=== PATIENT | female | born 1945 | race African-American/Black ===

== ENCOUNTER → 2016-10-10 | Outpatient (CLI) | payer MEDICARE ==
[2016-10-10 15:13] LABS: HEMATOCRIT 30.4 % (36.0-47.0); HEMOGLOBIN 9.4 g/dL (12.0-15.5); HGB HCT DIFFERENCE -2.2; MEAN CORPUSCULAR HEMOGLOBIN 25.3 pg (27.0-33.4); MEAN CORPUSCULAR HGB CONC 30.9 g/dL (32.0-36.0); MEAN CORPUSCULAR VOLUME 82 fl (80-97); RED BLOOD COUNT 3.72 10^6/uL (3.72-5.28); RED CELL DISTRIBUTION WIDTH 15.7 % (11.5-14.0); WHITE BLOOD COUNT 7.2 10^3/uL (4.0-10.5)
[2016-10-10 15:31] LABS: ANION GAP 15 (5-19); BLOOD UREA NITROGEN 35 mg/dL (7-20); CALCIUM 8.5 mg/dL (8.4-10.2); CARBON DIOXIDE 21 mmol/L (22-30); CHLORIDE 112 mmol/L (98-107); CREATININE RESULT 1.79 mg/dL (0.52-1.25); GLUCOSE 152 mg/dL (75-110); POTASSIUM 4.4 mmol/L (3.6-5.0); SODIUM 147.6 mmol/L (137-145)
[2016-10-12 15:18] LABS: APPEARANCE,URINE CLEAR; BILIRUBIN,URINE NEGATIVE (NEGATIVE); GLUCOSE, URINE NEGATIVE (NEGATIVE); KETONES,URINE NEGATIVE (NEGATIVE); LEUKOCYTE ESTERASE,URINE NEGATIVE (NEGATIVE); NITRITE,URINE NEGATIVE (NEGATIVE); PROTEIN,URINE 100 mg/dL (NEGATIVE); URINE SPECIFIC GRAVITY 1.012; UROBILINOGEN,URINE NEGATIVE mg/dL (<2.0)
== END ==
LOC: OD 14:26
PROVIDERS: ATTEND Internal Medicine Nephrology
DX: E11.22 Type 2 diabetes mellitus with diabetic chronic kidney disease (principal); I12.9 Hypertensive chronic kidney disease with stage 1 through stage 4 chronic kidney disease, or unspecified chronic kidney disease; N18.4 Chronic kidney disease, stage 4 (severe); D64.9 Anemia, unspecified
CPT/HCPCS: 36415; 80048; 81001; 85027

== ENCOUNTER → 2016-11-15 | Outpatient (CLI) | payer MEDICARE ==
[2016-11-15 17:14] LABS: HEMATOCRIT 33.4 % (36.0-47.0); HEMOGLOBIN 10.7 g/dL (12.0-15.5); HGB HCT DIFFERENCE -1.3; MEAN CORPUSCULAR HEMOGLOBIN 25.5 pg (27.0-33.4); MEAN CORPUSCULAR HGB CONC 32.2 g/dL (32.0-36.0); MEAN CORPUSCULAR VOLUME 79 fl (80-97); RED BLOOD COUNT 4.21 10^6/uL (3.72-5.28); RED CELL DISTRIBUTION WIDTH 14.5 % (11.5-14.0); WHITE BLOOD COUNT 6.8 10^3/uL (4.0-10.5)
[2016-11-15 17:36] LABS: ANION GAP 13 (5-19); BLOOD UREA NITROGEN 34 mg/dL (7-20); CALCIUM 9.5 mg/dL (8.4-10.2); CARBON DIOXIDE 24 mmol/L (22-30); CHLORIDE 109 mmol/L (98-107); CREATININE RESULT 1.62 mg/dL (0.52-1.25); GLUCOSE 101 mg/dL (75-110); POTASSIUM 3.9 mmol/L (3.6-5.0); SODIUM 145.7 mmol/L (137-145)
== END ==
LOC: OD 16:07
PROVIDERS: ATTEND Internal Medicine Nephrology
DX: I12.9 Hypertensive chronic kidney disease with stage 1 through stage 4 chronic kidney disease, or unspecified chronic kidney disease (principal); N18.4 Chronic kidney disease, stage 4 (severe); D64.9 Anemia, unspecified; E11.9 Type 2 diabetes mellitus without complications; R80.9 Proteinuria, unspecified
CPT/HCPCS: 36415; 80048; 82728; 83540; 83550; 85027

== ENCOUNTER → 2016-11-27 | Outpatient (CLI) | payer MEDICARE ==
[2016-11-27 15:49] LABS: HEMATOCRIT 32.8 % (36.0-47.0); HEMOGLOBIN 10.6 g/dL (12.0-15.5); MEAN CORPUSCULAR HEMOGLOBIN 25.4 pg (27.0-33.4); MEAN CORPUSCULAR HGB CONC 32.5 g/dL (32.0-36.0); MEAN CORPUSCULAR VOLUME 78 fl (80-97); RED BLOOD COUNT 4.19 10^6/uL (3.72-5.28); RED CELL DISTRIBUTION WIDTH 14.6 % (11.5-14.0); WHITE BLOOD COUNT 6.5 10^3/uL (4.0-10.5)
== END ==
LOC: OD 15:02
PROVIDERS: ATTEND Internal Medicine Nephrology
DX: N18.4 Chronic kidney disease, stage 4 (severe) (principal); D63.1 Anemia in chronic kidney disease
CPT/HCPCS: 36415; 82728; 83540; 83550; 85027

== ENCOUNTER 2017-02-01 07:25 | Emergency (ER) | payer MEDICARE ==
[2017-02-01] MEDS ORDERED: LORAZEPAM INJ 2 MG/1 ML VIAL ONE (07:43)
[2017-02-01] MEDS ORDERED: INSULIN REG, HUMAN 100 UNIT/ML 3 ML VIAL (PYX) ONE (07:48)
--- NOTE | 2017-02-01 07:48 | ER Document Report ---
ED General - General Chief Complaint: High Blood Sugar Stated Complaint: BLOOD SUGAR CONCERNS Time Seen by Provider: 02/01/17 07:34 Mode of Arrival: Medic Information source: Emergency Med Personnel, [facility] Records Notes: This is a 71-year-old female with a history of chronic kidney disease, diabetes , pulmonary hypertension. The patient is brought in by EMS after being found on the floor. EMS states that the patient was combative and that the blood sugar was "high". Her blood pressure in the field was 182/110. She was tachycardic with a heart rate of 1:30 and tachypnea with a respiratory rate of 28-32. In the emergency room, while I was at the bedside, patient was noted to have a generalized tonic-clonic seizure. Accu-Chek at the bedside and the ER reads "high". History as per the patient's daughter who was at home today: The patient has felt well up until last night. This morning she called her daughter into the room and her daughter found her on the floor. Her daughter was trying to get her off the floor when the patient had a generalized tonic- clonic seizure. TRAVEL OUTSIDE OF THE [place] IN LAST 30 DAYS: No - HPI Onset: Other - Last night Onset/Duration: Sudden Quality of pain: No pain Severity: None Pain Level: Denies Associated symptoms: denies: Chills, Nonproductive cough, Productive cough, Fever, Shortness of breath Exacerbated by: Denies Relieved by: Denies Similar symptoms previously: Yes Recently seen / treated by doctor: No - Related Data Allergies/Adverse Reactions: No Known Allergies Allergy (Unverified 01/03/11 00:32) Past Medical History - General Information source: Relative - Patient's daughter, Emergency Med Personnel - Social History Smoking Status: Never Smoker Cigarette use (# per day): No Chew tobacco use (# tins/day): No Frequency of alcohol use: None Drug Abuse: None Lives with: Family Family History: Reviewed & Not Pertinent Patient has suicidal ideation: No Patient has homicidal ideation: No - Past Medical History Cardiac Medical History: Reports: Hx Heart Attack, Hx Hypercholesterolemia, Hx Hypertension Pulmonary Medical History: Reports: None Denies: Hx Tuberculosis Neurological Medical History: Reports: Hx Cerebrovascular Accident. Denies: Hx Seizures Endocrine Medical History: Reports: Hx Diabetes Mellitus Type 2 - uncontrolled Renal/ Medical History: Reports: Other - Chronic kidney disease Malignancy Medical History: Reports: None GI Medical History: Reports: None Musculoskeltal Medical History: Reports None Skin Medical History: Denies Hx MRSA Psychiatric Medical History: Denies: Hx Depression Traumatic Medical History: Reports: None Infectious Medical History: Reports: None Past Surgical History: Reports: Hx Section, Hx Hysterectomy. Denies: Hx Pacemaker - Immunizations Hx Pneumococcal Vaccination: 10/25/10 Review of Systems - Review of Systems Constitutional: denies: Chills, Fever EENT: No symptoms reported Cardiovascular: No symptoms reported Respiratory: See HPI Gastrointestinal: No symptoms reported Genitourinary: No symptoms reported Female Genitourinary: No symptoms reported Musculoskeletal: No symptoms reported Skin: No symptoms reported Hematologic/Lymphatic: No symptoms reported Neurological/Psychological: See HPI Physical Exam - Vital signs Vitals: Pulse Ox 100 02/01/17 07:27 Notes: Physical exam: GENERAL: 71-year-old female, obtunded. Patient did have a generalized tonic- clonic seizure with tongue biting while I was present. She is hypertensive. HEAD: Atraumatic, normocephalic. EYES: Pupils equal round and reactive to light, extraocular movements intact, sclera anicteric, conjunctiva are normal. ENT: TMs normal, nares patent, oropharynx clear without exudates. Moist mucous membranes. NECK: Normal range of motion, supple without lymphadenopathy or JVD. LUNGS: Breath sounds clear to auscultation bilaterally and equal. No wheezes rales or rhonchi. HEART: Regular rate and rhythm without murmurs, rubs or gallops. ABDOMEN: Soft, normoactive bowel sounds. No tenderness to palpation. No guarding, no rebound. No masses appreciated. EXTREMITIES: Normal range of motion, no pitting or edema. No clubbing or cyanosis. NEUROLOGICAL: Moving all extremities. Obtunded. Generalized tonic-clonic activity noted. SKIN: Warm, Dry, normal turgor, no rashes or lesions noted. Course - Re-evaluation Re-evalutation: 02/01/17 11:07 Note: The patient has had 2 generalized tonic-clonic seizures without a lucid interval in the setting of hyperglycemia hyperosmolar syndrome. She was noted to have marked elevation in her blood pressure and was in CT when I was called into CT because of respiratory difficulty. Patient was intubated for respiratory failure/airway protection. Right femoral central line was performed under sterile technique with the use of ultrasound. Two ports (the red and the white) are able to be flushed. I was unable to flush the blue port: I would hold off from using the blue port. 02/01/17 11:09 Currently, patient is intubated. O2 sats are 100%. Oxygen concentration saturation 40%. Tidal volume 500, IMV 12, PEEP 5. Chest x-ray shows tube in the right mainstem bronchus. Respiratory called to move back tube. 02/01/17 11:09 02/01/17 12:14 Problem list: Seizures: Patient had 2 seizures without a lucid interval and then required intubation for respiratory failure. It is possible that she is in status. She was given IV Ativan. She is currently on a ventilator. In speaking with the family, they report that she has had seizure in the past in relation to an elevated blood sugar. The hospital records show that she has hyperglycemia hyperosmolar syndrome in the past. The head CT shows no acute bleed no obvious stroke. Consider EEG in the unit. Hyperglycemia hyperosmolar state: Patient is currently on 0.14 units per kg of insulin. A bolus of insulin was given after 1 hour after the repeat glucose was still quite high. Patient is getting IV fluids. Patient is getting IV potassium. Lactic acidosis: [place] most likely due to recurrent seizures. Patient is getting IV fluids. There is no obvious source of infection at this point. Patient was given IV Zosyn and has had blood and urine cultures. Hypertensive emergency: Patient's blood pressure has been quite labile. It has initially come down with propofol and we will wean the propofol down (because of the blood pressure), began elevate. We'll closely monitor. Ventilator: Tidal volume 500, people 5, SIMV 12 at 40% Access: 2 peripheral lines, left femoral central line (2 ports working at this time). Discussed case with Dr. Cunningham at [facility] who has accepted patient 02/01/17 16:38 - Vital Signs Vital signs: Temp Pulse Resp BP Pulse Ox 99.3 F 19 129/67 H 100 02/01/17 12:46 02/01/17 12:46 02/01/17 12:46 02/01/17 12:46 - Laboratory Result Diagrams: 02/01/17 07:30 02/01/17 11:00 Laboratory results interpreted by me: 02/01/17 02/01/17 02/01/17 07:30 07:30 07:30 MCH 24.8 L MCHC 30.3 L RDW 14.9 H Plt Count 132 L VBG pH VBG HCO3 Sodium 136.6 L Potassium 3.4 L Chloride 95 L Carbon Dioxide 19 L Anion Gap 23 H BUN 34 H Creatinine 2.38 H Est GFR ( Amer) 24 L Est GFR (Non-Af Amer) 20 L Glucose 967 H* POC Glucose Serum Osmolality Lactic Acid Alkaline Phosphatase 185 H Creatine Kinase 278 H CK-MB (CK-2) 5.18 H Urine Protein Urine Glucose (UA) Urine Blood 02/01/17 02/01/17 02/01/17 07:30 08:54 09:55 MCH MCHC RDW Plt Count VBG pH 7.21 L VBG HCO3 18.1 L Sodium Potassium Chloride Carbon Dioxide Anion Gap BUN Creatinine Est GFR ( Amer) Est GFR (Non-Af Amer) Glucose POC Glucose Serum Osmolality 342 H Lactic Acid Alkaline Phosphatase Creatine Kinase CK-MB (CK-2) Urine Protein 100 H Urine Glucose (UA) >=500 H Urine Blood MODERATE H 02/01/17 02/01/17 02/01/17 09:55 11:00 12:56 MCH MCHC RDW Plt Count VBG pH VBG HCO3 Sodium Potassium 3.5 L Chloride Carbon Dioxide 20 L Anion Gap 20 H BUN 34 H Creatinine 2.23 H Est GFR ( Amer) 26 L Est GFR (Non-Af Amer) 22 L Glucose 857 H* POC Glucose > 550 H* Serum Osmolality Lactic Acid 7.0 H Alkaline Phosphatase Creatine Kinase CK-MB (CK-2) Urine Protein Urine Glucose (UA) Urine Blood - Diagnostic Test Radiology reviewed: Image reviewed, Reports reviewed - Chest x-ray shows no obvious infiltrates. ET tube in the right mainstem bronchus (will be removed). - EKG Interpretation by Me Rate: Tachycardia - EKG shows sinus tachycardia with a ventricular rate of 122, left axis deviation, LVH with strain. No significant change compared to EKG Procedures - Central Line Left Femoral Time completed: 10:00 Consent obtained: Yes - verbal consent obtained from family Central line pre-insertion: Sterile PPE donned, Chloraprep applied, Sterile drapes applied Central line size (Fr.): 16 Central line lumen type: Triple Anesthetic type: 1% Lidocaine mL's of anesthesia: 4 Ultrasound guided: Yes CM at insertion site: 20 Line secured with sutures: Yes Central line post-insertion: Biopatch applied, Sutured, Sterile dressing applied , Other - Blood was returned from the red and white lumens. I was unable to get return of blood from the blue port. Number of attempts: 2 Complications: No Notes: 02/01/17 16:41 2 ports patent (the red and white port are good). - Intubation Orotracheal Time of Intubation: 10:00 Airway evaluation: Abnormal 3-3-2 rule, Large tongue, Obese Mallampati Classification: Class 1 Medications: Etomidate, Succinylcholine, Other - Carlos Andrez and Intubation method: Orotracheal Blade size: 3 Equipment used: Glidescope ETT size: 7.5 ETT secured at: Lips ETT secured at (cm): 23 Breath Sounds after Intubation: Equal End tidal CO2 confirmed: Yes Ventilator settings: SIMV Post Intubation Xray: Yes - tube in the right mainstem bronchus: Will be pulled back Intubation Complications: No complications Critical Care Note - Critical Care Note Total time excluding time spent on procedures (mins): 120 Discharge - Discharge Clinical Impression: hyperglycemia hyperosmolar state, seizures, hypertensive emergency Condition: Critical Disposition: [facility] Referrals: Americo FLORES MD [Primary Care Provider] - Follow up as needed
[2017-02-01] MEDS ORDERED: LORAZEPAM INJ 2 MG/1 ML VIAL IV ONE ×3 (07:50→08:44)
[2017-02-01] MEDS ORDERED: ETOMIDATE INJ/PF 20 MG/10 ML SDV IV ONE ×2 (07:56→08:30)
[2017-02-01] MEDS ORDERED: PROPOFOL 100 ML IV ONE (07:56)
[2017-02-01 07:59] LABS: VENOUS BLOOD BASE EXCESS -9.6 mmol/L; VENOUS BLOOD HCO3 18.1 mmol/L (20-32); VENOUS BLOOD PCO2 46.3 mmHg (35-63); VENOUS BLOOD PH 7.21 (7.30-7.42)
[2017-02-01 08:02] LABS: ABSOLUTE BASOPHILS # (AUTO) 0.1 10^3/uL (0.0-0.2); ABSOLUTE LYMPHOCYTES (AUTO) 1.6 10^3/uL (0.5-4.7); ABSOLUTE MONOCYTES (AUTO) 0.6 10^3/uL (0.1-1.4); ABSOLUTE NEUT (AUTO) 6.9 10^3/uL (1.7-8.2); BASOPHILS % (AUTO) 1.3 % (0-2); EOSINOPHILS % (AUTO) 0.5 % (0-6); HEMATOCRIT 39.8 % (36.0-47.0); HGB HCT DIFFERENCE -3.8; LYMPHOCYTES % (AUTO) 17.4 % (13-45); MEAN CORPUSCULAR HEMOGLOBIN 24.8 pg (27.0-33.4); MEAN CORPUSCULAR HGB CONC 30.3 g/dL (32.0-36.0); MEAN CORPUSCULAR VOLUME 82 fl (80-97); MONOCYTES % (AUTO) 6.9 % (3-13); RED BLOOD COUNT 4.86 10^6/uL (3.72-5.28); RED CELL DISTRIBUTION WIDTH 14.9 % (11.5-14.0); SEGMENTED NEUTROPHILS % (AUTO) 73.9 % (42-78); WHITE BLOOD COUNT 9.3 10^3/uL (4.0-10.5)
[2017-02-01 08:17] LABS: ALANINE AMINOTRANSFERASE 29 U/L (9-52); ALBUMIN 3.6 g/dL (3.5-5.0); ALKALINE PHOSPHATASE 185 U/L (38-126); ASPARTATE AMINO TRANSFERASE 34 U/L (14-36); BILIRUBIN,DIRECT 0.3 mg/dL (0.0-0.4); BILIRUBIN,TOTAL 0.4 mg/dL (0.2-1.3); BLOOD UREA NITROGEN 34 mg/dL (7-20); CALCIUM 9.1 mg/dL (8.4-10.2); CARBON DIOXIDE 19 mmol/L (22-30); CHLORIDE 95 mmol/L (98-107); CREATINE KINASE 278 U/L (30-135); CREATININE RESULT 2.38 mg/dL (0.52-1.25); POTASSIUM 3.4 mmol/L (3.6-5.0); SODIUM 136.6 mmol/L (137-145); TOTAL PROTEIN 6.8 g/dL (6.3-8.2)
[2017-02-01 08:28] LABS: CREATINE KINASE MB 5.18 ng/mL (<4.55)
[2017-02-01] MEDS ORDERED: INSULIN REG, HUMAN 100 UNIT/ML 3 ML VIAL (PYX) IV ONE ×2 (08:28→11:42)
[2017-02-01] MEDS ORDERED: PROPOFOL 100 ML IV PRN (08:30)
[2017-02-01] MEDS ORDERED: SUCCINYLCHOLINE CHLORIDE INJ 200 MG/10 ML VIAL IV ONE (08:30)
[2017-02-01 08:31] LABS: ANION GAP 23 (5-19); GLUCOSE 967 mg/dL (75-110); TROPONIN I 0.087 ng/mL
[2017-02-01] MEDS ORDERED: NORMAL SALINE 500 ML IV PRN (08:31)
[2017-02-01] MEDS ORDERED: ROCURONIUM BROMIDE INJ 50 MG/5 ML VIAL IV ONE ×2 (09:00→14:36)
[2017-02-01 09:16] LABS: APPEARANCE,URINE SLIGHTLY-CLOUDY; BILIRUBIN,URINE NEGATIVE (NEGATIVE); GLUCOSE, URINE >=500 mg/dL (NEGATIVE); KETONES,URINE NEGATIVE (NEGATIVE); LEUKOCYTE ESTERASE,URINE NEGATIVE (NEGATIVE); NITRITE,URINE NEGATIVE (NEGATIVE); PROTEIN,URINE 100 mg/dL (NEGATIVE); URINE SPECIFIC GRAVITY 1.018; UROBILINOGEN,URINE NEGATIVE mg/dL (<2.0)
[2017-02-01] MEDS ORDERED: NORMAL SALINE 1000 ML 1,000 ML IV PRN (10:35)
[2017-02-01 11:22] LABS: BLOOD UREA NITROGEN 34 mg/dL (7-20); CARBON DIOXIDE 20 mmol/L (22-30); CHLORIDE 98 mmol/L (98-107); CREATININE RESULT 2.23 mg/dL (0.52-1.25); POTASSIUM 3.5 mmol/L (3.6-5.0)
[2017-02-01 11:40] LABS: ANION GAP 20 (5-19); SODIUM 137.5 mmol/L (137-145)
[2017-02-01 11:41] LABS: GLUCOSE 857 mg/dL (75-110)
[2017-02-01] MEDS ORDERED: PIPERACILLIN/TAZOBACTAM 3.375 GM VIAL IV ONE (11:44)
[2017-02-01] MEDS ORDERED: POTASSI CL 20 MEQ/50 ML RIDER 50 ML IV SCH (11:45)
[2017-02-01 12:59] VITALS: BP 129/67
--- NOTE | 2017-02-01 13:51 | EKG REPORT ---
SEVERITY:- ABNORMAL ECG - SINUS TACHYCARDIA NITHYA, CONSIDER BIATRIAL ABNORMALITIES LVH WITH SECONDARY REPOLARIZATION ABNORMALITY : Confirmed by: Eric Steve 01-Feb-2017 13:50:52
[2017-02-01] MEDS ORDERED: SUCCINYLCHOLINE CHLORIDE INJ 200 MG/10 ML VIAL ONE (14:36)
== END 2017-02-01 13:10 | disposition short-term general hospital (02) ==
LOC: ER 07:25
PROC: 06HN33Z Insertion of Infusion Device into Left Femoral Vein, Percutaneous Approach (ICD-10-PCS; principal; 2017-02-01)
PROC: 0BH17EZ Insertion of Endotracheal Airway into Trachea, Via Natural or Artificial Opening (ICD-10-PCS; 2017-02-01)
DX: E11.65 Type 2 diabetes mellitus with hyperglycemia (principal); E11.00 Type 2 diabetes mellitus with hyperosmolarity without nonketotic hyperglycemic-hyperosmolar coma (NKHHC); R56.9 Unspecified convulsions; I16.0 Hypertensive urgency; E78.00 Pure hypercholesterolemia, unspecified; E11.22 Type 2 diabetes mellitus with diabetic chronic kidney disease; I12.9 Hypertensive chronic kidney disease with stage 1 through stage 4 chronic kidney disease, or unspecified chronic kidney disease; N18.9 Chronic kidney disease, unspecified; Z86.73 Personal history of transient ischemic attack (TIA), and cerebral infarction without residual deficits; Z90.710 Acquired absence of both cervix and uterus; I25.2 Old myocardial infarction; Z79.4 Long term (current) use of insulin
CPT/HCPCS: 93005; 96376; 99291; 99292; 96361; 51702; 96375; 96365; 36415; 87040; 87086; 82553; 82962; 82550; 83930; 85025; 85610; 87077; 80048; 80053; 81001; 84484; 82803; 83605; 71010; 70450; 72125; 93010; 36556; 31500; C1751; J3490 ×2; J2704; J2060; A9270; J0330; J7030; J2543; J1815

== ENCOUNTER → 2017-02-26 | Outpatient (CLI) | payer MEDICARE ==
--- NOTE | 2017-02-26 15:41 | WOMENS IMAGING REPORT ---
EXAM DESCRIPTION: BILAT SCREENING MAMMO W/CAD COMPLETED DATE/TIME: 02/26/2017 3:10 pm REASON FOR STUDY: ROUTINE SCREENING; Z12.31 Z12.31 ENCNTR SCREEN MAMMOGRAM FOR MALIGNANT NEOPLASM O F CATRINA COMPARISON: Multiple since 2009 TECHNIQUE: Standard craniocaudal and mediolateral oblique views of each breast recorded using [employer] acquisition. LIMITATIONS: None. FINDINGS: Findings present which are benign by mammographic criteria. No suspicious masses, calcifi cations or architectural distortion. Pertinent benign findings: Stable benign-appearing breast parenchymal and vascular calcifications eric aterally Read with the assistance of CAD. .[facility] - R2 Cenova Version 1.3 .[facility] Imaging - R2 Cenova Version 1.3 .[facility] Imaging - R2 Cenova Version 2.4 .[facility] - R2 Cenova Version 2.4 .[facility] - R2 [employer] Version 9.2 Benign mammographic findings may include one or more of the following: Smooth masses, popcorn/rim/co arse calcifications, asymmetries, post-procedure changes, and lesions with long-standing stability. IMPRESSION: BENIGN MAMMOGRAPHIC FINDINGS. BIRADS 2 BREAST DENSITY: c. The breasts are heterogeneously dense, which may obscure small masses. BIRAD: 2 BENIGN FINDING(S) RECOMMENDATION: ROUTINE SCREENING COMMENT: The patient has been notified of the results by letter per MQSA requirements. Additional no tification policies are in place for contacting patient with suspicious or incomplete findings. Quality ID #225: The [employer] recommends an annual screening mammogram for women aged 40 years or over. This facility utilizes a reminder system to ensure that all patients receive reminder letters, and/or direct phone calls for appointments. This includes reminders for routine scr eening mammograms, diagnostic mammograms, or other Breast Imaging Interventions when appropriate. Th is patient will be placed in the appropriate reminder system. The [employer] (ACR) has developed recommendations for screening MRI of the breast s in certain patient populations, to be used in conjunction with mammography. Breast MRI surveillanc e may be appropriate for women with more than 20% lifetime risk of developing breast cancer as deter mined by genetic testing, significant family history of the disease, or history of mantle radiation f or Hodgkins Disease. ACR Practice Guidelines 2008. TECHNICAL DOCUMENTATION: FINDING NUMBER: (1) ASSESSMENT: (1) JOB ID: [id number] [employer]- All Rights Reserved
== END ==
LOC: WI 14:36
PROVIDERS: ATTEND Internal Medicine
DX: Z12.31 Encounter for screening mammogram for malignant neoplasm of breast (principal)
CPT/HCPCS: 77067; G0202

== ENCOUNTER → 2017-03-12 | Outpatient (CLI) | payer MEDICARE ==
[2017-03-12 11:22] LABS: HEMATOCRIT 34.2 % (36.0-47.0); HEMOGLOBIN 10.9 g/dL (12.0-15.5); HGB HCT DIFFERENCE -1.5; MEAN CORPUSCULAR HEMOGLOBIN 24.6 pg (27.0-33.4); MEAN CORPUSCULAR HGB CONC 31.8 g/dL (32.0-36.0); MEAN CORPUSCULAR VOLUME 77 fl (80-97); RED BLOOD COUNT 4.43 10^6/uL (3.72-5.28); RED CELL DISTRIBUTION WIDTH 15.5 % (11.5-14.0); WHITE BLOOD COUNT 6.2 10^3/uL (4.0-10.5)
[2017-03-12 11:57] LABS: ANION GAP 14 (5-19); BLOOD UREA NITROGEN 53 mg/dL (7-20); CALCIUM 8.7 mg/dL (8.4-10.2); CARBON DIOXIDE 26 mmol/L (22-30); CHLORIDE 106 mmol/L (98-107); GLUCOSE 136 mg/dL (75-110); POTASSIUM 4.4 mmol/L (3.6-5.0)
== END ==
LOC: OD 10:05
PROVIDERS: ATTEND Internal Medicine Nephrology
DX: I12.9 Hypertensive chronic kidney disease with stage 1 through stage 4 chronic kidney disease, or unspecified chronic kidney disease (principal); N18.4 Chronic kidney disease, stage 4 (severe); R80.9 Proteinuria, unspecified; D64.9 Anemia, unspecified
CPT/HCPCS: 36415; 80048; 82728; 83540; 83550; 85027

== ENCOUNTER 2017-04-12 10:21 | Day surgery (SDC) | payer MEDICARE ==
[~2017-04-12 10:21] MED LIST: BUPIVACAINE HCL 0.75% INJ/PF (7.5 MG/1 ML) 10 ML SDV OS PRN; CHONDR SU A NA/HYALUR INTRAOC KIT (SURGICARE) ONE; EPINEPHRINE INJ/PF 1 MG/1 ML AMPULE ONE; KETOROLAC TROMETHAMINE 0.45% 4 DROP/0.4 ML DROPERETTE OS PRN; LIDOCAINE 1% INJ-PF (10 MG/ML) 30 ML SDV ONE; MIDAZOLAM 2 MG/2 ML INJ ONE; PHENYLEPHRINE/KETOROLAC 1%-0.3% 4 ML VIAL ONE; TRYPAN BLUE 0.06 % OPH SOLN 0.5 ML DISP.SYRIN ONE
[2017-04-12] MEDS: CYCLOPENTOLATE 0.2%/PHENYLEPHRINE 1% OPH SOLN 2 ML OS PRN ×3 (10:47→10:58)
[2017-04-12] MEDS: TETRACAINE HCL 0.5% OPH SOLN 2 ML OS PRN ×3 (10:47→11:09)
[2017-04-12] MEDS: TROPICAMIDE 1% OPH SOLN 3 ML OS PRN ×3 (10:47→10:58)
[2017-04-12] MEDS: BESIFLOXACIN HCL 0.6% OPH SUSP 5 ML BOTTLE OS PRN ×3 (10:47→11:29)
--- NOTE | 2017-04-12 21:39 | [facility] OPERATIVE REPORT E ---
[facility] Operative Report NAME: NELSON WISE AGE: 71Y DATE OF SURGERY: 04/12/2017 ROOM: PREOPERATIVE DIAGNOSIS: Cataract, left eye. POSTOPERATIVE DIAGNOSIS: Cataract, left eye. OPERATION: Cataract extraction with intraocular lens implant of the left eye. SURGEON: YAKELIN TORRES M.D. ANESTHESIA: Topical. PROCEDURE: After obtaining appropriate consent, the patient's left eye was prepped and draped in sterile fashion as well as the surgeon in a sterile manner and cataract surgery was started. First a paracentesis blade was used to make a small side-port incision. Viscoelastic was used to inflate the anterior chamber. Next a 2.4 mm incision was made with the paracentesis blade. A continuous capsulorrhexis incision was made using a cystotome and Utrata forceps. Following this hydrodissection was carried out to make the lens fully loose and mobile and it was rotated 90 degrees. Following this, a ivdnec-tng-cutyelo technique was used to phacoemulsify the lens with a CDE of 44.9. The remaining cortex was removed with irrigation/aspiration. Provisc was instilled into the capsular bag to inflate the bag. A SN60WF, 22.0 diopter lens was placed. The remaining viscoelastic material was removed with irrigation/aspiration. Following this, a 10-0 nylon suture was used to close the incision and it was found to be watertight. Vigamox was instilled in the eye and a protective shield was placed over the eye. The patient returned to the postoperative recovery in stable condition. DICTATING PHYSICIAN: YAKELIN TORRES M.D. [id number] PHY#: [id number] ID: [id number] JOB#: [id number] ACCT: [id number] cc:YAKELIN TORRES M.D. >
--- NOTE | 2017-04-12 21:50 | [facility] DISCHARGE SUMMARY E ---
[facility] Discharge Summary NAME: NELSON WISE AGE: 71Y ADMITTED: 04/12/2017 DISCHARGED: 04/12/2017 HISTORY OF PRESENT ILLNESS AND HOSPITAL COURSE: This is a 71-year-old female who underwent cataract extraction of the left eye. DIAGNOSIS: Cataract, left eye. HOSPITAL COURSE: She underwent surgery because she was having trouble reading small print. DISCHARGE INSTRUCTIONS: 1. She should be on a regular diet. 2. No bending at her waist and no heavy lifting. 3. She should use her Besivance, Ilevro, and Durezol at 3 p.m. and 8 p.m. and sleep with a rigid shield. 4. I will see her for a one-day postoperative tomorrow. DICTATING PHYSICIAN: YAKELIN TORRSE M.D. [id number] PHY#: [id number] ID: [id number] JOB#: [id number] ACCT: [id number] cc:YAKELIN TORRES M.D. >
--- NOTE | 2017-04-12 21:50 | [facility] DISCHARGE SUMMARY E ---
[facility] Discharge Summary NAME: NELSON WISE AGE: 71Y ADMITTED: 04/12/2017 DISCHARGED: 04/12/2017 PREOPERATIVE DIAGNOSIS: Cataract, left eye. POSTOPERATIVE DIAGNOSIS: Cataract, left eye. OPERATION: Cataract extraction with intraocular lens implant of the left eye. SURGEON: YAKELIN TORRES M.D. ANESTHESIA: Topical. PROCEDURE: After obtaining appropriate consent, the patient's left eye was prepped and draped in sterile fashion as well as the surgeon in a sterile manner and cataract surgery was started. First a paracentesis blade was used to make a small side-port incision. Viscoelastic was used to inflate the anterior chamber. Next a 2.4 mm incision was made with the paracentesis blade. A continuous capsulorrhexis incision was made using a cystotome and Utrata forceps. Following this hydrodissection was carried out to make the lens fully loose and mobile and it was rotated 90 degrees. Following this, a reywrb-zum-trrsepi technique was used to phacoemulsify the lens with a CDE of 44.9. The remaining cortex was removed with irrigation/aspiration. Provisc was instilled into the capsular bag to inflate the bag. A SN60WF, 22.0 diopter lens was placed. The remaining viscoelastic material was removed with irrigation/aspiration. Following this, a 10-0 nylon suture was used to close the incision and it was found to be watertight. Vigamox was instilled in the eye and a protective shield was placed over the eye. The patient returned to the postoperative recovery in stable condition. DICTATING PHYSICIAN: YAKELIN TORRES M.D. [id number] PHY#: [id number] ID: [id number] JOB#: [id number] ACCT: [id number] cc:YAKELIN TORRES M.D. >
== END 2017-04-12 12:14 | disposition home or self-care (01) ==
LOC: SC 10:21
PROVIDERS: ATTEND Internal Medicine
PROC: 08RK3JZ Replacement of Left Lens with Synthetic Substitute, Percutaneous Approach (ICD-10-PCS; principal; 2017-04-12 11:30)
DX: H25.89 Other age-related cataract (principal); Z86.73 Personal history of transient ischemic attack (TIA), and cerebral infarction without residual deficits; E11.9 Type 2 diabetes mellitus without complications; D64.9 Anemia, unspecified; I10 Essential (primary) hypertension; E66.9 Obesity, unspecified; Z79.4 Long term (current) use of insulin; Z79.02 Long term (current) use of antithrombotics/antiplatelets; Z79.82 Long term (current) use of aspirin; I25.2 Old myocardial infarction; Z68.38 Body mass index [BMI] 38.0-38.9, adult
CPT/HCPCS: 66984; 82962; V2632; J2250; J3490 ×2; A9270; J0171; 142; C9447

== ENCOUNTER 2017-05-03 08:22 | Day surgery (SDC) | payer MEDICARE ==
[~2017-05-03 08:22] MED LIST changes: -BUPIVACAINE HCL 0.75% INJ/PF (7.5 MG/1 ML) 10 ML SDV OS PRN; +KETOROLAC TROMETHAMINE 0.45% 4 DROP/0.4 ML DROPERETTE OD PRN; -KETOROLAC TROMETHAMINE 0.45% 4 DROP/0.4 ML DROPERETTE OS PRN; -MIDAZOLAM 2 MG/2 ML INJ ONE; -PHENYLEPHRINE/KETOROLAC 1%-0.3% 4 ML VIAL ONE; -TRYPAN BLUE 0.06 % OPH SOLN 0.5 ML DISP.SYRIN ONE
[2017-05-03] MEDS: BESIFLOXACIN HCL 0.6% OPH SUSP 5 ML BOTTLE OD PRN ×3 (08:51→09:39)
[2017-05-03] MEDS: TROPICAMIDE 1% OPH SOLN 3 ML OD PRN ×3 (08:51→09:11)
[2017-05-03] MEDS: CYCLOPENTOLATE 0.2%/PHENYLEPHRINE 1% OPH SOLN 2 ML OD PRN ×3 (08:51→09:11)
[2017-05-03] MEDS: TETRACAINE HCL 0.5% OPH SOLN 2 ML OD PRN ×3 (08:52→09:17)
[2017-05-03] MEDS ORDERED: FENTANYL CITRATE INJ/PF 100 MCG/2 ML AMPUL ONE (09:09)
[2017-05-03] MEDS ORDERED: MIDAZOLAM 2 MG/2 ML INJ ONE (09:09)
--- NOTE | 2017-05-04 07:32 | [facility] OPERATIVE REPORT E ---
[facility] Operative Report NAME: NELSON WISE AGE: 72Y DATE OF SURGERY: 05/03/2017 ROOM: PREOPERATIVE DIAGNOSIS: CATARACT, RIGHT EYE. POSTOPERATIVE DIAGNOSIS: CATARACT, RIGHT EYE. OPERATION: Cataract extraction with intraocular lens implant of the right eye. SURGEON: YAKELIN TORRES M.D. ANESTHESIA: Topical. PROCEDURE: After obtaining appropriate consent, the patient's right eye was prepped and draped in sterile fashion as well as the surgeon in a sterile manner and cataract surgery was started. First a paracentesis blade was used to make a small side-port incision. Viscoelastic was used to inflate the anterior chamber. Next a 2.4 mm incision was made with the paracentesis blade. A continuous capsulorrhexis incision was made using a cystotome and Utrata forceps. Following this hydrodissection was carried out to make the lens fully loose and mobile and it was rotated 90 degrees. Following this, a faqtef-fsh-wumzntm technique was used to phacoemulsify the lens with a CDE of 6.10. The remaining cortex was removed with irrigation/aspiration. Provisc was instilled into the capsular bag to inflate the bag. A SN60WF, 21.0 diopter lens was placed. The remaining viscoelastic material was removed with irrigation/aspiration. Following this, a 10-0 nylon suture was used to close the incision and it was found to be watertight. Vigamox was instilled in the eye and a protective shield was placed over the eye. The patient returned to the postoperative recovery in stable condition. DICTATING PHYSICIAN: YAKELIN TORRES M.D. [id number] PHY#: [id number] ID: [id number] JOB#: [id number] ACCT: [id number] cc:YAKELIN TORRES M.D. >
--- NOTE | 2017-05-04 07:37 | [facility] DISCHARGE SUMMARY E ---
[facility] Discharge Summary NAME: NELSON WISE AGE: 72Y ADMITTED: 05/03/2017 DISCHARGED: 05/03/2017 HOSPITAL COURSE: A 72-year-old female who underwent cataract extraction of the right eye, diagnosed as cataract right eye. He underwent surgery because he was having difficulty reading small print like the newspaper. He should be on a regular diet. No bending at the waist. He should use his Besivance, Ilevro, and Durezol at 3 p.m. and 8 p.m. and sleep with a rigid shield, and I will see him for one day postoperative tomorrow. DICTATING PHYSICIAN: YAKELIN TORRES M.D. [id number] PHY#: [id number] ID: [id number] JOB#: [id number] ACCT: [id number] cc:YAKELIN TORRES M.D. >
== END 2017-05-03 10:02 | disposition home or self-care (01) ==
LOC: SC 08:22
PROVIDERS: ATTEND Internal Medicine
PROC: 08RJ3JZ Replacement of Right Lens with Synthetic Substitute, Percutaneous Approach (ICD-10-PCS; principal; 2017-05-03 09:30)
DX: H25.89 Other age-related cataract (principal); Z96.1 Presence of intraocular lens; I10 Essential (primary) hypertension; E78.00 Pure hypercholesterolemia, unspecified; M10.9 Gout, unspecified; G40.909 Epilepsy, unspecified, not intractable, without status epilepticus; Z98.42 Cataract extraction status, left eye; Z86.73 Personal history of transient ischemic attack (TIA), and cerebral infarction without residual deficits; Z79.82 Long term (current) use of aspirin; Z79.899 Other long term (current) drug therapy; Z79.4 Long term (current) use of insulin; Z79.02 Long term (current) use of antithrombotics/antiplatelets
CPT/HCPCS: 66984; 82962; V2632; J2250; J3490 ×2; A9270; J0171; J3010; 142

== ENCOUNTER → 2017-05-10 | Outpatient (CLI) | payer MEDICARE ==
[2017-05-10 14:54] LABS: HEMATOCRIT 32.1 % (36.0-47.0); HEMOGLOBIN 10.5 g/dL (12.0-15.5); HGB HCT DIFFERENCE -0.6; MEAN CORPUSCULAR HEMOGLOBIN 25.6 pg (27.0-33.4); MEAN CORPUSCULAR HGB CONC 32.6 g/dL (32.0-36.0); MEAN CORPUSCULAR VOLUME 79 fl (80-97); RED BLOOD COUNT 4.09 10^6/uL (3.72-5.28); RED CELL DISTRIBUTION WIDTH 14.3 % (11.5-14.0); WHITE BLOOD COUNT 6.6 10^3/uL (4.0-10.5)
[2017-05-10 15:02] LABS: APPEARANCE,URINE CLOUDY; BILIRUBIN,URINE NEGATIVE (NEGATIVE); GLUCOSE, URINE 50 mg/dL (NEGATIVE); KETONES,URINE NEGATIVE (NEGATIVE); LEUKOCYTE ESTERASE,URINE NEGATIVE (NEGATIVE); NITRITE,URINE NEGATIVE (NEGATIVE); PROTEIN,URINE 100 mg/dL (NEGATIVE); UROBILINOGEN,URINE NEGATIVE mg/dL (<2.0)
[2017-05-10 15:07] LABS: ANION GAP 15 (5-19); BLOOD UREA NITROGEN 52 mg/dL (7-20); CALCIUM 9.4 mg/dL (8.4-10.2); CARBON DIOXIDE 24 mmol/L (22-30); CHLORIDE 106 mmol/L (98-107); CREATININE RESULT 2.34 mg/dL (0.52-1.25); GLUCOSE 267 mg/dL (75-110); POTASSIUM 4.1 mmol/L (3.6-5.0); SODIUM 144.6 mmol/L (137-145)
== END ==
LOC: OD 13:30
PROVIDERS: ATTEND Physician Assistant Medical
DX: E11.22 Type 2 diabetes mellitus with diabetic chronic kidney disease (principal); I12.9 Hypertensive chronic kidney disease with stage 1 through stage 4 chronic kidney disease, or unspecified chronic kidney disease; N18.4 Chronic kidney disease, stage 4 (severe); D63.1 Anemia in chronic kidney disease; R80.9 Proteinuria, unspecified
CPT/HCPCS: 36415; 80048; 81001; 85027

== ENCOUNTER → 2017-06-11 | Outpatient (CLI) | payer MEDICARE ==
[2017-06-11 17:25] LABS: APPEARANCE,URINE SLIGHTLY-CLOUDY; BILIRUBIN,URINE NEGATIVE (NEGATIVE); GLUCOSE, URINE NEGATIVE (NEGATIVE); KETONES,URINE NEGATIVE (NEGATIVE); LEUKOCYTE ESTERASE,URINE NEGATIVE (NEGATIVE); NITRITE,URINE NEGATIVE (NEGATIVE); PROTEIN,URINE 30 mg/dL (NEGATIVE); URINE SPECIFIC GRAVITY 1.011; UROBILINOGEN,URINE NEGATIVE mg/dL (<2.0)
[2017-06-11 17:36] LABS: HEMATOCRIT 34.7 % (36.0-47.0); HEMOGLOBIN 11.3 g/dL (12.0-15.5); HGB HCT DIFFERENCE -0.8; MEAN CORPUSCULAR HEMOGLOBIN 25.2 pg (27.0-33.4); MEAN CORPUSCULAR HGB CONC 32.5 g/dL (32.0-36.0); MEAN CORPUSCULAR VOLUME 77 fl (80-97); RED BLOOD COUNT 4.48 10^6/uL (3.72-5.28); WHITE BLOOD COUNT 7.3 10^3/uL (4.0-10.5)
[2017-06-11 17:40] LABS: ANION GAP 16 (5-19); BLOOD UREA NITROGEN 58 mg/dL (7-20); CALCIUM 9.9 mg/dL (8.4-10.2); CARBON DIOXIDE 24 mmol/L (22-30); CHLORIDE 109 mmol/L (98-107); CREATININE RESULT 2.49 mg/dL (0.52-1.25); GLUCOSE 85 mg/dL (75-110); PHOSPHORUS 4.4 mg/dL (2.5-4.5); POTASSIUM 4.8 mmol/L (3.6-5.0); SODIUM 149.1 mmol/L (137-145)
[2017-06-11 18:12] LABS: URINE CREATININE 117.8 mg/dL (15-278); URINE PROTEIN 54.7 mg/dL (<12)
== END ==
LOC: OD 15:53
PROVIDERS: ATTEND Physician Assistant Medical
DX: N18.4 Chronic kidney disease, stage 4 (severe) (principal); I12.9 Hypertensive chronic kidney disease with stage 1 through stage 4 chronic kidney disease, or unspecified chronic kidney disease; E11.9 Type 2 diabetes mellitus without complications; R80.9 Proteinuria, unspecified; D64.9 Anemia, unspecified
CPT/HCPCS: 36415; 80048; 81001; 82570; 83970; 84100; 84156; 85027

== ENCOUNTER 2017-08-14 13:39 | Inpatient (IN) | payer MEDICARE ==
--- NOTE | 2017-08-14 14:50 | ER Document Report ---
ED General - General Mode of Arrival: Ambulatory Information source: Patient TRAVEL OUTSIDE OF THE [place] IN LAST 30 DAYS: No <RAGHU HERRERA - Last Filed: 08/14/17 14:52> <LUZ SUN - Last Filed: 08/14/17 17:42> - General Chief Complaint: High Blood Pressure Stated Complaint: HIGH BLOOD PRESSURE Time Seen by Provider: 08/14/17 13:51 Notes: Patient is a 72 year old female presenting to the emergency department via EMS complaining of high blood sugar and high blood pressure. Patient states that she did not take her medications last night because she was not feeling well. Patient says she got up this morning and her grand daughter checked her blood sugar this morning and noticed it was high. Patient called EMS and they noted that her blood pressure was also high. Patient states she did take her medications this morning and is currently feeling better although not 100%. Patient has a history of TIA and HTN. (RAGHU HERRERA) Continues to complain of general malaise. (LUZ SUN) - Related Data Allergies/Adverse Reactions: No Known Allergies Allergy (Verified 05/03/17 08:46) Past Medical History - General Information source: Patient - Social History Smoking Status: Never Smoker Frequency of alcohol use: None Drug Abuse: None Family History: Reviewed & Not Pertinent Patient has suicidal ideation: No Patient has homicidal ideation: No - Past Medical History Cardiac Medical History: Reports: Hx Heart Attack - 5/6YRS AGO, Hx Hypercholesterolemia, Hx Hypertension - MEDICATED Pulmonary Medical History: Reports: Hx COPD Neurological Medical History: Reports: Hx Seizures - JANUARY 2017 3 SEIZURES IN ONE DAY RELATED TO ELEVATED BS Endocrine Medical History: Reports: Hx Diabetes Mellitus Type 2 - uncontrolled Past Surgical History: Reports: Hx Section, Hx Hysterectomy - Immunizations Hx Diphtheria, Pertussis, Tetanus Vaccination: No Hx Pneumococcal Vaccination: 10/25/10 <RAGHU HERRERA - Last Filed: 08/14/17 14:52> Review of Systems - Review of Systems Constitutional: See HPI, Other - High blood sugar and pressure EENT: No symptoms reported Cardiovascular: No symptoms reported Respiratory: No symptoms reported Gastrointestinal: No symptoms reported Genitourinary: No symptoms reported Female Genitourinary: No symptoms reported Musculoskeletal: No symptoms reported Skin: No symptoms reported Hematologic/Lymphatic: No symptoms reported Neurological/Psychological: No symptoms reported -: Yes All other systems reviewed and negative <RAGHU HERRERA - Last Filed: 08/14/17 14:52> Physical Exam <RAGHU HERRERA - Last Filed: 08/14/17 14:52> <XIMENATIMISOFYALUZ - Last Filed: 08/14/17 17:42> - Vital signs Vitals: Temp Pulse Pulse Ox 99.0 F 93 97 08/14/17 13:51 08/14/17 13:51 08/14/17 13:51 - Notes Notes: GENERAL: Alert, interacts well. No acute distress. HEAD: Normocephalic, atraumatic. EYES: Pupils equal, round, and reactive to light. Extraocular movements intact. ENT: Oral mucosa moist, tongue midline. NECK: Full range of motion. Supple. Trachea midline. LUNGS: Clear to auscultation bilaterally, no wheezes, rales, or rhonchi. No respiratory distress. HEART: Regular rate and rhythm. No murmurs, gallops, or rubs. ABDOMEN: Soft, non-tender. Non-distended. Bowel sounds present in all 4 quadrants. EXTREMITIES: Moves all 4 extremities spontaneously. No edema, radial and dorsalis pedis pulses 2/4 bilaterally. No cyanosis. NEUROLOGICAL: Alert and oriented x3. Normal speech. PSYCH: Normal affect, normal mood. SKIN: Warm, dry, normal turgor. No rashes or lesions noted. (RAGHU HERRERA) Obese (LUZ SUN) Course <RAGHU HERRERA - Last Filed: 08/14/17 14:52> - Laboratory Result Diagrams: 08/14/17 15:48 08/14/17 15:48 <MACILUZ - Last Filed: 08/14/17 17:42> - Re-evaluation Re-evalutation: 08/14/17 17:20 CBC shows anemia with hemoglobin 10.1, CMP shows chronic renal failure actually slightly improved from baseline, cardiac enzymes have an indeterminate troponin at 0.074, urinalysis shows glucose but no ketones or signs of infection, chest x -ray unremarkable, EKG is nonischemic but has nonspecific T-wave abnormalities. Patient has a history of VA 5-6 years ago. In the 72-year-old obese female with multiple cardiac risk factors I am concerned for the possibility of fatigue representing an anginal equivalent in this patient. Patient will be discussed with Dr. Madison for possible admission to his service in observation status for ACS rule out. 08/14/17 17:42 Internal medicine will continue to follow her hypertension in the hospital. ( LUZ SUN) - Vital Signs Vital signs: Temp Pulse Resp BP Pulse Ox 99.0 F 93 22 H 139/55 H 98 08/14/17 13:51 08/14/17 13:51 08/14/17 17:01 08/14/17 17:01 08/14/17 17:01 - Laboratory Laboratory results interpreted by me: 08/14/17 08/14/17 08/14/17 13:47 15:48 15:48 Hgb 10.1 L Hct 30.8 L MCV 77 L MCH 25.4 L RDW 14.3 H Sodium 146.3 H Chloride 111 H BUN 26 H Creatinine 1.84 H Est GFR ( Amer) 32 L Est GFR (Non-Af Amer) 27 L Glucose 199 H POC Glucose 259 H Total Protein 6.1 L Albumin 3.2 L Urine Protein Urine Glucose (UA) 08/14/17 16:41 Hgb Hct MCV MCH RDW Sodium Chloride BUN Creatinine Est GFR ( Amer) Est GFR (Non-Af Amer) Glucose POC Glucose Total Protein Albumin Urine Protein >=500 H Urine Glucose (UA) 50 H - EKG Interpretation by Me Additional EKG results interpreted by me: 08/14/17 17:20 EKG shows sinus rhythm at a rate of 62, left axis deviation, normal intervals, no ST segment elevations or depressions, nonspecific T-wave inversions noted in 2, 3, aVF, V4 through V6, T-wave inversions are new in 2, 3, aVF, unchanged in V4 through V6 as compared to 02/01/2017 per my interpretation. (LUZ SUN) Discharge <RAGHU HERRERA - Last Filed: 08/14/17 14:52> - Discharge Admitting Provider: Lela Unit Admitted: [facility] <LUZ SUN - Last Filed: 08/14/17 17:42> - Discharge Clinical Impression: Anginal equivalent Hypertension Qualifiers: Hypertension type: essential hypertension Qualified Code(s): I10 - Essential ( primary) hypertension Obese Qualifiers: Obesity type: unspecified obesity type Obesity classification: adult class 3 ( BMI >= 40) Serious obesity comorbidity presence: with serious comorbidity Body mass index: unspecified BMI Qualified Code(s): E66.9 - Obesity, unspecified Condition: Fair Disposition: ADMITTED OBSERVATION Referrals: ANNA MADISON MD [Primary Care Provider] - Follow up as needed Scribe Attestation: 08/14/17 17:42 I personally performed the services described in the documentation, reviewed and edited the documentation which was dictated to the scribe in my presence, and it accurately records my words and actions. (LUZ SUN) Scribe Documentation - Scribe Written by Santhosh:: Santhosh Roy, 08/14/2017 14:52 acting as scribe for :: Maci <RAGHU HERRERA - Last Filed: 08/14/17 14:52>
[2017-08-14] MEDS ORDERED: ASPIRIN 81 MG TABLET, CHEWABLE PO ONE (14:53)
--- NOTE | 2017-08-14 15:28 | RADIOLOGY REPORT (SQ) ---
EXAM DESCRIPTION: CHEST SINGLE VIEW COMPLETED DATE/TIME: 08/14/2017 3:19 pm REASON FOR STUDY: malaise, weakness COMPARISON: 02/01/2017 EXAM PARAMETERS: NUMBER OF VIEWS: One view. TECHNIQUE: Single frontal radiographic view of the chest acquired. RADIATION DOSE: NA LIMITATIONS: None. FINDINGS: LUNGS AND PLEURA: No opacities, masses or pneumothorax. No pleural effusion. MEDIASTINUM AND HILAR STRUCTURES: No masses. Contour normal. HEART AND VASCULAR STRUCTURES: Cardiomegaly. No failure. BONES: No acute findings. HARDWARE: None in the chest. OTHER: No other significant finding. IMPRESSION: Cardiomegaly. No failure. TECHNICAL DOCUMENTATION: JOB ID: [id number] [employer]- All Rights Reserved
[2017-08-14 16:00] LABS: ABSOLUTE BASOPHILS # (AUTO) 0.1 10^3/uL (0.0-0.2); ABSOLUTE LYMPHOCYTES (AUTO) 1.6 10^3/uL (0.5-4.7); ABSOLUTE MONOCYTES (AUTO) 0.9 10^3/uL (0.1-1.4); ABSOLUTE NEUT (AUTO) 7.8 10^3/uL (1.7-8.2); BASOPHILS % (AUTO) 0.7 % (0-2); EOSINOPHILS % (AUTO) 0.2 % (0-6); HEMATOCRIT 30.8 % (36.0-47.0); HEMOGLOBIN 10.1 g/dL (12.0-15.5); HGB HCT DIFFERENCE -0.5; LYMPHOCYTES % (AUTO) 15.2 % (13-45); MEAN CORPUSCULAR HEMOGLOBIN 25.4 pg (27.0-33.4); MEAN CORPUSCULAR VOLUME 77 fl (80-97); MONOCYTES % (AUTO) 9.1 % (3-13); RED BLOOD COUNT 3.99 10^6/uL (3.72-5.28); RED CELL DISTRIBUTION WIDTH 14.3 % (11.5-14.0); SEGMENTED NEUTROPHILS % (AUTO) 74.8 % (42-78); WHITE BLOOD COUNT 10.4 10^3/uL (4.0-10.5)
[2017-08-14 16:23] LABS: ALANINE AMINOTRANSFERASE 27 U/L (9-52); ALBUMIN 3.2 g/dL (3.5-5.0); ALKALINE PHOSPHATASE 83 U/L (38-126); ANION GAP 13 (5-19); ASPARTATE AMINO TRANSFERASE 17 U/L (14-36); BILIRUBIN,DIRECT 0.3 mg/dL (0.0-0.4); BILIRUBIN,TOTAL 0.4 mg/dL (0.2-1.3); BLOOD UREA NITROGEN 26 mg/dL (7-20); CALCIUM 8.6 mg/dL (8.4-10.2); CARBON DIOXIDE 22 mmol/L (22-30); CHLORIDE 111 mmol/L (98-107); CREATINE KINASE 88 U/L (30-135); CREATININE RESULT 1.84 mg/dL (0.52-1.25); GLUCOSE 199 mg/dL (75-110); POTASSIUM 4.5 mmol/L (3.6-5.0); SODIUM 146.3 mmol/L (137-145); TOTAL PROTEIN 6.1 g/dL (6.3-8.2)
[2017-08-14 16:35] LABS: CREATINE KINASE MB 0.9 ng/mL (<4.55)
[2017-08-14 16:38] LABS: TROPONIN I 0.074 ng/mL
[2017-08-14 16:56] LABS: APPEARANCE,URINE SLIGHTLY-CLOUDY; BILIRUBIN,URINE NEGATIVE (NEGATIVE); GLUCOSE, URINE 50 mg/dL (NEGATIVE); KETONES,URINE NEGATIVE (NEGATIVE); LEUKOCYTE ESTERASE,URINE NEGATIVE (NEGATIVE); NITRITE,URINE NEGATIVE (NEGATIVE); PROTEIN,URINE >=500 mg/dL (NEGATIVE); URINE SPECIFIC GRAVITY 1.015; UROBILINOGEN,URINE NEGATIVE mg/dL (<2.0)
--- NOTE | 2017-08-14 21:09 | EKG REPORT ---
SEVERITY:- ABNORMAL ECG - SINUS RHYTHM NONSPECIFIC T ABNORMALITIES, DIFFUSE LEADS : Confirmed by: Anne-Marie Chang MD 14-Aug-2017 21:09:23
[2017-08-14] MEDS ORDERED: NITROGLYCERIN/D5W 50 MG/250 ML RTUINJ IV PRN (21:24)
[2017-08-14] MEDS ORDERED: (PENDING PHARMACY ID) (Linagliptin [Tradjenta] 5 MG) PO SCH (21:30)
[2017-08-14] MEDS ORDERED: (PENDING PHARMACY ID) (Rosuvastatin Calcium [Crestor 20 Mg Tablet] 20 MG) PO SCH (22:00)
[2017-08-14] MEDS ORDERED: TRAMADOL HCL 100 MG PO SCH (22:00)
[2017-08-14 22:04] LABS: PROTHROMBIN TIME 12.4 SEC (11.4-15.4)
[2017-08-14 22:28] LABS: CREATINE KINASE MB 1.01 ng/mL (<4.55); TROPONIN I 0.062 ng/mL
[2017-08-14] MEDS ORDERED: METOPROLOL TARTRATE 50 MG TABLET PO ONE (22:30)
[2017-08-14] MEDS: CLONIDINE HCL 0.2 MG TABLET PO SCH (22:43)
[2017-08-14] MEDS: ATORVASTATIN CALCIUM 40 MG TABLET PO SCH (22:43)
[2017-08-14] MEDS: SITAGLIPTIN PHOSPHATE 50 MG TABLET PO SCH (22:43)
[2017-08-14] MEDS: CLOPIDOGREL BISULFATE 75 MG TABLET PO SCH (22:44)
[2017-08-14] MEDS: HEPARIN SOD (PORCINE) 5,000 UNIT/ML 1 ML SYRINGE SUBCUT SCH (22:44)
[2017-08-15] MEDS ORDERED: NITROGLYCERIN 50 MG/D5W 250 ML IV PRN (01:15)
[2017-08-15 03:50] LABS: HEMATOCRIT 29.7 % (36.0-47.0); HEMOGLOBIN 9.7 g/dL (12.0-15.5); HGB HCT DIFFERENCE -0.6; MEAN CORPUSCULAR HGB CONC 32.5 g/dL (32.0-36.0); MEAN CORPUSCULAR VOLUME 77 fl (80-97); RED BLOOD COUNT 3.86 10^6/uL (3.72-5.28); RED CELL DISTRIBUTION WIDTH 14.4 % (11.5-14.0); WHITE BLOOD COUNT 7.2 10^3/uL (4.0-10.5)
[2017-08-15 04:09] LABS: ANION GAP 12 (5-19); BLOOD UREA NITROGEN 30 mg/dL (7-20); CALCIUM 8.6 mg/dL (8.4-10.2); CARBON DIOXIDE 24 mmol/L (22-30); CHLORIDE 113 mmol/L (98-107); CHOLESTEROL 106.56 mg/dL (0-200); CREATININE RESULT 2.21 mg/dL (0.52-1.25); Direct HDL 38 mg/dL (>40); GLUCOSE 170 mg/dL (75-110); MAGNESIUM 1.7 mg/dL (1.6-2.3); PHOSPHORUS 2.9 mg/dL (2.5-4.5); POTASSIUM 4.6 mmol/L (3.6-5.0); SODIUM 148.8 mmol/L (137-145); TRIGLYCERIDES 98 mg/dL (<150)
[2017-08-15 04:20] LABS: CREATINE KINASE MB 0.95 ng/mL (<4.55); DIRECT LDL 44 mg/dL (<100); TROPONIN I 0.052 ng/mL
[2017-08-15] MEDS: HEPARIN SOD (PORCINE) 5,000 UNIT/ML 1 ML SYRINGE SUBCUT SCH ×3 (05:55→21:23)
[2017-08-15] MEDS ORDERED: (PENDING PHARMACY ID) (Insulin Detemir [Levemir] 35 UNIT) SQ SCH (08:00)
[2017-08-15] MEDS: INSULIN DETEMIR 100 UNIT/ML 3 ML PEN SUBCUT SCH (08:29)
[2017-08-15] MEDS: METOPROLOL TARTRATE 50 MG TABLET PO SCH ×2 (09:39→21:24)
[2017-08-15] MEDS: ASPIRIN 81 MG TABLET, CHEWABLE PO SCH (09:40)
[2017-08-15] MEDS: CLONIDINE HCL 0.2 MG TABLET PO SCH ×2 (09:40→21:24)
[2017-08-15] MEDS ORDERED: FUROSEMIDE 20 MG TABLET PO SCH (10:00)
[2017-08-15 10:23] LABS: CREATINE KINASE MB 1.11 ng/mL (<4.55)
[2017-08-15 10:27] LABS: TROPONIN I 0.031 ng/mL
--- NOTE | 2017-08-15 14:36 | PDOC H&P ---
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 She could emergency room for evaluation of elevated blood pressure and chest pain she said when she woke up she felt unwell, her granddaughter check the blood pressure it was elevated then she went to the emergency room for evaluation of the blood pressure. The chemistry revealed elevated serum creatinine, 1.84, sodium 146.3 the serum albumin was 3.2, total protein 6.1, urine protein more than 500 she was started on intravenous nitroglycerin infusion in addition to her regular medication for the control blood pressure. The blood chemistry today revealed serum creatinine 2.21 suggesting worsening renal function this could be due to ATN from blood pressure fluctuations Past Medical History Cardiac Medical History: Reports: Myocardial Infarction - 5/6YRS AGO, Hyperlipidema, Hypertension - MEDICATED Pulmonary Medical History: Reports: Chronic Obstructive Pulmonary Disease (COPD) Neurological Medical History: Reports: Seizures - JANUARY 2017 3 SEIZURES IN ONE DAY RELATED TO ELEVATED BS Endocrine Medical History: Reports: Diabetes Mellitus Type 2 - uncontrolled Renal/ Medical History: Reports: Chronic Kidney Disease, Other - Diabetes nephropathy Hematology: Reports: Anemia - MEDICATED Denies: Sickle Cell Disease Past Surgical History Past Surgical History: Reports: Section, Hysterectomy Social History Smoking Status: Never Smoker Frequency of Alcohol Use: None Hx Recreational Drug Use: No Drugs: None Hx Prescription Drug Abuse: No Family History Family History: Reviewed & Not Pertinent Parental Family History Reviewed: Yes Children Family History Reviewed: Yes Sibling(s) Family History Reviewed.: Yes Medication/Allergy Home Medications: Aspirin [Aspirin 81 mg Chewable Tablet] 81 mg PO DAILY 08/14/17 Clonidine HCl [Catapres] 0.2 mg PO Q12 08/14/17 Clopidogrel Bisulfate [Clopidogrel] 75 mg PO DAILY 08/14/17 Furosemide [Lasix] 20 mg PO MOWEFR@1000 08/14/17 Insulin Detemir [Levemir] 35 unit SQ QAM 08/14/17 Linagliptin [Tradjenta] 5 mg PO DAILY 08/14/17 Metoprolol Tartrate [Lopressor] 50 mg PO BIDBS 08/14/17 Rosuvastatin Calcium [Crestor 20 mg Tablet] 20 mg PO QHS 08/14/17 Tramadol HCl [Tramadol HCl ER] 100 mg PO Q12 08/14/17 Allergies/Adverse Reactions: No Known Allergies Allergy (Verified 05/03/17 08:46) Review of Systems Constitutional: ABSENT: chills, fever(s), headache(s), weight gain, weight loss Eyes: ABSENT: visual disturbances Ears: ABSENT: hearing changes Cardiovascular: PRESENT: chest pain Respiratory: ABSENT: cough, hemoptysis Gastrointestinal: ABSENT: abdominal pain, constipation, diarrhea, hematemesis, hematochezia, nausea, vomiting Genitourinary: ABSENT: dysuria, hematuria Musculoskeletal: ABSENT: joint swelling Integumentary: ABSENT: rash, wounds Neurological: ABSENT: abnormal gait, abnormal speech, confusion, dizziness, focal weakness, syncope Psychiatric: ABSENT: anxiety, depression, homidical ideation, suicidal ideation Endocrine: ABSENT: cold intolerance, heat intolerance, menstrual abnormalities, polydipsia, polyuria Hematologic/Lymphatic: ABSENT: easy bleeding, easy bruising, lymphadenopathy Physical Exam Vital Signs: Temp Pulse Resp BP Pulse Ox 97.6 F 60 16 167/70 H 98 08/15/17 11:36 08/15/17 13:14 08/15/17 11:36 08/15/17 13:14 08/15/17 11:36 Intake & Output 08/14/17 08/15/17 08/16/17 06:59 06:59 06:59 Intake Total 17 474 Output Total 0 Balance 17 474 Weight 101 kg General appearance: PRESENT: no acute distress, well-developed, well-nourished Head exam: PRESENT: atraumatic, normocephalic Eye exam: PRESENT: conjunctiva pink, EOMI, PERRLA. ABSENT: scleral icterus Ear exam: PRESENT: normal external ear exam Mouth exam: PRESENT: moist, tongue midline Neck exam: PRESENT: full ROM Respiratory exam: PRESENT: clear to auscultation eric Cardiovascular exam: PRESENT: RRR, +S1, +S2 Pulses: PRESENT: normal dorsalis pedis pul, +2 pedal pulses bilateral Vascular exam: PRESENT: normal capillary refill GI/Abdominal exam: PRESENT: normal bowel sounds, soft Rectal exam: PRESENT: deferred Neurological exam: PRESENT: alert, awake, oriented to person, oriented to place , oriented to time, oriented to situation, CN II-XII grossly intact. ABSENT: motor sensory deficit Psychiatric exam: PRESENT: appropriate affect, normal mood Skin exam: PRESENT: dry, intact, warm Results Laboratory Results: 08/15/17 03:30 08/15/17 03:30 08/15/17 08/15/17 08/15/17 03:30 03:30 03:30 WBC 7.2 RBC 3.86 Hgb 9.7 L Hct 29.7 L MCV 77 L MCH 25.0 L MCHC 32.5 RDW 14.4 H Plt Count 159 Sodium 148.8 H Potassium 4.6 Chloride 113 H Carbon Dioxide 24 Anion Gap 12 BUN 30 H Creatinine 2.21 H Est GFR ( Amer) 26 L Est GFR (Non-Af Amer) 22 L Glucose 170 H Calcium 8.6 Phosphorus 2.9 Magnesium 1.7 Triglycerides 98 Cholesterol 106.56 LDL Cholesterol Direct 44 VLDL Cholesterol 20.0 HDL Cholesterol 38 L TSH 2.34 08/14/17 08/14/17 08/14/17 19:30 21:38 21:38 Creatine Kinase 106 CK-MB (CK-2) 1.01 Troponin I 0.079 0.062 08/15/17 08/15/17 08/15/17 03:30 03:30 09:37 Creatine Kinase 128 131 CK-MB (CK-2) 0.95 Troponin I 0.052 08/15/17 09:37 Creatine Kinase CK-MB (CK-2) 1.11 Troponin I 0.031 Impressions: Chest X-Ray 08/14/17 14:53 IMPRESSION: Cardiomegaly. No failure. Assessment & Plan - Diagnosis (1) Hypertensive emergency Is this a current diagnosis for this admission?: Yes Plan: She has hypertensive emergency, she is on intravenous nitroglycerin infusion and oral medication for the control blood pressure (2) Chronic kidney disease, stage 3 Is this a current diagnosis for this admission?: Yes (3) Diabetes mellitus with diabetic nephropathy Qualifiers: Diabetes mellitus type: type 2 Diabetes mellitus joint terminal attack controller insulin use: with snf use Qualified Code(s): E11.21 - Type 2 diabetes mellitus with diabetic nephropathy; Z79.4 - terminologist (current) use of insulin; Z79.4 - terminologist (current) use of insulin; Z79.4 - MCC (current) use of insulin; Z79.4 - MCC (current) use of insulin (4) Coronary artery disease Qualifiers: Coronary Disease-Associated Artery/Lesion type: unspecified vessel or lesion type [place] vs. transplanted heart: [place] heart Associated angina: without angina Qualified Code(s): I25.10 - Atherosclerotic heart disease of [place] coronary artery without angina pectoris Is this a current diagnosis for this admission?: Yes (5) Acute kidney injury superimposed on chronic kidney disease Plan: There is acute kidney injury superimposed on chronic kidney disease
[2017-08-15 17:43] LABS: APPEARANCE,URINE SLIGHTLY-CLOUDY; BILIRUBIN,URINE NEGATIVE (NEGATIVE); GLUCOSE, URINE 50 mg/dL (NEGATIVE); KETONES,URINE NEGATIVE (NEGATIVE); LEUKOCYTE ESTERASE,URINE NEGATIVE (NEGATIVE); NITRITE,URINE NEGATIVE (NEGATIVE); PROTEIN,URINE 100 mg/dL (NEGATIVE); URINE SPECIFIC GRAVITY 1.014; UROBILINOGEN,URINE NEGATIVE mg/dL (<2.0)
[2017-08-15 18:04] LABS: URINE CREATININE 220.4 mg/dL (15-278); URINE PROTEIN 183.6 mg/dL (<12)
--- NOTE | 2017-08-15 19:34 | EKG REPORT ---
SEVERITY:- ABNORMAL ECG - SINUS RHYTHM MULTIPLE ATRIAL PREMATURE COMPLEXES NONSPECIFIC T ABNORMALITIES, ANT-LAT LEADS : Confirmed by: Anne-Marie Chang MD 15-Aug-2017 19:33:59
--- NOTE | 2017-08-15 19:34 | EKG REPORT ---
SEVERITY:- ABNORMAL ECG - SINUS RHYTHM ABNORMAL T, CONSIDER ISCHEMIA, DIFFUSE LEADS : Confirmed by: Anne-Marie Chang MD 15-Aug-2017 19:33:28
--- NOTE | 2017-08-15 19:34 | EKG REPORT ---
SEVERITY:- ABNORMAL ECG - SINUS RHYTHM ATRIAL PREMATURE COMPLEX NONSPECIFIC T ABNORMALITIES, DIFFUSE LEADS : Confirmed by: Anne-Marie Chang MD 15-Aug-2017 19:33:35
[2017-08-15] MEDS: ATORVASTATIN CALCIUM 40 MG TABLET PO SCH (21:24)
[2017-08-15] MEDS: SITAGLIPTIN PHOSPHATE 50 MG TABLET PO SCH (21:24)
[2017-08-15] MEDS: CLOPIDOGREL BISULFATE 75 MG TABLET PO SCH (21:24)
[2017-08-16] MEDS: HEPARIN SOD (PORCINE) 5,000 UNIT/ML 1 ML SYRINGE SUBCUT SCH ×3 (06:04→23:07)
[2017-08-16 07:52] LABS: ANION GAP 12 (5-19); BLOOD UREA NITROGEN 43 mg/dL (7-20); CALCIUM 8.4 mg/dL (8.4-10.2); CARBON DIOXIDE 25 mmol/L (22-30); CHLORIDE 111 mmol/L (98-107); CREATININE RESULT 2.41 mg/dL (0.52-1.25); GLUCOSE 137 mg/dL (75-110); POTASSIUM 4.8 mmol/L (3.6-5.0); SODIUM 147.6 mmol/L (137-145)
--- NOTE | 2017-08-16 09:34 | PDOC PROGRESS REPORT ---
Subjective Progress Note for:: 08/16/17 Subjective:: Patient is currently doing fair denied any chest pain denied any shortness of the breath Patient admitted because of the chest pain and elevated blood pressures Patients also have a chronic kidney disease and currently see a Dr. Santamaria Physical Exam Vital Signs: Temp Pulse Resp BP Pulse Ox 97.9 F 58 L 15 160/105 H 97 08/16/17 04:00 08/16/17 04:00 08/16/17 04:00 08/16/17 09:01 08/16/17 04:00 Intake & Output 08/15/17 08/16/17 08/17/17 06:59 06:59 06:59 Intake Total 17 1144 Output Total 1000 Balance 17 144 Weight 101 kg General appearance: PRESENT: no acute distress, well-developed, well-nourished Head exam: PRESENT: atraumatic, normocephalic Eye exam: PRESENT: conjunctiva pink, EOMI, PERRLA. ABSENT: scleral icterus Ear exam: PRESENT: normal external ear exam Mouth exam: PRESENT: moist, tongue midline Neck exam: PRESENT: full ROM. ABSENT: carotid bruit, JVD, lymphadenopathy, thyromegaly Respiratory exam: PRESENT: clear to auscultation eric Cardiovascular exam: PRESENT: RRR. ABSENT: diastolic murmur, rubs, systolic murmur Pulses: PRESENT: normal dorsalis pedis pul, +2 pedal pulses bilateral Vascular exam: PRESENT: normal capillary refill GI/Abdominal exam: PRESENT: normal bowel sounds, soft. ABSENT: distended, guarding, mass, organolmegaly, rebound, tenderness Rectal exam: PRESENT: deferred Extremities exam: ABSENT: pedal edema Musculoskeletal exam: PRESENT: ambulatory Neurological exam: PRESENT: alert, awake, oriented to person, oriented to place , oriented to time, oriented to situation, CN II-XII grossly intact. ABSENT: motor sensory deficit Psychiatric exam: PRESENT: appropriate affect, normal mood. ABSENT: homicidal ideation, suicidal ideation Skin exam: PRESENT: dry, intact, warm. ABSENT: cyanosis, rash Results Laboratory Results: 08/15/17 03:30 08/16/17 07:20 08/15/17 08/16/17 17:15 07:20 Sodium 147.6 H Potassium 4.8 Chloride 111 H Carbon Dioxide 25 Anion Gap 12 BUN 43 H Creatinine 2.41 H Est GFR ( Amer) 24 L Est GFR (Non-Af Amer) 20 L Glucose 137 H Calcium 8.4 Urine Color YELLOW Urine Appearance SLIGHTLY-CLOUDY Urine pH 5.0 Ur Specific [place] 1.014 Urine Protein 100 H Urine Glucose (UA) 50 H Urine Ketones NEGATIVE Urine Blood NEGATIVE Urine Nitrite NEGATIVE Ur Leukocyte Esterase NEGATIVE Urine WBC (Auto) 3 Urine RBC (Auto) 1 08/14/17 08/14/17 08/14/17 19:30 21:38 21:38 Creatine Kinase 106 CK-MB (CK-2) 1.01 Troponin I 0.079 0.062 08/15/17 08/15/17 08/15/17 03:30 03:30 09:37 Creatine Kinase 128 131 CK-MB (CK-2) 0.95 Troponin I 0.052 08/15/17 09:37 Creatine Kinase CK-MB (CK-2) 1.11 Troponin I 0.031 Impressions: Chest X-Ray 08/14/17 14:53 IMPRESSION: Cardiomegaly. No failure. Assessment & Plan - Diagnosis (1) Acute kidney injury superimposed on chronic kidney disease Is this a current diagnosis for this admission?: Yes Plan: Continues to current medications consult to Dr. Santamaria (2) Coronary artery disease Qualifiers: Coronary Disease-Associated Artery/Lesion type: unspecified vessel or lesion type [place] vs. transplanted heart: [place] heart Associated angina: without angina Qualified Code(s): I25.10 - Atherosclerotic heart disease of [place] coronary artery without angina pectoris Is this a current diagnosis for this admission?: Yes Plan: Since rule out for acute coronary syndromes per patient is very high risks with the coronary disease will be considered to the echocardiograms and consult the cardiology (3) Diabetes mellitus with diabetic nephropathy Qualifiers: Diabetes mellitus type: type 2 Diabetes mellitus parts counterman insulin use: with parts counterman use Qualified Code(s): E11.21 - Type 2 diabetes mellitus with diabetic nephropathy; Z79.4 - long-term (current) use of insulin; Z79.4 - long-term (current) use of insulin; Z79.4 - superintendent terminal (current) use of insulin; Z79.4 - superintendent terminal (current) use of insulin Is this a current diagnosis for this admission?: Yes Plan: Continues the current medications (4) Hypertensive emergency Is this a current diagnosis for this admission?: Yes Plan[facility] and try to reduce the nitroglycerin drips and consider to use the Imdur 30 mg p.o. daily - Time Time Spent with patient: 15-24 minutes Medications reviewed and adjusted accordingly: Yes Anticipated discharge: Home Within: Other - Inpatient Certification Medical Necessity: Significant Comorbidiites Make Outpatient Treatment Too Risky Post Hospital Care: [facility] Documentation - Plan Summary Plan Summary: Adjust the blood pressure medications try to reduce the nitroglycerin drips
[2017-08-16] MEDS: INSULIN DETEMIR 100 UNIT/ML 3 ML PEN SUBCUT SCH (10:51)
[2017-08-16] MEDS: ASPIRIN 81 MG TABLET, CHEWABLE PO SCH (10:53)
[2017-08-16] MEDS: METOPROLOL TARTRATE 50 MG TABLET PO SCH ×2 (10:53→23:57)
[2017-08-16] MEDS ORDERED: AMLODIPINE BESYLATE 5 MG TABLET PO ONE ×2 (11:00→23:45)
[2017-08-16] MEDS ORDERED: CLONIDINE HCL 0.2 MG TABLET PO ONE (11:00)
--- NOTE | 2017-08-16 11:29 | PDOC CONSULTATION ---
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 She could emergency room for evaluation of elevated blood pressure and chest pain she said when she woke up she felt unwell, her granddaughter check the blood pressure it was elevated then she went to the emergency room for evaluation of the blood pressure. The chemistry revealed elevated serum creatinine, 1.84, sodium 146.3 the serum albumin was 3.2, total protein 6.1, urine protein more than 500 she was started on intravenous nitroglycerin infusion in addition to her regular medication for the control blood pressure. The blood chemistry today revealed serum creatinine 2.21 suggesting worsening renal function this could be due to ATN from blood pressure fluctuations. This history was reviewed and confirmed with the patient. On repeated questioning patient denied any chest pain. She is currently comfortable without any shortness of breath. Patient denied any sustained palpitations, syncope, near syncope. I have been asked to evaluate patient with help in control of blood pressure and also underlying coronary artery disease. Past Medical History Cardiac Medical History: Reports: Myocardial Infarction - 5/6YRS AGO, Hyperlipidema, Hypertension - MEDICATED Pulmonary Medical History: Reports: Chronic Obstructive Pulmonary Disease (COPD) Denies: Asthma, Tuberculosis Neurological Medical History: Reports: Seizures - JANUARY 2017 3 SEIZURES IN ONE DAY RELATED TO ELEVATED BS Endocrine Medical History: Reports: Diabetes Mellitus Type 2 - uncontrolled Renal/ Medical History: Reports: Chronic Kidney Disease, Other - Diabetes nephropathy GI Medical History: Denies: Hepatitis, Hiatal Hernia Psychiatric Medical History: Denies: Depression Hematology: Reports: Anemia - MEDICATED Denies: Sickle Cell Disease Past Surgical History Past Surgical History: Reports: Cardiac Catheterization, Section, Hysterectomy Denies: Amputation, Mastectomy, Pacemaker Social History Information Source: Patient Smoking Status: Never Smoker Frequency of Alcohol Use: None Hx Recreational Drug Use: No Drugs: None Hx Prescription Drug Abuse: No - Advance Directive Resuscitation Status: Full Code Surrogate healthcare decision maker:: Patient's is a surrogate decision-maker Family History Family History: Hypertension Parental Family History Reviewed: Yes Children Family History Reviewed: Yes Sibling(s) Family History Reviewed.: Yes Medication/Allergy Home Medications: Aspirin [Aspirin 81 mg Chewable Tablet] 81 mg PO DAILY 08/14/17 Clonidine HCl [Catapres] 0.2 mg PO Q12 08/14/17 Clopidogrel Bisulfate [Clopidogrel] 75 mg PO DAILY 08/14/17 Furosemide [Lasix] 20 mg PO MOWEFR@1000 08/14/17 Insulin Detemir [Levemir] 35 unit SQ QAM 08/14/17 Linagliptin [Tradjenta] 5 mg PO DAILY 08/14/17 Metoprolol Tartrate [Lopressor] 50 mg PO BIDBS 08/14/17 Rosuvastatin Calcium [Crestor 20 mg Tablet] 20 mg PO QHS 08/14/17 Tramadol HCl [Tramadol HCl ER] 100 mg PO Q12 08/14/17 Allergies/Adverse Reactions: No Known Allergies Allergy (Verified 05/03/17 08:46) Review of Systems Review of Systems: Please see history of present illness and past medical history as wall. Constitutional: No fever or chills reported. Head : No recent chronic headaches, recent head injury. Eyes: No recent eye pain, diplopia, redness, discharge, acute visual changes. Ears: No recent chronic ear pain, acute hearing loss, ear discharge. Oral cavity: No recent ulcerations, bleeding, oral cavity discomfort. Neck: No recent acute neck pain reported. Hematologic: No recent easy bruising or bleeding or hematologic malignancy reported. Lymphatic: No recent lymphatic malignancy, chronic lymphadenopathy reported yet Cardiovascular system review: See history of present illness. Respiratory system review: No recent chronic cough, hemoptysis, blood clots in the lungs reported. Mild Shortness of breath on exertion Gastrointestinal system review: Negative for any recent acute or chronic abdominal pain, hematemesis, melena, recent change in bowel habits. Genitourinary system review: No recent acute or chronic hematuria, flank pain, UTI etc. reported. Skin system review: Negative for any recent abnormal bruising, no rash, no pruritus reported. Neurologic: No prior history of strokes, mini strokes, seizure disorder. Psychologic: No history of major psychosis or major depression reported. Musculoskeletal: Minor aches and pains reported. No acute joint swelling reported. Endocrine: No recent polyuria, polydipsia, recent heat or cold intolerance. Physical Exam Vital Signs: Temp Pulse Resp BP Pulse Ox 97.9 F 58 L 15 160/105 H 97 08/16/17 04:00 08/16/17 04:00 08/16/17 04:00 08/16/17 09:01 08/16/17 04:00 Intake & Output 08/15/17 08/16/17 08/17/17 06:59 06:59 06:59 Intake Total 17 1144 Output Total 1000 Balance 17 144 Weight 101 kg Exam: GENERAL: well-nourished and in no acute distress. Alert and oriented x3 HEAD: Atraumatic, normocephalic. EYES: Pupils equal round and reactive to light, extraocular movements intact, sclera anicteric, conjunctiva are normal. ENT: TMs normal, nares patent, oropharynx clear without exudates. Moist mucous membranes. No oral ulcerations or bleeding gums noted NECK: supple without lymphadenopathy. Trachea is central. No cervical or axillary lymphadenopathy noted. Carotids are 2+, JVD WNL LUNGS: Respiration seems nonlabored, no significant accessory muscle action noted. Breath sounds clear to auscultation bilaterally and equal noted. No wheezes rales or rhonchi noted. No significant dullness noted on percussion. CHEST: Palpation of the chest wall shows no significant chest wall tenderness. No other significant abnormalities noted. 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 ABDOMEN: Soft, no significant tenderness appreciated, normoactive bowel sounds. No guarding, no rebound. No rigidity noted . No masses appreciated. EXTREMITIES: Pedal pulses are 1-2+, no calf tenderness noted. No clubbing or cyanosis.trace to 1+ pedal edema noted NEUROLOGICAL: Focused neurological exam showed no significant neurologic deficit. Normal speech, no focal weakness appreciated. PSYCH: Normal mood, normal affect. Judgment and insight within normal limits. SKIN: No significant ecchymosis, rash, ulcerations or signs of pruritus noted. MUSCULOSKELETAL EXAM: No significant joint swelling noted. Results Laboratory Results: 08/15/17 03:30 08/16/17 07:20 08/15/17 08/16/17 17:15 07:20 Sodium 147.6 H Potassium 4.8 Chloride 111 H Carbon Dioxide 25 Anion Gap 12 BUN 43 H Creatinine 2.41 H Est GFR ( Amer) 24 L Est GFR (Non-Af Amer) 20 L Glucose 137 H Calcium 8.4 Urine Color YELLOW Urine Appearance SLIGHTLY-CLOUDY Urine pH 5.0 Ur Specific [place] 1.014 Urine Protein 100 H Urine Glucose (UA) 50 H Urine Ketones NEGATIVE Urine Blood NEGATIVE Urine Nitrite NEGATIVE Ur Leukocyte Esterase NEGATIVE Urine WBC (Auto) 3 Urine RBC (Auto) 1 08/14/17 08/14/17 08/14/17 19:30 21:38 21:38 Creatine Kinase 106 CK-MB (CK-2) 1.01 Troponin I 0.079 0.062 08/15/17 08/15/17 08/15/17 03:30 03:30 09:37 Creatine Kinase 128 131 CK-MB (CK-2) 0.95 Troponin I 0.052 08/15/17 09:37 Creatine Kinase CK-MB (CK-2) 1.11 Troponin I 0.031 EKG Comments: Sinus rhythm with minor nonspecific ST-T wave changes noted inferior and lateral chest late possibly LVH related. Impressions: Chest X-Ray 08/14/17 14:53 IMPRESSION: Cardiomegaly. No failure. Assessment & Plan - Diagnosis (1) Elevated troponin I level Is this a current diagnosis for this admission?: Yes (2) Chronic kidney disease, stage 3 Is this a current diagnosis for this admission?: Yes (3) Coronary artery disease Qualifiers: Coronary Disease-Associated Artery/Lesion type: [place] artery [place] vs. transplanted heart: [place] heart Associated angina: angina presence unspecified Qualified Code(s): I25.10 - Atherosclerotic heart disease of [place] coronary artery without angina pectoris Is this a current diagnosis for this admission?: Yes (4) Diabetes mellitus with diabetic nephropathy Qualifiers: Diabetes mellitus type: type 2 Diabetes mellitus long-term insulin use: with joint terminal attack controller use Qualified Code(s): E11.21 - Type 2 diabetes mellitus with diabetic nephropathy; Z79.4 - intermediate manager (current) use of insulin; Z79.4 - intermediate manager (current) use of insulin; Z79.4 - intermediate manager (current) use of insulin; Z79.4 - FDC (current) use of insulin Is this a current diagnosis for this admission?: Yes (5) Hypertensive emergency Is this a current diagnosis for this admission?: Yes (6) Sleep disorder Is this a current diagnosis for this admission?: Yes - Notes Notes: Elevated troponin I: Troponin I levels reviewed. These are felt not to be significantly elevated in the presence of severe hypertension and chronic kidney disease. Patient currently chest pain-free. Patient will benefit from a stress test but this can be scheduled as an outpatient. Chronic kidney disease: Currently stable. Recommend good control of blood pressure and blood sugar to prevent progression. Coronary artery disease: Symptomatically stable. As noted above, patient will benefit from a stress test to be scheduled as an outpatient. I am told that inpatient stress test at our not being performed because of hol. Diabetes mellitus: This is being expertly managed by guest house manager. Hypertensive emergency: Currently blood pressure coming under good control. Sleep disorder: Patient describes prior history of sleep study. She does describe history of habitual snoring, daytime fatigue and sleepiness. Feel that patient will benefit from a repeat sleep study. This can be performed as an outpatient. - Time Time Spent: 30 to 50 Minutes - CODE STATUS was discussed, patient remains full code. Surrogate decision-maker patient's . Multiple medical problems were addressed. More than 50% of the time spent coordinating care, discussing management plans with involved caregivers. Management plans discussed with involved personnels. Medical decision making was of moderate to high complexity , patient's has multiple comorbidities. Medications reviewed and adjusted accordingly: Yes
[2017-08-16] MEDS ORDERED: CLONIDINE HCL 0.2 MG TABLET PO SCH (14:00)
--- NOTE | 2017-08-16 18:00 | PDOC CONSULTATION ---
Consultation Consult Date: 08/16/17 Consult reason:: ILA History of Present Illness Admission Date/PCP: 08/14/17 17:47 ANNA MADISON MD History of Present Illness: NELSON WISE is a 72 year old lady with complicated diabetes mellitus type 2 with nephropathy, retinopathy, chronic kidney disease stage III with base creatinie of around 1.8 , coronary artery disease status post insertion of a drug-eluting stent came to the Er with c/o generalised aching, feeling unwell. Her grand daughter checked her BP at home and realized it was very high as well. Eval in the ER revealed hypertensive urgency. She was started on intravenous nitroglycerin infusion in addition to her regular medication for the control blood pressure. She is currently feeling better.She also admits to intermittent non compliance with her anti hypertensives, Insulin. She also does have symptoms suggestive of Sleep apnea. Been on non renal diet in spite of advice to the contrary from me when seen as out patient. Her chemistry today reveals progressive worsening of serum creatinine now at 2.21.She is currently off the NTG drip. The patient denied any chest pain, any shortness of breath. Patient denied any sustained palpitations, syncope, near syncope. Past Medical History Cardiac Medical History: Reports: Hyperlipidemia, Hypertension-primary, Myocardial Infarction - 5/6YRS AGO Pulmonary Medical History: Reports: Chronic Obstructive Pulmonary Disease (COPD) Denies: Asthma, Tuberculosis Neurological Medical History: Reports: Seizures - JANUARY 2017 3 SEIZURES IN ONE DAY RELATED TO ELEVATED BS Endocrine Medical History: Reports: Diabetes Mellitus Type 2 - uncontrolled Renal/ Medical History: Reports: Chronic Kidney Disease Stage III, Other - Diabetes nephropathy GI Medical History: Denies: Hepatitis, Hiatal Hernia Psychiatric Medical History: Denies: Depression Past Surgical History Past Surgical History: Reports: Cardiac Catheterization, Section, Hysterectomy Denies: Mastectomy, Pacemaker Social History Smoking Status: Never Smoker Frequency of Alcohol Use: None Hx Recreational Drug Use: No Drugs: None Hx Prescription Drug Abuse: No - Advance Directive Resuscitation Status: Full Code Family History Parental Family History Reviewed: Yes - negative for esrd Children Family History Reviewed: No Sibling(s) Family History Reviewed.: No Medication/Allergy Home Medications: Aspirin [Aspirin 81 mg Chewable Tablet] 81 mg PO DAILY 08/14/17 Clonidine HCl [Catapres] 0.2 mg PO Q12 08/14/17 Clopidogrel Bisulfate [Clopidogrel] 75 mg PO DAILY 08/14/17 Furosemide [Lasix] 20 mg PO MOWEFR@1000 08/14/17 Insulin Detemir [Levemir] 35 unit SQ QAM 08/14/17 Linagliptin [Tradjenta] 5 mg PO DAILY 08/14/17 Metoprolol Tartrate [Lopressor] 50 mg PO BIDBS 08/14/17 Rosuvastatin Calcium [Crestor 20 mg Tablet] 20 mg PO QHS 08/14/17 Tramadol HCl [Tramadol HCl ER] 100 mg PO Q12 08/14/17 Allergies/Adverse Reactions: No Known Allergies Allergy (Verified 05/03/17 08:46) Review of Systems Constitutional: ABSENT: fever(s), headache(s), night sweats, weakness Eyes: ABSENT: visual disturbances Cardiovascular: ABSENT: chest pain, dyspnea on exertion, edema, orthropnea, palpitations Respiratory: ABSENT: dyspnea, hemoptysis Gastrointestinal: ABSENT: abdominal pain, bloating, dysphagia, heartburn, hematemesis, melena, nausea, vomiting Genitourinary: ABSENT: dysuria, hematuria Neurological: ABSENT: confusion, convulsions, dizziness, focal weakness Endocrine: ABSENT: heat intolerance, polydipsia Hematologic/Lymphatic: ABSENT: easy bruising, lymphadenopathy Physical Exam Vital Signs: Temp Pulse Resp BP Pulse Ox 97.3 F 70 16 169/66 H 96 08/16/17 12:46 08/16/17 14:00 08/16/17 12:46 08/16/17 12:46 08/16/17 12:46 Intake & Output 08/15/17 08/16/17 08/17/17 06:59 06:59 06:59 Intake Total 17 1144 Output Total 1000 Balance 17 144 Weight 101 kg General appearance: PRESENT: no acute distress Eye exam: PRESENT: conjunctiva pink, EOMI, PERRLA Ear exam: PRESENT: normal external ear exam Mouth exam: PRESENT: moist, neck supple Neck exam: ABSENT: lymphadenopathy, meningismus, tenderness, thyromegaly, tracheal deviation Respiratory exam: PRESENT: clear to auscultation eric, symmetrical. ABSENT: crackles Cardiovascular exam: PRESENT: +S1, +S2, systolic murmur GI/Abdominal exam: PRESENT: normal bowel sounds, soft. ABSENT: organomegaly, tenderness Extremities exam: ABSENT: pedal edema Neurological exam: PRESENT: alert, awake, oriented to person, oriented to place Skin exam: PRESENT: dry, warm. ABSENT: mottled Results Laboratory Results: 08/15/17 03:30 08/16/17 07:20 08/15/17 08/16/17 17:15 07:20 Sodium 147.6 H Potassium 4.8 Chloride 111 H Carbon Dioxide 25 Anion Gap 12 BUN 43 H Creatinine 2.41 H Est GFR ( Amer) 24 L Est GFR (Non-Af Amer) 20 L Glucose 137 H Calcium 8.4 Urine Color YELLOW Urine Appearance SLIGHTLY-CLOUDY Urine pH 5.0 Ur Specific [place] 1.014 Urine Protein 100 H Urine Glucose (UA) 50 H Urine Ketones NEGATIVE Urine Blood NEGATIVE Urine Nitrite NEGATIVE Ur Leukocyte Esterase NEGATIVE Urine WBC (Auto) 3 Urine RBC (Auto) 1 08/14/17 08/14/17 08/14/17 19:30 21:38 21:38 Creatine Kinase 106 CK-MB (CK-2) 1.01 Troponin I 0.079 0.062 08/15/17 08/15/17 08/15/17 03:30 03:30 09:37 Creatine Kinase 128 131 CK-MB (CK-2) 0.95 Troponin I 0.052 08/15/17 09:37 Creatine Kinase CK-MB (CK-2) 1.11 Troponin I 0.031 Impressions: Chest X-Ray 08/14/17 14:53 IMPRESSION: Cardiomegaly. No failure. Assessment & Plan - Diagnosis (1) Proteinuria Plan: diabetic nephropathy.Monitor as OP. (2) Acute kidney injury superimposed on chronic kidney disease Is this a current diagnosis for this admission?: Yes Plan: secondary to hypertensive urgency. Controlled BP reduction. (3) Chronic kidney disease, stage 3 Is this a current diagnosis for this admission?: Yes Plan: from diabetic renal disease. Monitor . (4) Diabetes mellitus with diabetic nephropathy Qualifiers: Diabetes mellitus type: type 2 Diabetes mellitus terminal gauger insulin use: with long-term use Qualified Code(s): E11.21 - Type 2 diabetes mellitus with diabetic nephropathy; Z79.4 - USP (current) use of insulin; Z79.4 - USP (current) use of insulin; Z79.4 - USP (current) use of insulin; Z79.4 - USP (current) use of insulin Is this a current diagnosis for this admission?: Yes (5) Hypertensive emergency Is this a current diagnosis for this admission?: Yes Plan: presently under better control.Get renal mra.Recommend OP sleep study.Adv strict compliance with meds in the future.
--- NOTE | 2017-08-16 21:48 | RADIOLOGY REPORT (SQ) ---
EXAM DESCRIPTION: MRA ABDOMEN WITHOUT COMPLETED DATE/TIME: 08/16/2017 9:09 pm REASON FOR STUDY: mra without of renal artery for uncontrolled htn COMPARISON: None. TECHNIQUE: 3D [id number] MRA of the abdominal aorta with particular attention to the renal arter ies. Axial T2 localizer images were also obtained. Maximum intensity projected images were reviewed , saved to pac's. LIMITATIONS: None. FINDINGS: No MRA evidence of proximal right or left renal artery stenosis. Celiac artery, superior mesenteric artery patent. IMPRESSION: No MRA evidence of right or left renal artery stenosis TECHNICAL DOCUMENTATION: JOB ID: [id number] [employer]- All Rights Reserved
[2017-08-16] MEDS: ATORVASTATIN CALCIUM 40 MG TABLET PO SCH (23:07)
[2017-08-16] MEDS: CLOPIDOGREL BISULFATE 75 MG TABLET PO SCH (23:07)
[2017-08-16] MEDS: SITAGLIPTIN PHOSPHATE 50 MG TABLET PO SCH (23:07)
[2017-08-16] MEDS: CLONIDINE HCL 0.2 MG TABLET PO SCH (23:57)
[2017-08-17 05:32] LABS: ANION GAP 12 (5-19); BLOOD UREA NITROGEN 51 mg/dL (7-20); CALCIUM 8.4 mg/dL (8.4-10.2); CARBON DIOXIDE 24 mmol/L (22-30); CHLORIDE 110 mmol/L (98-107); CREATININE RESULT 2.01 mg/dL (0.52-1.25); GLUCOSE 142 mg/dL (75-110); POTASSIUM 4.3 mmol/L (3.6-5.0); SODIUM 146.2 mmol/L (137-145)
[2017-08-17] MEDS: INSULIN DETEMIR 100 UNIT/ML 3 ML PEN SUBCUT SCH (08:15)
[2017-08-17] MEDS: HEPARIN SOD (PORCINE) 5,000 UNIT/ML 1 ML SYRINGE SUBCUT SCH ×3 (08:15→23:10)
[2017-08-17] MEDS: ASPIRIN 81 MG TABLET, CHEWABLE PO SCH (09:51)
[2017-08-17] MEDS: CLONIDINE HCL 0.2 MG TABLET PO SCH ×2 (09:51→23:10)
[2017-08-17] MEDS: METOPROLOL TARTRATE 50 MG TABLET PO SCH (09:52)
[2017-08-17] MEDS: AMLODIPINE BESYLATE 5 MG TABLET PO SCH ×2 (09:58→23:11)
[2017-08-17] MEDS ORDERED: AMLODIPINE BESYLATE 5 MG TABLET PO SCH ×2 (10:00)
--- NOTE | 2017-08-17 10:21 | PDOC PROGRESS REPORT ---
Subjective Progress Note for:: 08/17/17 Subjective:: Patient is currently doing fair Patient's denied any headache denied any chest pain Patient have MRI of the abdomen was done which is negative for any renal artery stenosis Seen by the nephrology and cardiology Since blood pressure is still elevated Physical Exam Vital Signs: Temp Pulse Resp BP Pulse Ox 98.5 F 62 18 180/66 H 99 08/17/17 07:54 08/17/17 07:54 08/17/17 07:54 08/17/17 07:54 08/17/17 07:54 Intake & Output 08/16/17 08/17/17 08/18/17 06:59 06:59 06:59 Intake Total 1162 908 Output Total 1000 400 Balance 162 508 Weight 101.2 kg General appearance: PRESENT: no acute distress, well-developed, well-nourished Head exam: PRESENT: atraumatic, normocephalic Eye exam: PRESENT: conjunctiva pink, EOMI, PERRLA. ABSENT: scleral icterus Ear exam: PRESENT: normal external ear exam Mouth exam: PRESENT: moist, tongue midline Neck exam: PRESENT: full ROM. ABSENT: carotid bruit, JVD, lymphadenopathy, thyromegaly Respiratory exam: PRESENT: clear to auscultation eric Cardiovascular exam: PRESENT: RRR. ABSENT: diastolic murmur, rubs, systolic murmur Pulses: PRESENT: normal dorsalis pedis pul, +2 pedal pulses bilateral Vascular exam: PRESENT: normal capillary refill GI/Abdominal exam: PRESENT: normal bowel sounds, soft. ABSENT: distended, guarding, mass, organolmegaly, rebound, tenderness Rectal exam: PRESENT: deferred Neurological exam: PRESENT: alert, awake, oriented to person, oriented to place , oriented to time, oriented to situation, CN II-XII grossly intact. ABSENT: motor sensory deficit Psychiatric exam: PRESENT: appropriate affect, normal mood. ABSENT: homicidal ideation, suicidal ideation Skin exam: PRESENT: dry, intact, warm. ABSENT: cyanosis, rash Results Laboratory Results: 08/15/17 03:30 08/17/17 04:17 08/17/17 04:17 Sodium 146.2 H Potassium 4.3 Chloride 110 H Carbon Dioxide 24 Anion Gap 12 BUN 51 H Creatinine 2.01 H Est GFR ( Amer) 29 L Est GFR (Non-Af Amer) 24 L Glucose 142 H Calcium 8.4 08/14/17 08/14/17 08/14/17 19:30 21:38 21:38 Creatine Kinase 106 CK-MB (CK-2) 1.01 Troponin I 0.079 0.062 08/15/17 08/15/17 08/15/17 03:30 03:30 09:37 Creatine Kinase 128 131 CK-MB (CK-2) 0.95 Troponin I 0.052 08/15/17 09:37 Creatine Kinase CK-MB (CK-2) 1.11 Troponin I 0.031 Impressions: Chest X-Ray 08/14/17 14:53 IMPRESSION: Cardiomegaly. No failure. Abdomen MRI with MRA 08/16/17 00:00 IMPRESSION: No MRA evidence of right or left renal artery stenosis Assessment & Plan - Diagnosis (1) Acute kidney injury superimposed on chronic kidney disease Is this a current diagnosis for this admission?: Yes Plan: Continues to current medications consult to Dr. Santamaria (2) Coronary artery disease Qualifiers: Coronary Disease-Associated Artery/Lesion type: [place] artery [place] vs. transplanted heart: [place] heart Associated angina: angina presence unspecified Qualified Code(s): I25.10 - Atherosclerotic heart disease of [place] coronary artery without angina pectoris Is this a current diagnosis for this admission?: Yes Plan: Since rule out for acute coronary syndromes per patient is very high risks with the coronary disease will be considered to the echocardiograms and consult the cardiology (3) Diabetes mellitus with diabetic nephropathy Qualifiers: Diabetes mellitus type: type 2 Diabetes mellitus skilled nursing insulin use: with skilled nursing use Qualified Code(s): E11.21 - Type 2 diabetes mellitus with diabetic nephropathy; Z79.4 - harness cutter (current) use of insulin; Z79.4 - detention (current) use of insulin; Z79.4 - detention (current) use of insulin; Z79.4 - harness cutter (current) use of insulin Is this a current diagnosis for this admission?: Yes Plan: Continues the current medications (4) Hypertensive emergency Is this a current diagnosis for this admission?: Yes Plan: Will increase the Norvasc 5 mg p.o. twice a day and add the hydralazine as needed - Time Time Spent with patient: 15-24 minutes Medications reviewed and adjusted accordingly: Yes Anticipated discharge: Home Within: Other - Inpatient Certification Medical Necessity: Need Close Monitoring Due to Risk of Patient Decompensation Post Hospital Care: D/C Chief Controller Tower Documentation - Plan Summary Plan Summary: See other MD orders
[2017-08-17] MEDS: HYDRALAZINE HCL 25 MG TABLET PO SCH ×2 (13:51→23:10)
--- NOTE | 2017-08-17 14:18 | PDOC PROGRESS REPORT ---
Subjective Progress Note for:: 08/17/17 Subjective:: Patient seems to be doing better with gradual improvement. Pt is denying any chest arm or neck discomfort. Patient denying any PND, orthopnea. Patient denied any sustained palpitations, dizziness, syncope, near syncope. Patient denying any fever chills. Patient denying any other significant discomfort. Patient is maintaining sinus rhythm. Blood pressure however remains elevated. Medication changes were reviewed with Dr. Moore. Review of systems: Rest review of systems negative. Medications: Medications have been reviewed. Physical Exam Vital Signs: Temp Pulse Resp BP Pulse Ox 97.9 F 60 18 162/98 H 99 08/17/17 12:09 08/17/17 13:47 08/17/17 12:09 08/17/17 12:09 08/17/17 12:09 Intake & Output 08/16/17 08/17/17 08/18/17 06:59 06:59 06:59 Intake Total 1162 908 473 Output Total 1000 400 Balance 162 508 473 Weight 101.2 kg Exam: GENERAL: well-nourished and in no acute distress. Alert and oriented x3 HEAD: Atraumatic, normocephalic. EYES: Pupils equal round and reactive to light, extraocular movements intact, sclera anicteric, conjunctiva are normal. ENT: TMs normal, nares patent, oropharynx clear without exudates. Moist mucous membranes. No oral ulcerations or bleeding gums noted NECK: supple without lymphadenopathy. Trachea is central. No cervical or axillary lymphadenopathy noted. Carotids are 2+, JVD WNL LUNGS: Respiration seems nonlabored, no significant accessory muscle action noted. Breath sounds clear to auscultation bilaterally and equal noted. No wheezes rales or rhonchi noted. No significant dullness noted on percussion. CHEST: Palpation of the chest wall shows no significant chest wall tenderness. No other significant abnormalities noted. 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 ABDOMEN: Soft, no significant tenderness appreciated, normoactive bowel sounds. No guarding, no rebound. No rigidity noted . No masses appreciated. EXTREMITIES: Pedal pulses are 1-2+, no calf tenderness noted. No clubbing or cyanosis.trace to 1+ pedal edema noted NEUROLOGICAL: Focused neurological exam showed no significant neurologic deficit. Normal speech, no focal weakness appreciated. PSYCH: Normal mood, normal affect. Judgment and insight within normal limits. SKIN: No significant ecchymosis, rash, ulcerations or signs of pruritus noted. MUSCULOSKELETAL EXAM: No significant joint swelling noted. Results Laboratory Results: 08/15/17 03:30 08/17/17 04:17 08/17/17 04:17 Sodium 146.2 H Potassium 4.3 Chloride 110 H Carbon Dioxide 24 Anion Gap 12 BUN 51 H Creatinine 2.01 H Est GFR ( Amer) 29 L Est GFR (Non-Af Amer) 24 L Glucose 142 H Calcium 8.4 08/14/17 08/14/17 08/14/17 19:30 21:38 21:38 Creatine Kinase 106 CK-MB (CK-2) 1.01 Troponin I 0.079 0.062 08/15/17 08/15/17 08/15/17 03:30 03:30 09:37 Creatine Kinase 128 131 CK-MB (CK-2) 0.95 Troponin I 0.052 08/15/17 09:37 Creatine Kinase CK-MB (CK-2) 1.11 Troponin I 0.031 EKG Comments: Telemetry strips shows sinus rhythm without any sustained tachycardia or bradycardia arrhythmias. Impressions: Chest X-Ray 08/14/17 14:53 IMPRESSION: Cardiomegaly. No failure. Abdomen MRI with MRA 08/16/17 00:00 IMPRESSION: No MRA evidence of right or left renal artery stenosis Assessment & Plan - Diagnosis (1) Elevated troponin I level Is this a current diagnosis for this admission?: Yes (2) Chronic kidney disease, stage 3 Is this a current diagnosis for this admission?: Yes (3) Coronary artery disease Qualifiers: Coronary Disease-Associated Artery/Lesion type: [place] artery [place] vs. transplanted heart: [place] heart Associated angina: angina presence unspecified Qualified Code(s): I25.10 - Atherosclerotic heart disease of [place] coronary artery without angina pectoris Is this a current diagnosis for this admission?: Yes (4) Diabetes mellitus with diabetic nephropathy Qualifiers: Diabetes mellitus type: type 2 Diabetes mellitus joint terminal attack controller insulin use: with senior living use Qualified Code(s): E11.21 - Type 2 diabetes mellitus with diabetic nephropathy; Z79.4 - assisted (current) use of insulin; Z79.4 - assisted (current) use of insulin; Z79.4 - assisted (current) use of insulin; Z79.4 - assisted (current) use of insulin Is this a current diagnosis for this admission?: Yes (5) Hypertensive emergency Is this a current diagnosis for this admission?: Yes (6) Sleep disorder Is this a current diagnosis for this admission?: Yes - Notes Notes: Increased dose of Norvasc noted. Have increased Catapres 0.2 mg 2 p.o. every 8 since Catapres is a shorter acting medication. May consider switch to Catapres patch to prevent rebound. Also may consider switch from metoprolol heart rate to carvedilol at 25 p.o. every 12 for better blood pressure control. Elevated troponin I: Troponin I levels reviewed. These are felt not to be significantly elevated in the presence of severe hypertension and chronic kidney disease. Patient currently chest pain-free. Patient will benefit from a stress test but this can be scheduled as an outpatient. Patient will also benefit from a 2D echocardiogram. This again can be arranged as an outpatient. Chronic kidney disease: Currently stable. Recommend good control of blood pressure and blood sugar to prevent progression. Coronary artery disease: Symptomatically stable. As noted above, patient will benefit from a stress test to be scheduled as an outpatient. I am told that inpatient stress test at our not being performed because of hol. Diabetes mellitus: This is being expertly managed by shelter advocate. Hypertensive emergency: Currently blood pressure coming under good control. Blood pressure noted to be still intermittently elevated. Medication changes are being performed. Sleep disorder: Patient describes prior history of sleep study. She does describe history of habitual snoring, daytime fatigue and sleepiness. Feel that patient will benefit from a repeat sleep study. This can be performed as an outpatient. - Time Time with patient: Greater than 35 minutes - CODE STATUS was discussed, patient remains full code. Surrogate decision-maker unchanged. Multiple medical problems were addressed. More than 50% of the time spent coordinating care, discussing management plans with involved caregivers. Management plans discussed with involved personnels. Medical decision making was of moderate to high complexity, patient's has multiple comorbidities. Medications reviewed and adjusted accordingly: Yes
--- NOTE | 2017-08-17 15:34 | PDOC PROGRESS REPORT ---
Subjective Progress Note for:: 08/17/17 Subjective:: Seen today.Denies any chest pains, dyspnea.BP still a bit high and so doses have been adjusted earlier by Dr Moore. Physical Exam Vital Signs: Temp Pulse Resp BP Pulse Ox 97.9 F 60 18 162/98 H 99 08/17/17 12:09 08/17/17 13:47 08/17/17 12:09 08/17/17 12:09 08/17/17 12:09 Intake & Output 08/16/17 08/17/17 08/18/17 06:59 06:59 06:59 Intake Total 1162 908 473 Output Total 1000 400 Balance 162 508 473 Weight 101.2 kg General appearance: PRESENT: no acute distress Respiratory exam: PRESENT: clear to auscultation eric, unlabored. ABSENT: crackles, rhonchi Cardiovascular exam: PRESENT: +S1, +S2, systolic murmur GI/Abdominal exam: PRESENT: normal bowel sounds, soft. ABSENT: organomegaly, tenderness Extremities exam: ABSENT: pedal edema Neurological exam: PRESENT: alert, awake, oriented to person, oriented to place Results Laboratory Results: 08/15/17 03:30 08/17/17 04:17 08/17/17 04:17 Sodium 146.2 H Potassium 4.3 Chloride 110 H Carbon Dioxide 24 Anion Gap 12 BUN 51 H Creatinine 2.01 H Est GFR ( Amer) 29 L Est GFR (Non-Af Amer) 24 L Glucose 142 H Calcium 8.4 08/14/17 08/14/17 08/14/17 19:30 21:38 21:38 Creatine Kinase 106 CK-MB (CK-2) 1.01 Troponin I 0.079 0.062 08/15/17 08/15/17 08/15/17 03:30 03:30 09:37 Creatine Kinase 128 131 CK-MB (CK-2) 0.95 Troponin I 0.052 08/15/17 09:37 Creatine Kinase CK-MB (CK-2) 1.11 Troponin I 0.031 Impressions: Chest X-Ray 08/14/17 14:53 IMPRESSION: Cardiomegaly. No failure. Abdomen MRI with MRA 08/16/17 00:00 IMPRESSION: No MRA evidence of right or left renal artery stenosis Assessment & Plan - Diagnosis (1) Proteinuria Plan: diabetic nephropathy.Monitor as OP. (2) Acute kidney injury superimposed on chronic kidney disease Is this a current diagnosis for this admission?: Yes Plan: Improving renal nos.MRA was neg for rosio. (3) Chronic kidney disease, stage 3 Is this a current diagnosis for this admission?: Yes Plan: from diabetic renal disease.Acute decompensation is improving Monitor . (4) Diabetes mellitus with diabetic nephropathy Qualifiers: Diabetes mellitus type: type 2 Diabetes mellitus jail insulin use: with jail use Qualified Code(s): E11.21 - Type 2 diabetes mellitus with diabetic nephropathy; Z79.4 - [facility] (current) use of insulin; Z79.4 - buttermaker (current) use of insulin; Z79.4 - buttermaker (current) use of insulin; Z79.4 - [facility] (current) use of insulin Is this a current diagnosis for this admission?: Yes (5) Hypertensive emergency Is this a current diagnosis for this admission?: Yes Plan: presently under better control.Adv strict compliance with meds in the future.
[2017-08-17] MEDS: CLOPIDOGREL BISULFATE 75 MG TABLET PO SCH (23:10)
[2017-08-17] MEDS: ATORVASTATIN CALCIUM 40 MG TABLET PO SCH (23:11)
[2017-08-17] MEDS: SITAGLIPTIN PHOSPHATE 50 MG TABLET PO SCH (23:17)
[2017-08-18] MEDS: METOPROLOL TARTRATE 50 MG TABLET PO SCH ×2 (02:06→09:34)
[2017-08-18 05:35] LABS: ABSOLUTE BASOPHILS # (AUTO) 0.1 10^3/uL (0.0-0.2); ABSOLUTE EOSINOPHILS # (AUTO) 0.2 10^3/uL (0.0-0.6); ABSOLUTE LYMPHOCYTES (AUTO) 1.7 10^3/uL (0.5-4.7); ABSOLUTE MONOCYTES (AUTO) 0.7 10^3/uL (0.1-1.4); ABSOLUTE NEUT (AUTO) 3.2 10^3/uL (1.7-8.2); EOSINOPHILS % (AUTO) 3.4 % (0-6); HEMATOCRIT 28.1 % (36.0-47.0); HGB HCT DIFFERENCE -1.1; LYMPHOCYTES % (AUTO) 28.7 % (13-45); MEAN CORPUSCULAR HEMOGLOBIN 24.9 pg (27.0-33.4); MEAN CORPUSCULAR HGB CONC 32.1 g/dL (32.0-36.0); MEAN CORPUSCULAR VOLUME 78 fl (80-97); MONOCYTES % (AUTO) 11.5 % (3-13); RED BLOOD COUNT 3.62 10^6/uL (3.72-5.28); RED CELL DISTRIBUTION WIDTH 14.4 % (11.5-14.0); SEGMENTED NEUTROPHILS % (AUTO) 55.4 % (42-78); WHITE BLOOD COUNT 5.8 10^3/uL (4.0-10.5)
[2017-08-18 05:45] LABS: ANION GAP 11 (5-19); BLOOD UREA NITROGEN 48 mg/dL (7-20); CALCIUM 8.4 mg/dL (8.4-10.2); CARBON DIOXIDE 24 mmol/L (22-30); CHLORIDE 112 mmol/L (98-107); CREATININE RESULT 1.96 mg/dL (0.52-1.25); GLUCOSE 145 mg/dL (75-110); POTASSIUM 4.4 mmol/L (3.6-5.0); SODIUM 146.5 mmol/L (137-145)
[2017-08-18] MEDS: HEPARIN SOD (PORCINE) 5,000 UNIT/ML 1 ML SYRINGE SUBCUT SCH ×3 (06:56→22:48)
[2017-08-18] MEDS: HYDRALAZINE HCL 25 MG TABLET PO SCH (06:57)
[2017-08-18] MEDS: CLONIDINE HCL 0.2 MG TABLET PO SCH ×3 (07:01→22:48)
[2017-08-18] MEDS: INSULIN DETEMIR 100 UNIT/ML 3 ML PEN SUBCUT SCH (08:12)
[2017-08-18] MEDS: AMLODIPINE BESYLATE 5 MG TABLET PO SCH ×2 (09:34→22:48)
[2017-08-18] MEDS: ASPIRIN 81 MG TABLET, CHEWABLE PO SCH (09:34)
[2017-08-18] MEDS ORDERED: HYDRALAZINE HCL 25 MG TABLET PO SCH (09:57)
[2017-08-18] MEDS ORDERED: METOPROLOL TARTRATE 50 MG TABLET PO SCH (09:57)
--- NOTE | 2017-08-18 09:59 | PDOC PROGRESS REPORT ---
Subjective Progress Note for:: 08/18/17 Subjective:: Patient is currently doing well Since blood pressure is also coming down Denied any headache denied any chest pain denied any shortness of the breath Physical Exam Vital Signs: Temp Pulse Resp BP Pulse Ox 97.9 F 59 L 15 135/73 H 97 08/18/17 07:27 08/18/17 07:27 08/18/17 07:27 08/18/17 07:27 08/18/17 07:27 Intake & Output 08/17/17 08/18/17 08/19/17 06:59 06:59 06:59 Intake Total 908 977 Output Total 400 400 Balance 508 577 Weight 101.2 kg 102.8 kg General appearance: PRESENT: no acute distress, well-developed, well-nourished Head exam: PRESENT: atraumatic, normocephalic Eye exam: PRESENT: conjunctiva pink, EOMI, PERRLA. ABSENT: scleral icterus Ear exam: PRESENT: normal external ear exam Mouth exam: PRESENT: moist, tongue midline Neck exam: PRESENT: full ROM. ABSENT: carotid bruit, JVD, lymphadenopathy, thyromegaly Respiratory exam: PRESENT: clear to auscultation eric Cardiovascular exam: PRESENT: RRR. ABSENT: diastolic murmur, rubs, systolic murmur Pulses: PRESENT: normal dorsalis pedis pul, +2 pedal pulses bilateral Vascular exam: PRESENT: normal capillary refill GI/Abdominal exam: PRESENT: normal bowel sounds, soft. ABSENT: distended, guarding, mass, organolmegaly, rebound, tenderness Rectal exam: PRESENT: deferred Extremities exam: ABSENT: pedal edema Neurological exam: PRESENT: alert, awake, oriented to person, oriented to place , oriented to time, oriented to situation, CN II-XII grossly intact. ABSENT: motor sensory deficit Psychiatric exam: PRESENT: appropriate affect, normal mood. ABSENT: homicidal ideation, suicidal ideation Skin exam: PRESENT: dry, intact, warm. ABSENT: cyanosis, rash Results Laboratory Results: 08/18/17 04:18 08/18/17 04:18 08/18/17 08/18/17 04:18 04:18 WBC 5.8 RBC 3.62 L Hgb 9.0 L Hct 28.1 L MCV 78 L MCH 24.9 L MCHC 32.1 RDW 14.4 H Plt Count 132 L Seg Neutrophils % 55.4 Lymphocytes % 28.7 Monocytes % 11.5 Eosinophils % 3.4 Basophils % 1.0 Absolute Neutrophils 3.2 Absolute Lymphocytes 1.7 Absolute Monocytes 0.7 Absolute Eosinophils 0.2 Absolute Basophils 0.1 Sodium 146.5 H Potassium 4.4 Chloride 112 H Carbon Dioxide 24 Anion Gap 11 BUN 48 H Creatinine 1.96 H Est GFR ( Amer) 30 L Est GFR (Non-Af Amer) 25 L Glucose 145 H Calcium 8.4 08/14/17 08/14/17 08/14/17 19:30 21:38 21:38 Creatine Kinase 106 CK-MB (CK-2) 1.01 Troponin I 0.079 0.062 08/15/17 08/15/17 08/15/17 03:30 03:30 09:37 Creatine Kinase 128 131 CK-MB (CK-2) 0.95 Troponin I 0.052 08/15/17 09:37 Creatine Kinase CK-MB (CK-2) 1.11 Troponin I 0.031 Impressions: Chest X-Ray 08/14/17 14:53 IMPRESSION: Cardiomegaly. No failure. Abdomen MRI with MRA 08/16/17 00:00 IMPRESSION: No MRA evidence of right or left renal artery stenosis Assessment & Plan - Diagnosis (1) Acute kidney injury superimposed on chronic kidney disease Is this a current diagnosis for this admission?: Yes Plan: Continues to current medications consult to Dr. Santamaria (2) Coronary artery disease Qualifiers: Coronary Disease-Associated Artery/Lesion type: [place] artery [place] vs. transplanted heart: [place] heart Associated angina: angina presence unspecified Qualified Code(s): I25.10 - Atherosclerotic heart disease of [place] coronary artery without angina pectoris Is this a current diagnosis for this admission?: Yes Plan: Since rule out for acute coronary syndromes per patient is very high risks with the coronary disease will be considered to the echocardiograms and consult the cardiology (3) Diabetes mellitus with diabetic nephropathy Qualifiers: Diabetes mellitus type: type 2 Diabetes mellitus emt intermediate insulin use: with emt intermediate use Qualified Code(s): E11.21 - Type 2 diabetes mellitus with diabetic nephropathy; Z79.4 - retirement (current) use of insulin; Z79.4 - retirement (current) use of insulin; Z79.4 - rat exterminator (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 twice a day and add the hydralazine as needed - Time Time Spent with patient: 15-24 minutes Medications reviewed and adjusted accordingly: Yes Anticipated discharge: Home Within: within 24 hours - Inpatient Certification Medical Necessity: Need Close Monitoring Due to Risk of Patient Decompensation Post Hospital Care: D/C Systems Admin Documentation - Plan Summary Plan Summary: We will decrease the metoprolol 25 mg due to the running low heart rate and increase the hydralazine 50 mg p.o. every 8
[2017-08-18] MEDS: HYDRALAZINE HCL 50 MG TABLET PO SCH ×2 (13:35→22:48)
--- NOTE | 2017-08-18 15:08 | PDOC PROGRESS REPORT ---
Subjective Progress Note for:: 08/18/17 Subjective:: Patient seems to be doing better with gradual improvement. Pt is denying any chest arm or neck discomfort. Patient denying any PND, orthopnea. Patient denied any sustained palpitations, dizziness, syncope, near syncope. Patient denying any fever chills. Patient denying any other significant discomfort. Patient is maintaining sinus rhythm. Blood pressure coming under better control , however remains intermittently elevated. Medication changes were reviewed with Dr. Moore. Review of systems: Rest review of systems negative. Medications: Medications have been reviewed. Physical Exam Vital Signs: Temp Pulse Resp BP Pulse Ox 97.8 F 67 16 146/56 H 99 08/18/17 12:00 08/18/17 14:00 08/18/17 12:00 08/18/17 12:00 08/18/17 12:00 Intake & Output 08/17/17 08/18/17 08/19/17 06:59 06:59 06:59 Intake Total 908 977 300 Output Total 400 400 400 Balance 508 577 -100 Weight 101.2 kg 102.8 kg Exam: GENERAL: well-nourished and in no acute distress. Alert and oriented x3 HEAD: Atraumatic, normocephalic. EYES: Pupils equal round and reactive to light, extraocular movements intact, sclera anicteric, conjunctiva are normal. ENT: TMs normal, nares patent, oropharynx clear without exudates. Moist mucous membranes. No oral ulcerations or bleeding gums noted NECK: supple without lymphadenopathy. Trachea is central. No cervical or axillary lymphadenopathy noted. Carotids are 2+, JVD WNL LUNGS: Respiration seems nonlabored, no significant accessory muscle action noted. Breath sounds clear to auscultation bilaterally and equal noted. No wheezes rales or rhonchi noted. No significant dullness noted on percussion. CHEST: Palpation of the chest wall shows no significant chest wall tenderness. No other significant abnormalities noted. 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 ABDOMEN: Soft, no significant tenderness appreciated, normoactive bowel sounds. No guarding, no rebound. No rigidity noted . No masses appreciated. EXTREMITIES: Pedal pulses are 1-2+, no calf tenderness noted. No clubbing or cyanosis.trace to 1+ pedal edema noted NEUROLOGICAL: Focused neurological exam showed no significant neurologic deficit. Normal speech, no focal weakness appreciated. PSYCH: Normal mood, normal affect. Judgment and insight within normal limits. SKIN: No significant ecchymosis, rash, ulcerations or signs of pruritus noted. MUSCULOSKELETAL EXAM: No significant joint swelling noted. Results Laboratory Results: 08/18/17 04:18 08/18/17 04:18 08/18/17 08/18/17 04:18 04:18 WBC 5.8 RBC 3.62 L Hgb 9.0 L Hct 28.1 L MCV 78 L MCH 24.9 L MCHC 32.1 RDW 14.4 H Plt Count 132 L Seg Neutrophils % 55.4 Lymphocytes % 28.7 Monocytes % 11.5 Eosinophils % 3.4 Basophils % 1.0 Absolute Neutrophils 3.2 Absolute Lymphocytes 1.7 Absolute Monocytes 0.7 Absolute Eosinophils 0.2 Absolute Basophils 0.1 Sodium 146.5 H Potassium 4.4 Chloride 112 H Carbon Dioxide 24 Anion Gap 11 BUN 48 H Creatinine 1.96 H Est GFR ( Amer) 30 L Est GFR (Non-Af Amer) 25 L Glucose 145 H Calcium 8.4 08/14/17 08/14/17 08/14/17 19:30 21:38 21:38 Creatine Kinase 106 CK-MB (CK-2) 1.01 Troponin I 0.079 0.062 08/15/17 08/15/17 08/15/17 03:30 03:30 09:37 Creatine Kinase 128 131 CK-MB (CK-2) 0.95 Troponin I 0.052 08/15/17 09:37 Creatine Kinase CK-MB (CK-2) 1.11 Troponin I 0.031 EKG Comments: Shows sinus rhythm with mild sinus bradycardia intermittently Impressions: Chest X-Ray 08/14/17 14:53 IMPRESSION: Cardiomegaly. No failure. Abdomen MRI with MRA 08/16/17 00:00 IMPRESSION: No MRA evidence of right or left renal artery stenosis Assessment & Plan - Diagnosis (1) Elevated troponin I level Is this a current diagnosis for this admission?: Yes (2) Chronic kidney disease, stage 3 Is this a current diagnosis for this admission?: Yes (3) Coronary artery disease Qualifiers: Coronary Disease-Associated Artery/Lesion type: [place] artery [place] vs. transplanted heart: [place] heart Associated angina: angina presence unspecified Qualified Code(s): I25.10 - Atherosclerotic heart disease of [place] coronary artery without angina pectoris Is this a current diagnosis for this admission?: Yes (4) Diabetes mellitus with diabetic nephropathy Qualifiers: Diabetes mellitus type: type 2 Diabetes mellitus [facility] insulin use: with recording clerk use Qualified Code(s): E11.21 - Type 2 diabetes mellitus with diabetic nephropathy; Z79.4 - retirement (current) use of insulin; Z79.4 - information systems operator (current) use of insulin; Z79.4 - information systems operator (current) use of insulin; Z79.4 - retirement (current) use of insulin Is this a current diagnosis for this admission?: Yes (5) Hypertensive emergency Is this a current diagnosis for this admission?: Yes (6) Sleep disorder Is this a current diagnosis for this admission?: Yes - Notes Notes: Blood pressure remains intermittently elevated. Have stopped metoprolol and placed patient on carvedilol 25 mg p.o. every 12. If diabetes is a concern, consider switch to bystolic. Patient otherwise remaining stable. Patient will benefit from weight loss. This was explained to the patient. Patient will also benefit from starting CPAP therapy after qualifying for CPAP therapy with the sleep study. This was explained to the patient. Patient is agreeable to see me regarding this. - Time Time with patient: Greater than 35 minutes
[2017-08-18] MEDS ORDERED: DEXTROSE 50%-WATER SYRINGE 12.5 GM/25 ML DOSE IV PRN (17:02)
[2017-08-18] MEDS ORDERED: DEXTROSE 50%-WATER SYRINGE 25 GM/50 ML DOSE IV PRN (17:02)
[2017-08-18] MEDS ORDERED: GLUCAGON,HUMAN RECOMB 1 MG INJ IM PRN (17:02)
[2017-08-18] MEDS ORDERED: DEXTROSE 40% GEL 15 GM TUBE X 2 PO PRN (17:02)
[2017-08-18] MEDS ORDERED: DEXTROSE 40% GEL 15 GM TUBE PO PRN (17:02)
[2017-08-18] MEDS: INSULIN LISPRO 100 UNIT/ML 3 ML VIAL SUBCUT PRN ×2 (18:07→22:47)
[2017-08-18] MEDS ORDERED: METOPROLOL TARTRATE 25 MG TABLET PO SCH (22:00)
[2017-08-18] MEDS: CLOPIDOGREL BISULFATE 75 MG TABLET PO SCH (22:48)
[2017-08-18] MEDS: SITAGLIPTIN PHOSPHATE 50 MG TABLET PO SCH (22:48)
[2017-08-18] MEDS: ATORVASTATIN CALCIUM 40 MG TABLET PO SCH (22:48)
[2017-08-18] MEDS: CARVEDILOL 12.5 MG TABLET PO SCH (22:49)
[2017-08-19 05:46] LABS: ANION GAP 14 (5-19); BLOOD UREA NITROGEN 48 mg/dL (7-20); CALCIUM 8.3 mg/dL (8.4-10.2); CARBON DIOXIDE 21 mmol/L (22-30); CHLORIDE 112 mmol/L (98-107); GLUCOSE 150 mg/dL (75-110); POTASSIUM 4.8 mmol/L (3.6-5.0); SODIUM 147.4 mmol/L (137-145)
[2017-08-19] MEDS: HEPARIN SOD (PORCINE) 5,000 UNIT/ML 1 ML SYRINGE SUBCUT SCH (06:41)
[2017-08-19] MEDS: CLONIDINE HCL 0.2 MG TABLET PO SCH (06:41)
[2017-08-19] MEDS: HYDRALAZINE HCL 50 MG TABLET PO SCH (06:41)
[2017-08-19] MEDS: INSULIN DETEMIR 100 UNIT/ML 3 ML PEN SUBCUT SCH (07:36)
[2017-08-19] MEDS: INSULIN LISPRO 100 UNIT/ML 3 ML VIAL SUBCUT PRN (07:37)
--- NOTE | 2017-08-19 10:00 | PDOC DISCHARGE SUMMARY ---
General - Admit/Disc Date/PCP Admission Date/Primary Care Provider: 08/14/17 17:47 ANNA MADISON MD Discharge Date: 08/19/17 - Discharge Diagnosis (1) Acute kidney injury superimposed on chronic kidney disease Is this a current diagnosis for this admission?: Yes Summary: Currently all stable follow with the Dr. Santamaria as outpatient (2) Coronary artery disease Is this a current diagnosis for this admission?: Yes Summary: Currently evaluated by cardiology currently all stable (3) Diabetes mellitus with diabetic nephropathy Is this a current diagnosis for this admission?: Yes Summary: Continues to current medications (4) Hypertensive emergency Is this a current diagnosis for this admission?: Yes Summary: Currently all resolved - Additional Information Resuscitation Status: Full Code Discharge Diet: Diabetic Discharge Activity: Activity As Tolerated Home Medications: Aspirin [Aspirin 81 mg Chewable Tablet] 81 mg PO DAILY 08/14/17 Clopidogrel Bisulfate [Clopidogrel] 75 mg PO DAILY 08/14/17 Furosemide [Lasix] 20 mg PO MOWEFR@1000 08/14/17 Insulin Detemir [Levemir] 35 unit SQ QAM 08/14/17 Linagliptin [Tradjenta] 5 mg PO DAILY 08/14/17 Rosuvastatin Calcium [Crestor 20 mg Tablet] 20 mg PO QHS 08/14/17 Tramadol HCl [Tramadol HCl ER] 100 mg PO Q12 08/14/17 Carvedilol [Coreg 12.5 mg Tablet] 25 mg PO Q12 #60 tablet 08/19/17 Clonidine HCl [Catapres 0.2 mg Tablet] 0.2 mg PO Q8 #90 tablet 08/19/17 History of Present Illness History of Present Illness: NELSON WISE is a 72 year old female This is a 72-year-old female admitted by Dr. Madison because of the hypertension's urgency no chest discomfort and patient was started on nitroglycerin drip Hospital Course Hospital Course: There is a 72-year-old female with a significant history of the chronic kidney disease and diabetes mellitus and coronary artery disease came to the emergency department because of the hypertension urgency and chest discomfort and patient was admitted in IMCU and start the nitroglycerin Patient's initial workup is all stable In by the nephrology Dr. Santamaria an MRI of the abdomen was done which is negative for any renal artery stenosis Seen by the gray mixing operator and adjust the medications Is discharged home with the stable conditions and follow with the outpatients cardiology and nephrology Since Coreg dose was reduced to 12.5 mg twice a day due to the heart rate is running 50-60 range as per discussed with the gray mixing operator is okay and follow outpatient Patient's otherwise p.o. intake is good patients ambulating in the hallway without any problems His blood pressure is also stable Patients wants to go home Physical Exam Vital Signs: Temp Pulse Resp BP Pulse Ox 97.3 F 48 L 16 132/56 H 97 08/19/17 07:42 08/19/17 07:42 08/19/17 07:42 08/19/17 07:42 08/19/17 07:42 Intake & Output 08/18/17 08/19/17 08/20/17 06:59 06:59 06:59 Intake Total 977 968 Output Total 400 600 Balance 577 368 Weight 102.8 kg 102.9 kg General appearance: PRESENT: no acute distress, well-developed, well-nourished Head exam: PRESENT: atraumatic, normocephalic Eye exam: PRESENT: conjunctiva pink, EOMI, PERRLA. ABSENT: scleral icterus Ear exam: PRESENT: normal external ear exam Mouth exam: PRESENT: moist, tongue midline Neck exam: PRESENT: full ROM. ABSENT: carotid bruit, JVD, lymphadenopathy, thyromegaly Respiratory exam: PRESENT: clear to auscultation eric Cardiovascular exam: PRESENT: RRR. ABSENT: diastolic murmur, rubs, systolic murmur Pulses: PRESENT: normal dorsalis pedis pul, +2 pedal pulses bilateral Vascular exam: PRESENT: normal capillary refill GI/Abdominal exam: PRESENT: normal bowel sounds, soft. ABSENT: distended, guarding, mass, organolmegaly, rebound, tenderness Rectal exam: PRESENT: deferred Extremities exam: ABSENT: full ROM, left AKA, right AKA, left BKA, right BKA, calf tenderness, joint swelling, pedal edema, tenderness, other Musculoskeletal exam: PRESENT: ambulatory Neurological exam: PRESENT: alert, awake, oriented to person, oriented to place , oriented to time, oriented to situation, CN II-XII grossly intact. ABSENT: motor sensory deficit Psychiatric exam: PRESENT: appropriate affect, normal mood. ABSENT: homicidal ideation, suicidal ideation Skin exam: PRESENT: dry, intact, warm. ABSENT: cyanosis, rash Results Laboratory Results: 08/18/17 04:18 08/19/17 04:32 08/19/17 04:32 Sodium 147.4 H Potassium 4.8 Chloride 112 H Carbon Dioxide 21 L Anion Gap 14 BUN 48 H Creatinine 1.70 H Est GFR ( Amer) 36 L Est GFR (Non-Af Amer) 29 L Glucose 150 H Calcium 8.3 L 08/14/17 08/14/17 08/14/17 19:30 21:38 21:38 Creatine Kinase 106 CK-MB (CK-2) 1.01 Troponin I 0.079 0.062 08/15/17 08/15/17 08/15/17 03:30 03:30 09:37 Creatine Kinase 128 131 CK-MB (CK-2) 0.95 Troponin I 0.052 08/15/17 09:37 Creatine Kinase CK-MB (CK-2) 1.11 Troponin I 0.031 Impressions: Chest X-Ray 08/14/17 14:53 IMPRESSION: Cardiomegaly. No failure. Abdomen MRI with MRA 08/16/17 00:00 IMPRESSION: No MRA evidence of right or left renal artery stenosis Plan Time Spent: Greater than 30 Minutes - Discharge home with the stable conditions follow outpatient with a cardiology and nephrology Dr. Madison in 1 week
[2017-08-19] MEDS: AMLODIPINE BESYLATE 5 MG TABLET PO SCH (10:34)
[2017-08-19] MEDS: CARVEDILOL 12.5 MG TABLET PO SCH (10:34)
[2017-08-19] MEDS: ASPIRIN 81 MG TABLET, CHEWABLE PO SCH (10:35)
[2017-08-19 11:11] VITALS: BP 170/72
--- NOTE | 2017-08-19 11:29 | PDOC PROGRESS REPORT ---
Subjective Progress Note for:: 08/19/17 Subjective:: Patient seems to be doing better with gradual improvement. Pt is denying any chest arm or neck discomfort. Patient denying any PND, orthopnea. Patient denied any sustained palpitations, dizziness, syncope, near syncope. Patient denying any fever chills. Patient denying any other significant discomfort. BP medication changes are being tolerated well. Patient was noted to ambulate without any difficulty with the nurses today. Patient is maintaining sinus rhythm. Blood pressure however remains elevated. Medication changes were reviewed with Dr. Moore. Review of systems: Rest review of systems negative. Medications: Medications have been reviewed. Physical Exam Vital Signs: Temp Pulse Resp BP Pulse Ox 97.3 F 48 L 16 170/72 H 97 08/19/17 11:09 08/19/17 11:09 08/19/17 11:09 08/19/17 11:09 08/19/17 11:09 Intake & Output 08/18/17 08/19/17 08/20/17 06:59 06:59 06:59 Intake Total 977 968 Output Total 400 600 Balance 577 368 Weight 102.8 kg 102.9 kg Exam: GENERAL: well-nourished and in no acute distress. Alert and oriented x3 HEAD: Atraumatic, normocephalic. EYES: Pupils equal round and reactive to light, extraocular movements intact, sclera anicteric, conjunctiva are normal. ENT: TMs normal, nares patent, oropharynx clear without exudates. Moist mucous membranes. No oral ulcerations or bleeding gums noted NECK: supple without lymphadenopathy. Trachea is central. No cervical or axillary lymphadenopathy noted. Carotids are 2+, JVD WNL LUNGS: Respiration seems nonlabored, no significant accessory muscle action noted. Breath sounds clear to auscultation bilaterally and equal noted. No wheezes rales or rhonchi noted. No significant dullness noted on percussion. CHEST: Palpation of the chest wall shows no significant chest wall tenderness. No other significant abnormalities noted. HEART: [place] GREASE RENDERER, No PSH, 1/6 MITCHELL aortic area, 1/6 burris systolic murmur mitral area, no rubs, no gallops. ABDOMEN: Soft, no significant tenderness appreciated, normoactive bowel sounds. No guarding, no rebound. No rigidity noted . No masses appreciated. EXTREMITIES: Pedal pulses are 1-2+, no calf tenderness noted. No clubbing or cyanosis.trace to 1+ pedal edema noted NEUROLOGICAL: Focused neurological exam showed no significant neurologic deficit. Normal speech, no focal weakness appreciated. PSYCH: Normal mood, normal affect. Judgment and insight within normal limits. SKIN: No significant ecchymosis, rash, ulcerations or signs of pruritus noted. MUSCULOSKELETAL EXAM: No significant joint swelling noted. Results Laboratory Results: 08/18/17 04:18 08/19/17 04:32 08/19/17 04:32 Sodium 147.4 H Potassium 4.8 Chloride 112 H Carbon Dioxide 21 L Anion Gap 14 BUN 48 H Creatinine 1.70 H Est GFR ( Amer) 36 L Est GFR (Non-Af Amer) 29 L Glucose 150 H Calcium 8.3 L 08/14/17 08/14/17 08/14/17 19:30 21:38 21:38 Creatine Kinase 106 CK-MB (CK-2) 1.01 Troponin I 0.079 0.062 08/15/17 08/15/17 08/15/17 03:30 03:30 09:37 Creatine Kinase 128 131 CK-MB (CK-2) 0.95 Troponin I 0.052 08/15/17 09:37 Creatine Kinase CK-MB (CK-2) 1.11 Troponin I 0.031 EKG Comments: Sinus rhythm with mild intermittent sinus bradycardia Impressions: Chest X-Ray 08/14/17 14:53 IMPRESSION: Cardiomegaly. No failure. Abdomen MRI with MRA 08/16/17 00:00 IMPRESSION: No MRA evidence of right or left renal artery stenosis Assessment & Plan - Diagnosis (1) Elevated troponin I level Is this a current diagnosis for this admission?: Yes (2) Chronic kidney disease, stage 3 Is this a current diagnosis for this admission?: Yes (3) Coronary artery disease Qualifiers: Coronary Disease-Associated Artery/Lesion type: [place] artery [place] vs. transplanted heart: [place] heart Associated angina: angina presence unspecified Qualified Code(s): I25.10 - Atherosclerotic heart disease of [place] coronary artery without angina pectoris Is this a current diagnosis for this admission?: Yes (4) Diabetes mellitus with diabetic nephropathy Qualifiers: Diabetes mellitus type: type 2 Diabetes mellitus buttermaker helper insulin use: with prison use Qualified Code(s): E11.21 - Type 2 diabetes mellitus with diabetic nephropathy; Z79.4 - remote computer terminal operator (current) use of insulin; Z79.4 - long-term (current) use of insulin; Z79.4 - remote computer terminal operator (current) use of insulin; Z79.4 - long-term (current) use of insulin Is this a current diagnosis for this admission?: Yes (5) Hypertensive emergency Is this a current diagnosis for this admission?: Yes (6) Sleep disorder Is this a current diagnosis for this admission?: Yes - Notes Notes: Elevated troponin I: Troponin I levels reviewed. These are felt not to be significantly elevated in the presence of severe hypertension and chronic kidney disease. Patient currently chest pain-free. Patient will benefit from a stress test but this can be scheduled as an outpatient. Chronic kidney disease: Currently stable. Recommend good control of blood pressure and blood sugar to prevent progression. Coronary artery disease: Symptomatically stable. As noted above, patient will benefit from a stress test to be scheduled as an outpatient. I am told that inpatient stress test at our not being performed because of holidays. Diabetes mellitus: This is being expertly managed by deaf/hard of hearing specialist. Hypertensive emergency: Currently blood pressure coming under good control. Multiple blood pressure medications were changed. At current medication, her blood pressure is well controlled. Sleep disorder: Patient describes prior history of sleep study. She does describe history of habitual snoring, daytime fatigue and sleepiness. Feel that patient will benefit from a repeat sleep study. This can be performed as an outpatient. - Time Time with patient: 15-25 minutes - CODE STATUS was discussed, patient remains full code. Surrogate decision-maker patient's . Multiple medical problems were addressed. More than 50% of the time spent coordinating care, discussing management plans with involved caregivers. Management plans discussed with involved personnels. Medical decision making was of moderate to high complexity, patient's has multiple comorbidities. Medications reviewed and adjusted accordingly: Yes
== END 2017-08-19 12:00 | disposition home or self-care (01) | DRG 305 ==
LOC: ER 13:39 → EH 17:47 → OBSVTOIN 17:47 → 3N 21:50
PROVIDERS: ADMIT Internal Medicine; ATTEND Internal Medicine
DX: I16.0 Hypertensive urgency (principal); I16.1 Hypertensive emergency; N17.9 Acute kidney failure, unspecified; I12.9 Hypertensive chronic kidney disease with stage 1 through stage 4 chronic kidney disease, or unspecified chronic kidney disease; I25.10 Atherosclerotic heart disease of native coronary artery without angina pectoris; E11.22 Type 2 diabetes mellitus with diabetic chronic kidney disease; E11.319 Type 2 diabetes mellitus with unspecified diabetic retinopathy without macular edema; N18.3 Chronic kidney disease, stage 3 (moderate); J44.9 Chronic obstructive pulmonary disease, unspecified; E11.65 Type 2 diabetes mellitus with hyperglycemia; E78.5 Hyperlipidemia, unspecified; D63.1 Anemia in chronic kidney disease; R74.8 Abnormal levels of other serum enzymes; G47.9 Sleep disorder, unspecified; I25.2 Old myocardial infarction; E66.9 Obesity, unspecified; Z68.38 Body mass index [BMI] 38.0-38.9, adult; Z79.899 Other long term (current) drug therapy; Z79.4 Long term (current) use of insulin; Z79.82 Long term (current) use of aspirin; Z95.5 Presence of coronary angioplasty implant and graft; Z91.14 Patient's other noncompliance with medication regimen; Z90.710 Acquired absence of both cervix and uterus; Z82.49 Family history of ischemic heart disease and other diseases of the circulatory system
CPT/HCPCS: 36415; 71010; 80048; 80053; 80061; 81001; 82550; 82553; 82570; 82962; 83036; 83735; 84100; 84156; 84443; 84484; 85025; 85027; 85610; 85730; 93005; 93010; 99285; C8901; G0378; J1644; J1815; J3490

== ENCOUNTER → 2017-09-04 | Outpatient (CLI) | payer MEDICARE ==
[2017-09-04 13:30] LABS: HEMOGLOBIN 9.7 g/dL (12.0-15.5); HGB HCT DIFFERENCE -0.9; MEAN CORPUSCULAR HGB CONC 32.2 g/dL (32.0-36.0); MEAN CORPUSCULAR VOLUME 78 fl (80-97); RED BLOOD COUNT 3.86 10^6/uL (3.72-5.28); RED CELL DISTRIBUTION WIDTH 14.6 % (11.5-14.0); WHITE BLOOD COUNT 8.1 10^3/uL (4.0-10.5)
[2017-09-04 13:32] LABS: APPEARANCE,URINE CLEAR; BILIRUBIN,URINE NEGATIVE (NEGATIVE); GLUCOSE, URINE NEGATIVE (NEGATIVE); KETONES,URINE NEGATIVE (NEGATIVE); LEUKOCYTE ESTERASE,URINE NEGATIVE (NEGATIVE); NITRITE,URINE NEGATIVE (NEGATIVE); PROTEIN,URINE 30 mg/dL (NEGATIVE); URINE SPECIFIC GRAVITY 1.008; UROBILINOGEN,URINE NEGATIVE mg/dL (<2.0)
[2017-09-04 13:56] LABS: URINE CREATININE 38.8 mg/dL (15-278); URINE PROTEIN 35.1 mg/dL (<12)
[2017-09-04 13:56] LABS: ANION GAP 17 (5-19); BLOOD UREA NITROGEN 54 mg/dL (7-20); CARBON DIOXIDE 18 mmol/L (22-30); CHLORIDE 115 mmol/L (98-107); CREATININE RESULT 2.53 mg/dL (0.52-1.25); GLUCOSE 81 mg/dL (75-110); POTASSIUM 4.7 mmol/L (3.6-5.0); SODIUM 149.5 mmol/L (137-145)
== END ==
LOC: OD 12:15
PROVIDERS: ATTEND Physician Assistant Medical
DX: I12.9 Hypertensive chronic kidney disease with stage 1 through stage 4 chronic kidney disease, or unspecified chronic kidney disease (principal); N18.4 Chronic kidney disease, stage 4 (severe); R80.9 Proteinuria, unspecified; E11.9 Type 2 diabetes mellitus without complications
CPT/HCPCS: 36415; 80048; 81001; 82570; 84156; 85027

== ENCOUNTER → 2017-12-10 | Outpatient (CLI) | payer MEDICARE ==
[2017-12-10 17:11] LABS: HEMATOCRIT 30.7 % (36.0-47.0); HEMOGLOBIN 9.8 g/dL (12.0-15.5); MEAN CORPUSCULAR HEMOGLOBIN 24.4 pg (27.0-33.4); MEAN CORPUSCULAR VOLUME 76 fl (80-97); PLATELET COUNT 194 10^3/uL (150-450); RED BLOOD COUNT 4.03 10^6/uL (3.72-5.28); RED CELL DISTRIBUTION WIDTH 14.9 % (11.5-14.0); WHITE BLOOD COUNT 7.3 10^3/uL (4.0-10.5)
[2017-12-10 17:36] LABS: ANION GAP 14 (5-19); BLOOD UREA NITROGEN 37 mg/dL (7-20); CALCIUM 9.4 mg/dL (8.4-10.2); CARBON DIOXIDE 23 mmol/L (22-30); CHLORIDE 108 mmol/L (98-107); GLUCOSE 259 mg/dL (75-110); IRON(TIBC) 27.9 ug/dL (37-170); PHOSPHORUS 3.6 mg/dL (2.5-4.5); POTASSIUM 4.6 mmol/L (3.6-5.0); SODIUM 144.9 mmol/L (137-145)
== END ==
LOC: OD 15:48
PROVIDERS: ATTEND Internal Medicine Nephrology
DX: I12.9 Hypertensive chronic kidney disease with stage 1 through stage 4 chronic kidney disease, or unspecified chronic kidney disease (principal); N18.9 Chronic kidney disease, unspecified; R80.9 Proteinuria, unspecified; D64.9 Anemia, unspecified
CPT/HCPCS: 36415; 80048; 82728; 83540; 83550; 83970; 84100; 85027

== ENCOUNTER → 2018-02-27 | Outpatient (CLI) | payer MEDICARE ==
--- NOTE | 2018-02-27 14:12 | WOMENS IMAGING REPORT ---
EXAM DESCRIPTION: 3D SCREENING MAMMO BILAT COMPLETED DATE/TIME: 02/27/2018 1:43 pm REASON FOR STUDY: SCREENING MAMMO Z12.31 ENCNTR SCREEN MAMMOGRAM FOR MALIGNANT NEOPLASM OF [place] COMPARISON: 02/26/2017 and 12/24/2014. TECHNIQUE: Standard craniocaudal and mediolateral oblique views of each breast recorded using digita l acquisition and breast tomosynthesis. LIMITATIONS: None. FINDINGS: No masses, calcifications or architectural distortion. No areas of suspicion. Read with the assistance of CAD. .[facility] - R2 Cenova Version 1.3 .[facility] - R2 Cenova Version 1.3 .[facility] - R2 Cenova Version 2.4 .[facility] - R2 Cenova Version 2.4 .[facility] - R2 Bias Machine Operator Version 9.2 IMPRESSION: NORMAL MAMMOGRAM. BIRADS 1. BREAST DENSITY: c. The breasts are heterogeneously dense, which may obscure small masses. BIRAD: 1 NEGATIVE RECOMMENDATION: ROUTINE SCREENING COMMENT: The patient has been notified of the results by letter per MQSA requirements. Additional no tification policies are in place for contacting patient with suspicious or incomplete findings. Quality ID #[id number]: The [employer] recommends an annual screening mammogram for women aged 40 years or over. This facility utilizes a reminder system to ensure that all patients receive reminder letters, and/or direct phone calls for appointments. This includes reminders for routine scr eening mammograms, diagnostic mammograms, or other Breast Imaging Interventions when appropriate. Th is patient will be placed in the appropriate reminder system. The [employer] (ACR) has developed recommendations for screening MRI of the breast s in certain patient populations, to be used in conjunction with mammography. Breast MRI surveillanc e may be appropriate for women with more than 20% lifetime risk of developing breast cancer as deter mined by genetic testing, significant family history of the disease, or history of mantle radiation f or Hodgkins Disease. ACR Practice Guidelines 2008. DBT Technology DBT is a type of tomographic mammography. With conventional mammography, overlapping breast tissue ma y make lesions difficult to detect, even with good compression. DBT uses an x-ray tube that rotates a round the breast, taking images at different angles. These images are then combined to create thin sl ices of the breast that the radiologist can view as a 3D reconstruction. The Zeolife unit can perform full-field digital mammograms (2D imaging); or DBT (3D imaging); or both, in a combination mode that quickly performs both the mammogram and the tomosynthesis scan while the breast is still compressed. PQRS 6045F: Fluoroscopic imaging is not utilized for breast tomosynthesis. TECHNICAL DOCUMENTATION: FINDING NUMBER: (1) ASSESSMENT: (1) JOB ID: [id number] [employer]- All Rights Reserved Reading location - IP/workstation name: [email or web address]
== END ==
LOC: WI 10:44
PROVIDERS: ATTEND Internal Medicine
DX: Z12.31 Encounter for screening mammogram for malignant neoplasm of breast (principal)
CPT/HCPCS: 77063; 77067

== ENCOUNTER 2018-03-29 13:08 | Inpatient (IN) | payer MEDICARE ==
[2018-03-29] MEDS ORDERED: NITROGLYCERIN 50 MG/D5W 250 ML IV PRN (14:25)
[2018-03-29] MEDS ORDERED: INSULIN, REGULAR 100 UNIT/100 ML NORMAL SALINE IV PRN ×2 (14:26)
[2018-03-29] MEDS ORDERED: DEXTROSE 40% GEL 15 GM TUBE PO PRN (14:26)
[2018-03-29] MEDS ORDERED: DEXTROSE 50%-WATER SYRINGE 25 GM/50 ML DOSE IV PRN (14:26)
[2018-03-29] MEDS ORDERED: DEXTROSE 50%-WATER SYRINGE 12.5 GM/25 ML DOSE IV PRN (14:26)
[2018-03-29] MEDS ORDERED: DEXTROSE 40% GEL 15 GM TUBE X 2 PO PRN (14:26)
[2018-03-29] MEDS ORDERED: GLUCAGON,HUMAN RECOMB 1 MG INJ IM PRN (14:26)
--- NOTE | 2018-03-29 15:16 | RADIOLOGY REPORT (SQ) ---
EXAM DESCRIPTION: CHEST SINGLE VIEW COMPLETED DATE/TIME: 03/29/2018 2:56 pm REASON FOR STUDY: New admission COMPARISON: AP chest 08/14/2017, Two-view chest 03/28/2016 CT chest 03/28/2016 EXAM PARAMETERS: NUMBER OF VIEWS: One view. TECHNIQUE: Single frontal radiographic view of the chest acquired. RADIATION DOSE: NA LIMITATIONS: Obese patient, portable technique FINDINGS: LUNGS AND PLEURA: No opacities, masses or pneumothorax. No pleural effusion. MEDIASTINUM AND HILAR STRUCTURES: No masses. Contour normal. HEART AND VASCULAR STRUCTURES: Moderate cardiomegaly, stable. BONES: No acute findings. HARDWARE: None in the chest. OTHER: No other significant finding. IMPRESSION: Moderate stable cardiomegaly. No acute infiltrates TECHNICAL DOCUMENTATION: JOB ID: [id number]- All Rights Reserved Reading location - IP/workstation name: [email or web address]
[2018-03-29 16:10] LABS: ABSOLUTE BASOPHILS # (AUTO) 0.1 10^3/uL (0.0-0.2); ABSOLUTE LYMPHOCYTES (AUTO) 1.8 10^3/uL (0.5-4.7); ABSOLUTE MONOCYTES (AUTO) 0.9 10^3/uL (0.1-1.4); ABSOLUTE NEUT (AUTO) 6.2 10^3/uL (1.7-8.2); BASOPHILS % (AUTO) 0.6 % (0-2); EOSINOPHILS % (AUTO) 0.2 % (0-6); HEMATOCRIT 35.4 % (36.0-47.0); HEMOGLOBIN 11.4 g/dL (12.0-15.5); LYMPHOCYTES % (AUTO) 20.1 % (13-45); MEAN CORPUSCULAR HEMOGLOBIN 23.9 pg (27.0-33.4); MEAN CORPUSCULAR HGB CONC 32.1 g/dL (32.0-36.0); MEAN CORPUSCULAR VOLUME 75 fl (80-97); MONOCYTES % (AUTO) 9.8 % (3-13); PLATELET COUNT 204 10^3/uL (150-450); RED BLOOD COUNT 4.75 10^6/uL (3.72-5.28); SEGMENTED NEUTROPHILS % (AUTO) 69.3 % (42-78); TOTAL CELLS COUNTED % (AUTO) 100 %
[2018-03-29 16:36] LABS: ALANINE AMINOTRANSFERASE 21 U/L (9-52); ALBUMIN 3.6 g/dL (3.5-5.0); ALKALINE PHOSPHATASE 120 U/L (38-126); ANION GAP 14 (5-19); ASPARTATE AMINO TRANSFERASE 24 U/L (14-36); BILIRUBIN,DIRECT 0.4 mg/dL (0.0-0.4); BILIRUBIN,TOTAL 0.5 mg/dL (0.2-1.3); BLOOD UREA NITROGEN 23 mg/dL (7-20); CALCIUM 8.6 mg/dL (8.4-10.2); CARBON DIOXIDE 23 mmol/L (22-30); CHLORIDE 107 mmol/L (98-107); GLUCOSE 329 mg/dL (75-110); POTASSIUM 3.8 mmol/L (3.6-5.0); TOTAL PROTEIN 7.3 g/dL (6.3-8.2)
[2018-03-29] MEDS: INSULIN LISPRO 100 UNIT/ML 3 ML VIAL SUBCUT PRN ×2 (17:16→22:58)
[2018-03-29] MEDS ORDERED: CALCITRIOL 0.25 MCG CAPSULE PO SCH (20:00)
[2018-03-29] MEDS ORDERED: FEBUXOSTAT 80 MG TABLET PO SCH (20:00)
[2018-03-29] MEDS ORDERED: FUROSEMIDE 20 MG TABLET PO SCH (20:00)
[2018-03-29] MEDS ORDERED: FERROUS SULFATE 325 MG TABLET PO SCH (20:00)
[2018-03-29] MEDS ORDERED: METOPROLOL TARTRATE 50 MG TABLET PO ONE (20:00)
[2018-03-29] MEDS ORDERED: INSULIN DETEMIR 100 UNIT/ML 3 ML PEN SUBCUT SCH (20:00)
[2018-03-29] MEDS ORDERED: (PENDING PHARMACY ID) (Valsartan [Diovan] 320 MG) PO SCH (20:00)
[2018-03-29] MEDS ORDERED: ASPIRIN 81 MG TABLET, CHEWABLE PO SCH (20:00)
[2018-03-29] MEDS ORDERED: CLOPIDOGREL BISULFATE 75 MG TABLET PO SCH (20:00)
[2018-03-29] MEDS ORDERED: (PENDING PHARMACY ID) (Linagliptin [Tradjenta] 5 MG) PO SCH (20:00)
[2018-03-29] MEDS ORDERED: (PENDING PHARMACY ID) (Rosuvastatin Calcium [Crestor 20 Mg Tablet] 20 MG) PO SCH (20:00)
[2018-03-29] MEDS ORDERED: CHOLECALCIFEROL (D3) 1,000 UNIT TABLET PO SCH (20:00)
[2018-03-29] MEDS ORDERED: METOPROLOL TARTRATE 50 MG TABLET PO SCH (20:00)
--- NOTE | 2018-03-29 20:13 | PDOC H&P ---
History of Present Illness Admission Date/PCP: 03/29/18 13:08 ANNA MADISON MD History of Present Illness: NELSON WISE is a 72 year old female,She has a history of diabetes mellitus type 2 complicated with chronic kidney disease stage IV, coronary artery disease status post coronary artery stent placement, she came to the office for follow-up evaluation, she complained of malaise she also stated that her blood sugar has been high for the last few days, the blood pressure recorded in the office was over 200 systolic she was admitted directly from the office to the hospital for further evaluation of hypertensive emergency and uncontrolled diabetes mellitus Past Medical History Cardiac Medical History: Reports: Myocardial Infarction - 5/6YRS AGO, Hyperlipidema, Hypertension - MEDICATED Pulmonary Medical History: Reports: Chronic Obstructive Pulmonary Disease (COPD) Neurological Medical History: Reports: Seizures - JANUARY 2017 3 SEIZURES IN ONE DAY RELATED TO ELEVATED BS Endocrine Medical History: Reports: Diabetes Mellitus Type 2 - uncontrolled Hematology: Reports: Anemia - MEDICATED Past Surgical History Past Surgical History: Reports: Cardiac Catheterization, Section, Hysterectomy Social History Smoking Status: Never Smoker Frequency of Alcohol Use: None Hx Recreational Drug Use: No Drugs: None Hx Prescription Drug Abuse: No Family History Family History: Hypertension Parental Family History Reviewed: Yes Children Family History Reviewed: Yes Sibling(s) Family History Reviewed.: Yes Medication/Allergy Home Medications: Amlodipine Besylate [Norvasc 10 mg Tablet] 10 mg PO DAILY 03/29/18 Aspirin [Aspirin 81 mg Chewable Tablet] 81 mg PO DAILY 03/29/18 Cholecalciferol (Vitamin D3) [Vitamin D3 1000 Unit Tablet] 1,000 unit PO DAILY 03/29/18 Clonidine HCl [Catapres 0.2 mg Tablet] 0.2 mg PO Q8 03/29/18 Clopidogrel Bisulfate [Plavix 75 mg Tablet] 75 mg PO DAILY 03/29/18 Febuxostat [Uloric 80 mg Tablet] 80 mg PO DAILY 03/29/18 Furosemide [Lasix 20 mg Tablet] 20 mg PO DAILY 03/29/18 Insulin Detemir [Levemir Flextouch] 35 units SQ DAILY 03/29/18 Linagliptin [Tradjenta] 5 mg PO DAILY 03/29/18 Metoprolol Tartrate [Lopressor 50 mg Tablet] 50 mg PO BID 03/29/18 RX: Calcitriol [Rocaltrol 0.25 mcg Capsule] 0.25 mcg PO DAILY 03/29/18 RX: Ferrous Sulfate [Feosol 325 mg Tablet] 325 mg PO DAILY 03/29/18 RX: Hydralazine HCl [Apresoline 50 mg Tablet] 50 mg PO Q8 03/29/18 Rosuvastatin Calcium [Crestor 20 mg Tablet] 20 mg PO DAILY 03/29/18 Valsartan [Diovan] 320 mg PO DAILY 03/29/18 Allergies/Adverse Reactions: No Known Allergies Allergy (Verified 05/03/17 08:46) Review of Systems Constitutional: PRESENT: fatigue Eyes: ABSENT: visual disturbances Ears: ABSENT: hearing changes Cardiovascular: ABSENT: chest pain, dyspnea on exertion, edema, orthropnea, palpitations Respiratory: ABSENT: cough, hemoptysis Gastrointestinal: ABSENT: abdominal pain, constipation, diarrhea, hematemesis, hematochezia, nausea, vomiting Genitourinary: ABSENT: dysuria, hematuria Musculoskeletal: ABSENT: joint swelling Integumentary: ABSENT: rash, wounds Neurological: ABSENT: abnormal gait, abnormal speech, confusion, dizziness, focal weakness, syncope Psychiatric: ABSENT: anxiety, depression, homidical ideation, suicidal ideation Endocrine: ABSENT: cold intolerance, heat intolerance, menstrual abnormalities, polydipsia, polyuria Hematologic/Lymphatic: ABSENT: easy bleeding, easy bruising, lymphadenopathy Physical Exam Vital Signs: Temp Pulse Resp BP Pulse Ox 99.4 F 115 H 20 191/92 H 98 03/29/18 19:46 03/29/18 19:46 03/29/18 19:46 03/29/18 19:46 03/29/18 19:46 Intake & Output 03/28/18 03/29/18 03/30/18 06:59 06:59 06:59 Intake Total 8 Balance 8 Weight 102.7 kg General appearance: PRESENT: no acute distress, well-developed, well-nourished Head exam: PRESENT: atraumatic, normocephalic Eye exam: PRESENT: PERRLA Ear exam: PRESENT: normal external ear exam Mouth exam: PRESENT: moist, tongue midline Neck exam: PRESENT: full ROM Respiratory exam: PRESENT: clear to auscultation eric Cardiovascular exam: PRESENT: RRR, +S1, +S2 Pulses: PRESENT: normal dorsalis pedis pul, +2 pedal pulses bilateral Vascular exam: PRESENT: normal capillary refill GI/Abdominal exam: PRESENT: normal bowel sounds, soft Rectal exam: PRESENT: deferred Neurological exam: PRESENT: alert, awake, oriented to person, oriented to place , oriented to time, oriented to situation, CN II-XII grossly intact Psychiatric exam: PRESENT: appropriate affect, normal mood Skin exam: PRESENT: dry, intact, warm Results Laboratory Results: 03/29/18 15:39 03/29/18 15:39 03/29/18 03/29/18 15:39 15:39 WBC 9.0 RBC 4.75 Hgb 11.4 L Hct 35.4 L MCV 75 L MCH 23.9 L MCHC 32.1 RDW 15.0 H Plt Count 204 Seg Neutrophils % 69.3 Lymphocytes % 20.1 Monocytes % 9.8 Eosinophils % 0.2 Basophils % 0.6 Absolute Neutrophils 6.2 Absolute Lymphocytes 1.8 Absolute Monocytes 0.9 Absolute Eosinophils 0.0 Absolute Basophils 0.1 Sodium 144.0 Potassium 3.8 Chloride 107 Carbon Dioxide 23 Anion Gap 14 BUN 23 H Creatinine 2.50 H Est GFR ( Amer) 23 L Est GFR (Non-Af Amer) 19 L Glucose 329 H Calcium 8.6 Total Bilirubin 0.5 AST 24 ALT 21 Alkaline Phosphatase 120 Total Protein 7.3 Albumin 3.6 Impressions: Chest X-Ray 03/29/18 00:00 IMPRESSION: Moderate stable cardiomegaly. No acute infiltrates Assessment & Plan - Diagnosis (1) Hypertensive emergency Is this a current diagnosis for this admission?: Yes Plan: She has hypertensive emergency associated with acute on chronic kidney disease, start patient on IV nitroglycerin infusion (2) Acute kidney injury superimposed on chronic kidney disease Is this a current diagnosis for this admission?: Yes (3) Uncontrolled diabetes mellitus Qualifiers: Diabetes mellitus type: type 2 Diabetes mellitus mcfp insulin use: with terminal system operator use Diabetes mellitus complication status: with kidney complications Diabetes mellitus complication detail: with nephropathy Qualified Code(s): E11.21 - Type 2 diabetes mellitus with diabetic nephropathy; E11.65 - Type 2 diabetes mellitus with hyperglycemia; E11.65 - Type 2 diabetes mellitus with hyperglycemia; E11.65 - Type 2 diabetes mellitus with hyperglycemia; E11.65 - Type 2 diabetes mellitus with hyperglycemia; Z79.4 - [facility] (current) use of insulin; Z79.4 - [facility] (current) use of insulin; Z79.4 - terminal gauger supervisor (current) use of insulin; Z79.4 - [facility] (current) use of insulin Is this a current diagnosis for this admission?: Yes (4) Chronic kidney disease, stage 4 (severe) Is this a current diagnosis for this admission?: Yes
[2018-03-29] MEDS ORDERED: VALSARTAN 160 MG TABLET PO ONE (20:30)
[2018-03-29] MEDS ORDERED: CALCITRIOL 0.25 MCG CAPSULE PO ONE (20:30)
[2018-03-29] MEDS ORDERED: CHOLECALCIFEROL (D3) 1,000 UNIT TABLET PO ONE (20:30)
[2018-03-29] MEDS ORDERED: CLOPIDOGREL BISULFATE 75 MG TABLET PO ONE (20:30)
[2018-03-29] MEDS ORDERED: AMLODIPINE BESYLATE 10 MG TABLET PO ONE (20:30)
[2018-03-29] MEDS ORDERED: FEBUXOSTAT 80 MG TABLET PO ONE ×2 (21:00)
[2018-03-29] MEDS ORDERED: ASPIRIN 81 MG TABLET, CHEWABLE PO ONE (21:00)
[2018-03-29] MEDS ORDERED: INSULIN DETEMIR 100 UNIT/ML 3 ML PEN SUBCUT ONE (21:00)
[2018-03-29] MEDS ORDERED: SITAGLIPTIN PHOSPHATE 25 MG TABLET PO ONE (21:00)
[2018-03-29] MEDS ORDERED: FERROUS SULFATE 325 MG TABLET PO ONE (21:00)
[2018-03-29] MEDS ORDERED: FUROSEMIDE 20 MG TABLET PO ONE (21:00)
[2018-03-29] MEDS: METOPROLOL TARTRATE 50 MG TABLET PO SCH (22:58)
[2018-03-29] MEDS: CLONIDINE HCL 0.2 MG TABLET PO SCH (22:59)
[2018-03-29] MEDS: ATORVASTATIN CALCIUM 40 MG TABLET PO SCH (22:59)
[2018-03-29] MEDS: HYDRALAZINE HCL 50 MG TABLET PO SCH (22:59)
[2018-03-29 23:53] LABS: APPEARANCE,URINE CLOUDY; BILIRUBIN,URINE NEGATIVE (NEGATIVE); COLOR,URINE YELLOW; GLUCOSE, URINE >=500 mg/dL (NEGATIVE); KETONES,URINE NEGATIVE (NEGATIVE); LEUKOCYTE ESTERASE,URINE NEGATIVE (NEGATIVE); NITRITE,URINE NEGATIVE (NEGATIVE); PROTEIN,URINE >=500 mg/dL (NEGATIVE); URINE SPECIFIC GRAVITY 1.022; UROBILINOGEN,URINE NEGATIVE mg/dL (<2.0)
[2018-03-29 23:58] LABS: URINE CREATININE 264.9 mg/dL (15-278)
[2018-03-30 00:52] LABS: UR PRO/CREAT RATIO RESULT 8.6 mg/mg (0.0-0.2); URINE PROTEIN 2283.7 mg/dL (<12)
[2018-03-30] MEDS: CLONIDINE HCL 0.2 MG TABLET PO SCH ×3 (05:43→22:14)
[2018-03-30] MEDS: HYDRALAZINE HCL 50 MG TABLET PO SCH ×3 (05:43→22:14)
[2018-03-30] MEDS: INSULIN LISPRO 100 UNIT/ML 3 ML VIAL SUBCUT PRN ×3 (07:32→16:49)
[2018-03-30] MEDS: INSULIN DETEMIR 100 UNIT/ML 3 ML PEN SUBCUT SCH (09:45)
[2018-03-30] MEDS: FERROUS SULFATE 325 MG TABLET PO SCH (09:46)
[2018-03-30] MEDS: AMLODIPINE BESYLATE 10 MG TABLET PO SCH (09:46)
[2018-03-30] MEDS: SITAGLIPTIN PHOSPHATE 25 MG TABLET PO SCH (09:46)
[2018-03-30] MEDS: CLOPIDOGREL BISULFATE 75 MG TABLET PO SCH (09:47)
[2018-03-30] MEDS: METOPROLOL TARTRATE 50 MG TABLET PO SCH ×2 (09:47→22:14)
[2018-03-30] MEDS: CALCITRIOL 0.25 MCG CAPSULE PO SCH (09:47)
[2018-03-30] MEDS: ASPIRIN 81 MG TABLET, CHEWABLE PO SCH (09:47)
[2018-03-30] MEDS: CHOLECALCIFEROL (D3) 1,000 UNIT TABLET PO SCH (09:47)
[2018-03-30] MEDS: FEBUXOSTAT 80 MG TABLET PO SCH (09:47)
[2018-03-30] MEDS ORDERED: FUROSEMIDE 20 MG TABLET PO SCH (10:00)
[2018-03-30] MEDS ORDERED: INSULIN DETEMIR 100 UNIT/ML 3 ML PEN SUBCUT SCH (10:00)
[2018-03-30] MEDS ORDERED: VALSARTAN 160 MG TABLET PO SCH (10:00)
[2018-03-30] MEDS ORDERED: HYDRALAZINE HCL INJ/PF 20 MG/1 ML SDV IV PRN (11:28)
--- NOTE | 2018-03-30 11:31 | PDOC PROGRESS REPORT ---
Subjective Progress Note for:: 03/30/18 Subjective:: Patient is currently doing well Patient's was admitted because of uncontrolled hypertension uncontrolled diabetes Patient's denied any chest pain denied any shortness of the breath She is on a nitro drip currently on a 5 Reason For Visit: HYPERTENSIVE EMERGENCY,UNCONTROLLABLE DIABETES,CKD Physical Exam Vital Signs: Temp Pulse Resp BP Pulse Ox 97.9 F 75 16 142/77 H 99 03/30/18 08:46 03/30/18 10:00 03/30/18 08:46 03/30/18 10:00 03/30/18 08:46 Intake & Output 03/29/18 03/30/18 03/31/18 06:59 06:59 06:59 Intake Total 527 Output Total 200 Balance 327 Weight 103.6 kg General appearance: PRESENT: no acute distress, well-developed, well-nourished Head exam: PRESENT: atraumatic, normocephalic Eye exam: PRESENT: conjunctiva pink, EOMI, PERRLA. ABSENT: scleral icterus Ear exam: PRESENT: normal external ear exam Mouth exam: PRESENT: moist, tongue midline Neck exam: PRESENT: full ROM. ABSENT: carotid bruit, JVD, lymphadenopathy, thyromegaly Respiratory exam: PRESENT: clear to auscultation eric Cardiovascular exam: PRESENT: RRR. ABSENT: diastolic murmur, rubs, systolic murmur Pulses: PRESENT: normal dorsalis pedis pul, +2 pedal pulses bilateral Vascular exam: PRESENT: normal capillary refill GI/Abdominal exam: PRESENT: normal bowel sounds, soft. ABSENT: distended, guarding, mass, organolmegaly, rebound, tenderness Rectal exam: PRESENT: deferred Extremities exam: ABSENT: pedal edema Neurological exam: PRESENT: alert, awake, oriented to person, oriented to place , oriented to time, oriented to situation, CN II-XII grossly intact. ABSENT: motor sensory deficit Psychiatric exam: PRESENT: appropriate affect, normal mood. ABSENT: homicidal ideation, suicidal ideation Skin exam: PRESENT: dry, intact, warm. ABSENT: cyanosis, rash Results Laboratory Results: 03/29/18 15:39 03/29/18 15:39 03/29/18 03/29/18 03/29/18 15:39 15:39 23:30 WBC 9.0 RBC 4.75 Hgb 11.4 L Hct 35.4 L MCV 75 L MCH 23.9 L MCHC 32.1 RDW 15.0 H Plt Count 204 Seg Neutrophils % 69.3 Lymphocytes % 20.1 Monocytes % 9.8 Eosinophils % 0.2 Basophils % 0.6 Absolute Neutrophils 6.2 Absolute Lymphocytes 1.8 Absolute Monocytes 0.9 Absolute Eosinophils 0.0 Absolute Basophils 0.1 Sodium 144.0 Potassium 3.8 Chloride 107 Carbon Dioxide 23 Anion Gap 14 BUN 23 H Creatinine 2.50 H Est GFR ( Amer) 23 L Est GFR (Non-Af Amer) 19 L Glucose 329 H Calcium 8.6 Total Bilirubin 0.5 AST 24 ALT 21 Alkaline Phosphatase 120 Total Protein 7.3 Albumin 3.6 Urine Color YELLOW Urine Appearance CLOUDY Urine pH 5.0 Ur Specific Freeman 1.022 Urine Protein >=500 H Urine Glucose (UA) >=500 H Urine Ketones NEGATIVE Urine Blood SMALL H Urine Nitrite NEGATIVE Ur Leukocyte Esterase NEGATIVE Urine WBC (Auto) 4 Urine RBC (Auto) 4 Impressions: Chest X-Ray 03/29/18 00:00 IMPRESSION: Moderate stable cardiomegaly. No acute infiltrates Assessment & Plan - Diagnosis (1) Hypertensive emergency Is this a current diagnosis for this admission?: Yes Plan: We will order the renal artery Doppler for rule out any renal artery stenosis Try to wean her from the nitro drip (2) Uncontrolled diabetes mellitus Qualifiers: Diabetes mellitus type: type 2 Diabetes mellitus fpc insulin use: with fpc use Diabetes mellitus complication status: with kidney complications Diabetes mellitus complication detail: with nephropathy Qualified Code(s): E11.21 - Type 2 diabetes mellitus with diabetic nephropathy; E11.65 - Type 2 diabetes mellitus with hyperglycemia; E11.65 - Type 2 diabetes mellitus with hyperglycemia; E11.65 - Type 2 diabetes mellitus with hyperglycemia; E11.65 - Type 2 diabetes mellitus with hyperglycemia; 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 transplanted heart: [place] heart Associated angina: angina presence unspecified Qualified Code(s): I25.10 - Atherosclerotic heart disease of [place] coronary artery without angina pectoris Is this a current diagnosis for this admission?: Yes (5) Sleep disorder Is this a current diagnosis for this admission?: Yes - Time Time Spent with patient: 15-24 minutes Medications reviewed and adjusted accordingly: Yes Anticipated discharge: Home Within: Other - Inpatient Certification Medical Necessity: Need Close Monitoring Due to Risk of Patient Decompensation Post Hospital Care: D/C Manager Banquet Documentation - Plan Summary Plan Summary: See other MD orders
[2018-03-30] MEDS: ATORVASTATIN CALCIUM 40 MG TABLET PO SCH (22:14)
[2018-03-31 05:34] LABS: ANION GAP 13 (5-19); BLOOD UREA NITROGEN 51 mg/dL (7-20); CALCIUM 7.9 mg/dL (8.4-10.2); CARBON DIOXIDE 23 mmol/L (22-30); CHLORIDE 105 mmol/L (98-107); GLUCOSE 192 mg/dL (75-110); POTASSIUM 4.2 mmol/L (3.6-5.0); SODIUM 140.6 mmol/L (137-145)
[2018-03-31] MEDS: HYDRALAZINE HCL 50 MG TABLET PO SCH ×2 (07:04→13:44)
[2018-03-31] MEDS: CLONIDINE HCL 0.2 MG TABLET PO SCH ×2 (07:05→13:44)
[2018-03-31 07:54] LABS: ABSOLUTE BASOPHILS # (AUTO) 0.1 10^3/uL (0.0-0.2); ABSOLUTE EOSINOPHILS # (AUTO) 0.3 10^3/uL (0.0-0.6); ABSOLUTE LYMPHOCYTES (AUTO) 1.9 10^3/uL (0.5-4.7); ABSOLUTE MONOCYTES (AUTO) 0.8 10^3/uL (0.1-1.4); ABSOLUTE NEUT (AUTO) 3.9 10^3/uL (1.7-8.2); BASOPHILS % (AUTO) 0.9 % (0-2); EOSINOPHILS % (AUTO) 4.4 % (0-6); HEMATOCRIT 30.6 % (36.0-47.0); HEMOGLOBIN 9.9 g/dL (12.0-15.5); LYMPHOCYTES % (AUTO) 27.7 % (13-45); MEAN CORPUSCULAR HEMOGLOBIN 24.2 pg (27.0-33.4); MEAN CORPUSCULAR HGB CONC 32.3 g/dL (32.0-36.0); MEAN CORPUSCULAR VOLUME 75 fl (80-97); MONOCYTES % (AUTO) 10.9 % (3-13); PLATELET COUNT 159 10^3/uL (150-450); RED BLOOD COUNT 4.09 10^6/uL (3.72-5.28); RED CELL DISTRIBUTION WIDTH 14.5 % (11.5-14.0); SEGMENTED NEUTROPHILS % (AUTO) 56.1 % (42-78); TOTAL CELLS COUNTED % (AUTO) 100 %
[2018-03-31] MEDS: INSULIN LISPRO 100 UNIT/ML 3 ML VIAL SUBCUT PRN ×4 (08:29→22:22)
[2018-03-31] MEDS: CEFTRIAXONE SODIUM 1,000 MG in DEXTROSE 5%-WATER 50 ML IV SCH (09:50)
[2018-03-31] MEDS: SITAGLIPTIN PHOSPHATE 25 MG TABLET PO SCH (09:53)
[2018-03-31] MEDS: 1/2 NORMAL SALINE 1,000 ML IV PRN (09:53)
[2018-03-31] MEDS: CHOLECALCIFEROL (D3) 1,000 UNIT TABLET PO SCH (09:54)
[2018-03-31] MEDS: CLOPIDOGREL BISULFATE 75 MG TABLET PO SCH (09:54)
[2018-03-31] MEDS: INSULIN DETEMIR 100 UNIT/ML 3 ML PEN SUBCUT SCH (09:54)
[2018-03-31] MEDS: CALCITRIOL 0.25 MCG CAPSULE PO SCH (09:54)
[2018-03-31] MEDS: FEBUXOSTAT 80 MG TABLET PO SCH (09:54)
[2018-03-31] MEDS: METOPROLOL TARTRATE 50 MG TABLET PO SCH ×2 (09:54→22:22)
[2018-03-31] MEDS: ASPIRIN 81 MG TABLET, CHEWABLE PO SCH (09:54)
[2018-03-31] MEDS: FERROUS SULFATE 325 MG TABLET PO SCH (09:55)
[2018-03-31] MEDS: AMLODIPINE BESYLATE 10 MG TABLET PO SCH (09:55)
[2018-03-31] MEDS ORDERED: CEFTRIAXONE 1 GM/D5W RTU 1 GM/50 ML RTUPB IV SCH (10:00)
--- NOTE | 2018-03-31 10:08 | PDOC PROGRESS REPORT ---
Subjective Progress Note for:: 03/31/18 Subjective:: Patient is currently doing well Patient's was admitted because of uncontrolled hypertension uncontrolled diabetes Patient's denied any chest pain denied any shortness of the breath She is on a nitro drip currently on a 5 Reason For Visit: HYPERTENSIVE EMERGENCY,UNCONTROLLABLE DIABETES,CKD Physical Exam Vital Signs: Temp Pulse Resp BP Pulse Ox 98.4 F 61 16 111/56 L 100 03/31/18 07:29 03/31/18 07:29 03/31/18 07:29 03/31/18 07:29 03/31/18 07:29 Intake & Output 03/30/18 03/31/18 04/01/18 06:59 06:59 06:59 Intake Total 527 739 Output Total 200 300 Balance 327 439 Weight 103.6 kg 103.6 kg General appearance: PRESENT: no acute distress, well-developed, well-nourished Head exam: PRESENT: atraumatic, normocephalic Eye exam: PRESENT: conjunctiva pink, EOMI, PERRLA. ABSENT: scleral icterus Ear exam: PRESENT: normal external ear exam Mouth exam: PRESENT: moist, tongue midline Neck exam: PRESENT: full ROM. ABSENT: carotid bruit, JVD, lymphadenopathy, thyromegaly Respiratory exam: PRESENT: clear to auscultation eric Cardiovascular exam: PRESENT: RRR. ABSENT: diastolic murmur, rubs, systolic murmur Pulses: PRESENT: normal dorsalis pedis pul, +2 pedal pulses bilateral Vascular exam: PRESENT: normal capillary refill GI/Abdominal exam: PRESENT: normal bowel sounds, soft. ABSENT: distended, guarding, mass, organolmegaly, rebound, tenderness Rectal exam: PRESENT: deferred Neurological exam: PRESENT: alert, awake, oriented to person, oriented to place , oriented to time, oriented to situation, CN II-XII grossly intact. ABSENT: motor sensory deficit Psychiatric exam: PRESENT: appropriate affect, normal mood. ABSENT: homicidal ideation, suicidal ideation Skin exam: PRESENT: dry, intact, warm. ABSENT: cyanosis, rash Results Laboratory Results: 03/31/18 04:10 03/31/18 04:10 03/31/18 03/31/18 04:10 04:10 WBC 7.0 RBC 4.09 Hgb 9.9 L Hct 30.6 L MCV 75 L MCH 24.2 L MCHC 32.3 RDW 14.5 H Plt Count 159 Seg Neutrophils % 56.1 Lymphocytes % 27.7 Monocytes % 10.9 Eosinophils % 4.4 Basophils % 0.9 Absolute Neutrophils 3.9 Absolute Lymphocytes 1.9 Absolute Monocytes 0.8 Absolute Eosinophils 0.3 Absolute Basophils 0.1 Sodium 140.6 Potassium 4.2 Chloride 105 Carbon Dioxide 23 Anion Gap 13 BUN 51 H Creatinine 4.51 H Est GFR ( Amer) 12 L Est GFR (Non-Af Amer) 10 L Glucose 192 H Calcium 7.9 L 03/29/18 23:30 Clean Catch Midstream Urine Culture - Final Proteus Mirabilis Impressions: Chest X-Ray 03/29/18 00:00 IMPRESSION: Moderate stable cardiomegaly. No acute infiltrates Assessment & Plan - Diagnosis (1) Hypertensive emergency Is this a current diagnosis for this admission?: Yes Plan: Clear all improving (2) Uncontrolled diabetes mellitus Qualifiers: Diabetes mellitus type: type 2 Diabetes mellitus prison insulin use: with termite inspector use Diabetes mellitus complication status: with kidney complications Diabetes mellitus complication detail: with nephropathy Qualified Code(s): E11.21 - Type 2 diabetes mellitus with diabetic nephropathy; E11.65 - Type 2 diabetes mellitus with hyperglycemia; E11.65 - Type 2 diabetes mellitus with hyperglycemia; E11.65 - Type 2 diabetes mellitus with hyperglycemia; E11.65 - Type 2 diabetes mellitus with hyperglycemia; Z79.4 - laborer marine terminal (current) use of insulin; Z79.4 - laborer marine terminal (current) use of insulin; Z79.4 - senior care (current) use of insulin; Z79.4 - senior care (current) use of insulin Is this a current diagnosis for this admission?: Yes Plan: Continues to current medication (3) Chronic kidney disease, stage 3 Is this a current diagnosis for this admission?: Yes Plan: Worsening the kidney functions will DC the [place] start on IV fluid and consult Dr. Santamaria (4) Coronary artery disease Qualifiers: Coronary Disease-Associated Artery/Lesion type: [place] artery [place] vs. transplanted heart: [place] heart Associated angina: angina presence unspecified Qualified Code(s): I25.10 - Atherosclerotic heart disease of [place] coronary artery without angina pectoris Is this a current diagnosis for this admission?: Yes (5) Sleep disorder Is this a current diagnosis for this admission?: Yes (6) Urinary tract infection Qualifiers: Urinary tract infection type: site unspecified Is this a current diagnosis for this admission?: Yes Plan: start on IV Rocephin - Time Time Spent with patient: 15-24 minutes Medications reviewed and adjusted accordingly: Yes Anticipated discharge: Home Within: Other - Inpatient Certification Medical Necessity: Need Close Monitoring Due to Risk of Patient Decompensation Post Hospital Care: D/C Chief Recordist Documentation - Plan Summary Plan Summary: See other MD order
--- NOTE | 2018-03-31 11:19 | RADIOLOGY REPORT (SQ) ---
EXAM DESCRIPTION: DUPLEX ART/NESTOR FLOW COMPLETE COMPLETED DATE/TIME: 03/31/2018 8:27 am REASON FOR STUDY: evaluate kidneys/renal artery doppler for HTN COMPARISON: None. TECHNIQUE: Realtime and static grayscale images acquired. Selected color Doppler, velocities and spe ctral images recorded. LIMITATIONS: Renal artery origins off the aorta midline were difficult to visualize. FINDINGS: RIGHT KIDNEY: RENAL ARTERY VELOCITIES: At the hilum, 48 cm/sec. Segmental artery velocity 41 cm/sec. RENAL VEIN: Color doppler flow present, patent. VELOCITY RATIO: 0.6. Normal waveforms. KIDNEY: 10.8 cm in length with diffuse increased echogenic. Normal cortical thickness. No hydron ephrosis. LEFT KIDNEY: RENAL ARTERY VELOCITIES: At the hilum, 81 cm/sec. Segmental artery velocity 54 cm/sec. RENAL VEIN: Color doppler flow present, patent. VELOCITY RATIO: 1.0. Normal waveforms. KIDNEY: 10.8 cm in length with diffuse increased echogenicity. Normal cortical thickness. No hyd ronephrosis. 1 cm and 1.6 cm left renal cortical cysts. BLADDER: Decompressed, not visualized OTHER: No other significant finding. IMPRESSION: Echogenic kidneys from medical renal disease. No hydronephrosis. No Doppler evidence for renal artery stenosis COMMENT: NORMAL RENAL ARTERY/AORTA VELOCITY RATIO IS LESS THAN OR EQUAL TO 3.5. TECHNICAL DOCUMENTATION: JOB ID: [id number] [employer]- All Rights Reserved Reading location - IP/workstation name: [email or web address]
[2018-03-31] MEDS: ATORVASTATIN CALCIUM 40 MG TABLET PO SCH (22:22)
[2018-04-01] MEDS: HYDRALAZINE HCL 50 MG TABLET PO SCH ×3 (00:27→14:31)
[2018-04-01] MEDS: CLONIDINE HCL 0.2 MG TABLET PO SCH ×4 (00:27→22:05)
[2018-04-01] MEDS: 1/2 NORMAL SALINE 1,000 ML IV PRN (02:36)
[2018-04-01 05:02] LABS: ABSOLUTE BASOPHILS # (AUTO) 0.1 10^3/uL (0.0-0.2); ABSOLUTE EOSINOPHILS # (AUTO) 0.4 10^3/uL (0.0-0.6); ABSOLUTE LYMPHOCYTES (AUTO) 1.5 10^3/uL (0.5-4.7); ABSOLUTE MONOCYTES (AUTO) 0.8 10^3/uL (0.1-1.4); BASOPHILS % (AUTO) 0.8 % (0-2); EOSINOPHILS % (AUTO) 5.2 % (0-6); HEMATOCRIT 27.8 % (36.0-47.0); HEMOGLOBIN 9.4 g/dL (12.0-15.5); LYMPHOCYTES % (AUTO) 22.5 % (13-45); MEAN CORPUSCULAR HEMOGLOBIN 25.1 pg (27.0-33.4); MEAN CORPUSCULAR HGB CONC 33.6 g/dL (32.0-36.0); MEAN CORPUSCULAR VOLUME 75 fl (80-97); PLATELET COUNT 147 10^3/uL (150-450); RED BLOOD COUNT 3.73 10^6/uL (3.72-5.28); RED CELL DISTRIBUTION WIDTH 14.2 % (11.5-14.0); SEGMENTED NEUTROPHILS % (AUTO) 59.5 % (42-78); TOTAL CELLS COUNTED % (AUTO) 100 %; WHITE BLOOD COUNT 6.8 10^3/uL (4.0-10.5)
[2018-04-01 05:44] LABS: ANION GAP 13 (5-19); BLOOD UREA NITROGEN 71 mg/dL (7-20); CARBON DIOXIDE 20 mmol/L (22-30); CHLORIDE 104 mmol/L (98-107); GLUCOSE 168 mg/dL (75-110)
[2018-04-01 06:40] LABS: CALCIUM 7.1 mg/dL (8.4-10.2)
[2018-04-01] MEDS: INSULIN LISPRO 100 UNIT/ML 3 ML VIAL SUBCUT PRN ×4 (07:44→22:06)
[2018-04-01] MEDS: METOPROLOL TARTRATE 50 MG TABLET PO SCH ×2 (10:00→22:05)
[2018-04-01] MEDS: CHOLECALCIFEROL (D3) 1,000 UNIT TABLET PO SCH (10:01)
[2018-04-01] MEDS: FEBUXOSTAT 80 MG TABLET PO SCH (10:02)
[2018-04-01] MEDS: SITAGLIPTIN PHOSPHATE 25 MG TABLET PO SCH (10:03)
[2018-04-01] MEDS: CALCITRIOL 0.25 MCG CAPSULE PO SCH (10:03)
[2018-04-01] MEDS: CLOPIDOGREL BISULFATE 75 MG TABLET PO SCH (10:04)
[2018-04-01] MEDS: AMLODIPINE BESYLATE 10 MG TABLET PO SCH (10:04)
[2018-04-01] MEDS: ASPIRIN 81 MG TABLET, CHEWABLE PO SCH (10:05)
[2018-04-01] MEDS: FERROUS SULFATE 325 MG TABLET PO SCH (10:05)
[2018-04-01] MEDS: INSULIN DETEMIR 100 UNIT/ML 3 ML PEN SUBCUT SCH (10:08)
[2018-04-01] MEDS: CEFTRIAXONE SODIUM 1,000 MG in DEXTROSE 5%-WATER 50 ML IV SCH (10:17)
--- NOTE | 2018-04-01 16:45 | PDOC CONSULTATION ---
Consultation Consult Date: 04/01/18 Consult reason:: Acute renal failure History of Present Illness Admission Date/PCP: 03/29/18 13:08 ANNA MADISON MD History of Present Illness: NELSON WISE is a 72 year old female with prior history of diabetes mellitus type 2, hypertension, chronic kidney disease stage IV, coronary artery disease status post coronary artery stent placement. She went to her primary's office for follow-up evaluation, she complained of malaise she also stated that her blood sugar has been high for the last few days. The malaise had been happening for about two weeks. According to her, the blood pressure recorded in the office was over 200 systolic. She denied any chest pain, SOB, n/v or headaches. She was admitted directly from the office to the hospital for further evaluation of hypertensive emergency and uncontrolled diabetes mellitus. In the hospital she was placed on a nitro drip and had a renal artery doppler done. The doppler was negative and the kidneys had no acute changes. A1c was is in the 12s. All day on the she was feeling weak and not wanting to move much. On the 03/31/18 it was found that her creatinine had elevated up from baseline. Today it was in the 4s and nephrology was consulted. At todays exam she said that she was feeling better. She denied any malaise. Denied chest pain, SOB, n/v/d/c. She also denied fevers or chills. Past Medical History Cardiac Medical History: Reports: Hyperlipidemia, Hypertension-primary, Myocardial Infarction - 5/6YRS AGO Pulmonary Medical History: Reports: Chronic Obstructive Pulmonary Disease (COPD) Neurological Medical History: Reports: Seizures - JANUARY 2017 3 SEIZURES IN ONE DAY RELATED TO ELEVATED BS Endocrine Medical History: Reports: Diabetes Mellitus Type 2 - uncontrolled Renal/ Medical History: Reports: Chronic Kidney Disease Stage III Psychiatric Medical History: Denies: Depression Past Surgical History Past Surgical History: Reports: Cardiac Catheterization, Section, Hysterectomy Social History Smoking Status: Never Smoker Frequency of Alcohol Use: None Hx Recreational Drug Use: No Drugs: None Hx Prescription Drug Abuse: No Family History Parental Family History Reviewed: No Children Family History Reviewed: NA Sibling(s) Family History Reviewed.: NA Medication/Allergy Home Medications: Amlodipine Besylate [Norvasc 10 mg Tablet] 10 mg PO DAILY 03/29/18 Aspirin [Aspirin 81 mg Chewable Tablet] 81 mg PO DAILY 03/29/18 Cholecalciferol (Vitamin D3) [Vitamin D3 1000 Unit Tablet] 1,000 unit PO DAILY 03/29/18 Clonidine HCl [Catapres 0.2 mg Tablet] 0.2 mg PO Q8 03/29/18 Clopidogrel Bisulfate [Plavix 75 mg Tablet] 75 mg PO DAILY 03/29/18 Febuxostat [Uloric 80 mg Tablet] 80 mg PO DAILY 03/29/18 Furosemide [Lasix 20 mg Tablet] 20 mg PO DAILY 03/29/18 Insulin Detemir [Levemir Flextouch] 35 units SQ DAILY 03/29/18 Linagliptin [Tradjenta] 5 mg PO DAILY 03/29/18 Metoprolol Tartrate [Lopressor 50 mg Tablet] 50 mg PO BID 03/29/18 RX: Calcitriol [Rocaltrol 0.25 mcg Capsule] 0.25 mcg PO DAILY 03/29/18 RX: Ferrous Sulfate [Feosol 325 mg Tablet] 325 mg PO DAILY 03/29/18 RX: Hydralazine HCl [Apresoline 50 mg Tablet] 50 mg PO Q8 03/29/18 Rosuvastatin Calcium [Crestor 20 mg Tablet] 20 mg PO DAILY 03/29/18 Valsartan [Diovan] 320 mg PO DAILY 03/29/18 Allergies/Adverse Reactions: No Known Allergies Allergy (Verified 05/03/17 08:46) Review of Systems Constitutional: PRESENT: fatigue, weakness. ABSENT: chills, fever(s), headache( s) Eyes: ABSENT: visual disturbances Nose, Mouth, and Throat: ABSENT: headache(s) Cardiovascular: ABSENT: chest pain, dyspnea on exertion, edema, orthropnea, palpitations Respiratory: ABSENT: cough, dyspnea, sputum Gastrointestinal: ABSENT: abdominal pain, constipation, diarrhea, nausea, vomiting Genitourinary: ABSENT: difficulty urinating, dysuria Neurological: PRESENT: weakness. ABSENT: dizziness, focal weakness, numbness Physical Exam Vital Signs: Temp Pulse Resp BP Pulse Ox 98.4 F 71 18 130/57 H 97 04/01/18 11:30 04/01/18 11:30 04/01/18 11:30 04/01/18 11:30 04/01/18 11:30 Intake & Output 03/31/18 04/01/18 04/02/18 06:59 06:59 06:59 Intake Total 739 2251 237 Output Total 300 400 400 Balance 439 1851 -163 Weight 103.6 kg 107 kg General appearance: PRESENT: no acute distress, well-developed, well-nourished Mouth exam: PRESENT: moist, neck supple Neck exam: PRESENT: full ROM. ABSENT: JVD, tracheal deviation Respiratory exam: PRESENT: clear to auscultation eric. ABSENT: crackles, rales, rhonchi, wheezes Cardiovascular exam: PRESENT: RRR, +S1, +S2 GI/Abdominal exam: PRESENT: soft. ABSENT: ascites, distended, tenderness Extremities exam: PRESENT: pedal edema - -minor. ABSENT: tenderness, +1 edema, +2 edema Musculoskeletal exam: PRESENT: normal inspection. ABSENT: tenderness Neurological exam: PRESENT: alert, awake, oriented to person, oriented to place , oriented to time, oriented to situation Skin exam: PRESENT: dry, intact, warm Results Laboratory Results: 04/01/18 04:40 04/01/18 04:40 04/01/18 04/01/18 04:40 04:40 WBC 6.8 RBC 3.73 Hgb 9.4 L Hct 27.8 L MCV 75 L MCH 25.1 L MCHC 33.6 RDW 14.2 H Plt Count 147 L Seg Neutrophils % 59.5 Lymphocytes % 22.5 Monocytes % 12.0 Eosinophils % 5.2 Basophils % 0.8 Absolute Neutrophils 4.0 Absolute Lymphocytes 1.5 Absolute Monocytes 0.8 Absolute Eosinophils 0.4 Absolute Basophils 0.1 Sodium 137.0 Potassium 4.0 Chloride 104 Carbon Dioxide 20 L Anion Gap 13 BUN 71 H Creatinine 4.74 H Est GFR ( Amer) 11 L Est GFR (Non-Af Amer) 9 L Glucose 168 H Calcium 7.1 L Impressions: Chest X-Ray 03/29/18 00:00 IMPRESSION: Moderate stable cardiomegaly. No acute infiltrates Renal Artery Duplex 03/31/18 00:00 IMPRESSION: Echogenic kidneys from medical renal disease. No hydronephrosis. No Doppler evidence for renal artery stenosis Assessment & Plan - Diagnosis (1) Acute kidney injury superimposed on chronic kidney disease Is this a current diagnosis for this admission?: Yes Plan: became oliguric over the weekend. Is now becoming nonoliguric. From a combination of dehydration and blood pressure being too tightly controlled too fast. Will look to continue 1/2 normal saline until the liter is finished after that will hold off until further evaluation tomorrow morning. Will also have hydralazine dose held for tonight, changing it to 25mg and changing amlodipine to 5mg qd. Looking for a blood pressure in the 150s to 160s systolic for a few days. After that bp should be adjusted to maintain around the 130s systolic. No current indications for TAG AND LABEL CUTTER. All medications should dosed for a GFR of less than 25. (2) Hypertensive emergency Is this a current diagnosis for this admission?: Yes Plan: change hydralazine to 25mg TID and amlodipine to 5mg qd (3) Uncontrolled diabetes mellitus Qualifiers: Diabetes mellitus type: type 2 Diabetes mellitus custodial insulin use: with termite control servicer use Diabetes mellitus complication status: with kidney complications Diabetes mellitus complication detail: with nephropathy Qualified Code(s): E11.21 - Type 2 diabetes mellitus with diabetic nephropathy; E11.65 - Type 2 diabetes mellitus with hyperglycemia; E11.65 - Type 2 diabetes mellitus with hyperglycemia; E11.65 - Type 2 diabetes mellitus with hyperglycemia; E11.65 - Type 2 diabetes mellitus with hyperglycemia; Z79.4 - care home (current) use of insulin; Z79.4 - care home (current) use of insulin; Z79.4 - care home (current) use of insulin; Z79.4 - care home (current) use of insulin Is this a current diagnosis for this admission?: Yes Plan: currently insulin is being adjusted, discussed proper diet (4) Chronic kidney disease, stage 4 (severe) Is this a current diagnosis for this admission?: Yes Plan: baseline is low 2s (5) Hypocalcemia Plan: Will start on PO calcium replacement (6) Proteinuria Plan: needs tighter control of diabetes (7) Urinary tract infection Qualifiers: Urinary tract infection type: site unspecified Is this a current diagnosis for this admission?: Yes Plan: on ceftriaxone which is at a safe dose. (8) Anemia Plan: currently in an iron study for IV iron. (9) Obese Qualifiers: Obesity type: unspecified obesity type Obesity classification: adult class 3 (BMI >= 40) Serious obesity comorbidity presence: with serious comorbidity Body mass index: unspecified BMI Qualified Code(s): E66.9 - Obesity, unspecified - Notes Notes: Patients case was discussed with Dr. Santamaria
[2018-04-01] MEDS: CALCIUM CARBONATE 500 MG TABLET PO SCH (18:10)
--- NOTE | 2018-04-01 20:45 | PDOC PROGRESS REPORT ---
Subjective Progress Note for:: 04/01/18 Subjective:: Patient was seen by the bedside, she was admitted on Sunday for the management of hypertensive emergency in the setting of chronic kidney disease with nephrotic range proteinuria and poorly controlled diabetes mellitus, consultation was obtained from nephrology by Dr. Moore over the weekend Reason For Visit: HYPERTENSIVE EMERGENCY,UNCONTROLLABLE DIABETES,CKD Physical Exam Vital Signs: Temp Pulse Resp BP Pulse Ox 98.8 F 76 18 99/55 L 96 04/01/18 17:13 04/01/18 19:00 04/01/18 17:13 04/01/18 17:13 04/01/18 17:13 Intake & Output 03/31/18 04/01/18 04/02/18 06:59 06:59 06:59 Intake Total 739 2251 1311 Output Total 300 400 650 Balance 439 1851 661 Weight 103.6 kg 107 kg General appearance: PRESENT: no acute distress Eye exam: PRESENT: PERRLA Respiratory exam: PRESENT: clear to auscultation eric Cardiovascular exam: PRESENT: +S1, +S2 GI/Abdominal exam: PRESENT: soft Neurological exam: PRESENT: alert Results Laboratory Results: 04/01/18 04:40 04/01/18 04:40 04/01/18 04/01/18 04:40 04:40 WBC 6.8 RBC 3.73 Hgb 9.4 L Hct 27.8 L MCV 75 L MCH 25.1 L MCHC 33.6 RDW 14.2 H Plt Count 147 L Seg Neutrophils % 59.5 Lymphocytes % 22.5 Monocytes % 12.0 Eosinophils % 5.2 Basophils % 0.8 Absolute Neutrophils 4.0 Absolute Lymphocytes 1.5 Absolute Monocytes 0.8 Absolute Eosinophils 0.4 Absolute Basophils 0.1 Sodium 137.0 Potassium 4.0 Chloride 104 Carbon Dioxide 20 L Anion Gap 13 BUN 71 H Creatinine 4.74 H Est GFR ( Amer) 11 L Est GFR (Non-Af Amer) 9 L Glucose 168 H Calcium 7.1 L Impressions: Chest X-Ray 03/29/18 00:00 IMPRESSION: Moderate stable cardiomegaly. No acute infiltrates Renal Artery Duplex 03/31/18 00:00 IMPRESSION: Echogenic kidneys from medical renal disease. No hydronephrosis. No Doppler evidence for renal artery stenosis Assessment & Plan - Diagnosis (1) Hypertensive emergency Is this a current diagnosis for this admission?: Yes (2) Acute kidney injury superimposed on chronic kidney disease Is this a current diagnosis for this admission?: Yes (3) Uncontrolled diabetes mellitus Qualifiers: Diabetes mellitus type: type 2 Diabetes mellitus ferry terminal agent insulin use: with fci use Diabetes mellitus complication status: with kidney complications Diabetes mellitus complication detail: with nephropathy Qualified Code(s): E11.21 - Type 2 diabetes mellitus with diabetic nephropathy; E11.65 - Type 2 diabetes mellitus with hyperglycemia; E11.65 - Type 2 diabetes mellitus with hyperglycemia; E11.65 - Type 2 diabetes mellitus with hyperglycemia; E11.65 - Type 2 diabetes mellitus with hyperglycemia; Z79.4 - moth exterminator (current) use of insulin; Z79.4 - moth exterminator (current) use of insulin; Z79.4 - USP (current) use of insulin; Z79.4 - moth exterminator (current) use of insulin Is this a current diagnosis for this admission?: Yes (4) Chronic kidney disease, stage 4 (severe) Is this a current diagnosis for this admission?: Yes (5) Nephrotic range proteinuria Is this a current diagnosis for this admission?: Yes
[2018-04-01] MEDS: ATORVASTATIN CALCIUM 40 MG TABLET PO SCH (22:05)
[2018-04-02 05:36] LABS: HEMATOCRIT 28.2 % (36.0-47.0); HEMOGLOBIN 9.4 g/dL (12.0-15.5); MEAN CORPUSCULAR HEMOGLOBIN 24.8 pg (27.0-33.4); MEAN CORPUSCULAR HGB CONC 33.4 g/dL (32.0-36.0); MEAN CORPUSCULAR VOLUME 74 fl (80-97); PLATELET COUNT 163 10^3/uL (150-450); RED CELL DISTRIBUTION WIDTH 14.5 % (11.5-14.0); WHITE BLOOD COUNT 5.6 10^3/uL (4.0-10.5)
[2018-04-02] MEDS: CLONIDINE HCL 0.2 MG TABLET PO SCH ×3 (05:53→21:54)
[2018-04-02] MEDS: HYDRALAZINE HCL 25 MG TABLET PO SCH ×3 (05:53→21:54)
[2018-04-02 06:01] LABS: ANION GAP 14 (5-19); BLOOD UREA NITROGEN 80 mg/dL (7-20); CALCIUM 7.4 mg/dL (8.4-10.2); CARBON DIOXIDE 19 mmol/L (22-30); CHLORIDE 107 mmol/L (98-107); GLUCOSE 217 mg/dL (75-110); POTASSIUM 4.6 mmol/L (3.6-5.0); SODIUM 140.4 mmol/L (137-145)
[2018-04-02] MEDS: INSULIN LISPRO 100 UNIT/ML 3 ML VIAL SUBCUT PRN ×4 (07:42→21:53)
[2018-04-02] MEDS: INSULIN DETEMIR 100 UNIT/ML 3 ML PEN SUBCUT SCH (09:37)
[2018-04-02] MEDS: CALCIUM CARBONATE 500 MG TABLET PO SCH ×2 (09:39→17:43)
[2018-04-02] MEDS: FERROUS SULFATE 325 MG TABLET PO SCH (09:40)
[2018-04-02] MEDS: CALCITRIOL 0.25 MCG CAPSULE PO SCH (09:40)
[2018-04-02] MEDS: CHOLECALCIFEROL (D3) 1,000 UNIT TABLET PO SCH (09:41)
[2018-04-02] MEDS: CLOPIDOGREL BISULFATE 75 MG TABLET PO SCH (09:41)
[2018-04-02] MEDS: ASPIRIN 81 MG TABLET, CHEWABLE PO SCH (09:41)
[2018-04-02] MEDS: SITAGLIPTIN PHOSPHATE 25 MG TABLET PO SCH (09:42)
[2018-04-02] MEDS: FEBUXOSTAT 80 MG TABLET PO SCH (09:42)
[2018-04-02] MEDS: CEFTRIAXONE SODIUM 1,000 MG in DEXTROSE 5%-WATER 50 ML IV SCH (09:48)
[2018-04-02] MEDS: AMLODIPINE BESYLATE 5 MG TABLET PO SCH (14:15)
[2018-04-02] MEDS: METOPROLOL TARTRATE 50 MG TABLET PO SCH ×2 (14:15→21:52)
--- NOTE | 2018-04-02 21:10 | PDOC PROGRESS REPORT ---
Subjective Progress Note for:: 04/02/18 Subjective:: She was seen by the bedside, the blood pressure was on the low side today, the blood pressure medications were held she sustained acute kidney injury due to low blood pressure ,the blood sugar controls remains a challenge, she was educated on diet and not to achieve glycemic control. Reason For Visit: HYPERTENSIVE EMERGENCY,UNCONTROLLABLE DIABETES,CKD Physical Exam Vital Signs: Temp Pulse Resp BP Pulse Ox 98.8 F 68 16 150/75 H 99 04/02/18 19:56 04/02/18 19:56 04/02/18 19:56 04/02/18 19:56 04/02/18 19:56 Intake & Output 04/01/18 04/02/18 04/03/18 06:59 06:59 06:59 Intake Total 2251 1715 895 Output Total 400 1050 400 Balance 1851 665 495 Weight 107 kg 108.7 kg 108.7 kg General appearance: PRESENT: no acute distress Head exam: PRESENT: atraumatic, normocephalic Eye exam: PRESENT: PERRLA Neck exam: PRESENT: full ROM Respiratory exam: PRESENT: clear to auscultation eric Cardiovascular exam: PRESENT: RRR Pulses: PRESENT: normal dorsalis pedis pul, +2 pedal pulses bilateral Vascular exam: PRESENT: normal capillary refill GI/Abdominal exam: PRESENT: normal bowel sounds, soft Rectal exam: PRESENT: deferred Neurological exam: PRESENT: alert, awake, oriented to person, oriented to place , oriented to time, oriented to situation, CN II-XII grossly intact Psychiatric exam: PRESENT: appropriate affect, normal mood Skin exam: PRESENT: dry, intact, warm. ABSENT: cyanosis, rash Results Laboratory Results: 04/02/18 05:12 04/02/18 05:12 04/02/18 04/02/18 05:12 05:12 WBC 5.6 RBC 3.80 Hgb 9.4 L Hct 28.2 L MCV 74 L MCH 24.8 L MCHC 33.4 RDW 14.5 H Plt Count 163 Sodium 140.4 Potassium 4.6 Chloride 107 Carbon Dioxide 19 L Anion Gap 14 BUN 80 H Creatinine 3.98 H Est GFR ( Amer) 13 L Est GFR (Non-Af Amer) 11 L Glucose 217 H Calcium 7.4 L Impressions: Chest X-Ray 03/29/18 00:00 IMPRESSION: Moderate stable cardiomegaly. No acute infiltrates Renal Artery Duplex 03/31/18 00:00 IMPRESSION: Echogenic kidneys from medical renal disease. No hydronephrosis. 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 Diabetes mellitus complication status: with kidney complications Diabetes mellitus complication detail: with nephropathy Qualified Code(s): E11.21 - Type 2 diabetes mellitus with diabetic nephropathy; E11.65 - Type 2 diabetes mellitus with hyperglycemia; E11.65 - Type 2 diabetes mellitus with hyperglycemia; E11.65 - Type 2 diabetes mellitus with hyperglycemia; E11.65 - Type 2 diabetes mellitus with hyperglycemia; Z79.4 - retirement (current) use of insulin; Z79.4 - salvage determiner (current) use of insulin; Z79.4 - salvage determiner (current) use of insulin; Z79.4 - retirement (current) use of insulin Is this a current diagnosis for this admission?: Yes (4) Chronic kidney disease, stage 4 (severe) Is this a current diagnosis for this admission?: Yes (5) Nephrotic range proteinuria Is this a current diagnosis for this admission?: Yes Plan: Continue present treatment
[2018-04-02] MEDS: ATORVASTATIN CALCIUM 40 MG TABLET PO SCH (21:52)
[2018-04-03] MEDS: CLONIDINE HCL 0.2 MG TABLET PO SCH ×2 (05:15→15:28)
[2018-04-03] MEDS: HYDRALAZINE HCL 25 MG TABLET PO SCH ×2 (05:15→15:29)
[2018-04-03 05:51] LABS: ABSOLUTE RETICS # 0.085 10^6/uL (0.028-0.122); RETICULOCYTE COUNT (AUTO) 2.12 % (0.66-2.85)
[2018-04-03 06:21] LABS: ANION GAP 14 (5-19); BLOOD UREA NITROGEN 77 mg/dL (7-20); CALCIUM 8.1 mg/dL (8.4-10.2); CARBON DIOXIDE 21 mmol/L (22-30); CHLORIDE 111 mmol/L (98-107); GLUCOSE 122 mg/dL (75-110); IRON(TIBC) 40.3 ug/dL (37-170); POTASSIUM 4.5 mmol/L (3.6-5.0); SODIUM 146.2 mmol/L (137-145)
[2018-04-03] MEDS: INSULIN LISPRO 100 UNIT/ML 3 ML VIAL SUBCUT SCH ×3 (08:56→16:31)
[2018-04-03] MEDS: AMLODIPINE BESYLATE 5 MG TABLET PO SCH (09:23)
[2018-04-03] MEDS: CALCIUM CARBONATE 500 MG TABLET PO SCH ×2 (09:25→18:22)
[2018-04-03] MEDS: CALCITRIOL 0.25 MCG CAPSULE PO SCH (09:25)
[2018-04-03] MEDS: ASPIRIN 81 MG TABLET, CHEWABLE PO SCH (09:26)
[2018-04-03] MEDS: CLOPIDOGREL BISULFATE 75 MG TABLET PO SCH (09:27)
[2018-04-03] MEDS: CHOLECALCIFEROL (D3) 1,000 UNIT TABLET PO SCH (09:27)
[2018-04-03] MEDS: FEBUXOSTAT 80 MG TABLET PO SCH (09:28)
[2018-04-03] MEDS: FERROUS SULFATE 325 MG TABLET PO SCH (09:29)
[2018-04-03] MEDS: METOPROLOL TARTRATE 50 MG TABLET PO SCH (09:29)
[2018-04-03] MEDS: SITAGLIPTIN PHOSPHATE 25 MG TABLET PO SCH (09:30)
[2018-04-03] MEDS: CEFTRIAXONE SODIUM 1,000 MG in DEXTROSE 5%-WATER 50 ML IV SCH (09:36)
[2018-04-03] MEDS: INSULIN DETEMIR 100 UNIT/ML 3 ML PEN SUBCUT SCH (09:39)
[2018-04-03] MEDS: 1/2 NORMAL SALINE 1,000 ML IV PRN (11:50)
[2018-04-03] MEDS: INSULIN LISPRO 100 UNIT/ML 3 ML VIAL SUBCUT PRN ×2 (12:45→16:31)
--- NOTE | 2018-04-03 13:15 | PDOC PROGRESS REPORT ---
Subjective Progress Note for:: 04/02/18 Subjective:: Patient was seen sitting up in her chair. According to her nurse in charge of her care, she was given clondine and metoprolol last night. After receiving it her bp dropped into the 80s systolic. She has not received any bp medication since. She currently denies chest pain, SOB, N/V/D/C. Reason For Visit: HYPERTENSIVE EMERGENCY,UNCONTROLLABLE DIABETES,CKD Physical Exam Vital Signs: Temp Pulse Resp BP Pulse Ox 98.1 F 70 18 138/60 H 98 04/02/18 11:34 04/02/18 11:34 04/02/18 11:34 04/02/18 11:34 04/02/18 11:34 Intake & Output 04/01/18 04/02/18 04/03/18 06:59 06:59 06:59 Intake Total 2251 1715 473 Output Total 400 1050 Balance 1851 665 473 Weight 107 kg 108.7 kg 108.7 kg General appearance: PRESENT: no acute distress, well-developed, well-nourished Mouth exam: PRESENT: moist, neck supple Neck exam: PRESENT: full ROM. ABSENT: JVD Respiratory exam: PRESENT: clear to auscultation eric. ABSENT: accessory muscle use, crackles, rales, rhonchi, wheezes Cardiovascular exam: PRESENT: RRR, +S1, +S2 GI/Abdominal exam: PRESENT: soft. ABSENT: ascites, distended, tenderness Extremities exam: PRESENT: pedal edema - -trace+. ABSENT: tenderness, +1 edema , +2 edema Musculoskeletal exam: PRESENT: normal inspection. ABSENT: tenderness Neurological exam: PRESENT: alert, awake, oriented to person, oriented to place , oriented to time, oriented to situation Psychiatric exam: PRESENT: appropriate affect, normal mood Skin exam: PRESENT: dry, intact, warm. ABSENT: cyanosis Results Laboratory Results: 04/02/18 05:12 04/02/18 05:12 04/02/18 04/02/18 05:12 05:12 WBC 5.6 RBC 3.80 Hgb 9.4 L Hct 28.2 L MCV 74 L MCH 24.8 L MCHC 33.4 RDW 14.5 H Plt Count 163 Sodium 140.4 Potassium 4.6 Chloride 107 Carbon Dioxide 19 L Anion Gap 14 BUN 80 H Creatinine 3.98 H Est GFR ( Amer) 13 L Est GFR (Non-Af Amer) 11 L Glucose 217 H Calcium 7.4 L Impressions: Chest X-Ray 03/29/18 00:00 IMPRESSION: Moderate stable cardiomegaly. No acute infiltrates Renal Artery Duplex 03/31/18 00:00 IMPRESSION: Echogenic kidneys from medical renal disease. No hydronephrosis. No Doppler evidence for renal artery stenosis Assessment & Plan - Diagnosis (1) Acute kidney injury superimposed on chronic kidney disease Is this a current diagnosis for this admission?: Yes Plan: improving, continue holding bp medication and only give when it is above 160 systolic. Target range bp is 140 to 160s systolic for the next few days. Stop IV fluids. No indication for CAREER MANAGER. (2) Hypertensive emergency Is this a current diagnosis for this admission?: Yes Plan: continue holding bp medication and only give when it is above 160 systolic. 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: with half-way use Diabetes mellitus complication status: with kidney complications Diabetes mellitus complication detail: with nephropathy Qualified Code(s): E11.21 - Type 2 diabetes mellitus with diabetic nephropathy; E11.65 - Type 2 diabetes mellitus with hyperglycemia; E11.65 - Type 2 diabetes mellitus with hyperglycemia; E11.65 - Type 2 diabetes mellitus with hyperglycemia; E11.65 - Type 2 diabetes mellitus with hyperglycemia; Z79.4 - buttonhole facer (current) use of insulin; Z79.4 - USP (current) use of insulin; Z79.4 - USP (current) use of insulin; Z79.4 - buttonhole facer (current) use of insulin Is this a current diagnosis for this admission?: Yes (4) Chronic kidney disease, stage 4 (severe) Is this a current diagnosis for this admission?: Yes Plan: baseline mid to low 2s (5) Hypocalcemia Plan: improving (6) Proteinuria Plan: needs to get better control of diabetes (7) Urinary tract infection Qualifiers: Urinary tract infection type: site unspecified Is this a current diagnosis for this admission?: Yes (8) Anemia Plan: will check iron panel (9) Obese Qualifiers: Obesity type: unspecified obesity type Obesity classification: adult class 3 (BMI >= 40) Serious obesity comorbidity presence: with serious comorbidity Body mass index: unspecified BMI Qualified Code(s): E66.9 - Obesity, unspecified
--- NOTE | 2018-04-03 13:53 | PDOC PROGRESS REPORT ---
Subjective Progress Note for:: 04/03/18 Subjective:: Patient was sitting up in her chair this morning. Her only complaint was about the food not having much flavor. She denied sob at the time of examination. She also denied chest burris, d/c/n/v. Reason For Visit: HYPERTENSIVE EMERGENCY,UNCONTROLLABLE DIABETES,CKD Physical Exam Vital Signs: Temp Pulse Resp BP Pulse Ox 97.7 F 65 16 186/83 H 100 04/03/18 08:19 04/03/18 08:19 04/03/18 08:19 04/03/18 08:19 04/03/18 08:19 Intake & Output 04/02/18 04/03/18 04/04/18 06:59 06:59 06:59 Intake Total 1715 900 Output Total 1050 1700 Balance 665 -800 Weight 108.7 kg 106 kg General appearance: PRESENT: no acute distress, well-developed, well-nourished Mouth exam: PRESENT: moist, neck supple Neck exam: PRESENT: full ROM. ABSENT: JVD Respiratory exam: PRESENT: clear to auscultation eric. ABSENT: accessory muscle use, crackles, rales, rhonchi, wheezes Cardiovascular exam: PRESENT: RRR, +S1, +S2 GI/Abdominal exam: PRESENT: soft. ABSENT: ascites, distended, tenderness Extremities exam: ABSENT: pedal edema, tenderness, +1 edema, +2 edema Musculoskeletal exam: PRESENT: normal inspection. ABSENT: tenderness Neurological exam: PRESENT: alert, awake, oriented to person, oriented to place , oriented to time, oriented to situation Psychiatric exam: PRESENT: appropriate affect, normal mood Skin exam: PRESENT: dry, intact, warm. ABSENT: cyanosis Results Laboratory Results: 04/02/18 05:12 04/03/18 05:02 04/03/18 04/03/18 05:02 05:02 Retic Count (auto) 2.12 Absolute Retic 0.085 Sodium 146.2 H Potassium 4.5 Chloride 111 H Carbon Dioxide 21 L Anion Gap 14 BUN 77 H Creatinine 3.13 H Est GFR ( Amer) 18 L Est GFR (Non-Af Amer) 15 L Glucose 122 H Calcium 8.1 L Iron 40.3 TIBC 283 % Saturation 14 Ferritin 107.00 Vitamin B12 662.0 Folate 10.00 Impressions: Chest X-Ray 03/29/18 00:00 IMPRESSION: Moderate stable cardiomegaly. No acute infiltrates Renal Artery Duplex 03/31/18 00:00 IMPRESSION: Echogenic kidneys from medical renal disease. No hydronephrosis. No Doppler evidence for renal artery stenosis Assessment & Plan - Diagnosis (1) Acute kidney injury superimposed on chronic kidney disease Is this a current diagnosis for this admission?: Yes Plan: patient is showing great improvement. She is almost at baseline. At this time she is safe for discharge from nephrology's standpoint. Discussed with treating nurse and patient about following up with me in two weeks. (2) Hypertensive emergency Is this a current diagnosis for this admission?: Yes Plan: Patient looks to either be noncompliant with a proper low sodium diet or does not take bp medication as prescribed when she is at home. In the hospital she just recently this morning she had to be restarted on metoprolol and Norvasc. 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: with fci use Diabetes mellitus complication status: with kidney complications Diabetes mellitus complication detail: with nephropathy Qualified Code(s): E11.21 - Type 2 diabetes mellitus with diabetic nephropathy; E11.65 - Type 2 diabetes mellitus with hyperglycemia; E11.65 - Type 2 diabetes mellitus with hyperglycemia; E11.65 - Type 2 diabetes mellitus with hyperglycemia; E11.65 - Type 2 diabetes mellitus with hyperglycemia; Z79.4 - termite inspector (current) use of insulin; Z79.4 - termite inspector (current) use of insulin; Z79.4 - termite inspector (current) use of insulin; Z79.4 - [facility] (current) use of insulin Is this a current diagnosis for this admission?: Yes Plan: insulin currently being adjusted (4) Chronic kidney disease, stage 4 (severe) Is this a current diagnosis for this admission?: Yes Plan: baseline is low to mid 2s (5) Hypocalcemia Plan: improving on PO replacement (6) Proteinuria Plan: needs to get better control of diabetes (7) Urinary tract infection Qualifiers: Urinary tract infection type: site unspecified Is this a current diagnosis for this admission?: Yes Plan: on ceftriaxone (8) Anemia Plan: patient is no longer in the iron study. her iron levels are low and has decided that she wants to be starting taking ferrous sulfate. (9) Obese Qualifiers: Obesity type: unspecified obesity type Obesity classification: adult class 3 (BMI >= 40) Serious obesity comorbidity presence: with serious comorbidity Body mass index: unspecified BMI Qualified Code(s): E66.9 - Obesity, unspecified
[2018-04-03 15:28] VITALS: BP 149/74
--- NOTE | 2018-04-03 16:06 | PDOC DISCHARGE SUMMARY ---
General - Admit/Disc Date/PCP Admission Date/Primary Care Provider: 03/29/18 13:08 ANNA MADISON MD Discharge Date: 04/03/18 - Discharge Diagnosis (1) Hypertensive emergency Is this a current diagnosis for this admission?: Yes (2) Acute kidney injury superimposed on chronic kidney disease Is this a current diagnosis for this admission?: Yes (3) Uncontrolled diabetes mellitus Is this a current diagnosis for this admission?: Yes (4) Chronic kidney disease, stage 4 (severe) Is this a current diagnosis for this admission?: Yes (5) Nephrotic range proteinuria Is this a current diagnosis for this admission?: Yes - Additional Information Prescriptions: Amlodipine Besylate [Norvasc 10 mg Tablet] 10 mg PO DAILY #90 tablet Aspirin [Aspirin 81 mg Chewable Tablet] 81 mg PO DAILY #90 tab.chew Aspirin [Aspirin 81 mg Chewable Tablet] 81 mg PO DAILY #90 tab.chew Calcitriol [Rocaltrol 0.25 mcg Capsule] 0.25 mcg PO DAILY #90 capsule Clonidine HCl [Catapres 0.2 mg Tablet] 0.2 mg PO Q8 #90 tablet Febuxostat [Uloric 80 mg Tablet] 80 mg PO DAILY #90 tablet Ferrous Sulfate [Feosol 325 mg Tablet] 325 mg PO DAILY #90 tablet Furosemide [Lasix 20 mg Tablet] 20 mg PO DAILY #90 tablet Hydralazine HCl [Apresoline 50 mg Tablet] 50 mg PO Q8 #270 tablet Insulin Lispro [Humalog Insulin (Lispro) 100 unit/mL] 12 unit SUBCUT ACHSP PRN # 2 unit PRN Reason: Linagliptin [Tradjenta] 5 mg PO DAILY #90 tablet Metoprolol Tartrate [Lopressor 50 mg Tablet] 50 mg PO BID #180 tablet Rosuvastatin Calcium [Crestor 20 mg Tablet] 20 mg PO DAILY #90 tablet Valsartan [Diovan] 320 mg PO DAILY #90 tablet Home Medications: Cholecalciferol (Vitamin D3) [Vitamin D3 1000 Unit Tablet] 1,000 unit PO DAILY 03/29/18 Insulin Detemir [Levemir Flextouch] 35 units SQ DAILY 03/29/18 Amlodipine Besylate [Norvasc 10 mg Tablet] 10 mg PO DAILY #90 tablet 04/03/18 Aspirin [Aspirin 81 mg Chewable Tablet] 81 mg PO DAILY #90 tab.chew 04/03/18 Aspirin [Aspirin 81 mg Chewable Tablet] 81 mg PO DAILY #90 tab.chew 04/03/18 Calcitriol [Rocaltrol 0.25 mcg Capsule] 0.25 mcg PO DAILY #90 capsule 04/03/18 Clonidine HCl [Catapres 0.2 mg Tablet] 0.2 mg PO Q8 #90 tablet 04/03/18 Febuxostat [Uloric 80 mg Tablet] 80 mg PO DAILY tablet 04/03/18 Febuxostat [Uloric 80 mg Tablet] 80 mg PO DAILY #90 tablet 04/03/18 Ferrous Sulfate [Feosol 325 mg Tablet] 325 mg PO DAILY #90 tablet 04/03/18 Furosemide [Lasix 20 mg Tablet] 20 mg PO DAILY #90 tablet 04/03/18 Hydralazine HCl [Apresoline 50 mg Tablet] 50 mg PO Q8 #270 tablet 04/03/18 Insulin Lispro [Humalog Insulin (Lispro) 100 unit/mL] 12 unit SUBCUT ACHSP PRN # 2 unit 04/03/18 Linagliptin [Tradjenta] 5 mg PO DAILY #90 tablet 04/03/18 Metoprolol Tartrate [Lopressor 50 mg Tablet] 50 mg PO BID #180 tablet 04/03/18 Rosuvastatin Calcium [Crestor 20 mg Tablet] 20 mg PO DAILY #90 tablet 04/03/18 Valsartan [Diovan] 320 mg PO DAILY #90 tablet 04/03/18 History of Present Illness History of Present Illness: NELSON WISE is a 72 year old female,She has a history of diabetes mellitus type 2 complicated with chronic kidney disease stage IV, coronary artery disease status post coronary artery stent placement, she came to the office for follow-up evaluation, she complained of malaise she also stated that her blood sugar has been high for the last few days, the blood pressure recorded in the office was over 200 systolic she was admitted directly from the office to the hospital for further evaluation of hypertensive emergency and uncontrolled diabetes mellitus Hospital Course Hospital Course: Patient was admitted for the management of hypertensive emergency, uncontrolled diabetes mellitus, with a background of chronic kidney disease stage IV, she was treated with IV nitroglycerin for control blood pressure, she sustained acute kidney injury due to relatively low blood pressure. She has nephrotic range proteinuria. Patient is poorly compliant with diet and exercise and also medication. She was seen in consultation by nephrology on this admission. There was no indication for kidney replacement therapy Physical Exam Vital Signs: Temp Pulse Resp BP Pulse Ox 98.5 F 68 18 149/74 H 100 04/03/18 14:41 04/03/18 14:41 04/03/18 14:41 04/03/18 14:41 04/03/18 14:41 Intake & Output 04/02/18 04/03/18 04/04/18 06:59 06:59 06:59 Intake Total 1715 900 Output Total 1050 1700 Balance 665 -800 Weight 108.7 kg 106 kg General appearance: PRESENT: no acute distress, well-developed, well-nourished Head exam: PRESENT: atraumatic, normocephalic Eye exam: PRESENT: conjunctiva pink, EOMI, PERRLA Ear exam: PRESENT: normal external ear exam Mouth exam: PRESENT: moist, tongue midline Neck exam: PRESENT: full ROM Respiratory exam: PRESENT: clear to auscultation eric Cardiovascular exam: PRESENT: RRR, +S1, +S2 Pulses: PRESENT: normal dorsalis pedis pul, +2 pedal pulses bilateral Vascular exam: PRESENT: normal capillary refill GI/Abdominal exam: PRESENT: normal bowel sounds, soft Rectal exam: PRESENT: deferred Neurological exam: PRESENT: alert, awake, oriented to person, oriented to place , oriented to time, oriented to situation, CN II-XII grossly intact Psychiatric exam: PRESENT: appropriate affect, normal mood Skin exam: PRESENT: dry, intact, warm Results Laboratory Results: 04/02/18 05:12 04/03/18 05:02 04/03/18 04/03/18 05:02 05:02 Retic Count (auto) 2.12 Absolute Retic 0.085 Sodium 146.2 H Potassium 4.5 Chloride 111 H Carbon Dioxide 21 L Anion Gap 14 BUN 77 H Creatinine 3.13 H Est GFR ( Amer) 18 L Est GFR (Non-Af Amer) 15 L Glucose 122 H Calcium 8.1 L Iron 40.3 TIBC 283 % Saturation 14 Ferritin 107.00 Vitamin B12 662.0 Folate 10.00 Impressions: Chest X-Ray 03/29/18 00:00 IMPRESSION: Moderate stable cardiomegaly. No acute infiltrates Renal Artery Duplex 03/31/18 00:00 IMPRESSION: Echogenic kidneys from medical renal disease. No hydronephrosis. No Doppler evidence for renal artery stenosis Qualifiers - * PATIENT BEING DISCHARGED WITH ANY OF THE FOLLOWING DIAGNOSIS: No
== END 2018-04-03 18:37 | disposition home or self-care (01) | DRG 305 ==
LOC: 3N 13:08
PROVIDERS: ADMIT Internal Medicine; ATTEND Internal Medicine
DX: I16.1 Hypertensive emergency (principal); N17.9 Acute kidney failure, unspecified; N18.4 Chronic kidney disease, stage 4 (severe); N39.0 Urinary tract infection, site not specified; Z68.41 Body mass index [BMI] 40.0-44.9, adult; I12.9 Hypertensive chronic kidney disease with stage 1 through stage 4 chronic kidney disease, or unspecified chronic kidney disease; E11.22 Type 2 diabetes mellitus with diabetic chronic kidney disease; E11.65 Type 2 diabetes mellitus with hyperglycemia; I25.10 Atherosclerotic heart disease of native coronary artery without angina pectoris; G47.9 Sleep disorder, unspecified; E83.51 Hypocalcemia; R80.9 Proteinuria, unspecified; D63.1 Anemia in chronic kidney disease; E66.9 Obesity, unspecified; E78.5 Hyperlipidemia, unspecified; J44.9 Chronic obstructive pulmonary disease, unspecified; Z95.5 Presence of coronary angioplasty implant and graft; I25.2 Old myocardial infarction; Z90.710 Acquired absence of both cervix and uterus; Z82.49 Family history of ischemic heart disease and other diseases of the circulatory system; Z79.82 Long term (current) use of aspirin; Z79.4 Long term (current) use of insulin
CPT/HCPCS: 36415; 71045; 80048; 80076; 81001; 82570; 82607; 82728; 82746; 82962; 83036; 83540; 83550; 84156; 85025; 85027; 85045; 87040; 87086; 87088; 87186; 93975; J0696; J1815; J3490

== ENCOUNTER → 2018-04-17 | Outpatient (CLI) | payer MEDICARE ==
[2018-04-17 10:21] LABS: HEMATOCRIT 32.4 % (36.0-47.0); HEMOGLOBIN 10.5 g/dL (12.0-15.5); MEAN CORPUSCULAR HEMOGLOBIN 24.4 pg (27.0-33.4); MEAN CORPUSCULAR HGB CONC 32.3 g/dL (32.0-36.0); MEAN CORPUSCULAR VOLUME 76 fl (80-97); PLATELET COUNT 183 10^3/uL (150-450); RED BLOOD COUNT 4.28 10^6/uL (3.72-5.28); RED CELL DISTRIBUTION WIDTH 15.4 % (11.5-14.0)
[2018-04-17 10:27] LABS: APPEARANCE,URINE CLEAR; BILIRUBIN,URINE NEGATIVE (NEGATIVE); GLUCOSE, URINE 50 mg/dL (NEGATIVE); KETONES,URINE NEGATIVE (NEGATIVE); LEUKOCYTE ESTERASE,URINE NEGATIVE (NEGATIVE); NITRITE,URINE NEGATIVE (NEGATIVE); PROTEIN,URINE 100 mg/dL (NEGATIVE); URINE SPECIFIC GRAVITY 1.011; UROBILINOGEN,URINE NEGATIVE mg/dL (<2.0)
[2018-04-17 10:28] LABS: COLOR,URINE STRAW
[2018-04-17 10:45] LABS: ANION GAP 15 (5-19); BLOOD UREA NITROGEN 54 mg/dL (7-20); CALCIUM 8.6 mg/dL (8.4-10.2); CARBON DIOXIDE 17 mmol/L (22-30); CHLORIDE 115 mmol/L (98-107); GLUCOSE 270 mg/dL (75-110); PHOSPHORUS 4.1 mg/dL (2.5-4.5); POTASSIUM 4.8 mmol/L (3.6-5.0); SODIUM 146.7 mmol/L (137-145)
== END ==
LOC: OD 09:14
PROVIDERS: ATTEND Physician Assistant Medical
DX: I12.9 Hypertensive chronic kidney disease with stage 1 through stage 4 chronic kidney disease, or unspecified chronic kidney disease (principal); N18.3 Chronic kidney disease, stage 3 (moderate); E11.9 Type 2 diabetes mellitus without complications; D64.9 Anemia, unspecified
CPT/HCPCS: 36415; 80048; 81001; 83970; 84100; 85027

== ENCOUNTER 2018-05-14 16:33 | Inpatient (IN) | payer MEDICARE ==
[2018-05-14] MEDS ORDERED: ONDANSETRON HCL INJ/PF 4 MG/2 ML SDV IV ONE (18:49)
[2018-05-14] MEDS ORDERED: HYDROMORPHONE HCL INJ/PF 2 MG/ML AMPULE IV ONE (18:49)
[2018-05-14] MEDS ORDERED: NORMAL SALINE 1000 ML 1,000 ML IV ONE (18:50)
[2018-05-14 18:52] LABS: ABSOLUTE LYMPHOCYTES (AUTO) 0.9 10^3/uL (0.5-4.7); ABSOLUTE MONOCYTES (AUTO) 0.6 10^3/uL (0.1-1.4); ABSOLUTE NEUT (AUTO) 10.6 10^3/uL (1.7-8.2); BASOPHILS % (AUTO) 0.3 % (0-2); EOSINOPHILS % (AUTO) 0.1 % (0-6); HEMATOCRIT 32.1 % (36.0-47.0); HEMOGLOBIN 10.2 g/dL (12.0-15.5); LYMPHOCYTES % (AUTO) 7.4 % (13-45); MEAN CORPUSCULAR HGB CONC 31.8 g/dL (32.0-36.0); MEAN CORPUSCULAR VOLUME 75 fl (80-97); MONOCYTES % (AUTO) 4.7 % (3-13); PLATELET COUNT 212 10^3/uL (150-450); RED BLOOD COUNT 4.26 10^6/uL (3.72-5.28); RED CELL DISTRIBUTION WIDTH 15.3 % (11.5-14.0); SEGMENTED NEUTROPHILS % (AUTO) 87.5 % (42-78); TOTAL CELLS COUNTED % (AUTO) 100 %; WHITE BLOOD COUNT 12.2 10^3/uL (4.0-10.5)
--- NOTE | 2018-05-14 18:56 | ER Document Report ---
ED GI/ - General Chief Complaint: Abdominal Pain Stated Complaint: ABDOMINAL PAIN Time Seen by Provider: 05/14/18 18:23 Mode of Arrival: Stretcher Information source: Patient TRAVEL OUTSIDE OF THE [place] IN LAST 30 DAYS: No - HPI Patient complains to provider of: Abdominal pain Onset: This afternoon Timing/Duration: Sudden Quality of pain: Cramping, Sharp Severity at maximum: Severe Severity in ED: Severe Pain Level: 5 Location: Suprapubic. No: Chest pain Vaginal bleeding (Compared to normal period): None OB ultrasound done: No vitamins taken: No Sexual history: Inactive Associated symptoms: Vomiting. denies: Chest pain, Shortness of breath Exacerbated by: Denies Relieved by: Denies Similar symptoms previously: No Recently seen / treated by doctor: No - Related Data Allergies/Adverse Reactions: No Known Allergies Allergy (Verified 05/03/17 08:46) Past Medical History - Social History Smoking Status: Never Smoker Frequency of alcohol use: None Drug Abuse: None Family History: Hypertension Patient has suicidal ideation: No Patient has homicidal ideation: No - Past Medical History Cardiac Medical History: Reports: Hx Heart Attack - 5/6YRS AGO, Hx Hypercholesterolemia, Hx Hypertension - MEDICATED Pulmonary Medical History: Reports: Hx COPD Neurological Medical History: Reports: Hx Seizures - JANUARY 2017 3 SEIZURES IN ONE DAY RELATED TO ELEVATED BS. Denies: Hx Cerebrovascular Accident Endocrine Medical History: Reports: Hx Diabetes Mellitus Type 2 - uncontrolled Renal/ Medical History: Denies: Hx Peritoneal Dialysis GI Medical History: Denies: Hx Ulcer Skin Medical History: Denies Hx MRSA Psychiatric Medical History: Denies: Hx Depression Past Surgical History: Reports: Hx Cardiac Catheterization, Hx Section , Hx Hysterectomy. Denies: Hx Open Heart Surgery - Immunizations Hx Diphtheria, Pertussis, Tetanus Vaccination: No Hx Pneumococcal Vaccination: 10/25/10 Review of Systems - Review of Systems Constitutional: denies: Chills, Fever EENT: No symptoms reported Cardiovascular: denies: Chest pain, Palpitations, Syncope, Dizziness Respiratory: denies: Cough, Short of breath Gastrointestinal: Abdomen distended, Abdominal pain, Nausea, Vomiting. denies: Diarrhea, Constipation, Blood in vomit Genitourinary: No symptoms reported Female Genitourinary: No symptoms reported Musculoskeletal: No symptoms reported Skin: No symptoms reported Hematologic/Lymphatic: No symptoms reported Neurological/Psychological: No symptoms reported -: Yes All other systems reviewed and negative Physical Exam - Vital signs Vitals: Temp Pulse Resp BP Pulse Ox 98.8 F 86 18 178/74 H 94 05/14/18 16:34 05/14/18 16:34 05/14/18 16:34 05/14/18 16:34 05/14/18 16:34 - General General appearance: Alert In distress: Severe - HEENT Head: Normocephalic, Atraumatic Eyes: Normal Pupils: PERRL - Respiratory Respiratory status: No respiratory distress Chest status: Nontender Breath sounds: Normal Chest palpation: Normal - Cardiovascular Rhythm: Regular Heart sounds: Normal auscultation Murmur: No - Abdominal Inspection: Morbidly Obese Distension: Distended Bowel sounds: Hyperactive Tenderness: Tender, Guarding. No: Rebound Organomegaly: No organomegaly - Back Back: Normal, Nontender - Extremities General upper extremity: Normal inspection, Nontender, Normal color, Normal ROM , Normal temperature General lower extremity: Normal inspection, Nontender, Normal color, Normal ROM , Normal temperature, Normal weight bearing. No: Mychal's sign - Neurological Neuro grossly intact: Yes Cognition: Normal Orientation: AAOx4 [place] Coma Scale Eye Opening: Spontaneous [place] Coma Scale Verbal: Oriented [place] Coma Scale Motor: Obeys Commands [place] Coma Scale Total: 15 Speech: Normal Motor strength normal: LUE, RUE, LLE, RLE Sensory: Normal - Psychological Associated symptoms: Normal affect, Normal mood - Skin Skin Temperature: Warm Skin Moisture: Dry Skin Color: Normal Course - Re-evaluation Re-evalutation: 05/14/18 22:13 I discussed patient care with Dr. Stanford Moore who is on-call for Dr. Vogel. He will admit patient to the hospital for Dr. Vogel. - Vital Signs Vital signs: Temp Pulse Resp BP Pulse Ox 98.8 F 86 21 H 163/83 H 95 05/14/18 16:34 05/14/18 16:34 05/15/18 00:45 05/15/18 00:01 05/15/18 00:45 - Laboratory Result Diagrams: 05/14/18 18:30 05/14/18 18:30 Laboratory results interpreted by me: 05/14/18 05/14/18 05/14/18 18:30 18:30 18:30 WBC 12.2 H Hgb 10.2 L Hct 32.1 L MCV 75 L MCH 24.0 L MCHC 31.8 L RDW 15.3 H Seg Neutrophils % 87.5 H Lymphocytes % 7.4 L Absolute Neutrophils 10.6 H Sodium 147.8 H Chloride 111 H BUN 74 H Creatinine 3.09 H Est GFR ( Amer) 18 L Est GFR (Non-Af Amer) 15 L Glucose 216 H Creatine Kinase 249 H - Diagnostic Test Radiology reviewed: Image reviewed, Reports reviewed - EKG Interpretation by Me EKG shows normal: Sinus rhythm Rate: Normal - 87 When compared to previous EKG there are: Changes noted Additional EKG results interpreted by az: 05/14/18 20:[address] and T wave changes. No STEMI. Discharge - Discharge Clinical Impression: Abdominal pain Qualifiers: Abdominal location: lower abdomen, unspecified Qualified Code(s): R10.30 - Lower abdominal pain, unspecified Diverticulitis large intestine Qualifiers: Diverticulitis bleeding: without bleeding Diverticulitis complication: without perforation or abscess Qualified Code(s): K57.32 - Diverticulitis of large intestine without perforation or abscess without bleeding Condition: Stable Disposition: ADMITTED INPATIENT [facility]
[2018-05-14 19:06] LABS: INTERNATIONAL RATION (INR) 1.01; PROTHROMBIN TIME 13.8 SEC (11.4-15.4)
[2018-05-14 19:07] LABS: PARTIAL THROMBOPLASTIN TIME 24.7 SEC (23.5-35.8)
[2018-05-14 19:16] LABS: ALANINE AMINOTRANSFERASE 19 U/L (9-52); ALBUMIN 3.6 g/dL (3.5-5.0); ALKALINE PHOSPHATASE 123 U/L (38-126); ANION GAP 15 (5-19); ASPARTATE AMINO TRANSFERASE 18 U/L (14-36); BILIRUBIN,DIRECT 0.2 mg/dL (0.0-0.4); BILIRUBIN,TOTAL 0.2 mg/dL (0.2-1.3); BLOOD UREA NITROGEN 74 mg/dL (7-20); CALCIUM 8.7 mg/dL (8.4-10.2); CARBON DIOXIDE 22 mmol/L (22-30); CHLORIDE 111 mmol/L (98-107); GLUCOSE 216 mg/dL (75-110); LIPASE 166.1 U/L (23-300); POTASSIUM 4.7 mmol/L (3.6-5.0); SODIUM 147.8 mmol/L (137-145); TOTAL PROTEIN 7.5 g/dL (6.3-8.2)
[2018-05-14 19:26] LABS: NT PRO BNP 204 pg/mL (<450)
[2018-05-14 19:30] LABS: TROPONIN I < 0.012 ng/mL
--- NOTE | 2018-05-14 19:44 | RADIOLOGY REPORT (SQ) ---
EXAM DESCRIPTION: CHEST SINGLE VIEW COMPLETED DATE/TIME: 05/14/2018 7:27 pm REASON FOR STUDY: EPIGASTRIC pain COMPARISON: 03/29/2018 EXAM PARAMETERS: NUMBER OF VIEWS: One view. TECHNIQUE: Single frontal radiographic view of the chest acquired. RADIATION DOSE: NA LIMITATIONS: None. FINDINGS: LUNGS AND PLEURA: Increased opacification the left base. MEDIASTINUM AND HILAR STRUCTURES: No masses. Contour normal. HEART AND VASCULAR STRUCTURES: Cardiomegaly. No pulmonary edema. BONES: No acute findings. HARDWARE: None in the chest. OTHER: No other significant finding. IMPRESSION: Cardiomegaly without CHF. Airspace disease in the left lower lobe. Pneumonia versus at electasis. TECHNICAL DOCUMENTATION: JOB ID: [id number] [facility]- All Rights Reserved Reading location - IP/workstation name: [email or web address]
--- NOTE | 2018-05-14 20:48 | RADIOLOGY REPORT (SQ) ---
EXAM DESCRIPTION: CT ABD/PELVIS NO ORAL OR IV COMPLETED DATE/TIME: 05/14/2018 8:35 pm REASON FOR STUDY: abdominal pain COMPARISON: None. TECHNIQUE: CT scan of the abdomen and pelvis performed without intravenous or oral contrast. Images reviewed with lung, soft tissue, and bone windows. Reconstructed coronal and sagittal MPR images revi ewed. All images stored on PACS. All CT scanners at this facility use dose modulation, iterative reconstruction, and/or weight based d osing when appropriate to reduce radiation dose to as low as reasonably achievable (ALARA). [facility]: Dose Right [facility]: CareDose [facility]: Dose Right [facility]: Teradose 4D [facility]: Smart Technologies RADIATION DOSE: CT Rad equipment meets quality standard of care and radiation dose reduction techniq ues were employed. CTDIvol: 20.8 mGy. DLP: 1149 mGy-cm.mGy. LIMITATIONS: None. FINDINGS: LOWER CHEST: No significant findings. No nodules or infiltrates. NON-CONTRASTED LIVER, SPLEEN, ADRENALS: Evaluation limited by lack of IV contrast. No identified sign ificant masses. PANCREAS: No masses. No peripancreatic inflammatory changes. GALLBLADDER: No identified stones by CT criteria. No inflammatory changes to suggest cholecystitis. RIGHT KIDNEY AND URETER: No suspicious masses. Assessment limited by lack of IV contrast. There are some tiny nonobstructing intrarenal calcifications. No hydronephrosis or hydroureter. LEFT KIDNEY AND URETER: No suspicious masses. Assessment limited by lack of IV contrast. There are some tiny nonobstructing intrarenal calcifications. No hydronephrosis or hydroureter. AORTA AND RETROPERITONEUM: No aneurysm. No retroperitoneal masses or adenopathy. BOWEL AND PERITONEAL CAVITY: Mild diverticulosis. Cannot exclude mild inflammatory changes in the fa t around the distal descending/ proximal sigmoid colon. APPENDIX: Not identified. PELVIS, BLADDER, AND ABDOMINAL WALL:Urinary bladder is normal. Uterus is absent BONES: Degenerative joint changes in the right hip. OTHER: No other significant finding. IMPRESSION: Diverticulosis. Cannot exclude mild diverticulitis in the distal descending/proximal si gmoid colon. Osseous findings as described COMMENT: Quality ID # [id number]: Final reports with documentation of one or more dose reduction techniques (e.g., Automated exposure control, adjustment of the mA and/or kV according to patient size, use of iterative reconstruction technique) TECHNICAL DOCUMENTATION: JOB ID: [id number] [employer]- All Rights Reserved Reading location - IP/workstation name: [email or web address]
[2018-05-14] MEDS ORDERED: LEVOFLOXACIN 750 MG/D5W RTU 750 MG/150 ML RTUPB IV ONE (21:34)
[2018-05-14] MEDS ORDERED: METRONIDAZOLE 500 MG/NS RTU 500 MG/100 ML RTUPB IV ONE (22:00)
[2018-05-14] MEDS ORDERED: 1/2 NORMAL SALINE 1,000 ML IV PRN (22:13)
[2018-05-14] MEDS ORDERED: ACETAMINOPHEN 325 MG TABLET PO PRN (22:13)
[2018-05-14] MEDS ORDERED: OXYCODONE-ACETAMINOPHEN 5-325 MG TABLET PO PRN (22:13)
[2018-05-14] MEDS ORDERED: IPRATROPIUM/ALBUTEROL 0.5-2.5 MG/3 ML AMPUL NEB PRN (22:13)
[2018-05-14] MEDS ORDERED: ONDANSETRON HCL INJ/PF 4 MG/2 ML SDV IV PRN (22:13)
--- NOTE | 2018-05-14 22:16 | EKG REPORT ---
SEVERITY:- BORDERLINE ECG - SINUS RHYTHM VENTRICULAR PREMATURE COMPLEX LVH BY VOLTAGE : Confirmed by: Eric Steve 14-May-2018 22:16:13
[2018-05-14] MEDS ORDERED: GLUCAGON,HUMAN RECOMB 1 MG INJ IM PRN (22:18)
[2018-05-14] MEDS ORDERED: DEXTROSE 50%-WATER 25 GM/50 ML DISP.SYRIN IV PRN ×2 (22:18)
[2018-05-14] MEDS ORDERED: DEXTROSE 40% GEL 15 GM TUBE PO PRN ×2 (22:18)
[2018-05-14] MEDS ORDERED: HYDRALAZINE HCL INJ/PF 20 MG/1 ML SDV IV PRN (22:21)
[2018-05-15 05:19] LABS: ABSOLUTE LYMPHOCYTES (AUTO) 1.3 10^3/uL (0.5-4.7); ABSOLUTE MONOCYTES (AUTO) 0.8 10^3/uL (0.1-1.4); ABSOLUTE NEUT (AUTO) 7.5 10^3/uL (1.7-8.2); BASOPHILS % (AUTO) 0.3 % (0-2); HEMATOCRIT 30.8 % (36.0-47.0); HEMOGLOBIN 9.8 g/dL (12.0-15.5); LYMPHOCYTES % (AUTO) 13.4 % (13-45); MEAN CORPUSCULAR HEMOGLOBIN 24.2 pg (27.0-33.4); MEAN CORPUSCULAR HGB CONC 31.9 g/dL (32.0-36.0); MEAN CORPUSCULAR VOLUME 76 fl (80-97); MONOCYTES % (AUTO) 8.6 % (3-13); PLATELET COUNT 196 10^3/uL (150-450); RED BLOOD COUNT 4.06 10^6/uL (3.72-5.28); RED CELL DISTRIBUTION WIDTH 15.4 % (11.5-14.0); SEGMENTED NEUTROPHILS % (AUTO) 77.7 % (42-78); TOTAL CELLS COUNTED % (AUTO) 100 %; WHITE BLOOD COUNT 9.6 10^3/uL (4.0-10.5)
[2018-05-15 05:55] LABS: ALANINE AMINOTRANSFERASE 27 U/L (9-52); ALBUMIN 3.3 g/dL (3.5-5.0); ALKALINE PHOSPHATASE 97 U/L (38-126); ANION GAP 14 (5-19); ASPARTATE AMINO TRANSFERASE 18 U/L (14-36); BILIRUBIN,DIRECT 0.3 mg/dL (0.0-0.4); BILIRUBIN,TOTAL 0.3 mg/dL (0.2-1.3); BLOOD UREA NITROGEN 65 mg/dL (7-20); CALCIUM 8.1 mg/dL (8.4-10.2); CARBON DIOXIDE 20 mmol/L (22-30); CHLORIDE 114 mmol/L (98-107); GLUCOSE 198 mg/dL (75-110); POTASSIUM 4.8 mmol/L (3.6-5.0); SODIUM 147.6 mmol/L (137-145); TOTAL PROTEIN 6.8 g/dL (6.3-8.2)
[2018-05-15] MEDS: LANSOPRAZOLE 15 MG TAB.RAP.DR PO SCH ×2 (06:39→18:23)
[2018-05-15] MEDS: METRONIDAZOLE 500 MG/NS RTU 500 MG/100 ML RTUPB IV SCH ×2 (06:39→13:29)
[2018-05-15] MEDS ORDERED: CIPROFLOXACIN 400 MG/D5W RTU 400 MG/200 ML RTUPB IV SCH (10:00)
[2018-05-15] MEDS: ENOXAPARIN SODIUM INJ 30 MG/0.3 ML DISP.SYRIN SUBCUT SCH (10:18)
[2018-05-15 10:28] LABS: APPEARANCE,URINE CLEAR; BILIRUBIN,URINE NEGATIVE (NEGATIVE); COLOR,URINE YELLOW; GLUCOSE, URINE 50 mg/dL (NEGATIVE); KETONES,URINE NEGATIVE (NEGATIVE); LEUKOCYTE ESTERASE,URINE NEGATIVE (NEGATIVE); NITRITE,URINE NEGATIVE (NEGATIVE); PROTEIN,URINE 100 mg/dL (NEGATIVE); URINE SPECIFIC GRAVITY 1.012; UROBILINOGEN,URINE NEGATIVE mg/dL (<2.0)
[2018-05-15] MEDS: INSULIN LISPRO 100 UNIT/ML 3 ML VIAL SUBCUT PRN ×2 (12:47→21:51)
[2018-05-15] MEDS ORDERED: AMLODIPINE BESYLATE 5 MG TABLET PO SCH ×2 (13:30→18:00)
--- NOTE | 2018-05-15 13:38 | PDOC H&P ---
History of Present Illness Admission Date/PCP: 05/14/18 22:17 ANNA MADISON MD Patient complains of: Abdominal pain History of Present Illness: NELSON WISE is a 73 year old female This is a 72-year-old female patient of [facility] with a history of the type 2 diabetes mellitus with uncontrolledHistory of the hypertensions history of the chronic kidney disease stage IV history of the hyperlipidemia history of coronary artery disease status post stent placementMultiple hospital admissions very noncompliance came to the emergency department with a complaint of abdominal pain mostly described in the suprapubic areaPatient underwent for the CT abdomen and pelvis with some some questionable diverticulitis an elevated white count Patient was started on IV antibiotics Recent also acute renal failure currently see Dr. Santamaria for chronic kidney disease When I saw the patient in the ER currently doing fair patient's denied any abdominal pain today no chest pain no short of breath Patient's medications still not reconciliate in the ERAnd ordered all medications looking from the last discharge summary Patients otherwise denied any other symptoms Past Medical History Cardiac Medical History: Reports: Myocardial Infarction - 5/6YRS AGO, Hyperlipidema, Hypertension - MEDICATED Pulmonary Medical History: Reports: Chronic Obstructive Pulmonary Disease (COPD) Neurological Medical History: Reports: Seizures - JANUARY 2017 3 SEIZURES IN ONE DAY RELATED TO ELEVATED BS Endocrine Medical History: Reports: Diabetes Mellitus Type 2 - uncontrolled Renal/ Medical History: Reports: Chronic Kidney Disease GI Medical History: Reports: Gastroesophageal Reflux Disease Musculoskeltal Medical History: Reports: Arthritis Psychiatric Medical History: Denies: Depression Hematology: Reports: Anemia - MEDICATED Past Surgical History Past Surgical History: Reports: Cardiac Catheterization, Section, Hysterectomy Social History Smoking Status: Never Smoker Frequency of Alcohol Use: None Hx Recreational Drug Use: No Drugs: None Hx Prescription Drug Abuse: No Family History Family History: Reviewed & Not Pertinent, Hypertension Parental Family History Reviewed: Yes Children Family History Reviewed: Yes Sibling(s) Family History Reviewed.: Yes Medication/Allergy Home Medications: Cholecalciferol (Vitamin D3) [Vitamin D3 1000 Unit Tablet] 1,000 unit PO DAILY 03/29/18 Insulin Detemir [Levemir Flextouch] 35 units SQ DAILY 03/29/18 Amlodipine Besylate [Norvasc 10 mg Tablet] 10 mg PO DAILY #90 tablet 04/03/18 Aspirin [Aspirin 81 mg Chewable Tablet] 81 mg PO DAILY #90 tab.chew 04/03/18 Aspirin [Aspirin 81 mg Chewable Tablet] 81 mg PO DAILY #90 tab.chew 04/03/18 Calcitriol [Rocaltrol 0.25 mcg Capsule] 0.25 mcg PO DAILY #90 capsule 04/03/18 Clonidine HCl [Catapres 0.2 mg Tablet] 0.2 mg PO Q8 #90 tablet 04/03/18 Febuxostat [Uloric 80 mg Tablet] 80 mg PO DAILY tablet 04/03/18 Febuxostat [Uloric 80 mg Tablet] 80 mg PO DAILY #90 tablet 04/03/18 Ferrous Sulfate [Feosol 325 mg Tablet] 325 mg PO DAILY #90 tablet 04/03/18 Furosemide [Lasix 20 mg Tablet] 20 mg PO DAILY #90 tablet 04/03/18 Hydralazine HCl [Apresoline 50 mg Tablet] 50 mg PO Q8 #270 tablet 04/03/18 Insulin Lispro [Humalog Insulin (Lispro) 100 unit/mL] 12 unit SUBCUT ACHSP PRN # 2 unit 04/03/18 Linagliptin [Tradjenta] 5 mg PO DAILY #90 tablet 04/03/18 Metoprolol Tartrate [Lopressor 50 mg Tablet] 50 mg PO BID #180 tablet 04/03/18 Rosuvastatin Calcium [Crestor 20 mg Tablet] 20 mg PO DAILY #90 tablet 04/03/18 Valsartan [Diovan] 320 mg PO DAILY #90 tablet 04/03/18 Allergies/Adverse Reactions: No Known Allergies Allergy (Verified 05/03/17 08:46) Review of Systems Constitutional: ABSENT: chills, fever(s), headache(s), weight gain, weight loss Eyes: ABSENT: visual disturbances Ears: ABSENT: hearing changes Cardiovascular: ABSENT: chest pain, dyspnea on exertion, edema, orthropnea, palpitations Respiratory: ABSENT: cough, hemoptysis Gastrointestinal: PRESENT: abdominal pain. ABSENT: constipation, diarrhea, hematemesis, hematochezia, nausea, vomiting Genitourinary: ABSENT: dysuria, hematuria Musculoskeletal: ABSENT: joint swelling Integumentary: ABSENT: rash, wounds Neurological: ABSENT: abnormal gait, abnormal speech, confusion, dizziness, focal weakness, syncope Psychiatric: ABSENT: anxiety, depression, homidical ideation, suicidal ideation Endocrine: ABSENT: cold intolerance, heat intolerance, menstrual abnormalities, polydipsia, polyuria Hematologic/Lymphatic: ABSENT: easy bleeding, easy bruising, lymphadenopathy Physical Exam Vital Signs: Temp Pulse Resp BP Pulse Ox 98.5 F 86 22 H 164/75 H 94 05/15/18 10:25 05/14/18 16:34 05/15/18 13:22 05/15/18 13:22 05/15/18 13:22 Intake & Output 05/14/18 05/15/18 05/16/18 06:59 06:59 06:59 Intake Total 250 100 Output Total 1600 Balance 250 -1500 General appearance: PRESENT: no acute distress, well-developed, well-nourished Head exam: PRESENT: atraumatic, normocephalic Eye exam: PRESENT: conjunctiva pink, EOMI, PERRLA. ABSENT: scleral icterus Ear exam: PRESENT: normal external ear exam Mouth exam: PRESENT: moist, tongue midline Neck exam: PRESENT: full ROM. ABSENT: carotid bruit, JVD, lymphadenopathy, thyromegaly Respiratory exam: PRESENT: clear to auscultation eric Cardiovascular exam: PRESENT: RRR. ABSENT: diastolic murmur, rubs, systolic murmur Pulses: PRESENT: normal dorsalis pedis pul, +2 pedal pulses bilateral Vascular exam: PRESENT: normal capillary refill GI/Abdominal exam: PRESENT: normal bowel sounds, soft. ABSENT: distended, guarding, mass, organolmegaly, rebound, tenderness Rectal exam: PRESENT: deferred Extremities exam: ABSENT: pedal edema Musculoskeletal exam: PRESENT: ambulatory Neurological exam: PRESENT: alert, awake, oriented to person, oriented to place , oriented to time, oriented to situation, CN II-XII grossly intact. ABSENT: motor sensory deficit Psychiatric exam: PRESENT: appropriate affect, normal mood. ABSENT: homicidal ideation, suicidal ideation Skin exam: PRESENT: dry, intact, warm. ABSENT: cyanosis, rash Results Laboratory Results: 05/15/18 04:36 05/15/18 04:36 05/15/18 05/15/18 05/15/18 04:36 04:36 10:13 WBC 9.6 RBC 4.06 Hgb 9.8 L Hct 30.8 L MCV 76 L MCH 24.2 L MCHC 31.9 L RDW 15.4 H Plt Count 196 Seg Neutrophils % 77.7 Lymphocytes % 13.4 Monocytes % 8.6 Eosinophils % 0.0 Basophils % 0.3 Absolute Neutrophils 7.5 Absolute Lymphocytes 1.3 Absolute Monocytes 0.8 Absolute Eosinophils 0.0 Absolute Basophils 0.0 Sodium 147.6 H Potassium 4.8 Chloride 114 H Carbon Dioxide 20 L Anion Gap 14 BUN 65 H Creatinine 2.80 H Est GFR ( Amer) 20 L Est GFR (Non-Af Amer) 16 L Glucose 198 H Calcium 8.1 L Magnesium 1.7 Total Bilirubin 0.3 AST 18 ALT 27 Alkaline Phosphatase 97 Total Protein 6.8 Albumin 3.3 L Urine Color YELLOW Urine Appearance CLEAR Urine pH 5.0 Ur Specific [place] 1.012 Urine Protein 100 H Urine Glucose (UA) 50 H Urine Ketones NEGATIVE Urine Blood NEGATIVE Urine Nitrite NEGATIVE Ur Leukocyte Esterase NEGATIVE Urine WBC (Auto) 1 Urine RBC (Auto) 0 Impressions: Abdomen/Pelvis CT 05/14/18 18:48 IMPRESSION: Diverticulosis. Cannot exclude mild diverticulitis in the distal descending/proximal sigmoid colon. Osseous findings as described Chest X-Ray 05/14/18 19:12 IMPRESSION: Cardiomegaly without CHF. Airspace disease in the left lower lobe. Pneumonia versus atelectasis. Assessment & Plan - Diagnosis (1) Abdominal pain Qualifiers: Abdominal location: lower abdomen, unspecified Qualified Code(s): R10.30 - Lower abdominal pain, unspecified Is this a current diagnosis for this admission?: Yes Plan: Most likely her diverticulitis patient's last colonoscopy was done by Dr. Davis less than 5 years back Is currently get better Start IV antibiotic (2) Diverticulitis large intestine Qualifiers: Diverticulitis bleeding: without bleeding Diverticulitis complication: without perforation or abscess Qualified Code(s): K57.32 - Diverticulitis of large intestine without perforation or abscess without bleeding Is this a current diagnosis for this admission?: Yes Plan: Start her on Cipro and Flagyl (3) Acute kidney injury superimposed on chronic kidney disease Is this a current diagnosis for this admission?: Yes Plan: Currently hold the Lasix and start on a one half normal saline IV fluidAnd hold the diovan (4) Anemia Qualifiers: Anemia type: unspecified type Qualified Code(s): D64.9 - Anemia, unspecified Is this a current diagnosis for this admission?: Yes Plan: Currently all stable (5) Coronary artery disease Qualifiers: Coronary Disease-Associated Artery/Lesion type: [place] artery Associated angina: without angina Is this a current diagnosis for this admission?: Yes Plan: Patient's EKG I will review all stable no other cardiac complaints today (6) Hypertension Qualifiers: Hypertension type: essential hypertension Qualified Code(s): I10 - Essential (primary) hypertension Is this a current diagnosis for this admission?: Yes Plan: Continues to p.o. medications and as needed hydralazine (7) Obese Qualifiers: Obesity type: due to excess calories Is this a current diagnosis for this admission?: Yes (8) Uncontrolled diabetes mellitus Qualifiers: Diabetes mellitus type: type 2 Is this a current diagnosis for this admission?: Yes Plan: Continues on insulin sliding scale patient is very noncompliance - Time Time Spent: 30 to 50 Minutes Medications reviewed and adjusted accordingly: Yes Anticipated discharge: Home Within: Other - Inpatient Certification Medical Necessity: Need Close Monitoring Due to Risk of Patient Decompensation, Need For IV Fluids, Need for IV Antibiotics Post Hospital Care: D/C Medical Payment Poster Documentation - Plan Summary Plan Summary: Continuous IV antibiotic consult to nephrology see other MD orders Discussed with the ER nurse regarding the reconciliate all the medications
[2018-05-15] MEDS ORDERED: HYDRALAZINE HCL 50 MG TABLET PO SCH (14:00)
[2018-05-15] MEDS ORDERED: CLONIDINE HCL 0.2 MG TABLET PO SCH (14:00)
--- NOTE | 2018-05-15 15:50 | PDOC CONSULTATION ---
Consultation Consult Date: 05/15/18 Consult reason:: renal failure History of Present Illness Admission Date/PCP: 05/14/18 22:17 ANNA MADISON MD History of Present Illness: NELSON WISE is a 73 year old female with a history of poorly controlled type 2 diabetes mellitus, hypertensions, chronic kidney disease stage IV, hyperlipidemia, coronary artery disease status post stent placement. Came to the ER for abdominal pain in the suprapubic area. She is not able to describe what it felt like. A CT of the abdomen and pelvis with questionable diverticulitis. With labs she had an elevated white count and a increased creatinine to 3.0. She was started on flagyl, ciprofloxacin and 1/2 normal saline. Today during examination the patient denies abdominal pain, nausea, vomiting, diarrhea or constipation. She admits to not hydrating as well. She denies chest pain or sob. She had a recent admission in February when her creatinine elevated in the high 3s due to dehydration. Patient is frequently having issues of dehydration. Past Medical History Cardiac Medical History: Reports: Hyperlipidemia, Hypertension-primary, Myocardial Infarction - 5/6YRS AGO Pulmonary Medical History: Reports: Chronic Obstructive Pulmonary Disease (COPD) Neurological Medical History: Reports: Seizures - JANUARY 2017 3 SEIZURES IN ONE DAY RELATED TO ELEVATED BS Endocrine Medical History: Reports: Diabetes Mellitus Type 2 - uncontrolled Renal/ Medical History: Reports: Chronic Kidney Disease Stage III GI Medical History: Reports: Gastroesophageal Reflux Disease Musculoskeltal Medical History: Reports: Arthritis Psychiatric Medical History: Denies: Depression Past Surgical History Past Surgical History: Reports: Cardiac Catheterization, Section, Hysterectomy Social History Smoking Status: Never Smoker Frequency of Alcohol Use: None Hx Recreational Drug Use: No Drugs: None Hx Prescription Drug Abuse: No - Advance Directive Resuscitation Status: Full Code Family History Parental Family History Reviewed: No Children Family History Reviewed: NA Sibling(s) Family History Reviewed.: NA Medication/Allergy Home Medications: Insulin Detemir [Levemir Flextouch] 35 units SQ DAILY 03/29/18 Amlodipine Besylate [Norvasc 10 mg Tablet] 10 mg PO DAILY #90 tablet 04/03/18 Aspirin [Aspirin 81 mg Chewable Tablet] 81 mg PO DAILY #90 tab.chew 04/03/18 Calcitriol [Rocaltrol 0.25 mcg Capsule] 0.25 mcg PO DAILY #90 capsule 04/03/18 Furosemide [Lasix 20 mg Tablet] 20 mg PO DAILY #90 tablet 04/03/18 Metoprolol Tartrate [Lopressor 50 mg Tablet] 50 mg PO BID #180 tablet 04/03/18 Rosuvastatin Calcium [Crestor 20 mg Tablet] 20 mg PO DAILY #90 tablet 04/03/18 Valsartan [Diovan] 320 mg PO DAILY #90 tablet 04/03/18 Clopidogrel Bisulfate [Plavix 75 mg Tablet] 75 mg PO DAILY 05/15/18 Hydralazine HCl 100 mg PO Q8 05/15/18 Sodium Bicarbonate 325 mg PO DAILY 05/15/18 Allergies/Adverse Reactions: No Known Allergies Allergy (Verified 05/03/17 08:46) Review of Systems Constitutional: ABSENT: chills, fever(s), headache(s), weakness Eyes: ABSENT: visual disturbances Cardiovascular: ABSENT: chest pain, dyspnea on exertion, edema, orthropnea, palpitations Respiratory: ABSENT: cough, dyspnea, sputum Gastrointestinal: PRESENT: abdominal pain - -currently resolved. ABSENT: bloating, constipation, diarrhea, nausea, vomiting Genitourinary: ABSENT: difficulty urinating, dysuria, hematuria Neurological: ABSENT: dizziness, weakness Physical Exam Vital Signs: Temp Pulse Resp BP Pulse Ox 98 F 78 23 H 164/75 H 93 05/15/18 13:58 05/15/18 13:58 05/15/18 14:00 05/15/18 13:22 05/15/18 14:00 Intake & Output 05/14/18 05/15/18 05/16/18 06:59 06:59 06:59 Intake Total 250 100 Output Total 1600 Balance 250 -1500 Weight 104.2 kg General appearance: PRESENT: no acute distress, well-developed, well-nourished Mouth exam: PRESENT: dry mucosa, neck supple Neck exam: PRESENT: full ROM. ABSENT: JVD Respiratory exam: PRESENT: clear to auscultation eric. ABSENT: accessory muscle use, crackles, rales, rhonchi, wheezes Cardiovascular exam: PRESENT: RRR, +S1, +S2 GI/Abdominal exam: PRESENT: normal bowel sounds, soft. ABSENT: tenderness Extremities exam: ABSENT: pedal edema, tenderness, +1 edema, +2 edema Musculoskeletal exam: PRESENT: normal inspection. ABSENT: tenderness Neurological exam: PRESENT: alert, awake, oriented to person, oriented to place , oriented to time, oriented to situation Psychiatric exam: PRESENT: appropriate affect, normal mood Skin exam: PRESENT: dry, intact, warm. ABSENT: cyanosis Results Laboratory Results: 05/15/18 04:36 05/15/18 04:36 05/15/18 05/15/18 05/15/18 04:36 04:36 10:13 WBC 9.6 RBC 4.06 Hgb 9.8 L Hct 30.8 L MCV 76 L MCH 24.2 L MCHC 31.9 L RDW 15.4 H Plt Count 196 Seg Neutrophils % 77.7 Lymphocytes % 13.4 Monocytes % 8.6 Eosinophils % 0.0 Basophils % 0.3 Absolute Neutrophils 7.5 Absolute Lymphocytes 1.3 Absolute Monocytes 0.8 Absolute Eosinophils 0.0 Absolute Basophils 0.0 Sodium 147.6 H Potassium 4.8 Chloride 114 H Carbon Dioxide 20 L Anion Gap 14 BUN 65 H Creatinine 2.80 H Est GFR ( Amer) 20 L Est GFR (Non-Af Amer) 16 L Glucose 198 H Calcium 8.1 L Magnesium 1.7 Total Bilirubin 0.3 AST 18 ALT 27 Alkaline Phosphatase 97 Total Protein 6.8 Albumin 3.3 L Urine Color YELLOW Urine Appearance CLEAR Urine pH 5.0 Ur Specific [place] 1.012 Urine Protein 100 H Urine Glucose (UA) 50 H Urine Ketones NEGATIVE Urine Blood NEGATIVE Urine Nitrite NEGATIVE Ur Leukocyte Esterase NEGATIVE Urine WBC (Auto) 1 Urine RBC (Auto) 0 Impressions: Abdomen/Pelvis CT 05/14/18 18:48 IMPRESSION: Diverticulosis. Cannot exclude mild diverticulitis in the distal descending/proximal sigmoid colon. Osseous findings as described Chest X-Ray 05/14/18 19:12 IMPRESSION: Cardiomegaly without CHF. Airspace disease in the left lower lobe. Pneumonia versus atelectasis. Assessment & Plan - Diagnosis (1) Abdominal pain Qualifiers: Abdominal location: lower abdomen, unspecified Qualified Code(s): R10.30 - Lower abdominal pain, unspecified Is this a current diagnosis for this admission?: Yes Plan: most likely due to diverticulitis, current not complaining of any abdominal. (2) Diverticulitis large intestine Qualifiers: Diverticulitis bleeding: without bleeding Diverticulitis complication: without perforation or abscess Qualified Code(s): K57.32 - Diverticulitis of large intestine without perforation or abscess without bleeding Is this a current diagnosis for this admission?: Yes Plan: currently on flagyl and levofloxacin. (3) Acute kidney injury superimposed on chronic kidney disease Is this a current diagnosis for this admission?: Yes Plan: nonoliguric, due to dehydration, with hold lasix and giving 1/2NS. If improvement is not shown with some 1/2NS than a renal ultrasound will be needed. (4) Anemia Qualifiers: Anemia type: unspecified type Qualified Code(s): D64.9 - Anemia, unspecified Is this a current diagnosis for this admission?: Yes Plan: previously had low iron saturations, may need to be reassessed if hemoglobin keeps dropping. May also need procrit. (5) Chronic kidney disease, stage 4 (severe) Plan: baseline is 2.2 (6) Diabetes mellitus with diabetic nephropathy Qualifiers: Diabetes mellitus type: type 2 Diabetes mellitus penitentiary insulin use: with penitentiary use Qualified Code(s): E11.21 - Type 2 diabetes mellitus with diabetic nephropathy; Z79.4 - rn long term care (current) use of insulin; Z79.4 - [facility] (current) use of insulin; Z79.4 - [facility] (current) use of insulin; Z79.4 - [facility] (current) use of insulin Plan: advised to her that she needs to drastically control her diabetes, last A1c was in the 12s. (7) Hypertension Qualifiers: Hypertension type: essential hypertension Qualified Code(s): I10 - Essential (primary) hypertension Is this a current diagnosis for this admission?: Yes Plan: medications were started since coming into the ER, will reassess tomorrow after she has had a few doses of her bp medications.
[2018-05-15] MEDS ORDERED: METOPROLOL TARTRATE 50 MG TABLET PO SCH (18:00)
[2018-05-15] MEDS: CIPROFLOXACIN HCL 500 MG TABLET PO SCH (18:23)
[2018-05-15] MEDS: METRONIDAZOLE 500 MG TABLET PO SCH ×2 (18:23→23:47)
[2018-05-15] MEDS: CLONIDINE HCL 0.2 MG TABLET PO SCH (18:28)
[2018-05-15] MEDS: HYDRALAZINE HCL 50 MG TABLET PO SCH (18:28)
[2018-05-15] MEDS: INSULIN DETEMIR 100 UNIT/ML 3 ML PEN SUBCUT SCH (21:51)
[2018-05-15] MEDS: AMLODIPINE BESYLATE 5 MG TABLET PO SCH (21:52)
[2018-05-15] MEDS: METOPROLOL TARTRATE 50 MG TABLET PO SCH (21:52)
[2018-05-15] MEDS: ATORVASTATIN CALCIUM 40 MG TABLET PO SCH (21:52)
[2018-05-16] MEDS: CLONIDINE HCL 0.2 MG TABLET PO SCH ×3 (02:36→17:22)
[2018-05-16] MEDS: HYDRALAZINE HCL 50 MG TABLET PO SCH ×3 (02:36→17:22)
[2018-05-16] MEDS: LANSOPRAZOLE 15 MG TAB.RAP.DR PO SCH ×2 (05:09→17:21)
[2018-05-16] MEDS: CIPROFLOXACIN HCL 500 MG TABLET PO SCH ×2 (05:09→17:21)
[2018-05-16] MEDS: METRONIDAZOLE 500 MG TABLET PO SCH ×4 (05:09→23:46)
[2018-05-16 06:21] LABS: ANION GAP 11 (5-19); BLOOD UREA NITROGEN 54 mg/dL (7-20); CALCIUM 8.2 mg/dL (8.4-10.2); CARBON DIOXIDE 21 mmol/L (22-30); CHLORIDE 116 mmol/L (98-107); GLUCOSE 113 mg/dL (75-110); POTASSIUM 4.4 mmol/L (3.6-5.0); SODIUM 148.2 mmol/L (137-145)
[2018-05-16 06:36] LABS: ABSOLUTE EOSINOPHILS # (AUTO) 0.1 10^3/uL (0.0-0.6); ABSOLUTE LYMPHOCYTES (AUTO) 1.4 10^3/uL (0.5-4.7); ABSOLUTE NEUT (AUTO) 4.6 10^3/uL (1.7-8.2); BASOPHILS % (AUTO) 0.6 % (0-2); EOSINOPHILS % (AUTO) 1.6 % (0-6); HEMATOCRIT 27.3 % (36.0-47.0); HEMOGLOBIN 8.9 g/dL (12.0-15.5); LYMPHOCYTES % (AUTO) 20.1 % (13-45); MEAN CORPUSCULAR HEMOGLOBIN 24.7 pg (27.0-33.4); MEAN CORPUSCULAR HGB CONC 32.6 g/dL (32.0-36.0); MEAN CORPUSCULAR VOLUME 76 fl (80-97); MONOCYTES % (AUTO) 13.6 % (3-13); PLATELET COUNT 174 10^3/uL (150-450); RED BLOOD COUNT 3.61 10^6/uL (3.72-5.28); SEGMENTED NEUTROPHILS % (AUTO) 64.1 % (42-78); TOTAL CELLS COUNTED % (AUTO) 100 %; WHITE BLOOD COUNT 7.2 10^3/uL (4.0-10.5)
[2018-05-16] MEDS ORDERED: (PENDING PHARMACY ID) (Rosuvastatin Calcium [Crestor 20 Mg Tablet] 20 MG) PO SCH (10:00)
[2018-05-16] MEDS ORDERED: (PENDING PHARMACY ID) (Linagliptin [Tradjenta] 5 MG) PO SCH (10:00)
[2018-05-16] MEDS ORDERED: FUROSEMIDE 20 MG TABLET PO SCH (10:00)
[2018-05-16] MEDS: FEBUXOSTAT 80 MG TABLET PO SCH (10:04)
[2018-05-16] MEDS: CALCITRIOL 0.25 MCG CAPSULE PO SCH (10:04)
[2018-05-16] MEDS: METOPROLOL TARTRATE 50 MG TABLET PO SCH ×2 (10:04→22:24)
[2018-05-16] MEDS: SITAGLIPTIN PHOSPHATE 25 MG TABLET PO SCH (10:05)
[2018-05-16] MEDS: ASPIRIN 81 MG TABLET, CHEWABLE PO SCH (10:05)
[2018-05-16] MEDS: ENOXAPARIN SODIUM INJ 30 MG/0.3 ML DISP.SYRIN SUBCUT SCH (10:05)
[2018-05-16] MEDS: AMLODIPINE BESYLATE 5 MG TABLET PO SCH ×2 (10:05→22:25)
[2018-05-16] MEDS ORDERED: 1/2 NORMAL SALINE 1,000 ML IV PRN (12:36)
--- NOTE | 2018-05-16 12:36 | PDOC PROGRESS REPORT ---
Subjective Progress Note for:: 05/16/18 Subjective:: Patient stats that she is doing well today. Has no current complaints. Denies chest pain, SOB, n/v/d/c/f/c. Denies abdominal pain. According to the nurse in charge of her care, Apple, she is most likely going to be discharged at the end of the day. Still awaiting a consult from GI. Reason For Visit: ABD PAIN Physical Exam Vital Signs: Temp Pulse Resp BP Pulse Ox 98.7 F 67 16 136/80 H 95 05/16/18 08:00 05/16/18 08:00 05/16/18 08:00 05/16/18 08:00 05/16/18 08:00 Intake & Output 05/15/18 05/16/18 05/17/18 06:59 06:59 06:59 Intake Total 250 2150 Output Total 1600 Balance 250 550 Weight 109.7 kg General appearance: PRESENT: no acute distress, well-developed, well-nourished Mouth exam: PRESENT: moist, neck supple Neck exam: PRESENT: full ROM. ABSENT: JVD Respiratory exam: PRESENT: clear to auscultation eric. ABSENT: accessory muscle use, crackles, rales, rhonchi, wheezes Cardiovascular exam: PRESENT: RRR, +S1, +S2 GI/Abdominal exam: PRESENT: normal bowel sounds, soft. ABSENT: tenderness Extremities exam: PRESENT: pedal edema - -trace to 1+. ABSENT: +1 edema, +2 edema Musculoskeletal exam: PRESENT: normal inspection. ABSENT: tenderness Neurological exam: PRESENT: alert, awake, oriented to person, oriented to place , oriented to time, oriented to situation Skin exam: PRESENT: dry, intact, warm. ABSENT: cyanosis Results Laboratory Results: 05/16/18 04:49 05/16/18 04:49 05/16/18 05/16/18 04:49 04:49 WBC 7.2 RBC 3.61 L Hgb 8.9 L Hct 27.3 L MCV 76 L MCH 24.7 L MCHC 32.6 RDW 15.0 H Plt Count 174 Seg Neutrophils % 64.1 Lymphocytes % 20.1 Monocytes % 13.6 H Eosinophils % 1.6 Basophils % 0.6 Absolute Neutrophils 4.6 Absolute Lymphocytes 1.4 Absolute Monocytes 1.0 Absolute Eosinophils 0.1 Absolute Basophils 0.0 Sodium 148.2 H Potassium 4.4 Chloride 116 H Carbon Dioxide 21 L Anion Gap 11 BUN 54 H Creatinine 2.90 H Est GFR ( Amer) 19 L Est GFR (Non-Af Amer) 16 L Glucose 113 H Calcium 8.2 L Magnesium 1.7 Impressions: Abdomen/Pelvis CT 05/14/18 18:48 IMPRESSION: Diverticulosis. Cannot exclude mild diverticulitis in the distal descending/proximal sigmoid colon. Osseous findings as described Chest X-Ray 05/14/18 19:12 IMPRESSION: Cardiomegaly without CHF. Airspace disease in the left lower lobe. Pneumonia versus atelectasis. Assessment & Plan - Diagnosis (1) Abdominal pain Qualifiers: Abdominal location: lower abdomen, unspecified Qualified Code(s): R10.30 - Lower abdominal pain, unspecified Is this a current diagnosis for this admission?: Yes Plan: awaiting GI consult (2) Diverticulitis large intestine Qualifiers: Diverticulitis bleeding: without bleeding Diverticulitis complication: without perforation or abscess Qualified Code(s): K57.32 - Diverticulitis of large intestine without perforation or abscess without bleeding Is this a current diagnosis for this admission?: Yes Plan: on flagyl (3) Acute kidney injury superimposed on chronic kidney disease Is this a current diagnosis for this admission?: Yes Plan: At this point patient is showing some signs of fluid overload on her legs. ILA has other factors affecting it including ATN from the recent infection. Will continue 1/2NS at 50mL/h also restart the furosemide at 20mg. (4) Anemia Qualifiers: Anemia type: unspecified type Qualified Code(s): D64.9 - Anemia, unspecified Is this a current diagnosis for this admission?: Yes Plan: iron studies are ordered for tomorrow morning (5) Chronic kidney disease, stage 4 (severe) Plan: baseline is 2.2 to 2.5 (6) Diabetes mellitus with diabetic nephropathy Qualifiers: Diabetes mellitus type: type 2 Diabetes mellitus terminal block assembler insulin use: with penitentiary use Qualified Code(s): E11.21 - Type 2 diabetes mellitus with diabetic nephropathy; Z79.4 - oil heaterman (current) use of insulin; Z79.4 - oil heaterman (current) use of insulin; Z79.4 - nursing home (current) use of insulin; Z79.4 - oil heaterman (current) use of insulin (7) Hypertension Qualifiers: Hypertension type: essential hypertension Qualified Code(s): I10 - Essential (primary) hypertension Is this a current diagnosis for this admission?: Yes Plan: better controlled since restarting bp medications.
[2018-05-16] MEDS: INSULIN LISPRO 100 UNIT/ML 3 ML VIAL SUBCUT PRN ×3 (13:10→22:22)
[2018-05-16 13:22] LABS: IRON(TIBC) 35.2 ug/dL (37-170)
[2018-05-16] MEDS ORDERED: ONDANSETRON HCL INJ/PF 4 MG/2 ML SDV IV PRN (13:30)
[2018-05-16 13:35] LABS: ABSOLUTE RETICS # 0.061 10^6/uL (0.028-0.122); RETICULOCYTE COUNT (AUTO) 1.67 % (0.66-2.85)
--- NOTE | 2018-05-16 17:01 | PDOC PROGRESS REPORT ---
Subjective Progress Note for:: 05/16/18 Subjective:: Patient is feeling much better Denied any abdominal pain Denied any nausea no vomiting No chest pain Reason For Visit: ABD PAIN Physical Exam Vital Signs: Temp Pulse Resp BP Pulse Ox 98.0 F 67 22 H 128/65 H 100 05/16/18 12:00 05/16/18 12:00 05/16/18 12:00 05/16/18 12:00 05/16/18 12:00 Intake & Output 05/15/18 05/16/18 05/17/18 06:59 06:59 06:59 Intake Total 250 2150 355 Output Total 1600 Balance 250 550 355 Weight 109.7 kg General appearance: PRESENT: no acute distress, well-developed, well-nourished Head exam: PRESENT: atraumatic, normocephalic Eye exam: PRESENT: conjunctiva pink, EOMI, PERRLA. ABSENT: scleral icterus Ear exam: PRESENT: normal external ear exam Mouth exam: PRESENT: moist, tongue midline Neck exam: PRESENT: full ROM. ABSENT: carotid bruit, JVD, lymphadenopathy, thyromegaly Respiratory exam: PRESENT: clear to auscultation eric Cardiovascular exam: PRESENT: RRR. ABSENT: diastolic murmur, rubs, systolic murmur Pulses: PRESENT: normal dorsalis pedis pul, +2 pedal pulses bilateral Vascular exam: PRESENT: normal capillary refill GI/Abdominal exam: PRESENT: normal bowel sounds, soft. ABSENT: distended, guarding, mass, organolmegaly, rebound, tenderness Rectal exam: PRESENT: deferred Extremities exam: ABSENT: pedal edema Musculoskeletal exam: PRESENT: ambulatory Neurological exam: PRESENT: alert, awake, oriented to person, oriented to place , oriented to time, oriented to situation, CN II-XII grossly intact. ABSENT: motor sensory deficit Psychiatric exam: PRESENT: appropriate affect, normal mood. ABSENT: homicidal ideation, suicidal ideation Skin exam: PRESENT: dry, intact, warm. ABSENT: cyanosis, rash Results Laboratory Results: 05/16/18 04:49 05/16/18 04:49 05/16/18 05/16/18 05/16/18 04:49 04:49 04:49 WBC 7.2 RBC 3.61 L Hgb 8.9 L Hct 27.3 L MCV 76 L MCH 24.7 L MCHC 32.6 RDW 15.0 H Plt Count 174 Seg Neutrophils % 64.1 Lymphocytes % 20.1 Monocytes % 13.6 H Eosinophils % 1.6 Basophils % 0.6 Absolute Neutrophils 4.6 Absolute Lymphocytes 1.4 Absolute Monocytes 1.0 Absolute Eosinophils 0.1 Absolute Basophils 0.0 Retic Count (auto) 1.67 Absolute Retic 0.061 Sodium 148.2 H Potassium 4.4 Chloride 116 H Carbon Dioxide 21 L Anion Gap 11 BUN 54 H Creatinine 2.90 H Est GFR ( Amer) 19 L Est GFR (Non-Af Amer) 16 L Glucose 113 H Calcium 8.2 L Magnesium 1.7 Impressions: Abdomen/Pelvis CT 05/14/18 18:48 IMPRESSION: Diverticulosis. Cannot exclude mild diverticulitis in the distal descending/proximal sigmoid colon. Osseous findings as described Chest X-Ray 05/14/18 19:12 IMPRESSION: Cardiomegaly without CHF. Airspace disease in the left lower lobe. Pneumonia versus atelectasis. Assessment & Plan - Diagnosis (1) Abdominal pain Qualifiers: Abdominal location: lower abdomen, unspecified Qualified Code(s): R10.30 - Lower abdominal pain, unspecified Is this a current diagnosis for this admission?: Yes Plan: Continues to p.o. Cipro and Flagyl currently getting better (2) Diverticulitis large intestine Qualifiers: Diverticulitis bleeding: without bleeding Diverticulitis complication: without perforation or abscess Qualified Code(s): K57.32 - Diverticulitis of large intestine without perforation or abscess without bleeding Is this a current diagnosis for this admission?: Yes Plan: Start her on Cipro and Flagyl (3) Acute kidney injury superimposed on chronic kidney disease Is this a current diagnosis for this admission?: Yes Plan: Currently all improving (4) Anemia Qualifiers: Anemia type: unspecified type Qualified Code(s): D64.9 - Anemia, unspecified Is this a current diagnosis for this admission?: Yes Plan: No sign of any acute GI blood loss As per discussed with Dr. Davis and he suggested no need for do any scope at this point he will do it outpatient (5) Coronary artery disease Qualifiers: Coronary Disease-Associated Artery/Lesion type: [place] artery Associated angina: without angina Is this a current diagnosis for this admission?: Yes Plan: Patient's EKG I will review all stable no other cardiac complaints today (6) Hypertension Qualifiers: Hypertension type: essential hypertension Qualified Code(s): I10 - Essential (primary) hypertension Is this a current diagnosis for this admission?: Yes Plan: Continues to p.o. medications and as needed hydralazine (7) Obese Qualifiers: Obesity type: due to excess calories Is this a current diagnosis for this admission?: Yes (8) Uncontrolled diabetes mellitus Qualifiers: Diabetes mellitus type: type 2 Is this a current diagnosis for this admission?: Yes Plan: Continues on insulin sliding scale patient is very noncompliance - Time Time Spent with patient: 15-24 minutes Medications reviewed and adjusted accordingly: Yes Anticipated discharge: Home Within: within 24 hours - Inpatient Certification Medical Necessity: Need Close Monitoring Due to Risk of Patient Decompensation Post Hospital Care: D/C Service Team Leader Documentation - Plan Summary Plan Summary: See MD orders
[2018-05-16] MEDS: ATORVASTATIN CALCIUM 40 MG TABLET PO SCH (22:24)
[2018-05-16] MEDS: INSULIN DETEMIR 100 UNIT/ML 3 ML PEN SUBCUT SCH (22:24)
[2018-05-17] MEDS: HYDRALAZINE HCL 50 MG TABLET PO SCH (02:33)
[2018-05-17] MEDS: CLONIDINE HCL 0.2 MG TABLET PO SCH ×3 (02:34→18:26)
[2018-05-17 05:29] LABS: ABSOLUTE BASOPHILS # (AUTO) 0.1 10^3/uL (0.0-0.2); ABSOLUTE EOSINOPHILS # (AUTO) 0.2 10^3/uL (0.0-0.6); ABSOLUTE LYMPHOCYTES (AUTO) 1.4 10^3/uL (0.5-4.7); ABSOLUTE MONOCYTES (AUTO) 0.8 10^3/uL (0.1-1.4); ABSOLUTE NEUT (AUTO) 3.6 10^3/uL (1.7-8.2); BASOPHILS % (AUTO) 0.9 % (0-2); EOSINOPHILS % (AUTO) 3.5 % (0-6); HEMATOCRIT 26.1 % (36.0-47.0); HEMOGLOBIN 8.7 g/dL (12.0-15.5); LYMPHOCYTES % (AUTO) 23.2 % (13-45); MEAN CORPUSCULAR HEMOGLOBIN 24.7 pg (27.0-33.4); MEAN CORPUSCULAR HGB CONC 33.2 g/dL (32.0-36.0); MEAN CORPUSCULAR VOLUME 74 fl (80-97); MONOCYTES % (AUTO) 13.6 % (3-13); PLATELET COUNT 165 10^3/uL (150-450); RED BLOOD COUNT 3.51 10^6/uL (3.72-5.28); RED CELL DISTRIBUTION WIDTH 15.3 % (11.5-14.0); SEGMENTED NEUTROPHILS % (AUTO) 58.8 % (42-78); TOTAL CELLS COUNTED % (AUTO) 100 %; WHITE BLOOD COUNT 6.1 10^3/uL (4.0-10.5)
[2018-05-17] MEDS: LANSOPRAZOLE 15 MG TAB.RAP.DR PO SCH ×2 (05:44→18:24)
[2018-05-17] MEDS: METRONIDAZOLE 500 MG TABLET PO SCH ×4 (05:44→23:23)
[2018-05-17] MEDS: CIPROFLOXACIN HCL 500 MG TABLET PO SCH ×2 (05:44→18:24)
[2018-05-17 05:54] LABS: ANION GAP 11 (5-19); BLOOD UREA NITROGEN 54 mg/dL (7-20); CALCIUM 8.2 mg/dL (8.4-10.2); CARBON DIOXIDE 22 mmol/L (22-30); CHLORIDE 115 mmol/L (98-107); GLUCOSE 117 mg/dL (75-110); POTASSIUM 4.5 mmol/L (3.6-5.0); SODIUM 147.7 mmol/L (137-145)
[2018-05-17] MEDS ORDERED: EPOETIN ALFA INJ 20000 UNIT/1 ML VIAL (RENAL) SUBCUT ONE (08:04)
[2018-05-17] MEDS: ENOXAPARIN SODIUM INJ 30 MG/0.3 ML DISP.SYRIN SUBCUT SCH (10:14)
[2018-05-17] MEDS: METOPROLOL TARTRATE 50 MG TABLET PO SCH ×2 (10:14→22:01)
[2018-05-17] MEDS: AMLODIPINE BESYLATE 5 MG TABLET PO SCH ×2 (10:15→22:01)
[2018-05-17] MEDS: CALCITRIOL 0.25 MCG CAPSULE PO SCH (10:15)
[2018-05-17] MEDS: SITAGLIPTIN PHOSPHATE 25 MG TABLET PO SCH (10:15)
[2018-05-17] MEDS: FEBUXOSTAT 80 MG TABLET PO SCH (10:15)
[2018-05-17] MEDS: ASPIRIN 81 MG TABLET, CHEWABLE PO SCH (10:15)
--- NOTE | 2018-05-17 10:15 | PDOC PROGRESS REPORT ---
Subjective Progress Note for:: 05/17/18 Subjective:: Patient is feeling much better Denied any abdominal pain Denied any nausea no vomiting No chest pain Reason For Visit: ABD PAIN Physical Exam Vital Signs: Temp Pulse Resp BP Pulse Ox 98.3 F 66 14 118/48 L 93 05/17/18 07:31 05/17/18 09:53 05/17/18 09:53 05/17/18 09:33 05/17/18 09:53 Intake & Output 05/16/18 05/17/18 05/18/18 06:59 06:59 06:59 Intake Total 2150 990 Output Total 1600 Balance 550 990 Weight 109.7 kg 111 kg General appearance: PRESENT: no acute distress, well-developed, well-nourished Head exam: PRESENT: atraumatic, normocephalic Eye exam: PRESENT: conjunctiva pink, EOMI, PERRLA. ABSENT: scleral icterus Ear exam: PRESENT: normal external ear exam Mouth exam: PRESENT: moist, tongue midline Neck exam: PRESENT: full ROM. ABSENT: carotid bruit, JVD, lymphadenopathy, thyromegaly Respiratory exam: PRESENT: clear to auscultation eric Cardiovascular exam: PRESENT: RRR. ABSENT: diastolic murmur, rubs, systolic murmur Pulses: PRESENT: normal dorsalis pedis pul, +2 pedal pulses bilateral Vascular exam: PRESENT: normal capillary refill GI/Abdominal exam: PRESENT: normal bowel sounds, soft. ABSENT: distended, guarding, mass, organolmegaly, rebound, tenderness Rectal exam: PRESENT: deferred Neurological exam: PRESENT: alert, awake, oriented to person, oriented to place , oriented to time, oriented to situation, CN II-XII grossly intact. ABSENT: motor sensory deficit Psychiatric exam: PRESENT: appropriate affect, normal mood. ABSENT: homicidal ideation, suicidal ideation Skin exam: PRESENT: dry, intact, warm. ABSENT: cyanosis, rash Results Laboratory Results: 05/17/18 04:53 05/17/18 04:53 05/16/18 05/16/18 05/17/18 04:49 04:49 04:53 WBC RBC Hgb Hct MCV MCH MCHC RDW Plt Count Seg Neutrophils % Lymphocytes % Monocytes % Eosinophils % Basophils % Absolute Neutrophils Absolute Lymphocytes Absolute Monocytes Absolute Eosinophils Absolute Basophils Retic Count (auto) 1.67 Absolute Retic 0.061 Sodium 147.7 H Potassium 4.5 Chloride 115 H Carbon Dioxide 22 Anion Gap 11 BUN 54 H Creatinine 3.42 H Est GFR ( Amer) 16 L Est GFR (Non-Af Amer) 13 L Glucose 117 H Calcium 8.2 L Magnesium 1.7 Iron 35.2 L TIBC 248 L % Saturation 14 Ferritin 104.00 Vitamin B12 525.0 Folate 10.30 05/17/18 04:53 WBC 6.1 RBC 3.51 L Hgb 8.7 L Hct 26.1 L MCV 74 L MCH 24.7 L MCHC 33.2 RDW 15.3 H Plt Count 165 Seg Neutrophils % 58.8 Lymphocytes % 23.2 Monocytes % 13.6 H Eosinophils % 3.5 Basophils % 0.9 Absolute Neutrophils 3.6 Absolute Lymphocytes 1.4 Absolute Monocytes 0.8 Absolute Eosinophils 0.2 Absolute Basophils 0.1 Retic Count (auto) Absolute Retic Sodium Potassium Chloride Carbon Dioxide Anion Gap BUN Creatinine Est GFR ( Amer) Est GFR (Non-Af Amer) Glucose Calcium Magnesium Iron TIBC % Saturation Ferritin Vitamin B12 Folate 05/15/18 10:13 Clean Catch Midstream Urine Culture - Final Mixed Urogenital Evita Impressions: Abdomen/Pelvis CT 05/14/18 18:48 IMPRESSION: Diverticulosis. Cannot exclude mild diverticulitis in the distal descending/proximal sigmoid colon. Osseous findings as described Chest X-Ray 05/14/18 19:12 IMPRESSION: Cardiomegaly without CHF. Airspace disease in the left lower lobe. Pneumonia versus atelectasis. Assessment & Plan - Diagnosis (1) Abdominal pain Qualifiers: Abdominal location: lower abdomen, unspecified Qualified Code(s): R10.30 - Lower abdominal pain, unspecified Is this a current diagnosis for this admission?: Yes Plan: Continues to p.o. Cipro and Flagyl currently getting better (2) Diverticulitis large intestine Qualifiers: Diverticulitis bleeding: without bleeding Diverticulitis complication: without perforation or abscess Qualified Code(s): K57.32 - Diverticulitis of large intestine without perforation or abscess without bleeding Is this a current diagnosis for this admission?: Yes Plan: Start her on Cipro and Flagyl (3) Acute kidney injury superimposed on chronic kidney disease Is this a current diagnosis for this admission?: Yes Plan: Currently hold the Lasix (4) Anemia Qualifiers: Anemia type: unspecified type Qualified Code(s): D64.9 - Anemia, unspecified Is this a current diagnosis for this admission?: Yes Plan: As per discussed with the mail handlers supervisor start the Procrit injections (5) Coronary artery disease Qualifiers: Coronary Disease-Associated Artery/Lesion type: [place] artery Associated angina: without angina Is this a current diagnosis for this admission?: Yes Plan: Patient's EKG I will review all stable no other cardiac complaints today (6) Hypertension Qualifiers: Hypertension type: essential hypertension Qualified Code(s): I10 - Essential (primary) hypertension Is this a current diagnosis for this admission?: Yes Plan: Continues to p.o. medications and as needed hydralazine (7) Obese Qualifiers: Obesity type: due to excess calories Is this a current diagnosis for this admission?: Yes (8) Uncontrolled diabetes mellitus Qualifiers: Diabetes mellitus type: type 2 Is this a current diagnosis for this admission?: Yes Plan: Continues on insulin sliding scale patient is very noncompliance - Time Time Spent with patient: 15-24 minutes Medications reviewed and adjusted accordingly: Yes Anticipated discharge: Home Within: within 24 hours - Inpatient Certification Medical Necessity: Need Close Monitoring Due to Risk of Patient Decompensation Post Hospital Care: D/C Apron Operator Documentation - Plan Summary Plan Summary: Continues to current medication
[2018-05-17] MEDS: INSULIN LISPRO 100 UNIT/ML 3 ML VIAL SUBCUT PRN ×3 (12:12→21:59)
--- NOTE | 2018-05-17 13:54 | PDOC PROGRESS REPORT ---
Subjective Progress Note for:: 05/17/18 Subjective:: Patient was seen today. She refuses to have any more IVs. Currently needs fluid and does not drink enough. According to her she only drank about 500mL of water yesterday. Reason For Visit: ABD PAIN Physical Exam Vital Signs: Temp Pulse Resp BP Pulse Ox 98.0 F 61 16 123/54 L 91 L 05/17/18 11:18 05/17/18 11:18 05/17/18 11:18 05/17/18 11:18 05/17/18 11:18 Intake & Output 05/16/18 05/17/18 05/18/18 06:59 06:59 06:59 Intake Total 2150 990 Output Total 1600 Balance 550 990 Weight 109.7 kg 111 kg General appearance: PRESENT: no acute distress, well-developed, well-nourished Mouth exam: PRESENT: neck supple. ABSENT: moist Neck exam: PRESENT: full ROM. ABSENT: JVD Respiratory exam: PRESENT: clear to auscultation eric. ABSENT: accessory muscle use, crackles, rales, rhonchi, wheezes Cardiovascular exam: PRESENT: RRR, +S1, +S2 GI/Abdominal exam: PRESENT: normal bowel sounds, soft. ABSENT: tenderness Extremities exam: ABSENT: pedal edema, tenderness, +1 edema, +2 edema Musculoskeletal exam: PRESENT: normal inspection. ABSENT: tenderness Neurological exam: PRESENT: alert, awake, oriented to person, oriented to place , oriented to time, oriented to situation Skin exam: PRESENT: dry, intact, warm Results Laboratory Results: 05/17/18 04:53 05/17/18 04:53 05/16/18 05/17/18 05/17/18 04:49 04:53 04:53 WBC 6.1 RBC 3.51 L Hgb 8.7 L Hct 26.1 L MCV 74 L MCH 24.7 L MCHC 33.2 RDW 15.3 H Plt Count 165 Seg Neutrophils % 58.8 Lymphocytes % 23.2 Monocytes % 13.6 H Eosinophils % 3.5 Basophils % 0.9 Absolute Neutrophils 3.6 Absolute Lymphocytes 1.4 Absolute Monocytes 0.8 Absolute Eosinophils 0.2 Absolute Basophils 0.1 Sodium 147.7 H Potassium 4.5 Chloride 115 H Carbon Dioxide 22 Anion Gap 11 BUN 54 H Creatinine 3.42 H Est GFR ( Amer) 16 L Est GFR (Non-Af Amer) 13 L Glucose 117 H Calcium 8.2 L Magnesium 1.7 Iron 35.2 L TIBC 248 L % Saturation 14 Ferritin 104.00 Vitamin B12 525.0 Folate 10.30 05/15/18 10:13 Clean Catch Midstream Urine Culture - Final Mixed Urogenital Evita Impressions: Abdomen/Pelvis CT 05/14/18 18:48 IMPRESSION: Diverticulosis. Cannot exclude mild diverticulitis in the distal descending/proximal sigmoid colon. Osseous findings as described Chest X-Ray 05/14/18 19:12 IMPRESSION: Cardiomegaly without CHF. Airspace disease in the left lower lobe. Pneumonia versus atelectasis. Assessment & Plan - Diagnosis (1) Diverticulitis large intestine Qualifiers: Diverticulitis bleeding: without bleeding Diverticulitis complication: without perforation or abscess Qualified Code(s): K57.32 - Diverticulitis of large intestine without perforation or abscess without bleeding Is this a current diagnosis for this admission?: Yes Plan: on flagyl (2) Acute kidney injury superimposed on chronic kidney disease Is this a current diagnosis for this admission?: Yes Plan: Stopped furosemide, advised her to increase her fluid intake today or we would need to get a IV so we can give her IV fluids. If she is discharged over the weekend, I recommend holding the furosemide until I see her in the office in 14 days. (3) Anemia Qualifiers: Anemia type: unspecified type Qualified Code(s): D64.9 - Anemia, unspecified Is this a current diagnosis for this admission?: Yes Plan: Patient's iron levels were low, she will need some IV iron to bring up the iron before procrit can be approved. Will look to discuss IV iron with her and then look to start procrit as outpatient or next week if she is still here. (4) Chronic kidney disease, stage 4 (severe) Plan: baseline is 2.2 to 2.5 (5) Diabetes mellitus with diabetic nephropathy Qualifiers: Diabetes mellitus type: type 2 Diabetes mellitus care home insulin use: with watermelon inspector use Qualified Code(s): E11.21 - Type 2 diabetes mellitus with diabetic nephropathy; Z79.4 - predatory animal exterminator (current) use of insulin; Z79.4 - intermediate (current) use of insulin; Z79.4 - predatory animal exterminator (current) use of insulin; Z79.4 - predatory animal exterminator (current) use of insulin (6) Hypertension Qualifiers: Hypertension type: essential hypertension Qualified Code(s): I10 - Essential (primary) hypertension Is this a current diagnosis for this admission?: Yes Plan: better controlled since restarting bp medications.
--- NOTE | 2018-05-17 15:13 | Physician Advisory Note ---
Physician Advisor ProgressNote .: Pursuant to the plan for Casi Fields, I have reviewed the medical record for this patient. Physician Advisor Statement: Nice documentation of ILA on CKD stage 4, & obesity (BMI 42). Please consider documentin. "Acute abd pain, mostly suprapubic, suspect due to acute diverticulitis" ( need to confirm if abd pain is acute or chronic, along w/location in abd & most likely cause) 2. "chronic Anemia, likely of CKD" - or "chronic Anemia, likely from nutritional Fe defic", or ... 3. "Acute hypernatremia, likely due to " Thanks! CK
[2018-05-17] MEDS: INSULIN DETEMIR 100 UNIT/ML 3 ML PEN SUBCUT SCH (21:57)
[2018-05-17] MEDS: ATORVASTATIN CALCIUM 40 MG TABLET PO SCH (22:01)
[2018-05-18] MEDS: CLONIDINE HCL 0.2 MG TABLET PO SCH ×3 (01:05→18:06)
[2018-05-18] MEDS: METRONIDAZOLE 500 MG TABLET PO SCH ×3 (05:12→18:06)
[2018-05-18] MEDS: CIPROFLOXACIN HCL 500 MG TABLET PO SCH ×2 (05:12→18:06)
[2018-05-18] MEDS: LANSOPRAZOLE 15 MG TAB.RAP.DR PO SCH ×2 (05:12→18:06)
[2018-05-18 05:49] LABS: ABSOLUTE BASOPHILS # (AUTO) 0.1 10^3/uL (0.0-0.2); ABSOLUTE EOSINOPHILS # (AUTO) 0.2 10^3/uL (0.0-0.6); ABSOLUTE LYMPHOCYTES (AUTO) 1.3 10^3/uL (0.5-4.7); ABSOLUTE MONOCYTES (AUTO) 0.8 10^3/uL (0.1-1.4); ABSOLUTE NEUT (AUTO) 3.6 10^3/uL (1.7-8.2); BASOPHILS % (AUTO) 0.9 % (0-2); EOSINOPHILS % (AUTO) 4.2 % (0-6); HEMATOCRIT 27.1 % (36.0-47.0); HEMOGLOBIN 8.8 g/dL (12.0-15.5); LYMPHOCYTES % (AUTO) 21.2 % (13-45); MEAN CORPUSCULAR HEMOGLOBIN 24.6 pg (27.0-33.4); MEAN CORPUSCULAR HGB CONC 32.6 g/dL (32.0-36.0); MEAN CORPUSCULAR VOLUME 75 fl (80-97); PLATELET COUNT 175 10^3/uL (150-450); RED BLOOD COUNT 3.59 10^6/uL (3.72-5.28); RED CELL DISTRIBUTION WIDTH 15.4 % (11.5-14.0); SEGMENTED NEUTROPHILS % (AUTO) 60.7 % (42-78); TOTAL CELLS COUNTED % (AUTO) 100 %; WHITE BLOOD COUNT 5.9 10^3/uL (4.0-10.5)
[2018-05-18 06:10] LABS: ANION GAP 13 (5-19); BLOOD UREA NITROGEN 56 mg/dL (7-20); CALCIUM 8.2 mg/dL (8.4-10.2); CARBON DIOXIDE 19 mmol/L (22-30); CHLORIDE 114 mmol/L (98-107); GLUCOSE 131 mg/dL (75-110); POTASSIUM 4.8 mmol/L (3.6-5.0); SODIUM 146.3 mmol/L (137-145)
--- NOTE | 2018-05-18 09:30 | PDOC PROGRESS REPORT ---
Subjective Progress Note for:: 05/18/18 Subjective:: She is currently doing much better Patient's denied any abdominal pain no nausea no vomiting Patient's p.o. intake is good Reason For Visit: ABD PAIN Physical Exam Vital Signs: Temp Pulse Resp BP Pulse Ox 99.0 F 58 L 16 128/70 H 96 05/18/18 07:48 05/18/18 07:48 05/18/18 07:48 05/18/18 07:48 05/18/18 07:48 Intake & Output 05/17/18 05/18/18 05/19/18 06:59 06:59 06:59 Intake Total 990 555 Balance 990 555 Weight 111 kg 111.5 kg General appearance: PRESENT: no acute distress, well-developed, well-nourished Head exam: PRESENT: atraumatic, normocephalic Eye exam: PRESENT: conjunctiva pink, EOMI, PERRLA. ABSENT: scleral icterus Ear exam: PRESENT: normal external ear exam Mouth exam: PRESENT: moist, tongue midline Neck exam: PRESENT: full ROM. ABSENT: carotid bruit, JVD, lymphadenopathy, thyromegaly Respiratory exam: PRESENT: clear to auscultation eric Cardiovascular exam: PRESENT: RRR. ABSENT: diastolic murmur, rubs, systolic murmur Pulses: PRESENT: normal dorsalis pedis pul, +2 pedal pulses bilateral Vascular exam: PRESENT: normal capillary refill GI/Abdominal exam: PRESENT: normal bowel sounds, soft. ABSENT: distended, guarding, mass, organolmegaly, rebound, tenderness Rectal exam: PRESENT: deferred Extremities exam: ABSENT: pedal edema Musculoskeletal exam: PRESENT: ambulatory Neurological exam: PRESENT: alert, awake, oriented to person, oriented to place , oriented to time, oriented to situation, CN II-XII grossly intact. ABSENT: motor sensory deficit Psychiatric exam: PRESENT: appropriate affect, normal mood. ABSENT: homicidal ideation, suicidal ideation Skin exam: PRESENT: dry, intact, warm. ABSENT: cyanosis, rash Results Laboratory Results: 05/18/18 05:26 05/18/18 05:26 05/18/18 05/18/18 05:26 05:26 WBC 5.9 RBC 3.59 L Hgb 8.8 L Hct 27.1 L MCV 75 L MCH 24.6 L MCHC 32.6 RDW 15.4 H Plt Count 175 Seg Neutrophils % 60.7 Lymphocytes % 21.2 Monocytes % 13.0 Eosinophils % 4.2 Basophils % 0.9 Absolute Neutrophils 3.6 Absolute Lymphocytes 1.3 Absolute Monocytes 0.8 Absolute Eosinophils 0.2 Absolute Basophils 0.1 Sodium 146.3 H Potassium 4.8 Chloride 114 H Carbon Dioxide 19 L Anion Gap 13 BUN 56 H Creatinine 3.63 H Est GFR ( Amer) 15 L Est GFR (Non-Af Amer) 12 L Glucose 131 H Calcium 8.2 L Impressions: Abdomen/Pelvis CT 05/14/18 18:48 IMPRESSION: Diverticulosis. Cannot exclude mild diverticulitis in the distal descending/proximal sigmoid colon. Osseous findings as described Chest X-Ray 05/14/18 19:12 IMPRESSION: Cardiomegaly without CHF. Airspace disease in the left lower lobe. Pneumonia versus atelectasis. Assessment & Plan - Diagnosis (1) Abdominal pain Qualifiers: Abdominal location: lower abdomen, unspecified Qualified Code(s): R10.30 - Lower abdominal pain, unspecified Is this a current diagnosis for this admission?: Yes Plan: Currently all resolved (2) Diverticulitis large intestine Qualifiers: Diverticulitis bleeding: without bleeding Diverticulitis complication: without perforation or abscess Qualified Code(s): K57.32 - Diverticulitis of large intestine without perforation or abscess without bleeding Is this a current diagnosis for this admission?: Yes Plan: Start her on Cipro and Flagyl (3) Acute kidney injury superimposed on chronic kidney disease Is this a current diagnosis for this admission?: Yes Plan: New function is still not improving will continues to monitor (4) Anemia Qualifiers: Anemia type: unspecified type Qualified Code(s): D64.9 - Anemia, unspecified Is this a current diagnosis for this admission?: Yes Plan: Is received the Procrit injections yesterday (5) Coronary artery disease Qualifiers: Coronary Disease-Associated Artery/Lesion type: poarch artery Associated angina: without angina Is this a current diagnosis for this admission?: Yes Plan: Patient's EKG I will review all stable no other cardiac complaints today (6) Hypertension Qualifiers: Hypertension type: essential hypertension Qualified Code(s): I10 - Essential (primary) hypertension Is this a current diagnosis for this admission?: Yes Plan: Continues to p.o. medications and as needed hydralazine (7) Obese Qualifiers: Obesity type: due to excess calories Is this a current diagnosis for this admission?: Yes (8) Uncontrolled diabetes mellitus Qualifiers: Diabetes mellitus type: type 2 Is this a current diagnosis for this admission?: Yes Plan: Continues on insulin sliding scale patient is very noncompliance - Time Time Spent with patient: 15-24 minutes Medications reviewed and adjusted accordingly: Yes Anticipated discharge: Home - Inpatient Certification Medical Necessity: Need Close Monitoring Due to Risk of Patient Decompensation Post Hospital Care: D/C [employer]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
[2018-05-18] MEDS: METOPROLOL TARTRATE 50 MG TABLET PO SCH ×2 (11:08→22:41)
[2018-05-18] MEDS: CALCITRIOL 0.25 MCG CAPSULE PO SCH (11:08)
[2018-05-18] MEDS: AMLODIPINE BESYLATE 5 MG TABLET PO SCH ×2 (11:08→22:42)
[2018-05-18] MEDS: ASPIRIN 81 MG TABLET, CHEWABLE PO SCH (11:08)
[2018-05-18] MEDS: SITAGLIPTIN PHOSPHATE 25 MG TABLET PO SCH (11:08)
[2018-05-18] MEDS: FEBUXOSTAT 80 MG TABLET PO SCH (11:08)
[2018-05-18] MEDS: ENOXAPARIN SODIUM INJ 30 MG/0.3 ML DISP.SYRIN SUBCUT SCH (11:08)
[2018-05-18] MEDS: INSULIN LISPRO 100 UNIT/ML 3 ML VIAL SUBCUT PRN ×2 (13:36→22:42)
[2018-05-18] MEDS: ATORVASTATIN CALCIUM 40 MG TABLET PO SCH (22:42)
[2018-05-18] MEDS: INSULIN DETEMIR 100 UNIT/ML 3 ML PEN SUBCUT SCH (22:42)
[2018-05-19] MEDS: CLONIDINE HCL 0.2 MG TABLET PO SCH ×2 (01:28→09:08)
[2018-05-19] MEDS: METRONIDAZOLE 500 MG TABLET PO SCH ×3 (01:28→12:30)
[2018-05-19] MEDS: LANSOPRAZOLE 15 MG TAB.RAP.DR PO SCH (05:27)
[2018-05-19] MEDS: CIPROFLOXACIN HCL 500 MG TABLET PO SCH (05:27)
[2018-05-19 07:55] LABS: ANION GAP 14 (5-19); BLOOD UREA NITROGEN 60 mg/dL (7-20); CALCIUM 8.1 mg/dL (8.4-10.2); CARBON DIOXIDE 19 mmol/L (22-30); CHLORIDE 113 mmol/L (98-107); GLUCOSE 145 mg/dL (75-110); POTASSIUM 4.9 mmol/L (3.6-5.0); SODIUM 146.3 mmol/L (137-145)
[2018-05-19] MEDS: ASPIRIN 81 MG TABLET, CHEWABLE PO SCH (09:07)
[2018-05-19] MEDS: SITAGLIPTIN PHOSPHATE 25 MG TABLET PO SCH (09:07)
[2018-05-19] MEDS: CALCITRIOL 0.25 MCG CAPSULE PO SCH (09:07)
[2018-05-19] MEDS: METOPROLOL TARTRATE 50 MG TABLET PO SCH (09:07)
[2018-05-19] MEDS: FEBUXOSTAT 80 MG TABLET PO SCH (09:07)
[2018-05-19] MEDS: AMLODIPINE BESYLATE 5 MG TABLET PO SCH (09:07)
[2018-05-19] MEDS: ENOXAPARIN SODIUM INJ 30 MG/0.3 ML DISP.SYRIN SUBCUT SCH (09:08)
[2018-05-19] MEDS: INSULIN LISPRO 100 UNIT/ML 3 ML VIAL SUBCUT PRN (12:30)
[2018-05-19 12:53] VITALS: BP 118/55
== END 2018-05-19 13:10 | disposition home or self-care (01) | DRG 392 ==
LOC: ER 16:33 → EH 22:17 → 3W 05-15 14:26
PROVIDERS: ADMIT Internal Medicine; ATTEND Internal Medicine
DX: K57.32 Diverticulitis of large intestine without perforation or abscess without bleeding (principal); N17.9 Acute kidney failure, unspecified; N18.4 Chronic kidney disease, stage 4 (severe); Z68.41 Body mass index [BMI] 40.0-44.9, adult; I12.9 Hypertensive chronic kidney disease with stage 1 through stage 4 chronic kidney disease, or unspecified chronic kidney disease; E11.22 Type 2 diabetes mellitus with diabetic chronic kidney disease; E11.21 Type 2 diabetes mellitus with diabetic nephropathy; E78.5 Hyperlipidemia, unspecified; I25.10 Atherosclerotic heart disease of native coronary artery without angina pectoris; D64.9 Anemia, unspecified; E66.9 Obesity, unspecified; K21.9 Gastro-esophageal reflux disease without esophagitis; M19.90 Unspecified osteoarthritis, unspecified site; Z95.5 Presence of coronary angioplasty implant and graft; I25.2 Old myocardial infarction; Z90.710 Acquired absence of both cervix and uterus; Z79.82 Long term (current) use of aspirin; Z79.899 Other long term (current) drug therapy; Z79.02 Long term (current) use of antithrombotics/antiplatelets; Z91.14 Patient's other noncompliance with medication regimen
CPT/HCPCS: 36415; 71045; 74176; 80048; 80053; 81001; 82550; 82553; 82607; 82728; 82746; 82962; 83540; 83550; 83605; 83690; 83735; 83880; 84484; 85025; 85045; 85610; 85730; 87040; 87086; 93005; 93010; 96361; 96374; 96375; 99285; G8978-GP; G8979-GP; G8980-GP; J0744; J1170; J1650; J1815; J1956; J2405; J3490; J7030; Q4081

== ENCOUNTER → 2018-06-04 | Outpatient (CLI) | payer MEDICARE ==
[2018-06-04 13:18] LABS: ANION GAP 10 (5-19); BLOOD UREA NITROGEN 32 mg/dL (7-20); CALCIUM 8.5 mg/dL (8.4-10.2); CARBON DIOXIDE 27 mmol/L (22-30); CHLORIDE 109 mmol/L (98-107); GLUCOSE 238 mg/dL (75-110); POTASSIUM 4.2 mmol/L (3.6-5.0); SODIUM 145.6 mmol/L (137-145)
[2018-06-04 13:27] LABS: APPEARANCE,URINE CLOUDY; BILIRUBIN,URINE NEGATIVE (NEGATIVE); COLOR,URINE YELLOW; GLUCOSE, URINE 150 mg/dL (NEGATIVE); KETONES,URINE NEGATIVE (NEGATIVE); LEUKOCYTE ESTERASE,URINE NEGATIVE (NEGATIVE); NITRITE,URINE NEGATIVE (NEGATIVE); PROTEIN,URINE >=500 mg/dL (NEGATIVE); URINE SPECIFIC GRAVITY 1.014; UROBILINOGEN,URINE NEGATIVE mg/dL (<2.0)
[2018-06-04 13:30] LABS: HEMATOCRIT 35.2 % (36.0-47.0); MEAN CORPUSCULAR HEMOGLOBIN 23.8 pg (27.0-33.4); MEAN CORPUSCULAR HGB CONC 31.3 g/dL (32.0-36.0); MEAN CORPUSCULAR VOLUME 76 fl (80-97); PLATELET COUNT 235 10^3/uL (150-450); RED BLOOD COUNT 4.62 10^6/uL (3.72-5.28); RED CELL DISTRIBUTION WIDTH 16.1 % (11.5-14.0); WHITE BLOOD COUNT 6.1 10^3/uL (4.0-10.5)
== END ==
LOC: OD 10:53
PROVIDERS: ATTEND Physician Assistant Medical
DX: I12.9 Hypertensive chronic kidney disease with stage 1 through stage 4 chronic kidney disease, or unspecified chronic kidney disease (principal); E11.22 Type 2 diabetes mellitus with diabetic chronic kidney disease; N18.4 Chronic kidney disease, stage 4 (severe); D64.9 Anemia, unspecified
CPT/HCPCS: 36415; 80048; 81001; 83970; 85027

== ENCOUNTER → 2019-06-27 | Outpatient (CLI) | payer MEDICARE ==
[2019-06-27 11:52] LABS: APPEARANCE,URINE CLEAR; BILIRUBIN,URINE NEGATIVE (NEGATIVE); COLOR,URINE STRAW; GLUCOSE, URINE >=500 mg/dL (NEGATIVE); KETONES,URINE NEGATIVE (NEGATIVE); LEUKOCYTE ESTERASE,URINE NEGATIVE (NEGATIVE); NITRITE,URINE NEGATIVE (NEGATIVE); PROTEIN,URINE 100 mg/dL (NEGATIVE); URINE SPECIFIC GRAVITY 1.014; UROBILINOGEN,URINE NEGATIVE mg/dL (<2.0)
[2019-06-27 11:52] LABS: ABSOLUTE BASOPHILS # (AUTO) 0.1 10^3/uL (0.0-0.2); ABSOLUTE EOSINOPHILS # (AUTO) 0.2 10^3/uL (0.0-0.6); ABSOLUTE LYMPHOCYTES (AUTO) 1.6 10^3/uL (0.5-4.7); ABSOLUTE MONOCYTES (AUTO) 0.5 10^3/uL (0.1-1.4); ABSOLUTE NEUT (AUTO) 4.3 10^3/uL (1.7-8.2); BASOPHILS % (AUTO) 0.9 % (0-2); EOSINOPHILS % (AUTO) 2.7 % (0-6); HEMATOCRIT 33.9 % (36.0-47.0); LYMPHOCYTES % (AUTO) 23.6 % (13-45); MEAN CORPUSCULAR HEMOGLOBIN 24.7 pg (27.0-33.4); MEAN CORPUSCULAR HGB CONC 32.5 g/dL (32.0-36.0); MEAN CORPUSCULAR VOLUME 76 fl (80-97); MONOCYTES % (AUTO) 8.1 % (3-13); PLATELET COUNT 215 10^3/uL (150-450); RED BLOOD COUNT 4.46 10^6/uL (3.72-5.28); RED CELL DISTRIBUTION WIDTH 14.5 % (11.5-14.0); SEGMENTED NEUTROPHILS % (AUTO) 64.7 % (42-78); TOTAL CELLS COUNTED % (AUTO) 100 %; WHITE BLOOD COUNT 6.7 10^3/uL (4.0-10.5)
[2019-06-27 12:04] LABS: ANION GAP 13 (5-19); BLOOD UREA NITROGEN 37 mg/dL (7-20); CALCIUM 9.4 mg/dL (8.4-10.2); CARBON DIOXIDE 25 mmol/L (22-30); CHLORIDE 102 mmol/L (98-107); IRON(TIBC) 57.7 ug/dL (37-170); PHOSPHORUS 4.5 mg/dL (2.5-4.5); POTASSIUM 4.2 mmol/L (3.6-5.0)
[2019-06-27 12:11] LABS: URINE CREATININE 54.4 mg/dL (15-278)
[2019-06-27 12:27] LABS: UR PRO/CREAT RATIO RESULT 7.3 mg/mg (0.0-0.2); URINE PROTEIN 399.1 mg/dL (<12)
[2019-06-27 13:09] LABS: GLUCOSE 479 mg/dL (75-110)
== END ==
LOC: OD 10:51
PROVIDERS: ATTEND Physician Assistant Medical
DX: I12.9 Hypertensive chronic kidney disease with stage 1 through stage 4 chronic kidney disease, or unspecified chronic kidney disease (principal); N18.4 Chronic kidney disease, stage 4 (severe); E11.22 Type 2 diabetes mellitus with diabetic chronic kidney disease; N25.0 Renal osteodystrophy; D50.9 Iron deficiency anemia, unspecified; R80.9 Proteinuria, unspecified
CPT/HCPCS: 36415; 80048; 81001; 82570; 82728; 83540; 83550; 83970; 84100; 84156; 85025

== ENCOUNTER → 2019-09-27 | Outpatient (CLI) | payer MEDICARE | LOC: OD 11:13 | PROVIDERS: ATTEND Physician Assistant Medical | DX: I12.9 Hypertensive chronic kidney disease with stage 1 through stage 4 chronic kidney disease, or unspecified chronic kidney disease (principal); N18.4 Chronic kidney disease, stage 4 (severe); E11.22 Type 2 diabetes mellitus with diabetic chronic kidney disease; N25.0 Renal osteodystrophy; R80.9 Proteinuria, unspecified; D50.9 Iron deficiency anemia, unspecified ==

== ENCOUNTER → 2019-09-30 | Outpatient (CLI) | payer MEDICARE ==
[2019-09-30 14:19] LABS: APPEARANCE,URINE CLEAR; BILIRUBIN,URINE NEGATIVE (NEGATIVE); COLOR,URINE STRAW; GLUCOSE, URINE 150 mg/dL (NEGATIVE); KETONES,URINE NEGATIVE (NEGATIVE); LEUKOCYTE ESTERASE,URINE NEGATIVE (NEGATIVE); NITRITE,URINE NEGATIVE (NEGATIVE); PROTEIN,URINE >=500 mg/dL (NEGATIVE); URINE SPECIFIC GRAVITY 1.011; UROBILINOGEN,URINE NEGATIVE mg/dL (<2.0)
[2019-09-30 14:43] LABS: URINE CREATININE 61.2 mg/dL (15-278)
[2019-09-30 14:57] LABS: UR PRO/CREAT RATIO RESULT 7.4 mg/mg (0.0-0.2)
== END ==
LOC: OD 12:16
PROVIDERS: ATTEND Physician Assistant Medical
DX: I12.9 Hypertensive chronic kidney disease with stage 1 through stage 4 chronic kidney disease, or unspecified chronic kidney disease (principal); N18.4 Chronic kidney disease, stage 4 (severe); E11.22 Type 2 diabetes mellitus with diabetic chronic kidney disease; N25.0 Renal osteodystrophy; R80.9 Proteinuria, unspecified; D50.9 Iron deficiency anemia, unspecified
CPT/HCPCS: 81001; 82570; 84156

== ENCOUNTER 2020-07-08 13:49 | Inpatient (IN) | payer MEDICARE ==
[2020-07-08 15:16] LABS: HEMATOCRIT 36.3 % (36.0-47.0); MEAN CORPUSCULAR HEMOGLOBIN 25.5 pg (27.0-33.4); MEAN CORPUSCULAR HGB CONC 32.9 g/dL (32.0-36.0); MEAN CORPUSCULAR VOLUME 78 fl (80-97); PLATELET COUNT 183 10^3/uL (150-450); RED BLOOD COUNT 4.69 10^6/uL (3.72-5.28); RED CELL DISTRIBUTION WIDTH 14.2 % (11.5-14.0); WHITE BLOOD COUNT 7.6 10^3/uL (4.0-10.5)
[2020-07-08 15:36] LABS: ALBUMIN 3.7 g/dL (3.5-5.0); ALKALINE PHOSPHATASE 79 U/L (38-126); ANION GAP 14 (5-19); ASPARTATE AMINO TRANSFERASE 26 U/L (14-36); BILIRUBIN,DIRECT 0.5 mg/dL (0.0-0.4); BILIRUBIN,TOTAL 0.5 mg/dL (0.2-1.3); BLOOD UREA NITROGEN 60 mg/dL (7-20); CALCIUM 8.9 mg/dL (8.4-10.2); CARBON DIOXIDE 19 mmol/L (22-30); CHLORIDE 108 mmol/L (98-107); GLUCOSE 261 mg/dL (75-110); POTASSIUM 4.4 mmol/L (3.6-5.0); TOTAL PROTEIN 7.1 g/dL (6.3-8.2)
--- NOTE | 2020-07-08 15:50 | RADIOLOGY REPORT (SQ) ---
EXAM DESCRIPTION: CHEST 2 VIEWS IMAGES COMPLETED DATE/TIME: 07/08/2020 3:29 pm REASON FOR STUDY: baseline per Dr. Vogel COMPARISON: 02/01/2017. EXAM PARAMETERS: NUMBER OF VIEWS: two views TECHNIQUE: Digital Frontal and Lateral radiographic views of the chest acquired. RADIATION DOSE: NA LIMITATIONS: none FINDINGS: LUNGS AND PLEURA: No opacities, masses or pneumothorax. No pleural effusion. MEDIASTINUM AND HILAR STRUCTURES: No masses or contour abnormalities. HEART AND VASCULAR STRUCTURES: Mild cardiomegaly. No evidence for failure. BONES: No acute findings. HARDWARE: None in the chest. OTHER: No other significant finding. IMPRESSION: NO ACUTE RADIOGRAPHIC FINDING IN THE CHEST. TECHNICAL DOCUMENTATION: JOB ID: [id number] 2010 [employer]- All Rights Reserved Reading location - IP/workstation name: [email or web address]
[2020-07-08 15:53] LABS: FREE T4 (FREE THYROXINE) 1.12 ng/dL (0.78-2.19)
--- NOTE | 2020-07-08 15:54 | RADIOLOGY REPORT (SQ) ---
EXAM DESCRIPTION: CT ABD/PELVIS NO ORAL OR IV IMAGES COMPLETED DATE/TIME: 07/08/2020 3:17 pm REASON FOR STUDY: abdominal pain COMPARISON: 05/14/2018. TECHNIQUE: CT scan of the abdomen and pelvis performed without intravenous or oral contrast. Images reviewed with lung, soft tissue, and bone windows. Reconstructed coronal and sagittal MPR images revi ewed. All images stored on PACS. All CT scanners at this facility use dose modulation, iterative reconstruction, and/or weight based d osing when appropriate to reduce radiation dose to as low as reasonably achievable (ALARA). [facility]: Dose Right [facility]: CareDose [facility]: Dose Right [facility]: Teradose 4D [facility]: [employer] RADIATION DOSE: CT Rad equipment meets quality standard of care and radiation dose reduction techniq ues were employed. CTDIvol: 20.5 mGy. DLP: 982 mGy-cm.mGy. LIMITATIONS: None. FINDINGS: LOWER CHEST: No significant findings. No nodules or infiltrates. NON-CONTRASTED LIVER, SPLEEN, ADRENALS: Evaluation limited by lack of IV contrast. No identified sign ificant masses. PANCREAS: No masses. No peripancreatic inflammatory changes. GALLBLADDER: No identified stones by CT criteria. No inflammatory changes to suggest cholecystitis. RIGHT KIDNEY AND URETER: No suspicious masses. Assessment limited by lack of IV contrast. No signif icant calcifications. No hydronephrosis or hydroureter. LEFT KIDNEY AND URETER: Cortical cysts. No suspicious masses. Assessment limited by lack of IV contr ast. No significant calcifications. No hydronephrosis or hydroureter. AORTA AND RETROPERITONEUM: No aneurysm. No retroperitoneal masses or adenopathy. BOWEL AND PERITONEAL CAVITY: No obvious masses or inflammatory changes. No free fluid. APPENDIX: Not visualized. PELVIS, BLADDER, AND ABDOMINAL WALL:Diffuse laxity of the anterior abdominal wall musculature. No ab normal masses. No free fluid. Bladder normal. BONES: No significant findings. OTHER: No other significant finding. IMPRESSION: NO SIGNIFICANT OR ACUTE PROCESS IN THE ABDOMEN OR PELVIS. INCIDENTAL CORTICAL CYSTS IN THE LEFT KIDNEY. COMMENT: Quality ID # [id number]: Final reports with documentation of one or more dose reduction techniques (e.g., Automated exposure control, adjustment of the mA and/or kV according to patient size, use of iterative reconstruction technique) TECHNICAL DOCUMENTATION: JOB ID: [id number] [employer]- All Rights Reserved Reading location - IP/workstation name: [email or web address]
[2020-07-08 16:07] LABS: THYROID STIMULATING HORMONE 0.27 uIU/mL (0.47-4.68)
[2020-07-08] MEDS: NORMAL SALINE 1000 ML 1,000 ML IV PRN (16:53)
[2020-07-08] MEDS ORDERED: DEXTROSE 40% GEL 15 GM TUBE X 2 PO PRN (18:00)
[2020-07-08] MEDS ORDERED: DEXTROSE 40% GEL 15 GM TUBE PO PRN (18:00)
[2020-07-08] MEDS ORDERED: DEXTROSE 50%-WATER SYRINGE 25 GM/50 ML DOSE IV PRN (18:00)
[2020-07-08] MEDS ORDERED: DEXTROSE 50%-WATER SYRINGE 12.5 GM/25 ML DOSE IV PRN (18:00)
[2020-07-08] MEDS ORDERED: GLUCAGON,HUMAN RECOMB 1 MG INJ IM PRN (18:00)
[2020-07-08] MEDS ORDERED: INSULIN DETEMIR 35 UNIT SUBCUT SCH (20:30)
--- NOTE | 2020-07-08 20:54 | PDOC H&P ---
History of Present Illness Admission Date/PCP: 07/08/20 13:49 ANNA MADISON MD History of Present Illness: NELSON WISE is a 75 year old female She has type 2 diabetes mellitus com plicated with nephropathy retinopathy neuropathy, chronic kidney disease stage V, she came to the office today with her son and daughter for evaluation of multiple complaints including extreme fatigue, loss of appetite, excessive somnolence, uncontrolled diabetes mellitus. In the office she was hardly able to transfer from the chair to the examination table, she almost fell off just performing such a simple at I thought patient needed inpatient care for further evaluation of her symptoms. The metabolic panel demonstrated BUN of 60, serum creatinine of 6.30 consistent with a GFR of 8 there is mild acidosis serum potassium is normal chest x-ray did not show any volume overload Past Medical History Cardiac Medical History: Reports: Coronary Artery Disease, Myocardial Infarction - 5/6YRS AGO, Hyperlipidema, Hypertension - MEDICATED Pulmonary Medical History: Reports: Chronic Obstructive Pulmonary Disease (COPD) Neurological Medical History: Reports: Seizures - JANUARY 2017 3 SEIZURES IN ONE DAY RELATED TO ELEVATED BS Endocrine Medical History: Reports: Diabetes Mellitus Type 2 - uncontrolled Renal/ Medical History: Reports: Chronic Kidney Disease, Other - Chronic kidney disease stage V GI Medical History: Reports: Gastroesophageal Reflux Disease Musculoskeltal Medical History: Reports: Arthritis Psychiatric Medical History: Denies: Depression Hematology: Reports: Anemia - MEDICATED Denies: Sickle Cell Disease Past Surgical History Past Surgical History: Reports: Cardiac Catheterization, Section, Hysterectomy Social History Smoking Status: Never Smoker Electronic Cigarette use?: No Frequency of Alcohol Use: None Hx Recreational Drug Use: No Drugs: None Hx Prescription Drug Abuse: No Family History Family History: Reviewed & Not Pertinent, Hypertension Parental Family History Reviewed: Yes Children Family History Reviewed: Yes Sibling(s) Family History Reviewed.: Yes Medication/Allergy Home Medications: Insulin Detemir [Levemir Flextouch] 35 units SQ DAILY 03/29/18 Calcitriol [Rocaltrol 0.25 mcg Capsule] 0.25 mcg PO DAILY #90 capsule 04/03/18 Clopidogrel Bisulfate [Plavix 75 mg Tablet] 75 mg PO DAILY 05/15/18 Clonidine HCl [Catapres 0.2 mg Tablet] 0.2 mg PO Q8 07/08/20 Hydralazine HCl [Apresoline 50 mg Tablet] 50 mg PO Q8 07/08/20 Lisinopril [Prinivil 10 mg Tablet] 10 mg PO DAILY 07/08/20 Metoprolol Tartrate [Lopressor 50 mg Tablet] 50 mg PO Q12 07/08/20 Rosuvastatin Calcium [Crestor 20 mg Tablet] 20 mg PO QHS 07/08/20 Allergies/Adverse Reactions: No Known Allergies Allergy (Verified 05/03/17 08:46) Review of Systems Constitutional: PRESENT: fatigue, weakness Eyes: ABSENT: visual disturbances Ears: ABSENT: hearing changes Cardiovascular: ABSENT: chest pain, dyspnea on exertion, edema, orthropnea, palpitations Respiratory: ABSENT: cough, hemoptysis Gastrointestinal: ABSENT: abdominal pain, constipation, diarrhea, hematemesis, hematochezia, nausea, vomiting Genitourinary: ABSENT: dysuria, hematuria Musculoskeletal: ABSENT: joint swelling Integumentary: ABSENT: rash, wounds Neurological: PRESENT: paresthesias Psychiatric: ABSENT: anxiety, depression, homidical ideation, suicidal ideation Endocrine: ABSENT: cold intolerance, heat intolerance, menstrual abnormalities, polydipsia, polyuria Hematologic/Lymphatic: ABSENT: easy bleeding, easy bruising, lymphadenopathy Physical Exam Vital Signs: Temp Pulse Resp BP Pulse Ox 98.3 F 88 16 122/74 100 07/08/20 14:23 07/08/20 19:00 07/08/20 14:23 07/08/20 14:23 07/08/20 14:23 Intake & Output 07/07/20 07/08/20 07/09/20 06:59 06:59 06:59 Weight 92.9 kg General appearance: PRESENT: no acute distress Eye exam: PRESENT: PERRLA Respiratory exam: PRESENT: clear to auscultation eric Cardiovascular exam: PRESENT: +S1, +S2 GI/Abdominal exam: PRESENT: soft Neurological exam: PRESENT: alert Results Laboratory Results: 07/08/20 14:40 07/08/20 14:40 07/08/20 07/08/20 07/08/20 14:40 14:40 14:40 WBC 7.6 RBC 4.69 Hgb 12.0 Hct 36.3 MCV 78 L MCH 25.5 L MCHC 32.9 RDW 14.2 H Plt Count 183 Sodium 141.3 Potassium 4.4 Chloride 108 H Carbon Dioxide 19 L Anion Gap 14 BUN 60 H Creatinine 6.30 H Est GFR ( Amer) 8 L Glucose 261 H Calcium 8.9 Total Bilirubin 0.5 AST 26 Alkaline Phosphatase 79 Total Protein 7.1 Albumin 3.7 Lipase 128.4 TSH 0.27 L Free T4 1.12 Impressions: Abdomen/Pelvis CT 07/08/20 00:00 IMPRESSION: NO SIGNIFICANT OR ACUTE PROCESS IN THE ABDOMEN OR PELVIS. INCIDENTAL CORTICAL CYSTS IN THE LEFT KIDNEY. Chest X-Ray 07/08/20 00:00 IMPRESSION: NO ACUTE RADIOGRAPHIC FINDING IN THE CHEST. Assessment & Plan - Diagnosis (1) Chronic kidney disease, stage V Is this a current diagnosis for this admission?: Yes Plan: Patient with chronic kidney disease stage V at increased risk for infection especially genitourinary infections, pulmonary infection some of the symptoms she is manifesting could be uremic in nature, she follows with nephrology Dr. Bill Santamaria I will consult him for guidance. 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: with predatory animal exterminator use Diabetes mellitus complication status: with hyperglycemia Qualified Code(s): E11.65 - Type 2 diabetes mellitus with hyperglycemia; Z79.4 - long-term (current) use of insulin Is this a current diagnosis for this admission?: Yes Plan: Diabetes poorly controlled, hemoglobin A1c more than 14 suggesting poorly controlled diabetes, there could be a component of dehydration from hyperglycemia, patient will be treated with normal saline for hydration (3) Acute kidney injury superimposed on chronic kidney disease Is this a current diagnosis for this admission?: Yes - Time Time Spent: Greater than 70 Minutes Medications reviewed and adjusted accordingly: Yes Anticipated Discharge Disposition: Home, Self Care Anticipated Discharge Timeframe: within 72 hours - Inpatient Certification Based on my medical assessment, after consideration of the patient's comorbidities, presenting symptoms, or acuity I expect that the services needed warrant INPATIENT care.: Yes I certify that my determination is in accordance with my understanding of Medicare's requirements for reasonable and necessary INPATIENT services [42 CFR 412.3e].: Yes
[2020-07-08] MEDS: HYDRALAZINE HCL 50 MG TABLET PO SCH (21:37)
[2020-07-08] MEDS: CALCITRIOL 0.25 MCG CAPSULE PO SCH (21:37)
[2020-07-08] MEDS: LISINOPRIL 10 MG TABLET PO SCH (21:38)
[2020-07-08] MEDS: METOPROLOL TARTRATE 50 MG TABLET PO SCH (21:38)
[2020-07-08] MEDS: CLONIDINE HCL 0.2 MG TABLET PO SCH (21:38)
[2020-07-08] MEDS: ATORVASTATIN CALCIUM 40 MG TABLET PO SCH (21:38)
[2020-07-08] MEDS: INSULIN LISPRO 100 UNIT/ML 3 ML VIAL SUBCUT SCH (21:38)
--- NOTE | 2020-07-08 21:54 | EKG REPORT ---
SEVERITY:- ABNORMAL ECG - SINUS RHYTHM LVH WITH SECONDARY REPOLARIZATION ABNORMALITY : Confirmed by: Eric Steve 08-Jul-2020 21:53:46
[2020-07-08 21:57] LABS: APPEARANCE,URINE CLOUDY; BILIRUBIN,URINE NEGATIVE (NEGATIVE); COLOR,URINE YELLOW; GLUCOSE, URINE >=500 mg/dL (NEGATIVE); KETONES,URINE NEGATIVE (NEGATIVE); LEUKOCYTE ESTERASE,URINE TRACE (NEGATIVE); NITRITE,URINE NEGATIVE (NEGATIVE); PROTEIN,URINE >=500 mg/dL (NEGATIVE); URINE SPECIFIC GRAVITY 1.015; UROBILINOGEN,URINE NEGATIVE mg/dL (<2.0)
[2020-07-08] MEDS ORDERED: (PENDING PHARMACY ID) (Rosuvastatin Calcium [Crestor 20 Mg Tablet] 20 MG) PO SCH (22:00)
[2020-07-09] MEDS: CLONIDINE HCL 0.2 MG TABLET PO SCH ×3 (06:07→21:10)
[2020-07-09] MEDS: HYDRALAZINE HCL 50 MG TABLET PO SCH ×3 (06:09→21:09)
[2020-07-09] MEDS: NORMAL SALINE 1000 ML 1,000 ML IV PRN (06:09)
[2020-07-09] MEDS ORDERED: INFLUENZA QUAD (6MOS+) 2020-21 VAC 0.5 ML SYR IM ONE (08:00)
[2020-07-09] MEDS: INSULIN LISPRO 100 UNIT/ML 3 ML VIAL SUBCUT SCH ×4 (08:16→21:10)
[2020-07-09] MEDS ORDERED: INSULIN GLARGINE,HUM.REC.ANLOG 1,000 UNIT/10 ML VIAL SUBCUT SCH (10:00)
[2020-07-09] MEDS: CALCITRIOL 0.25 MCG CAPSULE PO SCH (10:19)
[2020-07-09] MEDS: LISINOPRIL 10 MG TABLET PO SCH (10:20)
[2020-07-09] MEDS: METOPROLOL TARTRATE 50 MG TABLET PO SCH ×2 (10:20→21:10)
[2020-07-09 12:52] LABS: ABSOLUTE EOSINOPHILS # (AUTO) 0.1 10^3/uL (0.0-0.6); ABSOLUTE LYMPHOCYTES (AUTO) 1.9 10^3/uL (0.5-4.7); ABSOLUTE MONOCYTES (AUTO) 0.7 10^3/uL (0.1-1.4); ABSOLUTE NEUT (AUTO) 3.4 10^3/uL (1.7-8.2); BASOPHILS % (AUTO) 0.8 % (0-2); EOSINOPHILS % (AUTO) 2.1 % (0-6); HEMATOCRIT 26.8 % (36.0-47.0); LYMPHOCYTES % (AUTO) 30.9 % (13-45); MEAN CORPUSCULAR HEMOGLOBIN 25.6 pg (27.0-33.4); MEAN CORPUSCULAR HGB CONC 33.2 g/dL (32.0-36.0); MEAN CORPUSCULAR VOLUME 77 fl (80-97); MONOCYTES % (AUTO) 11.5 % (3-13); PLATELET COUNT 142 10^3/uL (150-450); RED BLOOD COUNT 3.47 10^6/uL (3.72-5.28); RED CELL DISTRIBUTION WIDTH 14.1 % (11.5-14.0); SEGMENTED NEUTROPHILS % (AUTO) 54.7 % (42-78); TOTAL CELLS COUNTED % (AUTO) 100 %; WHITE BLOOD COUNT 6.2 10^3/uL (4.0-10.5)
[2020-07-09 12:55] LABS: HEMOGLOBIN 8.9 g/dL (12.0-15.5)
[2020-07-09 13:03] LABS: ABSOLUTE RETICS # 0.074 10^6/uL (0.028-0.122); ALBUMIN 2.7 g/dL (3.5-5.0); ALKALINE PHOSPHATASE 67 U/L (38-126); ANION GAP 9 (5-19); ASPARTATE AMINO TRANSFERASE 17 U/L (14-36); BILIRUBIN,DIRECT 0.3 mg/dL (0.0-0.4); BILIRUBIN,TOTAL 0.3 mg/dL (0.2-1.3); BLOOD UREA NITROGEN 56 mg/dL (7-20); CALCIUM 7.8 mg/dL (8.4-10.2); CARBON DIOXIDE 19 mmol/L (22-30); CHLORIDE 111 mmol/L (98-107); GLUCOSE 318 mg/dL (75-110); PHOSPHORUS 4.1 mg/dL (2.5-4.5); POTASSIUM 4.3 mmol/L (3.6-5.0); RETICULOCYTE COUNT (AUTO) 2.15 % (0.66-2.85); TOTAL PROTEIN 5.4 g/dL (6.3-8.2)
[2020-07-09 13:15] LABS: URINE CREATININE 149.9 mg/dL (15-278)
[2020-07-09 13:54] LABS: IRON(TIBC) 40.3 ug/dL (37-170)
[2020-07-09 15:02] LABS: FOLATE 7.63 ng/mL (>2.76)
[2020-07-09 15:48] LABS: UR PRO/CREAT RATIO RESULT 5.8 mg/mg (0.0-0.2)
--- NOTE | 2020-07-09 15:52 | PDOC CONSULTATION ---
Consultation Consult Date: 07/09/20 Provider Consulted: ARIAN WEAVER Consult reason:: ILA/CKD History of Present Illness Admission Date/PCP: 07/08/20 13:49 ANNA MADISON MD History of Present Illness: NELSON WISE is a 75 year old female with history of diabetes mellitus type 2 complicated by diabetic nephropathy/ retinopathy/neuropathy, chronic kidney disease stage V, hypertension, anemia and chronic kidney disease, coronary artery disease morbid obesity who was directly admitted by Dr. Madison yesterday because of 4 to 5-day history of extreme fatigue, appetite loss, excessive somnolence and uncontrolled blood sugars. Patient says she also has headache last night, and some disorientation. Yesterday upon admission she had a BUN of 60, creatinine of 6.3 with EGFR of 8 along with bicarbonate of 19. She was started on some IV fluids. Her blood sugar was 261 in hemoglobin A1c is greater than 14. She is known to be not very compliant with her medications. She is scheduled to see an wet end tester on July 27. Today she said she feels better. She has made about 400 mL of urine output since admission. She denies any nausea, vomiting, diarrhea, constipation, cough nor fever. She denies any decreased urine output even at home. She denies seeing any gross hem aturia but admits seeing foam in the urine. She states that her appetite is coming back. She states that at home her blood sugars run around 200-300 and her blood pressure has been running high with systolic blood pressure in the 200s. 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 Patient appears to be very comfortable at this time. Review of her records from our office showed that she was last seen by our physician payroll and benefits assistant Aki Conway PA-C on April 26, 2020. Her previous labs 02/25/2020 she had a BUN of 48, creatinine of 3.63 with EGFR of 13 and prior to that on 06/27/2019 she had a BUN of 37 and creatinine of 3.05. Patient was advised to see an wet end tester for better blood sugar control and finally she was just scheduled to see one. Past Medical History Cardiac Medical History: Reports: Coronary Artery Disease, Hyperlipidemia, Hypertension-primary, Myocardial Infarction - 5/6YRS AGO Pulmonary Medical History: Reports: Chronic Obstructive Pulmonary Disease (COPD) Neurological Medical History: Reports: Ischemic CVA, Seizures - JANUARY 2017 3 S EIZURES IN ONE DAY RELATED TO ELEVATED BS Endocrine Medical History: Reports: Diabetes Mellitus Type 2 - uncontrolled Complications of Diabetes: Reports: Autonomic Neuropathy, Nephropathy, Retinopathy Renal/ Medical History: Reports: Chronic Kidney Disease Stage V, Renal Osteodystropy GI Medical History: Reports: Gastroesophageal Reflux Disease Musculoskeltal Medical History: Reports: Arthritis Past Surgical History Past Surgical History: Reports: Cardiac Catheterization, Section, Hysterectomy Social History Information Source: Patient Smoking Status: Never Smoker Electronic Cigarette use?: No Frequency of Alcohol Use: None Hx Recreational Drug Use: No Drugs: None Hx Prescription Drug Abuse: No Family History Family History: DM - Paternal grandmother, Malignancy - Colon cancer on her mother, Thyroid Disfunction - Daughter Parental Family History Reviewed: Yes Children Family History Reviewed: Yes Sibling(s) Family History Reviewed.: Yes Medication/Allergy Home Medications: Insulin Detemir [Levemir Flextouch] 35 units SQ DAILY 03/29/18 Calcitriol [Rocaltrol 0.25 mcg Capsule] 0.25 mcg PO DAILY #90 capsule 04/03/18 Clopidogrel Bisulfate [Plavix 75 mg Tablet] 75 mg PO DAILY 05/15/18 Clonidine HCl [Catapres 0.2 mg Tablet] 0.2 mg PO Q8 07/08/20 Hydralazine HCl [Apresoline 50 mg Tablet] 50 mg PO Q8 07/08/20 Lisinopril [Prinivil 10 mg Tablet] 10 mg PO DAILY 07/08/20 Metoprolol Tartrate [Lopressor 50 mg Tablet] 50 mg PO Q12 07/08/20 Rosuvastatin Calcium [Crestor 20 mg Tablet] 20 mg PO QHS 07/08/20 Allergies/Adverse Reactions: No Known Allergies Allergy (Verified 05/03/17 08:46) Review of Systems All systems: reviewed and no additional remarkable complaints except as stated Review of Systems: Constitutional: ABSENT: chills, fever(s), headache(s), weight gain, weight loss; admits fatigue and appetite loss Eyes: ABSENT: visual disturbances Ears: ABSENT: hearing changes Cardiovascular: ABSENT: chest pain, dyspnea on exertion, edema, orthropnea, palpitations Respiratory: ABSENT: cough, dyspnea, hemoptysis Gastrointestinal: ABSENT: abdominal pain, constipation, diarrhea, hematemesis, hematochezia, nausea, vomiting Genitourinary: ABSENT: dysuria, hematuria Musculoskeletal: ABSENT: joint swelling Integumentary: ABSENT: rash, wounds Neurological: ABSENT: abnormal gait, abnormal speech, confusion, dizziness, focal weakness, numbness, syncope; admits headache and some disorientation on presentation. Psychiatric: ABSENT: anxiety, depression Endocrine: ABSENT: cold intolerance, heat intolerance, polydipsia, polyuria Hematologic/Lymphatic: ABSENT: easy bleeding, easy bruising, lymphadenopathy Physical Exam Vital Signs: Temp Pulse Resp BP Pulse Ox 97.8 F 72 18 119/53 L 98 07/09/20 08:57 07/09/20 07:54 07/09/20 07:54 07/09/20 07:54 07/09/20 07:54 Intake & Output 07/08/20 07/09/20 07/10/20 06:59 06:59 06:59 Intake Total 1100 Output Total 400 Balance 700 Weight 208.4 kg Exam: General appearance: No acute distress, cooperative, well-developed, well- nourished Head exam: PRESENT: atraumatic, normocephalic Eye exam: PRESENT: Conjunctiva [place], EOMI, PERRLA. ABSENT: conjunctival injection, scleral icterus Mouth exam: PRESENT: moist, neck supple, tongue midline Neck exam: PRESENT: full ROM. ABSENT: carotid bruit, JVD, lymphadenopathy, thyromegaly Respiratory exam: PRESENT: clear to auscultation bilaterally. ABSENT: rales, rhonchi, stridor, wheezes Cardiovascular exam: PRESENT: RRR, +S1, +S2. ABSENT: systolic murmur Pulses: PRESENT: normal radial pulses, normal dorsalis pedis pulses GI/Abdominal exam: PRESENT: normal bowel sounds, soft. ABSENT: guarding, mass, tenderness Rectal exam: Deferred Extremities exam: PRESENT: full ROM. ABSENT: calf tenderness, pedal edema Musculoskeletal: PRESENT: full ROM. ABSENT: deformity Neurological exam: PRESENT: alert, Awake, Oriented to person, Oriented to place, Oriented to time, reflexes normal, CN II-XII grossly intact. ABSENT: motor sensory deficit Psychiatric exam: PRESENT: appropriate affect, normal mood. ABSENT: homicidal ideation, suicidal ideation Skin exam: PRESENT: intact, dry, warm. ABSENT: rash Results Laboratory Results: 07/08/20 14:40 07/08/20 14:40 07/08/20 07/08/20 07/08/20 14:40 14:40 14:40 WBC 7.6 RBC 4.69 Hgb 12.0 Hct 36.3 MCV 78 L MCH 25.5 L MCHC 32.9 RDW 14.2 H Plt Count 183 Sodium 141.3 Potassium 4.4 Chloride 108 H Carbon Dioxide 19 L Anion Gap 14 BUN 60 H Creatinine 6.30 H Est GFR ( Amer) 8 L Glucose 261 H Calcium 8.9 Total Bilirubin 0.5 AST 26 Alkaline Phosphatase 79 Total Protein 7.1 Albumin 3.7 Lipase 128.4 TSH 0.27 L Free T4 1.12 Urine Color Urine Appearance Urine pH Ur Specific [place] Urine Protein Urine Glucose (UA) Urine Ketones Urine Blood Urine Nitrite Ur Leukocyte Esterase Urine WBC (Auto) Urine RBC (Auto) 07/08/20 21:25 WBC RBC Hgb Hct MCV MCH MCHC RDW Plt Count Sodium Potassium Chloride Carbon Dioxide Anion Gap BUN Creatinine Est GFR ( Amer) Glucose Calcium Total Bilirubin AST Alkaline Phosphatase Total Protein Albumin Lipase TSH Free T4 Urine Color YELLOW Urine Appearance CLOUDY Urine pH 5.0 Ur Specific [place] 1.015 Urine Protein >=500 H Urine Glucose (UA) >=500 H Urine Ketones NEGATIVE Urine Blood SMALL H Urine Nitrite NEGATIVE Ur Leukocyte Esterase TRACE H Urine WBC (Auto) 6 Urine RBC (Auto) 3 Impressions: Abdomen/Pelvis CT 07/08/20 00:00 IMPRESSION: NO SIGNIFICANT OR ACUTE PROCESS IN THE ABDOMEN OR PELVIS. INCIDENTAL CORTICAL CYSTS IN THE LEFT KIDNEY. Chest X-Ray 07/08/20 00:00 IMPRESSION: NO ACUTE RADIOGRAPHIC FINDING IN THE CHEST. Assessment & Plan - Diagnosis (1) Acute kidney injury superimposed on chronic kidney disease Is this a current diagnosis for this admission?: Yes Plan: Patient is currently nonoliguric. There may be a component of acute prerenal azotemia causing worsening of the kidney function. At this time she does not appear to be uremic and has clinically improved and reportedly felt better after some IV fluids. There is no urgent indication for acute renal replacement therapy at this time. However given that the patient has a rapid progression of her kidney disease, I told the patient that if we do not see any renal recovery in the next 48 to 72 hours we might need to initiate renal replacement therapy afterwards. I discussed with patient the different options of renal replacement therapy including hemodialysis in the hospital. Discussed the need of vascular access if further need to do dialysis. Patient is unable to tell me if she will proceed for dialysis and seems to be still undecided at this time so since there is no urgency to do dialysis today I will give her time to think about it. The patient knows about dialysis because her is currently on hemodialysis under my care. Continue IV fluid hydration at this point. Monitor kidney function and avoid nephrotoxic medications. Strict intake and output recording. (2) Chronic kidney disease, stage V Is this a current diagnosis for this admission?: Yes Plan: Baseline creatinine for the last few months has been between 3-3.6 with EGFR of 13. 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 I did not check the patient for complications of kidney disease and check her phosphorus, PTH, magnesium and iron panels. (3) Proteinuria Is this a current diagnosis for this admission?: Yes Plan: Due to diabetic nephropathy. We will check urine protein to creatinine ratio. 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 Explained to the patient the importance of optimal blood sugar control and the detrimental effect of uncontrolled diabetes especially the rapid progression of kidney disease. Patient is scheduled to see an wet end tester on July 27. (5) Hypertension Qualifiers: Hypertension type: essential hypertension Qualified Code(s): I10 - Essential (primary) hypertension Is this a current diagnosis for this admission?: Yes Plan: Seems to be inadequately controlled as well. Again discussed with patient the importance of blood pressure control and progression of kidney disease. (6) Metabolic acidosis Is this a current diagnosis for this admission?: Yes Plan: I will start the patient on sodium bicarbonate and changed IV fluids. (7) Chronic kidney disease-mineral and bone disorder Is this a current diagnosis for this admission?: Yes Plan: We will check her PTH, phosphorus and vitamin D. (8) Obese Qualifiers: Obesity type: due to excess calories Is this a current diagnosis for this admission?: Yes - Notes Notes: Thank you very much for this consultation.
[2020-07-09] MEDS: 1/2 NORMAL SALINE 1,000 ML IV PRN (16:10)
[2020-07-09] MEDS: SODIUM BICARBONATE 650 MG TABLET PO SCH ×2 (16:19→21:10)
[2020-07-09] MEDS: FERROUS SULFATE 325 MG TABLET PO SCH (17:26)
[2020-07-09] MEDS: ATORVASTATIN CALCIUM 40 MG TABLET PO SCH (21:10)
--- NOTE | 2020-07-09 23:22 | PDOC PROGRESS REPORT ---
Subjective Progress Note for:: 07/09/20 Subjective:: Patient seen by the bedside, she saID she feels better, she was seen by the station examiner Reason For Visit: ABDOMINAL PAIN,CKD STAGE IV,T2DM Physical Exam Vital Signs: Temp Pulse Resp BP Pulse Ox 98.1 F 65 22 H 145/60 H 95 07/09/20 20:59 07/09/20 20:59 07/09/20 20:59 07/09/20 20:59 07/09/20 20:59 Intake & Output 07/08/20 07/09/20 07/10/20 06:59 06:59 06:59 Intake Total 1100 2130 Output Total 400 300 Balance 700 1830 Weight 208.4 kg General appearance: PRESENT: no acute distress Eye exam: PRESENT: PERRLA Respiratory exam: PRESENT: clear to auscultation eric Cardiovascular exam: PRESENT: +S1, +S2 GI/Abdominal exam: PRESENT: soft Neurological exam: PRESENT: alert Results Laboratory Results: 07/09/20 10:57 07/09/20 12:30 07/09/20 07/09/20 07/09/20 10:57 12:30 12:30 WBC 6.2 RBC 3.47 L Hgb 8.9 L D Hct 26.8 L MCV 77 L MCH 25.6 L MCHC 33.2 RDW 14.1 H Plt Count 142 L Seg Neutrophils % 54.7 Retic Count (auto) 2.15 Sodium Potassium Chloride Carbon Dioxide Anion Gap BUN Creatinine Est GFR ( Amer) Glucose Calcium Phosphorus Magnesium Iron 40.3 TIBC 242 L % Saturation 17 Ferritin 183.00 Total Bilirubin AST Alkaline Phosphatase Total Protein Albumin Vitamin B12 711.0 Folate 7.63 PTH Intact 07/09/20 07/09/20 12:30 12:30 WBC RBC Hgb Hct MCV MCH MCHC RDW Plt Count Seg Neutrophils % Retic Count (auto) Sodium 139.1 Potassium 4.3 Chloride 111 H Carbon Dioxide 19 L Anion Gap 9 BUN 56 H Creatinine 5.43 H Est GFR ( Amer) 9 L Glucose 318 H Calcium 7.8 L Phosphorus 4.1 Magnesium 2.0 Iron TIBC % Saturation Ferritin Total Bilirubin 0.3 AST 17 Alkaline Phosphatase 67 Total Protein 5.4 L Albumin 2.7 L Vitamin B12 Folate PTH Intact 365.9 H 07/08/20 21:25 Clean Catch Midstream Urine Culture - Final Mixed Urogenital Evita Impressions: Abdomen/Pelvis CT 07/08/20 00:00 IMPRESSION: NO SIGNIFICANT OR ACUTE PROCESS IN THE ABDOMEN OR PELVIS. INCIDENTAL CORTICAL CYSTS IN THE LEFT KIDNEY. Chest X-Ray 07/08/20 00:00 IMPRESSION: NO ACUTE RADIOGRAPHIC FINDING IN THE CHEST. Assessment & Plan - Diagnosis (1) Chronic kidney disease, stage V Is this a current diagnosis for this admission?: Yes (2) T2DM (type 2 diabetes mellitus) Qualifiers: Diabetes mellitus long-term insulin use: with terminal computer operator use Diabetes mellitus complication status: with hyperglycemia Qualified Code(s): E11.65 - Type 2 diabetes mellitus with hyperglycemia; Z79.4 - retirement (current) use of insulin Is this a current diagnosis for this admission?: Yes (3) Acute kidney injury superimposed on chronic kidney disease Is this a current diagnosis for this admission?: Yes Plan: Continue IV fluid therapy - Time Time Spent with patient: 15-24 minutes Level of Care: MEDICAL Medications reviewed and adjusted accordingly: Yes Anticipated discharge: Home Anticipated DC Timeframe: within 72 hours
[2020-07-10] MEDS: 1/2 NORMAL SALINE 1,000 ML IV PRN ×3 (01:39→21:59)
[2020-07-10] MEDS: HYDRALAZINE HCL 50 MG TABLET PO SCH ×3 (05:05→21:16)
[2020-07-10] MEDS: CLONIDINE HCL 0.2 MG TABLET PO SCH ×3 (05:05→21:17)
[2020-07-10] MEDS: INSULIN LISPRO 100 UNIT/ML 3 ML VIAL SUBCUT SCH ×4 (09:26→21:16)
[2020-07-10] MEDS: CALCITRIOL 0.25 MCG CAPSULE PO SCH (09:27)
[2020-07-10] MEDS: FERROUS SULFATE 325 MG TABLET PO SCH ×2 (09:27→17:52)
[2020-07-10] MEDS: METOPROLOL TARTRATE 50 MG TABLET PO SCH ×2 (09:27→21:16)
[2020-07-10] MEDS: SODIUM BICARBONATE 650 MG TABLET PO SCH ×2 (09:33→21:16)
[2020-07-10] MEDS: LISINOPRIL 10 MG TABLET PO SCH (09:40)
[2020-07-10] MEDS ORDERED: INSULIN GLARGINE,HUM.REC.ANLOG 1,000 UNIT/10 ML VIAL (PYX) SUBCUT ONE (10:00)
[2020-07-10] MEDS ORDERED: INSULIN GLARGINE,HUM.REC.ANLOG 1,000 UNIT/10 ML VIAL SUBCUT SCH (10:00)
--- NOTE | 2020-07-10 11:21 | PDOC PROGRESS REPORT ---
Subjective Progress Note for:: 07/10/20 Subjective:: Patient is currently doing fair Patient seen by the nephrology suggest the continues to IV fluid continues to monitor Discussed about the possible dialysis on a Sunday or Sunday if is not getting better Patient's denied any chest pain no short of breath Reason For Visit: ABDOMINAL PAIN,CKD STAGE IV,T2DM Physical Exam Vital Signs: Temp Pulse Resp BP Pulse Ox 98.1 F 58 L 16 124/54 L 98 07/10/20 07:56 07/10/20 07:56 07/10/20 07:56 07/10/20 07:56 07/10/20 07:56 Intake & Output 07/09/20 07/10/20 07/11/20 06:59 06:59 06:59 Intake Total 1100 3528 Output Total 400 650 Balance 700 2878 Weight 208.4 kg 97.1 kg General appearance: PRESENT: no acute distress, well-developed, well-nourished Head exam: PRESENT: atraumatic, normocephalic Eye exam: PRESENT: conjunctiva pink, EOMI, PERRLA. ABSENT: scleral icterus Ear exam: PRESENT: normal external ear exam Mouth exam: PRESENT: moist, tongue midline Neck exam: PRESENT: full ROM. ABSENT: carotid bruit, JVD, lymphadenopathy, thyromegaly Respiratory exam: PRESENT: clear to auscultation eric Cardiovascular exam: PRESENT: RRR. ABSENT: diastolic murmur, rubs, systolic murmur Vascular exam: PRESENT: normal capillary refill GI/Abdominal exam: PRESENT: normal bowel sounds, soft. ABSENT: distended, guarding, mass, organolmegaly, rebound, tenderness Rectal exam: PRESENT: deferred Neurological exam: PRESENT: alert, awake, oriented to person, oriented to place, oriented to time, oriented to situation, CN II-XII grossly intact. ABSENT: motor sensory deficit Psychiatric exam: PRESENT: appropriate affect, normal mood. ABSENT: homicidal ideation, suicidal ideation Skin exam: PRESENT: dry, intact, warm. ABSENT: cyanosis, rash Results Laboratory Results: 07/09/20 10:57 07/09/20 12:30 07/09/20 07/09/20 07/09/20 10:57 12:30 12:30 WBC 6.2 RBC 3.47 L Hgb 8.9 L D Hct 26.8 L MCV 77 L MCH 25.6 L MCHC 33.2 RDW 14.1 H Plt Count 142 L Seg Neutrophils % 54.7 Retic Count (auto) 2.15 Sodium Potassium Chloride Carbon Dioxide Anion Gap BUN Creatinine Est GFR ( Amer) Glucose Calcium Phosphorus Magnesium Iron 40.3 TIBC 242 L % Saturation 17 Ferritin 183.00 Total Bilirubin AST Alkaline Phosphatase Total Protein Albumin Vitamin B12 711.0 Folate 7.63 PTH Intact 07/09/20 07/09/20 12:30 12:30 WBC RBC Hgb Hct MCV MCH MCHC RDW Plt Count Seg Neutrophils % Retic Count (auto) Sodium 139.1 Potassium 4.3 Chloride 111 H Carbon Dioxide 19 L Anion Gap 9 BUN 56 H Creatinine 5.43 H Est GFR ( Amer) 9 L Glucose 318 H Calcium 7.8 L Phosphorus 4.1 Magnesium 2.0 Iron TIBC % Saturation Ferritin Total Bilirubin 0.3 AST 17 Alkaline Phosphatase 67 Total Protein 5.4 L Albumin 2.7 L Vitamin B12 Folate PTH Intact 365.9 H 07/08/20 21:25 Clean Catch Midstream Urine Culture - Final Mixed Urogenital Evita Impressions: Abdomen/Pelvis CT 07/08/20 00:00 IMPRESSION: NO SIGNIFICANT OR ACUTE PROCESS IN THE ABDOMEN OR PELVIS. INCIDENTAL CORTICAL CYSTS IN THE LEFT KIDNEY. Chest X-Ray 07/08/20 00:00 IMPRESSION: NO ACUTE RADIOGRAPHIC FINDING IN THE CHEST. Assessment & Plan - Diagnosis (1) Acute kidney injury superimposed on chronic kidney disease Is this a current diagnosis for this admission?: Yes (2) Metabolic acidosis Is this a current diagnosis for this admission?: Yes (3) T2DM (type 2 diabetes mellitus) Qualifiers: Diabetes mellitus rn long term care insulin use: with alf use Diabetes mellitus complication status: with hyperglycemia Qualified Code(s): E11.65 - Type 2 diabetes mellitus with hyperglycemia; Z79.4 - rn long term care (current) use of insulin Is this a current diagnosis for this admission?: Yes (4) Anemia Qualifiers: Anemia type: unspecified type Qualified Code(s): D64.9 - Anemia, unspecified Is this a current diagnosis for this admission?: Yes (5) Hypertension Qualifiers: Hypertension type: essential hypertension Qualified Code(s): I10 - Essential (primary) hypertension Is this a current diagnosis for this admission?: Yes - Time Time Spent with patient: 15-24 minutes Level of Care: IMCU Medications reviewed and adjusted accordingly: Yes Anticipated discharge: Home Anticipated DC Timeframe: Other - Plan Summary Plan Summary: Continues to current medications we will repeat the BMP in the morning
[2020-07-10] MEDS: ATORVASTATIN CALCIUM 40 MG TABLET PO SCH (21:17)
[2020-07-11 05:56] LABS: ANION GAP 10 (5-19); BLOOD UREA NITROGEN 62 mg/dL (7-20); CALCIUM 8.1 mg/dL (8.4-10.2); CARBON DIOXIDE 19 mmol/L (22-30); CHLORIDE 110 mmol/L (98-107); GLUCOSE 193 mg/dL (75-110); POTASSIUM 4.4 mmol/L (3.6-5.0)
[2020-07-11] MEDS: HYDRALAZINE HCL 50 MG TABLET PO SCH ×3 (06:34→21:24)
[2020-07-11] MEDS: CLONIDINE HCL 0.2 MG TABLET PO SCH ×3 (06:35→21:23)
[2020-07-11] MEDS: INSULIN LISPRO 100 UNIT/ML 3 ML VIAL SUBCUT SCH ×4 (08:44→21:24)
[2020-07-11] MEDS: FERROUS SULFATE 325 MG TABLET PO SCH ×2 (08:44→17:32)
[2020-07-11] MEDS: 1/2 NORMAL SALINE 1,000 ML IV PRN ×2 (08:45→18:14)
[2020-07-11] MEDS: LISINOPRIL 10 MG TABLET PO SCH (09:25)
[2020-07-11] MEDS: METOPROLOL TARTRATE 50 MG TABLET PO SCH ×2 (09:25→21:23)
[2020-07-11] MEDS: SODIUM BICARBONATE 650 MG TABLET PO SCH ×2 (09:26→21:24)
[2020-07-11] MEDS: CALCITRIOL 0.25 MCG CAPSULE PO SCH (09:26)
[2020-07-11] MEDS: POLYETHYLENE GLYCOL 3350 POWDER 17 GM/1 PACKET PO SCH (09:26)
--- NOTE | 2020-07-11 10:12 | PDOC PROGRESS REPORT ---
Subjective Progress Note for:: 07/11/20 Subjective:: Patient is currently doing fair Patient seen by the nephrology suggest the continues to IV fluid continues to monitor Discussed about the possible dialysis on a Sunday or Sunday if is not getting better Patient's denied any chest pain no short of breath Reason For Visit: ABDOMINAL PAIN,CKD STAGE IV,T2DM Physical Exam Vital Signs: Temp Pulse Resp BP Pulse Ox 97.7 F 62 16 148/76 H 98 07/11/20 08:13 07/11/20 07:14 07/11/20 07:14 07/11/20 07:14 07/11/20 07:14 Intake & Output 07/10/20 07/11/20 07/12/20 06:59 06:59 06:59 Intake Total 3528 3352 1000 Output Total 650 1175 Balance 2878 2177 1000 Weight 97.1 kg 100.9 kg General appearance: PRESENT: no acute distress, well-developed, well-nourished Head exam: PRESENT: atraumatic, normocephalic Eye exam: PRESENT: conjunctiva pink, EOMI, PERRLA. ABSENT: scleral icterus Ear exam: PRESENT: normal external ear exam Mouth exam: PRESENT: moist, tongue midline Neck exam: PRESENT: full ROM. ABSENT: carotid bruit, JVD, lymphadenopathy, thyromegaly Respiratory exam: PRESENT: clear to auscultation eric Cardiovascular exam: PRESENT: RRR. ABSENT: diastolic murmur, rubs, systolic murmur Pulses: PRESENT: normal dorsalis pedis pul, +2 pedal pulses bilateral Vascular exam: PRESENT: normal capillary refill GI/Abdominal exam: PRESENT: normal bowel sounds, soft. ABSENT: distended, guarding, mass, organolmegaly, rebound, tenderness Rectal exam: PRESENT: deferred Musculoskeletal exam: PRESENT: ambulatory Neurological exam: PRESENT: alert, awake, oriented to person, oriented to place, oriented to time, oriented to situation, CN II-XII grossly intact. ABSENT: motor sensory deficit Psychiatric exam: PRESENT: appropriate affect, normal mood. ABSENT: homicidal ideation, suicidal ideation Skin exam: PRESENT: dry, intact, warm. ABSENT: cyanosis, rash Results Laboratory Results: 07/09/20 10:57 07/11/20 05:06 07/11/20 05:06 Sodium 139.4 Potassium 4.4 Chloride 110 H Carbon Dioxide 19 L Anion Gap 10 BUN 62 H Creatinine 5.06 H Est GFR ( Amer) 10 L Glucose 193 H Calcium 8.1 L Impressions: Abdomen/Pelvis CT 07/08/20 00:00 IMPRESSION: NO SIGNIFICANT OR ACUTE PROCESS IN THE ABDOMEN OR PELVIS. INCIDENTAL CORTICAL CYSTS IN THE LEFT KIDNEY. Chest X-Ray 07/08/20 00:00 IMPRESSION: NO ACUTE RADIOGRAPHIC FINDING IN THE CHEST. 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 Is this a current diagnosis for this admission?: Yes (4) Anemia Qualifiers: Anemia type: unspecified type Qualified Code(s): D64.9 - Anemia, unspecified Is this a current diagnosis for this admission?: Yes (5) Hypertension Qualifiers: Hypertension type: essential hypertension Qualified Code(s): I10 - Essential (primary) hypertension Is this a current diagnosis for this admission?: Yes - Time Time Spent with patient: 15-24 minutes Level of Care: IMCU Medications reviewed and adjusted accordingly: Yes Anticipated discharge: Home Anticipated DC Timeframe: Other - Plan Summary Plan Summary: Continues to current medications
[2020-07-11] MEDS: INSULIN GLARGINE,HUM.REC.ANLOG 1,000 UNIT/10 ML VIAL SUBCUT SCH (10:37)
[2020-07-11] MEDS ORDERED: INSULIN GLARGINE,HUM.REC.ANLOG 1,000 UNIT/10 ML VIAL (PYX) SUBCUT ONE (11:00)
[2020-07-11] MEDS: ATORVASTATIN CALCIUM 40 MG TABLET PO SCH (21:24)
[2020-07-12] MEDS: 1/2 NORMAL SALINE 1,000 ML IV PRN (04:24)
[2020-07-12] MEDS: CLONIDINE HCL 0.2 MG TABLET PO SCH ×2 (05:44→13:19)
[2020-07-12] MEDS: HYDRALAZINE HCL 50 MG TABLET PO SCH ×2 (05:44→13:19)
[2020-07-12 06:35] LABS: ANION GAP 10 (5-19); BLOOD UREA NITROGEN 55 mg/dL (7-20); CALCIUM 7.9 mg/dL (8.4-10.2); CARBON DIOXIDE 17 mmol/L (22-30); CHLORIDE 113 mmol/L (98-107); GLUCOSE 140 mg/dL (75-110); POTASSIUM 4.7 mmol/L (3.6-5.0)
[2020-07-12] MEDS: INSULIN LISPRO 100 UNIT/ML 3 ML VIAL SUBCUT SCH ×3 (08:27→17:12)
[2020-07-12] MEDS: FERROUS SULFATE 325 MG TABLET PO SCH ×2 (09:27→17:15)
[2020-07-12] MEDS: INSULIN GLARGINE,HUM.REC.ANLOG 1,000 UNIT/10 ML VIAL SUBCUT SCH (09:28)
[2020-07-12] MEDS: LISINOPRIL 10 MG TABLET PO SCH (09:28)
[2020-07-12] MEDS: POLYETHYLENE GLYCOL 3350 POWDER 17 GM/1 PACKET PO SCH (09:28)
[2020-07-12] MEDS: METOPROLOL TARTRATE 50 MG TABLET PO SCH (09:28)
[2020-07-12] MEDS: CALCITRIOL 0.25 MCG CAPSULE PO SCH (09:29)
[2020-07-12] MEDS: SODIUM BICARBONATE 650 MG TABLET PO SCH (09:29)
--- NOTE | 2020-07-12 14:43 | PDOC PROGRESS REPORT ---
Subjective Progress Note for:: 07/12/20 Subjective:: Patient states that she feels better today compared to admission date. Her blood pressure is improved. Her urine output is also improved and she made 1800 mL of urine for the past 24 hours. She is eating. She denies any nausea, vomiting, chest pains no shortness of breath. Reason For Visit: ABDOMINAL PAIN,CKD STAGE IV,T2DM Physical Exam Vital Signs: Temp Pulse Resp BP Pulse Ox 98.2 F 66 20 133/63 H 100 07/12/20 08:22 07/12/20 07:00 07/12/20 03:31 07/12/20 03:31 07/12/20 03:31 Intake & Output 07/11/20 07/12/20 07/13/20 06:59 06:59 06:59 Intake Total 3352 3538 Output Total 1175 1800 Balance 2177 1738 Weight 100.9 kg 103.8 kg Exam: General appearance: PRESENT: no acute distress, cooperative, well-developed, well-nourished Head exam: PRESENT: atraumatic, normocephalic Eye exam: PRESENT: conjunctiva slightly pale, PERRLA. ABSENT: scleral icterus Neck exam: ABSENT: JVD Respiratory exam: PRESENT: Normal breath sounds. ABSENT: crackles, rales, rhonchi, unlabored, wheezes Cardiovascular exam: PRESENT: Regular rate rhythm -+S1, +S2. ABSENT: diastolic murmur, systolic murmur GI/Abdominal exam: PRESENT: normal bowel sounds, soft. ABSENT: guarding, mass, tenderness Extremities exam: ABSENT: No edema Neurological exam: PRESENT: alert, awake, oriented to person, place and time. Skin exam: PRESENT: dry, warm, Results Laboratory Results: 07/09/20 10:57 07/12/20 05:14 07/12/20 05:14 Sodium 139.5 Potassium 4.7 Chloride 113 H Carbon Dioxide 17 L Anion Gap 10 BUN 55 H Creatinine 4.26 H Est GFR ( Amer) 12 L Glucose 140 H Calcium 7.9 L Impressions: Abdomen/Pelvis CT 07/08/20 00:00 IMPRESSION: NO SIGNIFICANT OR ACUTE PROCESS IN THE ABDOMEN OR PELVIS. INCIDENTAL CORTICAL CYSTS IN THE LEFT KIDNEY. Chest X-Ray 07/08/20 00:00 IMPRESSION: NO ACUTE RADIOGRAPHIC FINDING IN THE CHEST. Assessment & Plan - Diagnosis (1) Acute kidney injury superimposed on chronic kidney disease Is this a current diagnosis for this admission?: Yes Plan: Urine output seems to have improved. However the patient's kidney function has not really significantly improved with EGFR of 12 even though her creatinine is gone down from admission. I think the patient has really reach ESRD requiring initiation of renal replacement therapy. I spoke to the patient today regarding starting hemodialysis during this hospitalization and placing a vascular access. Explained to her the procedure for inserting a PermCath as well as dialysis procedure itself including its risk to include infection, bleeding, hemodynamic instability, and during the procedure. Patient seems to understand and agree with initiation of renal replacement therapy but she does not want to have her vascular access placed here at [facility]. I tried to convince her that this is probably a good time to initiate renal replacement therapy but she is adamant to have her vascular access placed in [place]. Prior to talking to her, I already talked to Dr. Hope regarding vascular access placement but she declined to have it done here unfortunately. I discussed with her the possible consequences of worsening clinical condition requiring emergency hemodialysis anytime soon if she does not get initiated with renal basement therapy at this time but she maintains that she wants her access done in [place]. I then spoke to Dr. Vogel and informed him of patient's decision. So at this point I recommended the patient be discharged home today. I will have our office staff arrange for her to have an outpatient PermCath and arrange outpatient hemodialysis at [facility] once done. I also instructed the patient that she would need a PPD skin test done which we can do in the office. One of our staff will contact her once we are able to arrange PermCath placement in [place]. Patient understood and agreed with the plan. (2) Chronic kidney disease, stage V Is this a current diagnosis for this admission?: Yes Plan: Baseline creatinine for the last few months has been between 3-3.6 with EGFR of 13. 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 As a stated above the patient has now reached end-stage renal disease requiring initiation of renal replacement therapy. Plan as above. (3) Proteinuria Is this a current diagnosis for this admission?: Yes Plan: Due to diabetic nephropathy. Urine protein to creatinine ratio is 5.8 with the nephrotic range. Albumin is 2.7. (4) T2DM (type 2 diabetes mellitus) Qualifiers: Diabetes mellitus flower maker insulin use: with mcfp use Diabetes mellitus complication status: with hyperglycemia Qualified Code(s): E11.65 - Type 2 diabetes mellitus with hyperglycemia; Z79.4 - snf (current) use of insulin Is this a current diagnosis for this admission?: Yes Plan: Severely uncontrolled with hemoglobin A1c greater than 14. Explained to the patient the importance of optimal blood sugar control and the detrimental effect of uncontrolled diabetes especially the rapid progression of kidney disease. Patient is scheduled to see an fishing vessel deckhand on July 27. (5) Hypertension Qualifiers: Hypertension type: essential hypertension Qualified Code(s): I10 - Essential (primary) hypertension Is this a current diagnosis for this admission?: Yes Plan: Discussed with patient the importance of blood pressure control and progression of kidney disease. Improved and controlled with current blood pressure regimen. Continue the same. (6) Metabolic acidosis Is this a current diagnosis for this admission?: Yes Plan: Likely due to combination of CKD and hyperchloremic acidosis due to saline. Discontinue IV fluids. Continue oral sodium bicarbonate. (7) Chronic kidney disease-mineral and bone disorder Is this a current diagnosis for this admission?: Yes Plan: PTH of 365.9 with phosphorus of 4.1. Continue calcitriol. (8) Anemia in chronic kidney disease (CKD) Is this a current diagnosis for this admission?: Yes Plan: Acute drop in the hemoglobin most likely secondary to dilution effect of hydration. Will reevaluate this an outpatient. (9) Obese Qualifiers: Obesity type: due to excess calories Is this a current diagnosis for this admission?: Yes - Time Time with patient: Greater than 35 minutes
[2020-07-12 18:04] VITALS: BP 180/88
--- NOTE | 2020-07-12 21:13 | PDOC DISCHARGE SUMMARY ---
Impression - Admit/DC Date/PCP Admission Date/Primary Care Provider: 07/08/20 13:49 ANNA MADISON MD Discharge Date: 07/12/20 - Discharge Diagnosis (1) Acute kidney injury superimposed on chronic kidney disease Is this a current diagnosis for this admission?: Yes (2) Chronic kidney disease, stage V Is this a current diagnosis for this admission?: Yes (3) T2DM (type 2 diabetes mellitus) Is this a current diagnosis for this admission?: Yes (4) Uremia Is this a current diagnosis for this admission?: Yes (5) Coronary artery disease Is this a current diagnosis for this admission?: Yes - Additional Information Discharge Diet: As Tolerated Discharge Activity: Activity As Tolerated Referrals: ANNA MADISON MD [Primary Care Provider] - 07/20/20 10:15 am Prescriptions: Insulin Detemir [Levemir Insulin 100 units/mL Insulin Pen] 45 unit SUBCUT QHS #10 ml Ferrous Sulfate [Feosol 325 mg Tablet] 325 mg PO BIDPCBS #180 tablet Insulin Aspart [Novolog Flexpen] 5 unit SUBCUT AC #12 pen Sodium Bicarbonate [Sodium Bicarbonate 650 mg Tablet] 650 mg PO Q12 #180 tablet Linagliptin [Tradjenta] 5 mg PO DAILY #90 tablet Home Medications: Insulin Detemir [Levemir Flextouch] 35 units SQ DAILY 03/29/18 Calcitriol [Rocaltrol 0.25 mcg Capsule] 0.25 mcg PO DAILY #90 capsule 04/03/18 Clopidogrel Bisulfate [Plavix 75 mg Tablet] 75 mg PO DAILY 05/15/18 Clonidine HCl [Catapres 0.2 mg Tablet] 0.2 mg PO Q8 07/08/20 Hydralazine HCl [Apresoline 50 mg Tablet] 50 mg PO Q8 07/08/20 Lisinopril [Prinivil 10 mg Tablet] 10 mg PO DAILY 07/08/20 Metoprolol Tartrate [Lopressor 50 mg Tablet] 50 mg PO Q12 07/08/20 Rosuvastatin Calcium [Crestor 20 mg Tablet] 20 mg PO QHS 07/08/20 Ferrous Sulfate [Feosol 325 mg Tablet] 325 mg PO BIDPCBS #180 tablet 07/12/20 Insulin Aspart [Novolog Flexpen] 5 unit SUBCUT AC #12 pen 07/12/20 Insulin Detemir [Levemir Insulin 100 units/mL Insulin Pen] 45 unit SUBCUT QHS #10 ml 07/12/20 Linagliptin [Tradjenta] 5 mg PO DAILY #90 tablet 07/12/20 Sodium Bicarbonate [Sodium Bicarbonate 650 mg Tablet] 650 mg PO Q12 #180 tablet 07/12/20 History of Present Illiness History of Present Illness: NELSON WISE is a 75 year old female She has type 2 diabetes mellitus complicated with nephropathy retinopathy neuropathy, chronic kidney disease stage V, she came to the office today with her son and daughter for evaluation of multiple complaints including extreme fatigue, loss of appetite, excessive somnolence, uncontrolled diabetes mellitus. In the office she was hardly able to transfer from the chair to the examination table, she almost fell off just performing such a simple at I thought patient needed inpatient care for further evaluation of her symptoms. The metabolic panel demonstrated BUN of 60, serum creatinine of 6.30 consistent with a GFR of 8 there is mild acidosis serum potassium is normal chest x-ray did not show any volume overload Hospital Course Hospital Course: Patient was admitted for the management of acute on chronic kidney disease, uremia, she was treated with IV fluid, bicarbonate, she was seen in consultation by Dr. Smith nephrology, the plan was to initiate hemodialysis on this admission because it was felt that the kidney as progressed to end-stage renal disease. Patient refused IV access to be inserted in this hospital, she preferred to go to the [facility], Because of this the hemodialysis was not initiated today so she is discharged home today, she will follow outpatient with Dr. smith nephrology, she will arrange for the IV access placement and arrange for hemodialysis outpatient. The diabetes is poorly controlled medication was adjusted, patient discharged today. Physical Exam Vital Signs: Temp Pulse Resp BP Pulse Ox 98.2 F 65 16 180/88 H 98 07/12/20 18:02 07/12/20 18:02 07/12/20 18:02 07/12/20 18:02 07/12/20 18:02 Intake & Output 07/11/20 07/12/20 07/13/20 06:59 06:59 06:59 Intake Total 3352 3538 Output Total 1175 1800 Balance 2177 1738 Weight 100.9 kg 103.8 kg 103.8 kg General appearance: PRESENT: no acute distress Eye exam: PRESENT: PERRLA Respiratory exam: PRESENT: clear to auscultation eric Cardiovascular exam: PRESENT: +S1, +S2 GI/Abdominal exam: PRESENT: soft Neurological exam: PRESENT: alert, CN II-XII grossly intact Results Laboratory Results: WBC 6.2 10^3/uL (4.0-10.5) 07/09/20 10:57 RBC 3.47 10^6/uL (3.72-5.28) L 07/09/20 10:57 Hgb 8.9 g/dL (12.0-15.5) L D 07/09/20 10:57 Hct 26.8 % (36.0-47.0) L 07/09/20 10:57 MCV 77 fl (80-97) L 07/09/20 10:57 MCH 25.6 pg (27.0-33.4) L 07/09/20 10:57 MCHC 33.2 g/dL (32.0-36.0) 07/09/20 10:57 RDW 14.1 % (11.5-14.0) H 07/09/20 10:57 Plt Count 142 10^3/uL (150-450) L 07/09/20 10:57 Lymph % (Auto) 30.9 % (13-45) 07/09/20 10:57 [place] % (Auto) 11.5 % (3-13) 07/09/20 10:57 Eos % (Auto) 2.1 % (0-6) 07/09/20 10:57 Baso % (Auto) 0.8 % (0-2) 07/09/20 10:57 Reticulocyte # 0.074 10^6/uL (0.028-0.122) 07/09/20 12:30 Absolute Neuts (auto) 3.4 10^3/uL (1.7-8.2) 07/09/20 10:57 Absolute Lymphs (auto) 1.9 10^3/uL (0.5-4.7) 07/09/20 10:57 Absolute Monos (auto) 0.7 10^3/uL (0.1-1.4) 07/09/20 10:57 Absolute Eos (auto) 0.1 10^3/uL (0.0-0.6) 07/09/20 10:57 Absolute Basos (auto) 0.0 10^3/uL (0.0-0.2) 07/09/20 10:57 Seg Neutrophils % 54.7 % (42-78) 07/09/20 10:57 Retic Count (auto) 2.15 % (0.66-2.85) 07/09/20 12:30 Sodium 139.5 mmol/L (137-145) 07/12/20 05:14 Potassium 4.7 mmol/L (3.6-5.0) 07/12/20 05:14 Chloride 113 mmol/L (98-107) H 07/12/20 05:14 Carbon Dioxide 17 mmol/L (22-30) L 07/12/20 05:14 Anion Gap 10 (5-19) 07/12/20 05:14 BUN 55 mg/dL (7-20) H 07/12/20 05:14 Creatinine 4.26 mg/dL (0.52-1.25) H 07/12/20 05:14 Est GFR ( Amer) 12 (>60) L 07/12/20 05:14 Est GFR (MDRD) Non-Af 10 (>60) L 07/12/20 05:14 Glucose 140 mg/dL (75-110) H 07/12/20 05:14 POC Glucose 251 mg/dL (70-110) H 07/12/20 09:03 Hemoglobin A1c % > 14.0 % (4.7-6.0) H 07/08/20 14:40 Calcium 7.9 mg/dL (8.4-10.2) L 07/12/20 05:14 Phosphorus 4.1 mg/dL (2.5-4.5) 07/09/20 12:30 Magnesium 2.0 mg/dL (1.6-2.3) 07/09/20 12:30 Iron 40.3 ug/dL (37-170) 07/09/20 12:30 TIBC 242 ug/dL (250-450) L 07/09/20 12:30 % Saturation 17 % 07/09/20 12:30 Ferritin 183.00 ng/mL (11.1-264.0) 07/09/20 12:30 Total Bilirubin 0.3 mg/dL (0.2-1.3) 07/09/20 12:30 Direct Bilirubin 0.3 mg/dL (0.0-0.4) 07/09/20 12:30 Neonat Total Bilirubin Not Reportable 07/09/20 12:30 Neonat Direct Bilirubin Not Reportable 07/09/20 12:30 Neonat Indirect Bili Not Reportable 07/09/20 12:30 AST 17 U/L (14-36) 07/09/20 12:30 ALT 13 U/L (<35) 07/09/20 12:30 Alkaline Phosphatase 67 U/L (38-126) 07/09/20 12:30 Total Protein 5.4 g/dL (6.3-8.2) L 07/09/20 12:30 Albumin 2.7 g/dL (3.5-5.0) L 07/09/20 12:30 Lipase 128.4 U/L (23-300) 07/08/20 14:40 Vitamin B12 711.0 pg/mL (239-931) 07/09/20 12:30 Folate 7.63 ng/mL (>2.76) 07/09/20 12:30 TSH 0.27 uIU/mL (0.47-4.68) L 07/08/20 14:40 Free T4 1.12 ng/dL (0.78-2.19) 07/08/20 14:40 PTH Intact 365.9 pg/mL (10.0-65.0) H 07/09/20 12:30 Urine Color YELLOW 07/08/20 21:25 Urine Appearance CLOUDY 07/08/20 21: Urine pH 5.0 (5.0-9.0) 07/08/20 21:25 Ur Specific [place] 1.015 07/08/20 21: Urine Protein >=500 mg/dL (NEGATIVE) H 07/08/20 21:25 Urine Glucose (UA) >=500 mg/dL (NEGATIVE) H 07/08/20 21: Urine Ketones NEGATIVE mg/dL (NEGATIVE) 07/08/20 21: Urine Blood SMALL (NEGATIVE) H 07/08/20 21:25 Urine Nitrite NEGATIVE (NEGATIVE) 07/08/20 21: Urine Bilirubin NEGATIVE (NEGATIVE) 07/08/20 21: Urine Urobilinogen NEGATIVE mg/dL (<2.0) 07/08/20 21:25 Ur Leukocyte Esterase TRACE (NEGATIVE) H 07/08/20 21:25 Urine WBC (Auto) 6 /HPF 07/08/20 21:25 Urine RBC (Auto) 3 /HPF 07/08/20 21:25 U Hyaline Cast (Auto) 4 /LPF 07/08/20 21:25 Urine Bacteria (Auto) TRACE /HPF 07/08/20 21:25 Squamous Epi Cells Auto 19 /HPF 07/08/20 21:25 Urine Mucus (Auto) RARE /LPF 07/08/20 21:25 Urine Creatinine 149.9 mg/dL (15-278) 07/08/20 20:25 Protein/Creatinin Ratio 5.8 mg/mg (0.0-0.2) H 07/08/20 20:25 Urine Total Protein 871.0 mg/dL (<12) H 07/08/20 20:25 Urine Ascorbic Acid NEGATIVE (NEGATIVE) 07/08/20 21:25 Impressions: Abdomen/Pelvis CT 07/08/20 00:00 IMPRESSION: NO SIGNIFICANT OR ACUTE PROCESS IN THE ABDOMEN OR PELVIS. INCIDENTAL CORTICAL CYSTS IN THE LEFT KIDNEY. Chest X-Ray 07/08/20 00:00 IMPRESSION: NO ACUTE RADIOGRAPHIC FINDING IN THE CHEST. Stroke Is this a Stroke Patient?: No Acute Heart Failure Is this a Heart Failure Patient?: No
[2020-07-13 12:37] LABS: HEPATITS B SURFACE ANTIGEN Negative (Negative)
[2020-07-13 13:55] LABS: HEPATITIS B CORE AB TOT Negative (Negative)
[2020-07-14 12:37] LABS: HEPATITIS C QUANTITATION HCV Not Detected IU/mL (.)
== END 2020-07-12 19:00 | disposition home or self-care (01) | DRG 683 ==
LOC: 5 13:49
PROVIDERS: ADMIT Internal Medicine; ATTEND Internal Medicine
DX: I12.0 Hypertensive chronic kidney disease with stage 5 chronic kidney disease or end stage renal disease (principal); N17.9 Acute kidney failure, unspecified; E87.2 Acidosis; N18.5 Chronic kidney disease, stage 5; E11.319 Type 2 diabetes mellitus with unspecified diabetic retinopathy without macular edema; E11.65 Type 2 diabetes mellitus with hyperglycemia; E11.22 Type 2 diabetes mellitus with diabetic chronic kidney disease; E11.43 Type 2 diabetes mellitus with diabetic autonomic (poly)neuropathy; K21.9 Gastro-esophageal reflux disease without esophagitis; M19.90 Unspecified osteoarthritis, unspecified site; I25.10 Atherosclerotic heart disease of native coronary artery without angina pectoris; E66.01 Morbid (severe) obesity due to excess calories; E83.9 Disorder of mineral metabolism, unspecified; R80.8 Other proteinuria; I25.2 Old myocardial infarction; E78.5 Hyperlipidemia, unspecified; D63.1 Anemia in chronic kidney disease; Z53.29 Procedure and treatment not carried out because of patient's decision for other reasons; Z79.4 Long term (current) use of insulin; Z86.73 Personal history of transient ischemic attack (TIA), and cerebral infarction without residual deficits; Z79.899 Other long term (current) drug therapy; N25.0 Renal osteodystrophy; Z68.38 Body mass index [BMI] 38.0-38.9, adult
CPT/HCPCS: 36415; 71046; 74176; 80048; 80053; 80076; 81001; 82570; 82607; 82728; 82746; 82962; 83036; 83540; 83550; 83690; 83735; 83970; 84100; 84156; 84439; 84443; 85025; 85027; 85045; 86317; 86704; 87086; 87340; 87522; 93005; 93010; J1815; J3490; J7030

== ENCOUNTER 2020-07-27 12:40 | Day surgery (SDC) | payer MEDICARE ==
[~2020-07-27 12:40] MED LIST changes: +CEFAZOLIN 2 GM/D5W RTU 2 GM/50 ML RTUPB IV PRN; -CHONDR SU A NA/HYALUR INTRAOC KIT (SURGICARE) ONE; -EPINEPHRINE INJ/PF 1 MG/1 ML AMPULE ONE; -KETOROLAC TROMETHAMINE 0.45% 4 DROP/0.4 ML DROPERETTE OD PRN; -LIDOCAINE 1% INJ-PF (10 MG/ML) 30 ML SDV ONE
[2020-07-27] MEDS ORDERED: CEFAZOLIN 2 GM/D5W RTU 2 GM/50 ML RTUPB IV ONE (13:10)
[2020-07-27] MEDS ORDERED: ONDANSETRON HCL INJ/PF 4 MG/2 ML SDV ONE (13:29)
[2020-07-27] MEDS ORDERED: FENTANYL CITRATE INJ/PF 100 MCG/2 ML AMPUL ONE (13:29)
[2020-07-27] MEDS ORDERED: MIDAZOLAM 2 MG/2 ML INJ ONE (13:29)
[2020-07-27] MEDS ORDERED: PROPOFOL INJ 200 MG/20 ML VIAL IV ONE (13:29)
[2020-07-27 13:30] LABS: INTERNATIONAL RATION (INR) 0.99; PROTHROMBIN TIME 13.3 SEC (11.4-15.4)
[2020-07-27 13:31] LABS: PARTIAL THROMBOPLASTIN TIME 27.2 SEC (23.5-35.8)
[2020-07-27] MEDS ORDERED: BUPIVACAINE INJ/PF LIPOSOME/PF 266 MG/20 ML SDV ONE (13:41)
[2020-07-27] MEDS ORDERED: HEPARIN SOD (PORCINE) 1,000 UNIT/ML 1 ML VIAL ONE (13:41)
[2020-07-27] MEDS ORDERED: LIDOCAINE 1% INJ-PF (10 MG/ML) 30 ML SDV ONE (14:26)
[2020-07-27] MEDS ORDERED: KETAMINE HCL INJ 500 MG/10 ML VIAL ONE (14:29)
--- NOTE | 2020-07-27 15:14 | Operative Report ---
Nonrecallable Operative Report DATE OF SURGERY: 07/27/20 PREOPERATIVE DIAGNOSIS: Chronic kidney disease POSTOPERATIVE DIAGNOSIS: Same OPERATION: Permacath placement right chest SURGEON: ZHEN WHITE ANESTHESIA: Moderate Sedation TISSUE REMOVED OR ALTERED: None COMPLICATIONS: None ESTIMATED BLOOD LOSS: 50 cc INTRAOPERATIVE FINDINGS: See note PROCEDURE: Patient was brought to the operating awake alert stable condition placed on the upper table supine position and given IV sedation the right neck was prepped and draped in usual sterile manner as was the right chest. After appropriate timeout and site verification the procedure commenced. Using a 22-gauge needle the area over the right internal jugular vein was anesthetized with 1% lidocaine plain. The vein was then accessed with a 22- gauge needle and then again with a 16-gauge needle through that needle under fluoroscopy a wire was placed into the superior vena cava. The dilators were then placed over the wire to dilate the tract and then the dilator introducer was placed over the wire into the superior vena cava and the dilators were removed as well as the wire leaving the introducer in place. Point was picked on the right lateral chest wall where an incision was made after anesthetizing skin with 1% lidocaine plain the tunnel maker supplied with a 28 cm long dual lumen permacath was placed into that incision and tunneled on the anterior chest wall to the right neck where the tear-away introducer was placed. The catheter was then pulled through with a cuff at the exit site. The catheter was then placed through the tear-away introducer and the introducer was torn away leaving the catheter in the superior vena cava. The catheter flowed well and injected easily. There was no kink on fluoroscopy and was positioned well. It was heparinized with heparinized saline solution the area of the anterior neck was then closed with 3-0 Vicryl subcutaneously and and Steri-Strips were placed over that the catheter was then affixed to the anterior chest wall with two 3-0 Prolene suture. A sterile dressing was applied which completed the procedure. Estimated blood loss was 50 cc sponge needle counts were correct x2 patient was then transferred recovery in stable condition.
[2020-07-27] MEDS ORDERED: LABETALOL HCL INJ 20 MG/4 ML DISP.SYRIN IV ONE ×2 (15:15→16:37)
[2020-07-27] MEDS ORDERED: OXYCODONE-ACETAMINOPHEN 5-325 MG TABLET PO PRN (15:23)
[2020-07-27] MEDS ORDERED: PROMETHAZINE HCL INJ 25 MG/1 ML VIAL IV PRN ×2 (15:23)
[2020-07-27] MEDS ORDERED: FENTANYL CITRATE INJ/PF 100 MCG/2 ML AMPUL IV PRN ×3 (15:23)
[2020-07-27] MEDS ORDERED: DIPHENHYDRAMINE HCL 50 MG/ML VIAL IV PRN (15:23)
[2020-07-27] MEDS ORDERED: MEPERIDINE HCL/PF INJ 25 MG/1 ML DISP.SYRIN IV PRN (15:23)
[2020-07-27] MEDS: LABETALOL HCL INJ 20 MG/4 ML DISP.SYRIN IV PRN ×2 (15:24→15:34)
--- NOTE | 2020-07-27 15:25 | Discharge Summary ---
Discharge Summary (SDC) - Discharge Final Diagnosis: Chronic renal failure Date of Surgery: 07/27/20 Discharge Date: 07/27/20 Condition: Good Referrals: ANNA MADISON MD [Primary Care Provider] - Discharge Diet: As Tolerated Discharge Activity: Activity As Tolerated Report the Following to Your Physician Immediately: Increase in Pain, Unusual Bleeding
[2020-07-27] MEDS: FENTANYL CITRATE INJ/PF 100 MCG/2 ML AMPUL ONE ×2 (15:30→15:35)
[2020-07-27] MEDS: HYDRALAZINE HCL INJ/PF 20 MG/1 ML SDV ONE ×3 (15:50→16:10)
--- NOTE | 2020-07-27 15:51 | RADIOLOGY REPORT (SQ) ---
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 FLUOROSCOPY TIME: 1.4 minutes. 3 images saved to PACS. TECHNIQUE: Intra-operative images acquired during surgical procedure to evaluate progress. NUMBER OF IMAGES: 3 images. LIMITATIONS: None. FINDINGS: Images of the upper chest acquired during catheter placement. IMPRESSION: IMAGE(S) OBTAINED DURING PROCEDURE. COMMENT: Quality ID [id number]: Final reports for procedures using fluoroscopy that document radiation exp osure indices, or exposure time and number of fluorographic images (if radiation exposure indices are not available) Please consult full operative report of the attending physician for description of the procedure. TECHNICAL DOCUMENTATION: JOB ID: [id number] 2010 [employer]- All Rights Reserved Reading location - IP/workstation name: [email or web address]
--- NOTE | 2020-07-27 16:03 | RADIOLOGY REPORT (SQ) ---
EXAM DESCRIPTION: CHEST SINGLE VIEW IMAGES COMPLETED DATE/TIME: 07/27/2020 3:48 pm REASON FOR STUDY: post op perm cath COMPARISON: 07/08/2020. EXAM PARAMETERS: NUMBER OF VIEWS: One view. TECHNIQUE: Single frontal radiographic view of the chest acquired. RADIATION DOSE: NA LIMITATIONS: None. FINDINGS: LUNGS AND PLEURA: Mild atelectasis in the lung bases. No pneumothorax. MEDIASTINUM AND HILAR STRUCTURES: No masses. Contour normal. HEART AND VASCULAR STRUCTURES: Cardiomegaly. BONES: No acute findings. HARDWARE: Multi lumen catheter, tip at the level of the superior vena cava. OTHER: No other significant finding. IMPRESSION: NO PNEUMOTHORAX FOLLOWING CATHETER PLACEMENT. CARDIOMEGALY. TECHNICAL DOCUMENTATION: JOB ID: [id number] 2010 [email or web address]- All Rights Reserved Reading location - IP/workstation name: [email or web address]
[2020-07-27 18:40] VITALS: BP 175/72
== END 2020-07-27 18:10 | disposition home or self-care (01) ==
LOC: OROUT 12:40
PROVIDERS: ATTEND Surgery
DX: I12.0 Hypertensive chronic kidney disease with stage 5 chronic kidney disease or end stage renal disease (principal); E11.22 Type 2 diabetes mellitus with diabetic chronic kidney disease; N18.5 Chronic kidney disease, stage 5; N25.0 Renal osteodystrophy; M19.90 Unspecified osteoarthritis, unspecified site; I25.119 Atherosclerotic heart disease of native coronary artery with unspecified angina pectoris; E78.5 Hyperlipidemia, unspecified; E66.9 Obesity, unspecified; E11.40 Type 2 diabetes mellitus with diabetic neuropathy, unspecified; I25.2 Old myocardial infarction; Z03.818 Encounter for observation for suspected exposure to other biological agents ruled out; Z79.01 Long term (current) use of anticoagulants; Z79.899 Other long term (current) drug therapy; Z95.5 Presence of coronary angioplasty implant and graft; Z79.4 Long term (current) use of insulin
CPT/HCPCS: 36558; C1750; 36415; 532; 71045; 77001; 82962; 84132; 85610; 85730; 87635; C9290; C9803; J0360; J0690; J1644; J2250; J2405; J2704; J3010; J3490

== ENCOUNTER 2020-10-04 06:49 | Day surgery (SDC) | payer MEDICARE ==
[2020-10-01 12:49] LABS: HEMATOCRIT 34.2 % (36.0-47.0); HEMOGLOBIN 10.9 g/dL (12.0-15.5); MEAN CORPUSCULAR HEMOGLOBIN 25.2 pg (27.0-33.4); MEAN CORPUSCULAR VOLUME 79 fl (80-97); PLATELET COUNT 219 10^3/uL (150-450); RED BLOOD COUNT 4.34 10^6/uL (3.72-5.28); RED CELL DISTRIBUTION WIDTH 15.1 % (11.5-14.0); WHITE BLOOD COUNT 5.5 10^3/uL (4.0-10.5)
[2020-10-01 13:16] LABS: ANION GAP 17 (5-19); BLOOD UREA NITROGEN 41 mg/dL (7-20); CALCIUM 8.7 mg/dL (8.4-10.2); CARBON DIOXIDE 24 mmol/L (22-30); CHLORIDE 98 mmol/L (98-107); GLUCOSE 325 mg/dL (75-110)
--- NOTE | 2020-10-01 13:23 | RADIOLOGY REPORT (SQ) ---
EXAM DESCRIPTION: CHEST 2 VIEWS IMAGES COMPLETED DATE/TIME: 10/01/2020 1:05 pm REASON FOR STUDY: PRE OP TESTING COMPARISON: 07/27/2020. EXAM PARAMETERS: NUMBER OF VIEWS: two views TECHNIQUE: Digital Frontal and Lateral radiographic views of the chest acquired. RADIATION DOSE: NA LIMITATIONS: none FINDINGS: LUNGS AND PLEURA: No opacities, masses or pneumothorax. No pleural effusion. MEDIASTINUM AND HILAR STRUCTURES: No masses or contour abnormalities. HEART AND VASCULAR STRUCTURES: Stable cardiomegaly. No evidence for failure. BONES: No acute findings. Degenerative changes in the spine. HARDWARE: Multi lumen catheter. OTHER: No other significant finding. IMPRESSION: NO ACUTE RADIOGRAPHIC FINDING IN THE CHEST. TECHNICAL DOCUMENTATION: JOB ID: [id number] 2010 [employer]- All Rights Reserved Reading location - IP/workstation name: [email or web address]
--- NOTE | 2020-10-01 21:58 | EKG REPORT ---
SEVERITY:- ABNORMAL ECG - SINUS RHYTHM MULTIPLE ATRIAL PREMATURE COMPLEXES PROBABLE LEFT ATRIAL ABNORMALITY LVH WITH SECONDARY REPOLARIZATION ABNORMALITY : Confirmed by: Eric Steve 01-Oct-2020 21:57:41
[~2020-10-04 06:49] MED LIST changes: +CEFAZOLIN 2 GM/D5W RTU 2 GM/50 ML RTUPB IV ONE; +DEXAMETHASONE SOD PHOSPHATE INJ 4 MG/1 ML VIAL ONE; +EPHEDRINE SULFATE INJ 50 MG/1 ML AMPULE ONE; +FENTANYL CITRATE INJ/PF 100 MCG/2 ML AMPUL ONE; +LIDOCAINE 0.5% INJ-PF (5 MG/ML) 50 ML SDV SUBCUT PRN; +MIDAZOLAM 2 MG/2 ML INJ ONE; +NORMAL SALINE 1000 ML (RENAL PATIENTS) IV PRN; +ONDANSETRON HCL INJ/PF 4 MG/2 ML SDV ONE; +PROPOFOL INJ 200 MG/20 ML VIAL IV ONE
[2020-10-04] MEDS ORDERED: METOPROLOL TARTRATE 25 MG TABLET ONE (07:27)
[2020-10-04 07:41] LABS: INTERNATIONAL RATION (INR) 0.92; PARTIAL THROMBOPLASTIN TIME 27.4 SEC (23.5-35.8); PROTHROMBIN TIME 12.6 SEC (11.4-15.4)
[2020-10-04] MEDS ORDERED: ROPIVACAINE HCL 0.5% INJ/PF (5 MG/1 ML) 30 ML SDV ONE (07:51)
[2020-10-04 07:56] LABS: POTASSIUM 3.8 mmol/L (3.6-5.0)
[2020-10-04] MEDS ORDERED: LIDOCAINE 1% INJ-PF (10 MG/ML) 30 ML SDV ONE (08:11)
[2020-10-04] MEDS ORDERED: HEPARIN SOD (PORCINE) 1,000 UNIT/ML 10 ML VIAL ONE (08:12)
[2020-10-04] MEDS ORDERED: HEPARIN SODIUM,PORCINE/NS/PF 0 UNIT/0 ML RTUINJ IV ONE (08:14)
[2020-10-04] MEDS ORDERED: HEPARIN SOD (PORCINE) 1,000 UNIT/ML 1 ML VIAL ONE (08:16)
[2020-10-04] MEDS ORDERED: KETAMINE HCL INJ 500 MG/10 ML VIAL ONE (08:27)
[2020-10-04] MEDS ORDERED: MIDAZOLAM 2 MG/2 ML INJ ONE (08:27)
[2020-10-04] MEDS ORDERED: DEXMEDETOMIDINE INJ 80 MCG/20 ML VIAL IV ONE (08:27)
[2020-10-04] MEDS ORDERED: DIPHENHYDRAMINE HCL 50 MG/ML VIAL IV PRN (09:26)
[2020-10-04] MEDS ORDERED: FENTANYL CITRATE INJ/PF 100 MCG/2 ML AMPUL IV PRN ×3 (09:26)
[2020-10-04] MEDS ORDERED: PROMETHAZINE HCL INJ 25 MG/1 ML VIAL IV PRN ×2 (09:26)
[2020-10-04] MEDS ORDERED: OXYCODONE-ACETAMINOPHEN 5-325 MG TABLET PO PRN (09:26)
[2020-10-04] MEDS ORDERED: MORPHINE SULFATE 10 MG/ML INJ IV PRN (09:26)
[2020-10-04] MEDS ORDERED: MEPERIDINE HCL/PF INJ 25 MG/1 ML DISP.SYRIN IV PRN (09:26)
--- NOTE | 2020-10-04 10:25 | Operative Report ---
Nonrecallable Operative Report DATE OF SURGERY: 10/04/20 PREOPERATIVE DIAGNOSIS: Renal failure POSTOPERATIVE DIAGNOSIS: Same OPERATION: Brachiocephalic fistula left upper arm SURGEON: ZHEN WHITE 1ST COFFEE SUPERVISOR: MELANIA SMITH ANESTHESIA: GA TISSUE REMOVED OR ALTERED: None COMPLICATIONS: None ESTIMATED BLOOD LOSS: 50 cc INTRAOPERATIVE FINDINGS: See note PROCEDURE: 50 cc patient was brought to the operating awake alert stable condition placed on the operative table supine position given IV sedation Patient. Underwent an axillary block in the left arm. After appropriate timeout and site verification the procedure commenced. A transverse incision was made with a 15 blade in the antecubital fossa approximately 6 cm long dissection was carried down to subcutaneous tissue with Bovie cautery. Wit sharp dissection we then identified the median basilic vein. Once this was identified and clear of overlying areolar tissue for approximately 4 cm were identified the bicipital fascia opened this up and identified the brachial artery. The brachial artery was cleared for approximately 4 cm and slung with Vesseloops proximally distally. We then mobilized the vein and artery proximally distally enough so that they came side to side fairly easily without tension. They were stung with Vesseloops proximally distally. We then created an anastomosis between the median basilic vein and the brachial artery with 6-0 Prolene suture approximately a 1 cm long anastomosis was done. Once the Vesseloops were released both the artery was palpated proximally and distally and into the arm forearm as well as a palpable thrill in the basilic vein. Hemostasis was obtained with Surgicel after good hemostasis we closed the subcutaneous tissue with interrupted 3-0 Vicryl suture and closed the skin with intracuticular particular placed 4-0 Biosyn suture. Steri-Strips completed the procedure. Estimated blood loss was less than 50 cc sponge needle counts correct x2 the patient was transferred recovery in stable condition no complications. ORIN Hawkins was present for the entire procedure for help with wound retraction wound closure.
[2020-10-04] MEDS ORDERED: HYDROCODONE/ACETAMINOPHEN 7.5-325 MG TABLET PO PRN (10:27)
--- NOTE | 2020-10-04 10:27 | Discharge Summary ---
Discharge Summary (SDC) - Discharge Final Diagnosis: Renal failure Date of Surgery: 10/04/20 Discharge Date: 10/04/20 Condition: Good Prescriptions: Hydrocodone/Acetaminophen [[place] 7.5-325 mg Tablet] 1 tab PO Q6HP PRN #10 tablet PRN Reason: Referrals: ANNA MADISON MD [Primary Care Provider] - Report the Following to Your Physician Immediately: Increase in Pain, Fever over 101 Degrees, Unusual Bleeding
[2020-10-04 12:28] VITALS: BP 126/69
== END 2020-10-04 12:10 | disposition home or self-care (01) ==
LOC: OROUT 06:49
PROVIDERS: ATTEND Surgery
DX: I12.0 Hypertensive chronic kidney disease with stage 5 chronic kidney disease or end stage renal disease (principal); E11.22 Type 2 diabetes mellitus with diabetic chronic kidney disease; N18.5 Chronic kidney disease, stage 5; E66.9 Obesity, unspecified; E78.5 Hyperlipidemia, unspecified; I25.2 Old myocardial infarction; N25.0 Renal osteodystrophy; I25.10 Atherosclerotic heart disease of native coronary artery without angina pectoris; Z79.899 Other long term (current) drug therapy; Z79.4 Long term (current) use of insulin
CPT/HCPCS: 93005; 36415 ×2; 82947; 84132; 85027; 85610; 85730; 80048; 71046; 93010; 36821; U0003; J2795; J2250; J1100; J3490 ×2; J3010; J1644; J2405; J2704; A9270; J0690; C9803; 1844; 87635